=== PATIENT | female | born 1955 | race Caucasian/White ===

== ENCOUNTER 2020-08-29 16:57 | Inpatient (IN) | payer SELFPAY ==
[~2020-08-29 16:57] MED LIST: Heparin 1,000 UNITS/ML VIAL ONE
[2020-08-29] MEDS ORDERED: Albumin 25% 25 GM/100 ML BOT IVPB SCH (18:00)
[2020-08-29 18:01] LABS: #Basophils 0.1 thou/uL (0.0-0.2); #Eosinphils 0.3 thou/uL (0.0-0.7); #Lymphocytes 1.9 thou/uL (1.20-3.40); #Monocytes 1.7 thou/uL (0.11-0.59); #Neutrophils 7.8 thou/uL (1.40-6.50); %Basophils 0.7 % (0.0-1.0); %Eosinophils 2.3 % (0.0-10.0); %Lymphocytes 16.4 % (21.0-51.0); %Monocytes 14.7 % (0.0-10.0); %Neutrophils 65.8 % (42.0-75.0); Hemoglobin 15.5 g/dL (12.0-16.0); Mean Corpuscular HGB CONC 31.2 g/dL (32.0-36.0); Mean Corpuscular Hemoglobin 28.7 pg (27.0-31.0); Mean Corpuscular Volume 91.8 fL (78.0-98.0); Mean Platelet Volume 7.4 fL (7.4-10.4); Platelet Count 258 thou/uL (130-400); RBC Distribution Width 16.5 % (11.5-14.5); Red Blood Cell (RBC) Count 5.42 mill/uL (4.20-5.40); White Blood Cell (WBC) Count 11.8 thou/uL (4.8-10.8)
[2020-08-29] MEDS ORDERED: Furosemide 100 MG/10 ML VIAL ONE (18:21)
[2020-08-29 18:23] LABS: ALT (SGPT) 8 U/L (8-55); AST (SGOT) 18 U/L (5-34); Albumin 3.9 g/dL (3.4-4.8); Alkaline Phosphatase 102 U/L (40-110); Anion Gap 16 mmol/L (10-20); BUN (Urea Nitrogen) 13 mg/dL (9.8-20.1); Bilirubin, Total 1.9 mg/dL (0.2-1.2); Calc. Creatinine Clearance 0 mL/min (70-130); Calcium 9.3 mg/dL (7.8-10.44); Carbon Dioxide 32 mmol/L (23-31); Chloride 97 mmol/L (98-107); Globulin 3.6 g/dL (2.4-3.5); Glucose 108 mg/dL (80-115); Lipase 16 U/L (8-78); Magnesium 1.7 mg/dL (1.6-2.6); Potassium 3.2 mmol/L (3.5-5.1); Protein, Total 7.5 g/dL (5.8-8.1); Sodium 142 mmol/L (136-145)
[2020-08-29 20:38] LABS: Bilirubin Negative (Negative); Blood, Urine 2+ (Negative); Clarity Clear (Clear); Glucose, Urine (Dipstick) Normal (Negative); Ketone, Urine Negative (Negative); Leukocyte Negative Leu/uL (Negative); Mucous/LPF Rare LPF (<2+); Nitrite Negative (Negative); Protein, Urine (Dipstick) 50 mg/dL (Neg-Trace); RBC/HPF 0-3 HPF (0-3); Specific Gravity, Urine 1.012 (1.002-1.036); Urobilinogen Normal mg/dL (Less than 2); WBC/HPF 0-3 HPF (0-3)
[2020-08-29 20:45] LABS: Bacteria/HPF 1+ HPF (None Seen)
[2020-08-30] MEDS ORDERED: Potassium Chloride 20 MEQ TAB PO SCH (00:31)
[2020-08-30] MEDS ORDERED: Magnesium Oxide 400 MG TAB PO SCH (00:45)
[2020-08-30] MEDS ORDERED: Bumetanide 1 MG/4 ML VIAL IVP SCH ×3 (00:45→09:00)
[2020-08-30] MEDS ORDERED: Potassium Chloride 20 MEQ TAB ONE ×2 (01:24→09:39)
[2020-08-30] MEDS ORDERED: Potassium Chloride 20 MEQ/100 ML PREMIX BAG ONE ×2 (01:24→05:00)
[2020-08-30] MEDS: Potassium Chloride 20 MEQ in Premix Bag 1 BAG IVPB SCH ×2 (01:39→05:19)
[2020-08-30] MEDS ORDERED: Dextrose 50% Abboject 50 ML SYRINGE SLOW IVP PRN (02:17)
[2020-08-30] MEDS ORDERED: Dextrose 5% in Water 1,000 ML IV PRN (02:17)
[2020-08-30 02:40] LABS: SARS-CoV-2 NAA Rapid Test Not Detected (NotDetected)
[2020-08-30 06:49] LABS: Mean Corpuscular HGB CONC 30.9 g/dL (32.0-36.0); Mean Corpuscular Hemoglobin 28.9 pg (27.0-31.0); Mean Corpuscular Volume 93.3 fL (78.0-98.0); Mean Platelet Volume 7.8 fL (7.4-10.4); Platelet Count 225 thou/uL (130-400); RBC Distribution Width 16.4 % (11.5-14.5); Red Blood Cell (RBC) Count 4.84 mill/uL (4.20-5.40); White Blood Cell (WBC) Count 7.9 thou/uL (4.8-10.8)
[2020-08-30 06:55] LABS: Anion Gap 19 mmol/L (10-20); BUN (Urea Nitrogen) 13 mg/dL (9.8-20.1); Calc. Creatinine Clearance 94 mL/min (70-130); Calcium 8.8 mg/dL (7.8-10.44); Carbon Dioxide 25 mmol/L (23-31); Chloride 101 mmol/L (98-107); Glucose 128 mg/dL (80-115); Magnesium 1.7 mg/dL (1.6-2.6); Potassium 4.5 mmol/L (3.5-5.1); Sodium 140 mmol/L (136-145)
[2020-08-30 07:10] LABS: INR-International Normal Ratio 1.2
[2020-08-30 07:24] LABS: Band 5 % (5-11); Eosinophils 1 % (0-10); Lymphocytes 23 % (21-51); MDiff Complete? YES; Monocytes 15 % (0-10); Neutrophil 56 % (42-75); Platelet Morphology Comment Appears Adequate; RBC Morphology Normal
[2020-08-30] MEDS ORDERED: glipiZIDE 10 MG TAB PO SCH (08:00)
[2020-08-30] MEDS ORDERED: Carvedilol 25 MG TAB PO SCH (08:00)
[2020-08-30] MEDS ORDERED: predniSONE 5 MG TAB PO SCH (08:00)
[2020-08-30] MEDS ORDERED: Furosemide 100 MG/10 ML VIAL SLOW IVP SCH ×5 (08:30→11:00)
[2020-08-30] MEDS ORDERED: Atenolol 50 MG TAB PO SCH (09:00)
[2020-08-30] MEDS ORDERED: Losartan 25 MG TAB PO SCH (09:00)
[2020-08-30] MEDS ORDERED: Metolazone 2.5 MG TAB PO SCH (09:00)
[2020-08-30] MEDS ORDERED: Escitalopram Oxalate 10 mg Tablet PO SCH (09:00)
[2020-08-30] MEDS ORDERED: HumuLIN 70/30 (300 UNITS/3 ML VIAL) SC SCH (09:00)
[2020-08-30] MEDS ORDERED: Amlodipine 10 MG TAB PO SCH (09:00)
[2020-08-30] MEDS ORDERED: Nitroglycerin 2% Ointment 1 INCH/1 GM Packet TOP SCH (09:15)
[2020-08-30] MEDS ORDERED: Enoxaparin Sodium 40 MG/0.4 ML SYRINGE ONE (09:24)
[2020-08-30] MEDS: Atorvastatin Calcium 10 MG TAB PO SCH (09:30)
[2020-08-30] MEDS: Potassium Chloride 20 MEQ TAB PO SCH ×2 (09:30→21:42)
[2020-08-30] MEDS: Liothyronine Sodium 25 MCG TAB PO SCH ×2 (09:30→21:52)
[2020-08-30] MEDS: Magnesium Oxide 400 MG TAB PO SCH ×2 (09:30→21:42)
[2020-08-30] MEDS ORDERED: Iopamidol-370 76% 500 ML 1 ML ONE (09:30)
[2020-08-30] MEDS: Enoxaparin Sodium 40 MG/0.4 ML SYRINGE SC SCH (09:30)
[2020-08-30] MEDS: Escitalopram Oxalate 20 mg Tablet PO SCH (09:30)
[2020-08-30] MEDS ORDERED: predniSONE 1 MG/ML ML PO SCH (11:00)
[2020-08-30] MEDS ORDERED: Furosemide 100 MG/10 ML VIAL ONE (11:10)
[2020-08-30 12:26] LABS: Cardiac Risk 4.5 (Less than 4.5)
[2020-08-30] MEDS ORDERED: Milrinone Lactate/D5W 20 MG in Premix Bag 1 BAG IVPB SCH (14:15)
[2020-08-30] MEDS ORDERED: Milrinone 20 MG in Sodium Chloride 0.9% 100 ML IVPB SCH ×2 (14:15→17:00)
[2020-08-30] MEDS ORDERED: Milrinone Lactate/D5W 20 MG in Premix Bag 1 BAG IV SCH (17:00)
[2020-08-30] MEDS: Spironolactone 25 MG TAB PO SCH (21:47)
[2020-08-30] MEDS: Nystatin Cream 15 GM TUBE TOP SCH ×2 (21:54)
[2020-08-30] MEDS: NPH, Human Insulin Isophane 300 UNIT/3 ML VIAL SC SCH (22:02)
[2020-08-30] MEDS ORDERED: Furosemide 100 MG in Sodium Chloride 0.9% 90 ML IVPB SCH (23:15)
[2020-08-30] MEDS ORDERED: Furosemide 40 MG/4 ML VIAL SLOW IVP SCH (23:30)
[2020-08-30] MEDS ORDERED: Metolazone 5 MG TAB PO SCH (23:30)
[2020-08-31] MEDS: Carvedilol 6.25 MG TAB PO SCH ×2 (00:22→08:40)
[2020-08-31 04:16] LABS: Anion Gap 13 mmol/L (10-20); BUN (Urea Nitrogen) 14 mg/dL (9.8-20.1); Calc. Creatinine Clearance 78 mL/min (70-130); Calcium 8.9 mg/dL (7.8-10.44); Carbon Dioxide 33 mmol/L (23-31); Chloride 99 mmol/L (98-107); Glucose 139 mg/dL (80-115); Potassium 4.2 mmol/L (3.5-5.1); Sodium 141 mmol/L (136-145)
[2020-08-31 05:10] LABS: Band 7 % (5-11); Hemoglobin 12.6 g/dL (12.0-16.0); Lymphocytes 20 % (21-51); MDiff Complete? YES; Mean Corpuscular HGB CONC 32.1 g/dL (32.0-36.0); Mean Corpuscular Hemoglobin 29.5 pg (27.0-31.0); Mean Platelet Volume 7.8 fL (7.4-10.4); Monocytes 13 % (0-10); Neutrophil 58 % (42-75); Platelet Count 209 thou/uL (130-400); RBC Distribution Width 15.9 % (11.5-14.5); Red Blood Cell (RBC) Count 4.26 mill/uL (4.20-5.40); White Blood Cell (WBC) Count 8.9 thou/uL (4.8-10.8)
[2020-08-31] MEDS: Spironolactone 25 MG TAB PO SCH (08:39)
[2020-08-31] MEDS ORDERED: Losartan 25 MG TAB PO SCH (09:00)
[2020-08-31] MEDS: predniSONE 20 MG TAB PO SCH (09:52)
[2020-08-31] MEDS: Magnesium Oxide 400 MG TAB PO SCH ×2 (09:52→20:21)
[2020-08-31] MEDS: Enoxaparin Sodium 40 MG/0.4 ML SYRINGE SC SCH (09:52)
[2020-08-31] MEDS: Potassium Chloride 20 MEQ TAB PO SCH ×2 (09:53→16:27)
[2020-08-31] MEDS: Liothyronine Sodium 25 MCG TAB PO SCH ×2 (09:54→20:21)
[2020-08-31] MEDS: Escitalopram Oxalate 20 mg Tablet PO SCH (09:54)
[2020-08-31] MEDS: NPH, Human Insulin Isophane 300 UNIT/3 ML VIAL SC SCH ×2 (09:54→20:23)
[2020-08-31] MEDS: Nystatin Cream 15 GM TUBE TOP SCH ×2 (09:55→20:22)
[2020-08-31] MEDS ORDERED: Magnesium 2 GM/50 ML 2 GM in Premix Bag 1 BAG IVPB SCH (10:15)
[2020-08-31] MEDS ORDERED: Electrolyte Replacement Protocol FS PRN (10:15)
[2020-08-31] MEDS ORDERED: AcetaZOLAMIDE 250 MG TAB PO SCH (13:15)
[2020-08-31 13:57] LABS: Bacteria/HPF None Seen HPF (None Seen); Mucous/LPF Rare LPF (<2+); RBC/HPF 0-3 HPF (0-3); Squamous Epithelial 0-3 HPF (0-3); WBC/HPF 0-3 HPF (0-3)
[2020-08-31] MEDS ORDERED: Metolazone 5 MG TAB PO SCH (14:00)
[2020-08-31] MEDS ORDERED: Furosemide 40 MG/4 ML VIAL SLOW IVP SCH (14:30)
[2020-08-31] MEDS: Furosemide 100 MG in Sodium Chloride 0.9% 90 ML IVPB SCH (14:36)
[2020-08-31 14:44] LABS: Anion Gap 15 mmol/L (10-20); BUN (Urea Nitrogen) 15 mg/dL (9.8-20.1); Calc. Creatinine Clearance 101 mL/min (70-130); Carbon Dioxide 32 mmol/L (23-31); Chloride 97 mmol/L (98-107); Glucose 128 mg/dL (80-115); Magnesium 2.1 mg/dL (1.6-2.6); Potassium 4.1 mmol/L (3.5-5.1); Sodium 140 mmol/L (136-145)
[2020-08-31] MEDS: Milrinone Lactate/D5W 20 MG in Premix Bag 1 BAG IV SCH (15:45)
[2020-08-31] MEDS: Atorvastatin Calcium 10 MG TAB PO SCH (16:05)
[2020-08-31] MEDS: HumaLOG 300 UNITS/3 ML VIAL SC PRN (20:24)
[2020-08-31 22:32] LABS: Anion Gap 13 mmol/L (10-20); BUN (Urea Nitrogen) 17 mg/dL (9.8-20.1); Calc. Creatinine Clearance 95 mL/min (70-130); Calcium 8.8 mg/dL (7.8-10.44); Carbon Dioxide 34 mmol/L (23-31); Chloride 96 mmol/L (98-107); Glucose 188 mg/dL (80-115); Magnesium 2.1 mg/dL (1.6-2.6); Potassium 4.3 mmol/L (3.5-5.1); Sodium 139 mmol/L (136-145)
[2020-09-01] MEDS: Milrinone Lactate/D5W 20 MG in Premix Bag 1 BAG IV SCH ×3 (00:50→23:08)
[2020-09-01] MEDS: Furosemide 100 MG in Sodium Chloride 0.9% 90 ML IVPB SCH (00:50)
[2020-09-01 04:27] LABS: Hemoglobin 11.8 g/dL (12.0-16.0); Mean Corpuscular HGB CONC 30.9 g/dL (32.0-36.0); Mean Corpuscular Volume 93.8 fL (78.0-98.0); Mean Platelet Volume 7.9 fL (7.4-10.4); Platelet Count 213 thou/uL (130-400); RBC Distribution Width 15.6 % (11.5-14.5); Red Blood Cell (RBC) Count 4.06 mill/uL (4.20-5.40); White Blood Cell (WBC) Count 9.1 thou/uL (4.8-10.8)
[2020-09-01 04:38] LABS: Anion Gap 13 mmol/L (10-20); BUN (Urea Nitrogen) 17 mg/dL (9.8-20.1); Calc. Creatinine Clearance 95 mL/min (70-130); Carbon Dioxide 36 mmol/L (23-31); Chloride 94 mmol/L (98-107); Glucose 160 mg/dL (80-115); Magnesium 2.3 mg/dL (1.6-2.6); Sodium 139 mmol/L (136-145)
[2020-09-01 05:22] LABS: Band 3 % (5-11); Hypochromia SLIGHT = 6-15 cells (100X) (0-5/hpf); Lymphocytes 21 % (21-51); MDiff Complete? YES; Monocytes 12 % (0-10); Neutrophil 63 % (42-75)
[2020-09-01] MEDS ORDERED: Acetaminophen 500 MG TAB PO SCH (07:30)
[2020-09-01] MEDS ORDERED: VANCOMYCIN 1.75 GM/350 ML BAG 1.75 GM in Premix Bag 1 BAG IVPB SCH ×2 (08:00→11:00)
[2020-09-01] MEDS ORDERED: Furosemide 100 MG in Sodium Chloride 0.9% 90 ML IVPB SCH (08:00)
[2020-09-01] MEDS: Atorvastatin Calcium 10 MG TAB PO SCH (08:31)
[2020-09-01] MEDS: AcetaZOLAMIDE 250 MG TAB PO SCH ×2 (08:32→22:49)
[2020-09-01] MEDS: predniSONE 20 MG TAB PO SCH (08:32)
[2020-09-01] MEDS: Magnesium Oxide 400 MG TAB PO SCH ×2 (08:32→22:48)
[2020-09-01] MEDS: Escitalopram Oxalate 20 mg Tablet PO SCH (08:32)
[2020-09-01] MEDS: Enoxaparin Sodium 40 MG/0.4 ML SYRINGE SC SCH (08:33)
[2020-09-01] MEDS: Liothyronine Sodium 25 MCG TAB PO SCH ×2 (08:33→22:48)
[2020-09-01] MEDS: Potassium Chloride 20 MEQ TAB PO SCH ×2 (08:33→17:25)
[2020-09-01] MEDS: NPH, Human Insulin Isophane 300 UNIT/3 ML VIAL SC SCH ×2 (08:34→22:49)
[2020-09-01] MEDS: Nystatin Cream 15 GM TUBE TOP SCH ×2 (08:34→22:49)
[2020-09-01] MEDS: Cefepime 2 GM in Sodium Chloride 0.9% 100 ML IVPB SCH ×2 (08:36→22:35)
[2020-09-01] MEDS ORDERED: AcetaZOLAMIDE 250 MG TAB PO SCH (09:00)
[2020-09-01] MEDS: Ondansetron ODT 4 MG TAB PO PRN (10:16)
[2020-09-01 16:27] LABS: Anion Gap 14 mmol/L (10-20); BUN (Urea Nitrogen) 20 mg/dL (9.8-20.1); Calc. Creatinine Clearance 94 mL/min (70-130); Calcium 8.9 mg/dL (7.8-10.44); Carbon Dioxide 36 mmol/L (23-31); Chloride 92 mmol/L (98-107); Glucose 163 mg/dL (80-115); Magnesium 2.2 mg/dL (1.6-2.6); Potassium 4.3 mmol/L (3.5-5.1); Sodium 138 mmol/L (136-145)
[2020-09-02 00:22] LABS: Anion Gap 14 mmol/L (10-20); BUN (Urea Nitrogen) 22 mg/dL (9.8-20.1); Calc. Creatinine Clearance 89 mL/min (70-130); Calcium 8.8 mg/dL (7.8-10.44); Carbon Dioxide 35 mmol/L (23-31); Chloride 91 mmol/L (98-107); Glucose 193 mg/dL (80-115); Magnesium 2.2 mg/dL (1.6-2.6); Potassium 4.1 mmol/L (3.5-5.1); Sodium 136 mmol/L (136-145)
[2020-09-02 04:00] LABS: Band 3 % (5-11); Hemoglobin 11.8 g/dL (12.0-16.0); Lymphocytes 20 % (21-51); MDiff Complete? YES; Mean Corpuscular HGB CONC 31.5 g/dL (32.0-36.0); Mean Corpuscular Hemoglobin 29.2 pg (27.0-31.0); Mean Corpuscular Volume 92.7 fL (78.0-98.0); Monocytes 14 % (0-10); Neutrophil 63 % (42-75); Platelet Count 193 thou/uL (130-400); RBC Distribution Width 15.6 % (11.5-14.5); Red Blood Cell (RBC) Count 4.04 mill/uL (4.20-5.40)
[2020-09-02 06:28] LABS: Anion Gap 13 mmol/L (10-20); BUN (Urea Nitrogen) 22 mg/dL (9.8-20.1); Calc. Creatinine Clearance 94 mL/min (70-130); Calcium 8.8 mg/dL (7.8-10.44); Carbon Dioxide 37 mmol/L (23-31); Chloride 92 mmol/L (98-107); Glucose 136 mg/dL (80-115); Magnesium 2.2 mg/dL (1.6-2.6); Potassium 3.7 mmol/L (3.5-5.1); Sodium 138 mmol/L (136-145)
[2020-09-02] MEDS ORDERED: Potassium Chloride 20 MEQ TAB PO SCH (06:45)
[2020-09-02] MEDS ORDERED: Furosemide 100 MG/10 ML VIAL SLOW IVP SCH (07:30)
[2020-09-02] MEDS: Escitalopram Oxalate 20 mg Tablet PO SCH (09:14)
[2020-09-02] MEDS: Liothyronine Sodium 25 MCG TAB PO SCH ×2 (09:14→22:03)
[2020-09-02] MEDS: Atorvastatin Calcium 10 MG TAB PO SCH (09:15)
[2020-09-02] MEDS: Enoxaparin Sodium 40 MG/0.4 ML SYRINGE SC SCH (09:15)
[2020-09-02] MEDS: AcetaZOLAMIDE 250 MG TAB PO SCH ×2 (09:15→22:03)
[2020-09-02] MEDS: Magnesium Oxide 400 MG TAB PO SCH ×2 (09:15→22:03)
[2020-09-02] MEDS: predniSONE 20 MG TAB PO SCH (09:15)
[2020-09-02] MEDS: Potassium Chloride 20 MEQ TAB PO SCH ×2 (09:17→17:21)
[2020-09-02] MEDS: Milrinone Lactate/D5W 20 MG in Premix Bag 1 BAG IV SCH ×3 (09:18→22:09)
[2020-09-02] MEDS: Nystatin Cream 15 GM TUBE TOP SCH ×2 (09:19→22:03)
[2020-09-02] MEDS: NPH, Human Insulin Isophane 300 UNIT/3 ML VIAL SC SCH ×2 (09:19→22:04)
[2020-09-02] MEDS: Cefepime 2 GM in Sodium Chloride 0.9% 100 ML IVPB SCH ×2 (09:24→22:04)
[2020-09-02] MEDS ORDERED: VANCOMYCIN 1.25 GM/250 ML BAG 1.25 GM in Premix Bag 1 BAG IVPB SCH (12:00)
[2020-09-02] MEDS ORDERED: Vancomycin HCl 1.25 GM in Sodium Chloride 0.9% 250 ML 250 ML IVPB SCH (12:00)
[2020-09-02] MEDS: Furosemide 100 MG/10 ML VIAL SLOW IVP SCH (14:18)
[2020-09-02 15:53] LABS: Potassium 4.1 mmol/L (3.5-5.1)
[2020-09-02] MEDS: HumaLOG 300 UNITS/3 ML VIAL SC PRN (17:21)
[2020-09-02] MEDS ORDERED: diphenhydrAMINE 12.5 MG/5 ML UDCUP PO SCH (22:00)
[2020-09-02] MEDS ORDERED: diphenhydrAMINE 50 MG/ML VIAL IVP SCH (22:00)
[2020-09-02] MEDS ORDERED: hydrOXYzine 25 MG TAB PO SCH (22:00)
[2020-09-03 04:27] LABS: Band 1 % (5-11); Hemoglobin 11.8 g/dL (12.0-16.0); Lymphocytes 19 % (21-51); MDiff Complete? YES; Mean Corpuscular HGB CONC 31.5 g/dL (32.0-36.0); Mean Corpuscular Hemoglobin 28.9 pg (27.0-31.0); Mean Corpuscular Volume 91.8 fL (78.0-98.0); Mean Platelet Volume 7.8 fL (7.4-10.4); Monocytes 16 % (0-10); Neutrophil 64 % (42-75); Platelet Count 177 thou/uL (130-400); RBC Distribution Width 15.3 % (11.5-14.5); Red Blood Cell (RBC) Count 4.09 mill/uL (4.20-5.40); White Blood Cell (WBC) Count 8.2 thou/uL (4.8-10.8)
[2020-09-03] MEDS: Furosemide 100 MG/10 ML VIAL SLOW IVP SCH ×2 (06:27→13:22)
[2020-09-03] MEDS: Milrinone Lactate/D5W 20 MG in Premix Bag 1 BAG IV SCH ×3 (06:27→21:39)
[2020-09-03 08:09] LABS: BUN (Urea Nitrogen) 22 mg/dL (9.8-20.1); Calc. Creatinine Clearance 111 mL/min (70-130); Calcium 9.1 mg/dL (7.8-10.44); Glucose 89 mg/dL (80-115); Magnesium 1.9 mg/dL (1.6-2.6)
[2020-09-03 08:18] LABS: Anion Gap 21 mmol/L (10-20); Carbon Dioxide 28 mmol/L (23-31); Chloride 90 mmol/L (98-107); Potassium 3.5 mmol/L (3.5-5.1); Sodium 135 mmol/L (136-145)
[2020-09-03] MEDS ORDERED: Magnesium 2 GM/50 ML 2 GM in Premix Bag 1 BAG IVPB SCH (09:30)
[2020-09-03] MEDS ORDERED: Potassium Chloride 20 MEQ TAB PO SCH (09:30)
[2020-09-03] MEDS: Potassium Chloride 20 MEQ TAB PO SCH ×2 (09:38→16:56)
[2020-09-03] MEDS: predniSONE 20 MG TAB PO SCH (09:38)
[2020-09-03] MEDS: Escitalopram Oxalate 20 mg Tablet PO SCH (09:39)
[2020-09-03] MEDS: Enoxaparin Sodium 40 MG/0.4 ML SYRINGE SC SCH (09:39)
[2020-09-03] MEDS: Atorvastatin Calcium 10 MG TAB PO SCH (09:39)
[2020-09-03] MEDS: AcetaZOLAMIDE 250 MG TAB PO SCH ×2 (09:39→21:30)
[2020-09-03] MEDS: Magnesium Oxide 400 MG TAB PO SCH ×2 (09:39→21:32)
[2020-09-03] MEDS: Liothyronine Sodium 25 MCG TAB PO SCH ×2 (09:39→21:32)
[2020-09-03] MEDS: Nystatin Cream 15 GM TUBE TOP SCH ×2 (09:40→21:33)
[2020-09-03] MEDS: NPH, Human Insulin Isophane 300 UNIT/3 ML VIAL SC SCH ×2 (09:41→21:32)
[2020-09-03] MEDS: Cefepime 2 GM in Sodium Chloride 0.9% 100 ML IVPB SCH (09:41)
[2020-09-03 11:30] LABS: Vancomycin, Trough 13.3 ug/mL
[2020-09-03] MEDS ORDERED: Apixaban 5 MG TAB PO SCH ×2 (12:15→21:00)
[2020-09-03 14:43] LABS: Magnesium 2.1 mg/dL (1.6-2.6); Potassium 3.7 mmol/L (3.5-5.1)
[2020-09-03] MEDS: HumaLOG 300 UNITS/3 ML VIAL SC PRN (16:56)
[2020-09-03 21:33] LABS: Anion Gap 16 mmol/L (10-20); BUN (Urea Nitrogen) 21 mg/dL (9.8-20.1); Calc. Creatinine Clearance 89 mL/min (70-130); Calcium 9.2 mg/dL (7.8-10.44); Carbon Dioxide 36 mmol/L (23-31); Chloride 88 mmol/L (98-107); Glucose 249 mg/dL (80-115); Magnesium 2.2 mg/dL (1.6-2.6); Potassium 4.2 mmol/L (3.5-5.1); Sodium 136 mmol/L (136-145)
[2020-09-03] MEDS ORDERED: hydrOXYzine 25 MG TAB PO PRN (23:13)
[2020-09-03] MEDS: hydrOXYzine 25 MG TAB PO PRN (23:52)
[2020-09-04 04:27] LABS: Band 9 % (5-11); Eosinophils 2 % (0-10); Lymphocytes 20 % (21-51); MDiff Complete? YES; Mean Corpuscular HGB CONC 31.7 g/dL (32.0-36.0); Mean Corpuscular Hemoglobin 29.1 pg (27.0-31.0); Mean Corpuscular Volume 91.8 fL (78.0-98.0); Mean Platelet Volume 8.2 fL (7.4-10.4); Monocytes 12 % (0-10); Neutrophil 55 % (42-75); Platelet Count 190 thou/uL (130-400); RBC Distribution Width 15.1 % (11.5-14.5); Red Blood Cell (RBC) Count 4.12 mill/uL (4.20-5.40); White Blood Cell (WBC) Count 6.5 thou/uL (4.8-10.8)
[2020-09-04] MEDS: Furosemide 100 MG/10 ML VIAL SLOW IVP SCH (06:04)
[2020-09-04] MEDS: Potassium Chloride 20 MEQ TAB PO SCH ×2 (08:23→17:21)
[2020-09-04] MEDS: predniSONE 20 MG TAB PO SCH (08:23)
[2020-09-04] MEDS: Escitalopram Oxalate 20 mg Tablet PO SCH (08:24)
[2020-09-04] MEDS: Liothyronine Sodium 25 MCG TAB PO SCH ×2 (08:24→21:11)
[2020-09-04] MEDS: AcetaZOLAMIDE 250 MG TAB PO SCH ×2 (08:25→21:11)
[2020-09-04] MEDS: Magnesium Oxide 400 MG TAB PO SCH ×2 (08:25→21:11)
[2020-09-04] MEDS: Atorvastatin Calcium 10 MG TAB PO SCH (08:25)
[2020-09-04] MEDS: Nystatin Cream 15 GM TUBE TOP SCH ×2 (08:25→21:12)
[2020-09-04] MEDS: NPH, Human Insulin Isophane 300 UNIT/3 ML VIAL SC SCH ×2 (08:26→21:13)
[2020-09-04] MEDS ORDERED: NPH, Human Insulin Isophane 300 UNIT/3 ML VIAL SC SCH (10:00)
[2020-09-04 10:18] LABS: BUN (Urea Nitrogen) 21 mg/dL (9.8-20.1); Calc. Creatinine Clearance 96 mL/min (70-130); Calcium 9.4 mg/dL (7.8-10.44); Glucose 184 mg/dL (80-115); Magnesium 2.4 mg/dL (1.6-2.6)
[2020-09-04 10:27] LABS: Anion Gap 18 mmol/L (10-20); Carbon Dioxide 33 mmol/L (23-31); Chloride 89 mmol/L (98-107); Potassium 3.9 mmol/L (3.5-5.1); Sodium 136 mmol/L (136-145)
[2020-09-04] MEDS: HumaLOG 300 UNITS/3 ML VIAL SC PRN (17:21)
[2020-09-04] MEDS: hydrOXYzine 25 MG TAB PO PRN (21:11)
[2020-09-04] MEDS: Apixaban 5 MG TAB PO SCH (21:11)
[2020-09-04] MEDS: Milrinone Lactate/D5W 20 MG in Premix Bag 1 BAG IV SCH (21:13)
[2020-09-04 21:38] LABS: Anion Gap 16 mmol/L (10-20); BUN (Urea Nitrogen) 21 mg/dL (9.8-20.1); Calc. Creatinine Clearance 101 mL/min (70-130); Calcium 9.2 mg/dL (7.8-10.44); Carbon Dioxide 32 mmol/L (23-31); Chloride 91 mmol/L (98-107); Glucose 260 mg/dL (80-115); Magnesium 2.2 mg/dL (1.6-2.6); Potassium 3.9 mmol/L (3.5-5.1); Sodium 135 mmol/L (136-145)
[2020-09-05 01:57] LABS: Actual Bicarbonate (HCO3a) 42.6 mEq/L (22-28); Base Excess (BEa) 13.5 mEq/L (-2.0 to +3.0); Hemoglobin (Hb) 12.3 g/dL (12.0-16.0); Potassium - ABG Lab 3.64 mmol/L (3.70-5.30); pH, Arterial 7.34 (7.35-7.45)
[2020-09-05 02:02] LABS: Puncture Site RRA
[2020-09-05 04:17] LABS: Band 1 % (5-11); Eosinophils 4 % (0-10); Lymphocytes 20 % (21-51); MDiff Complete? YES; Mean Corpuscular HGB CONC 30.5 g/dL (32.0-36.0); Mean Corpuscular Hemoglobin 28.1 pg (27.0-31.0); Mean Corpuscular Volume 92.4 fL (78.0-98.0); Mean Platelet Volume 8.3 fL (7.4-10.4); Monocytes 16 % (0-10); Neutrophil 59 % (42-75); Platelet Count 188 thou/uL (130-400); RBC Distribution Width 15.2 % (11.5-14.5); Red Blood Cell (RBC) Count 4.25 mill/uL (4.20-5.40); White Blood Cell (WBC) Count 6.9 thou/uL (4.8-10.8)
[2020-09-05] MEDS: Furosemide 100 MG/10 ML VIAL SLOW IVP SCH (05:53)
[2020-09-05] MEDS: SODIUM CHLORIDE 0.9% IVPB SCH (05:53)
[2020-09-05] MEDS: MILRINONE LACTATE IVPB SCH (05:53)
[2020-09-05 09:25] LABS: Anion Gap 14 mmol/L (10-20); BUN (Urea Nitrogen) 19 mg/dL (9.8-20.1); Calc. Creatinine Clearance 118 mL/min (70-130); Carbon Dioxide 34 mmol/L (23-31); Chloride 95 mmol/L (98-107); Glucose 94 mg/dL (80-115); Magnesium 2.2 mg/dL (1.6-2.6); Potassium 3.2 mmol/L (3.5-5.1); Sodium 140 mmol/L (136-145)
[2020-09-05] MEDS: AcetaZOLAMIDE 250 MG TAB PO SCH (09:25)
[2020-09-05] MEDS: Apixaban 5 MG TAB PO SCH ×2 (09:25→21:13)
[2020-09-05] MEDS: Liothyronine Sodium 25 MCG TAB PO SCH ×2 (09:25→21:12)
[2020-09-05] MEDS: Atorvastatin Calcium 10 MG TAB PO SCH (09:25)
[2020-09-05] MEDS: Escitalopram Oxalate 20 mg Tablet PO SCH (09:26)
[2020-09-05] MEDS: Magnesium Oxide 400 MG TAB PO SCH ×2 (09:26→21:13)
[2020-09-05] MEDS: predniSONE 20 MG TAB PO SCH (09:26)
[2020-09-05] MEDS: Potassium Chloride 20 MEQ TAB PO SCH ×2 (09:26→17:37)
[2020-09-05] MEDS: NPH, Human Insulin Isophane 300 UNIT/3 ML VIAL SC SCH ×2 (09:27→21:18)
[2020-09-05] MEDS: Nystatin Cream 15 GM TUBE TOP SCH ×2 (09:27→22:02)
[2020-09-05] MEDS ORDERED: Potassium Chloride 20 MEQ/100 ML PREMIX BAG IVPB SCH (10:00)
[2020-09-05] MEDS ORDERED: Potassium Chloride 20 MEQ TAB PO SCH (10:00)
[2020-09-05 21:56] LABS: Anion Gap 13 mmol/L (10-20); BUN (Urea Nitrogen) 20 mg/dL (9.8-20.1); Calc. Creatinine Clearance 98 mL/min (70-130); Calcium 9.4 mg/dL (7.8-10.44); Carbon Dioxide 34 mmol/L (23-31); Chloride 93 mmol/L (98-107); Glucose 255 mg/dL (80-115); Magnesium 2.3 mg/dL (1.6-2.6); Potassium 4.2 mmol/L (3.5-5.1); Sodium 136 mmol/L (136-145)
[2020-09-06] MEDS: MILRINONE LACTATE IVPB SCH (00:20)
[2020-09-06] MEDS: SODIUM CHLORIDE 0.9% IVPB SCH (00:20)
[2020-09-06 04:44] LABS: Band 8 % (5-11); Eosinophils 3 % (0-10); Hemoglobin 11.6 g/dL (12.0-16.0); Lymphocytes 26 % (21-51); MDiff Complete? YES; Mean Corpuscular HGB CONC 30.8 g/dL (32.0-36.0); Mean Corpuscular Hemoglobin 28.7 pg (27.0-31.0); Mean Corpuscular Volume 93.3 fL (78.0-98.0); Mean Platelet Volume 8.6 fL (7.4-10.4); Monocytes 13 % (0-10); Neutrophil 50 % (42-75); Platelet Count 213 thou/uL (130-400); RBC Distribution Width 15.3 % (11.5-14.5); Red Blood Cell (RBC) Count 4.05 mill/uL (4.20-5.40); White Blood Cell (WBC) Count 7.4 thou/uL (4.8-10.8)
[2020-09-06] MEDS: Furosemide 100 MG/10 ML VIAL SLOW IVP SCH (05:43)
[2020-09-06] MEDS: Milrinone Lactate/D5W 20 MG in Premix Bag 1 BAG IV SCH ×2 (06:47→23:31)
[2020-09-06] MEDS: Apixaban 5 MG TAB PO SCH ×2 (08:44→21:10)
[2020-09-06] MEDS: Potassium Chloride 20 MEQ TAB PO SCH ×2 (08:44→18:40)
[2020-09-06] MEDS: NPH, Human Insulin Isophane 300 UNIT/3 ML VIAL SC SCH ×2 (08:45→21:11)
[2020-09-06] MEDS: Escitalopram Oxalate 20 mg Tablet PO SCH (08:45)
[2020-09-06] MEDS: Magnesium Oxide 400 MG TAB PO SCH ×2 (08:45→21:10)
[2020-09-06] MEDS: predniSONE 20 MG TAB PO SCH (08:45)
[2020-09-06] MEDS: AcetaZOLAMIDE 250 MG TAB PO SCH (08:45)
[2020-09-06] MEDS: Nystatin Cream 15 GM TUBE TOP SCH ×2 (08:46→21:10)
[2020-09-06 09:10] LABS: Anion Gap 16 mmol/L (10-20); BUN (Urea Nitrogen) 17 mg/dL (9.8-20.1); Calc. Creatinine Clearance 118 mL/min (70-130); Calcium 9.1 mg/dL (7.8-10.44); Carbon Dioxide 30 mmol/L (23-31); Chloride 99 mmol/L (98-107); Glucose 114 mg/dL (80-115); Magnesium 2.1 mg/dL (1.6-2.6); Potassium 3.5 mmol/L (3.5-5.1); Sodium 141 mmol/L (136-145)
[2020-09-06] MEDS ORDERED: Potassium Chloride 20 MEQ TAB PO SCH (09:30)
[2020-09-06] MEDS: Atorvastatin Calcium 10 MG TAB PO SCH ×2 (12:06→21:10)
[2020-09-06] MEDS: Liothyronine Sodium 25 MCG TAB PO SCH ×2 (13:17→21:10)
[2020-09-06] MEDS: Melatonin 3 MG TAB PO PRN (21:10)
[2020-09-07 04:46] LABS: Anion Gap 13 mmol/L (10-20); BUN (Urea Nitrogen) 19 mg/dL (9.8-20.1); Calc. Creatinine Clearance 123 mL/min (70-130); Calcium 8.9 mg/dL (7.8-10.44); Carbon Dioxide 32 mmol/L (23-31); Chloride 99 mmol/L (98-107); Glucose 139 mg/dL (80-115); Magnesium 2.3 mg/dL (1.6-2.6); Potassium 4.2 mmol/L (3.5-5.1); Sodium 140 mmol/L (136-145)
[2020-09-07] MEDS: Bumetanide 1 MG TAB PO SCH ×2 (05:21→12:08)
[2020-09-07] MEDS: Milrinone Lactate/D5W 20 MG in Premix Bag 1 BAG IV SCH ×2 (05:55→22:54)
[2020-09-07] MEDS: predniSONE 20 MG TAB PO SCH (08:49)
[2020-09-07] MEDS: Potassium Chloride 20 MEQ TAB PO SCH ×2 (08:49→16:58)
[2020-09-07] MEDS: Liothyronine Sodium 25 MCG TAB PO SCH ×2 (08:49→21:21)
[2020-09-07] MEDS: AcetaZOLAMIDE 250 MG TAB PO SCH (08:50)
[2020-09-07] MEDS: NPH, Human Insulin Isophane 300 UNIT/3 ML VIAL SC SCH ×2 (08:50→21:22)
[2020-09-07] MEDS: Escitalopram Oxalate 20 mg Tablet PO SCH (08:50)
[2020-09-07] MEDS: Apixaban 5 MG TAB PO SCH ×2 (08:50→21:21)
[2020-09-07] MEDS: Nystatin Cream 15 GM TUBE TOP SCH ×2 (08:50→21:22)
[2020-09-07] MEDS: Magnesium Oxide 400 MG TAB PO SCH ×2 (08:50→21:21)
[2020-09-07] MEDS: Fluticasone Propionate Nasal Spray 16 gm Bottle NASAL SCH (08:51)
[2020-09-07] MEDS: Atorvastatin Calcium 10 MG TAB PO SCH (21:21)
[2020-09-07] MEDS: Melatonin 3 MG TAB PO PRN (21:21)
[2020-09-07] MEDS: hydrOXYzine 25 MG TAB PO PRN (21:48)
[2020-09-07] MEDS ORDERED: Calcium Polycarbophil 625 MG TAB PO PRN (23:51)
[2020-09-08 04:07] LABS: Anion Gap 12 mmol/L (10-20); BUN (Urea Nitrogen) 19 mg/dL (9.8-20.1); Calc. Creatinine Clearance 110 mL/min (70-130); Calcium 8.9 mg/dL (7.8-10.44); Carbon Dioxide 32 mmol/L (23-31); Chloride 99 mmol/L (98-107); Glucose 140 mg/dL (80-115); Magnesium 2.2 mg/dL (1.6-2.6); Potassium 3.7 mmol/L (3.5-5.1); Sodium 139 mmol/L (136-145)
[2020-09-08] MEDS: Milrinone Lactate/D5W 20 MG in Premix Bag 1 BAG IV SCH ×2 (05:33→22:32)
[2020-09-08] MEDS: Bumetanide 1 MG TAB PO SCH ×2 (05:33→12:00)
[2020-09-08] MEDS ORDERED: Potassium Chloride 20 MEQ in Premix Bag 1 BAG IVPB SCH (06:45)
[2020-09-08] MEDS: Nystatin Cream 15 GM TUBE TOP SCH ×2 (08:17→20:35)
[2020-09-08] MEDS: Liothyronine Sodium 25 MCG TAB PO SCH ×2 (08:18→20:28)
[2020-09-08] MEDS: Escitalopram Oxalate 20 mg Tablet PO SCH (08:18)
[2020-09-08] MEDS: Magnesium Oxide 400 MG TAB PO SCH ×2 (08:18→20:28)
[2020-09-08] MEDS: Potassium Chloride 20 MEQ TAB PO SCH (08:18)
[2020-09-08] MEDS: AcetaZOLAMIDE 250 MG TAB PO SCH (08:19)
[2020-09-08] MEDS: Fluticasone Propionate Nasal Spray 16 gm Bottle NASAL SCH (08:19)
[2020-09-08] MEDS: predniSONE 20 MG TAB PO SCH (08:19)
[2020-09-08] MEDS: Apixaban 5 MG TAB PO SCH ×2 (08:19→20:28)
[2020-09-08] MEDS: NPH, Human Insulin Isophane 300 UNIT/3 ML VIAL SC SCH ×2 (08:20→20:31)
[2020-09-08] MEDS: Spironolactone 25 MG TAB PO SCH (10:06)
[2020-09-08] MEDS ORDERED: Potassium Chloride 20 MEQ TAB PO SCH (12:00)
[2020-09-08] MEDS: Melatonin 3 MG TAB PO PRN (20:28)
[2020-09-08] MEDS: Atorvastatin Calcium 10 MG TAB PO SCH (20:28)
[2020-09-08] MEDS: hydrOXYzine 25 MG TAB PO PRN (21:54)
[2020-09-09 03:59] LABS: Anion Gap 11 mmol/L (10-20); BUN (Urea Nitrogen) 20 mg/dL (9.8-20.1); Calc. Creatinine Clearance 108 mL/min (70-130); Calcium 8.7 mg/dL (7.8-10.44); Carbon Dioxide 32 mmol/L (23-31); Chloride 100 mmol/L (98-107); Glucose 112 mg/dL (80-115); Magnesium 2.2 mg/dL (1.6-2.6); Potassium 3.6 mmol/L (3.5-5.1); Sodium 139 mmol/L (136-145)
[2020-09-09] MEDS: Bumetanide 1 MG TAB PO SCH ×2 (05:14→12:17)
[2020-09-09] MEDS: Milrinone Lactate/D5W 20 MG in Premix Bag 1 BAG IV SCH ×2 (05:55→21:24)
[2020-09-09] MEDS: predniSONE 20 MG TAB PO SCH (07:57)
[2020-09-09] MEDS: Escitalopram Oxalate 20 mg Tablet PO SCH (07:57)
[2020-09-09] MEDS: AcetaZOLAMIDE 250 MG TAB PO SCH (07:58)
[2020-09-09] MEDS: Apixaban 5 MG TAB PO SCH ×2 (07:58→20:45)
[2020-09-09] MEDS: Magnesium Oxide 400 MG TAB PO SCH ×2 (07:58→20:46)
[2020-09-09] MEDS: Liothyronine Sodium 25 MCG TAB PO SCH ×2 (07:58→20:46)
[2020-09-09] MEDS: Nystatin Cream 15 GM TUBE TOP SCH ×2 (07:59→20:47)
[2020-09-09] MEDS: Fluticasone Propionate Nasal Spray 16 gm Bottle NASAL SCH (07:59)
[2020-09-09] MEDS ORDERED: Spironolactone 25 MG TAB PO SCH ×2 (08:00→09:15)
[2020-09-09] MEDS ORDERED: Potassium Chloride 20 MEQ TAB PO SCH ×3 (08:00→17:00)
[2020-09-09] MEDS: Spironolactone 25 MG TAB PO SCH (08:03)
[2020-09-09] MEDS: NPH, Human Insulin Isophane 300 UNIT/3 ML VIAL SC SCH ×2 (08:03→20:46)
[2020-09-09] MEDS: HumaLOG 300 UNITS/3 ML VIAL SC PRN (16:53)
[2020-09-09] MEDS: Atorvastatin Calcium 10 MG TAB PO SCH (20:45)
[2020-09-09] MEDS: Potassium Chloride 20 MEQ TAB PO SCH (20:46)
[2020-09-09] MEDS: Melatonin 3 MG TAB PO PRN (21:32)
[2020-09-10 04:39] LABS: Anion Gap 10 mmol/L (10-20); BUN (Urea Nitrogen) 22 mg/dL (9.8-20.1); Calc. Creatinine Clearance 106 mL/min (70-130); Carbon Dioxide 32 mmol/L (23-31); Chloride 101 mmol/L (98-107); Glucose 131 mg/dL (80-115); Magnesium 2.3 mg/dL (1.6-2.6); Sodium 139 mmol/L (136-145)
[2020-09-10] MEDS: Milrinone Lactate/D5W 20 MG in Premix Bag 1 BAG IV SCH ×2 (05:11→19:19)
[2020-09-10] MEDS: Bumetanide 1 MG TAB PO SCH ×2 (05:11→11:27)
[2020-09-10] MEDS: Liothyronine Sodium 25 MCG TAB PO SCH ×2 (08:41→20:58)
[2020-09-10] MEDS: Spironolactone 25 MG TAB PO SCH (08:42)
[2020-09-10] MEDS: predniSONE 20 MG TAB PO SCH (08:42)
[2020-09-10] MEDS: Magnesium Oxide 400 MG TAB PO SCH ×2 (08:42→20:57)
[2020-09-10] MEDS: Apixaban 5 MG TAB PO SCH ×2 (08:43→20:57)
[2020-09-10] MEDS: Potassium Chloride 20 MEQ TAB PO SCH ×2 (08:43→20:57)
[2020-09-10] MEDS: Escitalopram Oxalate 20 mg Tablet PO SCH (08:43)
[2020-09-10] MEDS: Fluticasone Propionate Nasal Spray 16 gm Bottle NASAL SCH (08:43)
[2020-09-10] MEDS: AcetaZOLAMIDE 250 MG TAB PO SCH (08:43)
[2020-09-10] MEDS: Nystatin Cream 15 GM TUBE TOP SCH ×2 (08:47→20:58)
[2020-09-10] MEDS ORDERED: Warfarin Sodium 5 MG TAB PO SCH (10:15)
[2020-09-10] MEDS: NPH, Human Insulin Isophane 300 UNIT/3 ML VIAL SC SCH ×2 (10:23→20:58)
[2020-09-10 12:05] LABS: INR-International Normal Ratio 1.2; PTT 36.3 sec (22.9-36.1); Prothrombin Time 15.2 sec (12.0-14.7)
[2020-09-10] MEDS: HumaLOG 300 UNITS/3 ML VIAL SC PRN (17:28)
[2020-09-10] MEDS: Atorvastatin Calcium 10 MG TAB PO SCH (20:57)
[2020-09-11] MEDS: Milrinone Lactate/D5W 20 MG in Premix Bag 1 BAG IV SCH ×3 (02:01→17:55)
[2020-09-11 04:55] LABS: INR-International Normal Ratio 1.2; Prothrombin Time 15.3 sec (12.0-14.7)
[2020-09-11 04:56] LABS: PTT 37.8 sec (22.9-36.1)
[2020-09-11 05:04] LABS: Anion Gap 9 mmol/L (10-20); BUN (Urea Nitrogen) 22 mg/dL (9.8-20.1); Calc. Creatinine Clearance 108 mL/min (70-130); Calcium 9.4 mg/dL (7.8-10.44); Carbon Dioxide 32 mmol/L (23-31); Chloride 101 mmol/L (98-107); Glucose 80 mg/dL (80-115); Magnesium 2.1 mg/dL (1.6-2.6); Sodium 138 mmol/L (136-145)
[2020-09-11] MEDS: Bumetanide 1 MG TAB PO SCH ×2 (05:08→20:30)
[2020-09-11 07:50] LABS: ALT (SGPT) 21 U/L (8-55); AST (SGOT) 23 U/L (5-34); Albumin 3.8 g/dL (3.4-4.8); Alkaline Phosphatase 120 U/L (40-110); Bilirubin, Direct 0.5 mg/dL (0.1-0.3); Protein, Total 6.8 g/dL (5.8-8.1)
[2020-09-11] MEDS: predniSONE 20 MG TAB PO SCH (08:19)
[2020-09-11] MEDS: Liothyronine Sodium 25 MCG TAB PO SCH ×2 (08:19→20:31)
[2020-09-11] MEDS: Potassium Chloride 20 MEQ TAB PO SCH ×2 (08:19→20:30)
[2020-09-11] MEDS: Escitalopram Oxalate 20 mg Tablet PO SCH (08:20)
[2020-09-11] MEDS: Apixaban 5 MG TAB PO SCH ×2 (08:20→20:29)
[2020-09-11] MEDS: Spironolactone 25 MG TAB PO SCH (08:20)
[2020-09-11] MEDS: AcetaZOLAMIDE 250 MG TAB PO SCH (08:20)
[2020-09-11] MEDS: NPH, Human Insulin Isophane 300 UNIT/3 ML VIAL SC SCH ×2 (08:20→20:36)
[2020-09-11] MEDS: Magnesium Oxide 400 MG TAB PO SCH ×2 (08:20→20:31)
[2020-09-11] MEDS: Fluticasone Propionate Nasal Spray 16 gm Bottle NASAL SCH (08:21)
[2020-09-11] MEDS: Nystatin Cream 15 GM TUBE TOP SCH ×2 (08:21→20:31)
[2020-09-11] MEDS: HumaLOG 300 UNITS/3 ML VIAL SC PRN (17:53)
[2020-09-11] MEDS: Warfarin Sodium 5 MG TAB PO SCH (17:53)
[2020-09-11] MEDS: Atorvastatin Calcium 10 MG TAB PO SCH (20:29)
[2020-09-11] MEDS: Famotidine 20 MG TAB PO SCH (20:31)
[2020-09-11] MEDS: Melatonin 3 MG TAB PO PRN (23:38)
[2020-09-11] MEDS: hydrOXYzine 25 MG TAB PO PRN (23:44)
[2020-09-12] MEDS: Milrinone Lactate/D5W 20 MG in Premix Bag 1 BAG IV SCH ×3 (00:48→18:13)
[2020-09-12] MEDS: Ondansetron ODT 4 MG TAB PO PRN (00:48)
[2020-09-12 04:54] LABS: INR-International Normal Ratio 1.4; Prothrombin Time 16.9 sec (12.0-14.7)
[2020-09-12 04:55] LABS: PTT 40.6 sec (22.9-36.1)
[2020-09-12 05:01] LABS: Anion Gap 8 mmol/L (10-20); BUN (Urea Nitrogen) 22 mg/dL (9.8-20.1); Calc. Creatinine Clearance 104 mL/min (70-130); Carbon Dioxide 33 mmol/L (23-31); Chloride 102 mmol/L (98-107); Glucose 70 mg/dL (80-115); Magnesium 1.8 mg/dL (1.6-2.6); Potassium 3.9 mmol/L (3.5-5.1); Sodium 139 mmol/L (136-145)
[2020-09-12] MEDS ORDERED: Magnesium 2 GM/50 ML 2 GM in Premix Bag 1 BAG IVPB SCH (06:15)
[2020-09-12] MEDS: Potassium Chloride 20 MEQ TAB PO SCH ×2 (09:54→20:55)
[2020-09-12] MEDS: Liothyronine Sodium 25 MCG TAB PO SCH ×2 (09:54→20:55)
[2020-09-12] MEDS: predniSONE 20 MG TAB PO SCH (09:54)
[2020-09-12] MEDS: Apixaban 5 MG TAB PO SCH ×2 (09:56→20:56)
[2020-09-12] MEDS: Spironolactone 25 MG TAB PO SCH (09:56)
[2020-09-12] MEDS: Famotidine 20 MG TAB PO SCH ×2 (09:56→20:56)
[2020-09-12] MEDS: Allopurinol 300 MG TAB PO SCH (09:56)
[2020-09-12] MEDS: Magnesium Oxide 400 MG TAB PO SCH ×2 (09:56→20:56)
[2020-09-12] MEDS: Escitalopram Oxalate 20 mg Tablet PO SCH (09:57)
[2020-09-12] MEDS: Nystatin Cream 15 GM TUBE TOP SCH ×2 (09:57→20:57)
[2020-09-12] MEDS: Bumetanide 1 MG TAB PO SCH ×2 (09:57→20:55)
[2020-09-12] MEDS: AcetaZOLAMIDE 250 MG TAB PO SCH ×2 (09:58→20:56)
[2020-09-12] MEDS: NPH, Human Insulin Isophane 300 UNIT/3 ML VIAL SC SCH (11:56)
[2020-09-12] MEDS: Warfarin Sodium 5 MG TAB PO SCH (18:13)
[2020-09-12] MEDS: HumaLOG 300 UNITS/3 ML VIAL SC PRN (19:27)
[2020-09-12] MEDS: Atorvastatin Calcium 10 MG TAB PO SCH (20:56)
[2020-09-12] MEDS ORDERED: NPH, Human Insulin Isophane 300 UNIT/3 ML VIAL SC SCH (21:00)
[2020-09-13] MEDS: Milrinone Lactate/D5W 20 MG in Premix Bag 1 BAG IV SCH ×4 (01:48→23:07)
[2020-09-13 05:20] LABS: INR-International Normal Ratio 1.4; Prothrombin Time 17.2 sec (12.0-14.7)
[2020-09-13 05:21] LABS: PTT 39.7 sec (22.9-36.1)
[2020-09-13 05:34] LABS: Anion Gap 10 mmol/L (10-20); BUN (Urea Nitrogen) 18 mg/dL (9.8-20.1); Calc. Creatinine Clearance 97 mL/min (70-130); Calcium 9.1 mg/dL (7.8-10.44); Carbon Dioxide 32 mmol/L (23-31); Chloride 99 mmol/L (98-107); Glucose 131 mg/dL (80-115); Potassium 3.8 mmol/L (3.5-5.1); Sodium 137 mmol/L (136-145)
[2020-09-13] MEDS ORDERED: Magnesium 2 GM/50 ML 2 GM in Premix Bag 1 BAG IVPB SCH (06:15)
[2020-09-13] MEDS: AcetaZOLAMIDE 250 MG TAB PO SCH ×2 (09:09→20:52)
[2020-09-13] MEDS: predniSONE 20 MG TAB PO SCH (09:10)
[2020-09-13] MEDS: Bumetanide 1 MG TAB PO SCH ×2 (09:10→20:52)
[2020-09-13] MEDS: Famotidine 20 MG TAB PO SCH ×2 (09:11→20:53)
[2020-09-13] MEDS: Potassium Chloride 20 MEQ TAB PO SCH ×2 (09:11→20:53)
[2020-09-13] MEDS: Magnesium Oxide 400 MG TAB PO SCH ×2 (09:11→20:53)
[2020-09-13] MEDS: Allopurinol 300 MG TAB PO SCH (09:11)
[2020-09-13] MEDS: Escitalopram Oxalate 20 mg Tablet PO SCH (09:12)
[2020-09-13] MEDS: Apixaban 5 MG TAB PO SCH ×2 (09:12→20:52)
[2020-09-13] MEDS: Liothyronine Sodium 25 MCG TAB PO SCH ×2 (09:12→20:53)
[2020-09-13] MEDS: Nystatin Cream 15 GM TUBE TOP SCH ×2 (09:13→20:56)
[2020-09-13] MEDS: Spironolactone 25 MG TAB PO SCH (09:13)
[2020-09-13] MEDS ORDERED: Potassium Chloride 20 MEQ TAB PO SCH (09:45)
[2020-09-13] MEDS: NPH, Human Insulin Isophane 300 UNIT/3 ML VIAL SC SCH (09:49)
[2020-09-13] MEDS ORDERED: NPH, Human Insulin Isophane 300 UNIT/3 ML VIAL SC SCH (17:00)
[2020-09-13] MEDS: Warfarin Sodium 7.5 MG TAB PO SCH (17:30)
[2020-09-13] MEDS: Atorvastatin Calcium 10 MG TAB PO SCH (20:52)
[2020-09-13] MEDS: Melatonin 3 MG TAB PO PRN (22:12)
[2020-09-14 05:07] LABS: INR-International Normal Ratio 1.5; PTT 42.7 sec (22.9-36.1); Prothrombin Time 18.1 sec (12.0-14.7)
[2020-09-14 05:11] LABS: Anion Gap 9 mmol/L (10-20); BUN (Urea Nitrogen) 18 mg/dL (9.8-20.1); Calc. Creatinine Clearance 94 mL/min (70-130); Calcium 9.4 mg/dL (7.8-10.44); Carbon Dioxide 34 mmol/L (23-31); Chloride 100 mmol/L (98-107); Glucose 130 mg/dL (80-115); Magnesium 2.1 mg/dL (1.6-2.6); Potassium 4.2 mmol/L (3.5-5.1); Sodium 139 mmol/L (136-145)
[2020-09-14] MEDS: Milrinone Lactate/D5W 20 MG in Premix Bag 1 BAG IV SCH ×3 (05:48→22:16)
[2020-09-14] MEDS: predniSONE 20 MG TAB PO SCH (09:18)
[2020-09-14] MEDS: AcetaZOLAMIDE 250 MG TAB PO SCH ×2 (09:19→22:18)
[2020-09-14] MEDS: Spironolactone 25 MG TAB PO SCH (09:19)
[2020-09-14] MEDS: Escitalopram Oxalate 20 mg Tablet PO SCH (09:20)
[2020-09-14] MEDS: Bumetanide 1 MG TAB PO SCH ×2 (09:20→22:19)
[2020-09-14] MEDS: Apixaban 5 MG TAB PO SCH ×2 (09:20→22:18)
[2020-09-14] MEDS: Magnesium Oxide 400 MG TAB PO SCH ×2 (09:20→22:19)
[2020-09-14] MEDS: Liothyronine Sodium 25 MCG TAB PO SCH ×2 (09:20→22:19)
[2020-09-14] MEDS: Allopurinol 300 MG TAB PO SCH (09:20)
[2020-09-14] MEDS: Potassium Chloride 20 MEQ TAB PO SCH ×2 (09:21→22:18)
[2020-09-14] MEDS: Famotidine 20 MG TAB PO SCH ×2 (09:21→22:19)
[2020-09-14] MEDS: Nystatin Cream 15 GM TUBE TOP SCH ×2 (09:22→22:17)
[2020-09-14] MEDS: NPH, Human Insulin Isophane 300 UNIT/3 ML VIAL SC SCH (09:22)
[2020-09-14] MEDS ORDERED: NPH, Human Insulin Isophane 300 UNIT/3 ML VIAL SC SCH (17:00)
[2020-09-14] MEDS: HumaLOG 300 UNITS/3 ML VIAL SC PRN (17:50)
[2020-09-14] MEDS: Warfarin Sodium 7.5 MG TAB PO SCH (17:50)
[2020-09-14] MEDS: Atorvastatin Calcium 10 MG TAB PO SCH (22:18)
[2020-09-14] MEDS ORDERED: Fluticasone Propionate Nasal Spray 16 gm Bottle NASAL SCH (23:30)
[2020-09-15 05:10] LABS: INR-International Normal Ratio 1.5; PTT 40.3 sec (22.9-36.1); Prothrombin Time 18.1 sec (12.0-14.7)
[2020-09-15 05:26] LABS: Anion Gap 10 mmol/L (10-20); BUN (Urea Nitrogen) 24 mg/dL (9.8-20.1); Calc. Creatinine Clearance 98 mL/min (70-130); Calcium 9.5 mg/dL (7.8-10.44); Carbon Dioxide 32 mmol/L (23-31); Chloride 101 mmol/L (98-107); Glucose 228 mg/dL (80-115); Potassium 3.8 mmol/L (3.5-5.1); Sodium 139 mmol/L (136-145)
[2020-09-15] MEDS: Milrinone Lactate/D5W 20 MG in Premix Bag 1 BAG IV SCH ×3 (05:48→18:09)
[2020-09-15] MEDS: HumaLOG 300 UNITS/3 ML VIAL SC PRN ×2 (06:34→17:13)
[2020-09-15] MEDS ORDERED: Magnesium 2 GM/50 ML 2 GM in Premix Bag 1 BAG IVPB SCH (06:45)
[2020-09-15] MEDS: Bumetanide 1 MG TAB PO SCH ×2 (08:14→20:21)
[2020-09-15] MEDS: Apixaban 5 MG TAB PO SCH ×2 (08:14→20:22)
[2020-09-15] MEDS: predniSONE 20 MG TAB PO SCH (08:14)
[2020-09-15] MEDS: Allopurinol 300 MG TAB PO SCH (08:14)
[2020-09-15] MEDS: Spironolactone 25 MG TAB PO SCH (08:14)
[2020-09-15] MEDS: Escitalopram Oxalate 20 mg Tablet PO SCH (08:14)
[2020-09-15] MEDS: AcetaZOLAMIDE 250 MG TAB PO SCH ×2 (08:14→20:21)
[2020-09-15] MEDS: Potassium Chloride 20 MEQ TAB PO SCH ×2 (08:15→20:21)
[2020-09-15] MEDS: Liothyronine Sodium 25 MCG TAB PO SCH ×2 (08:15→20:22)
[2020-09-15] MEDS: Famotidine 20 MG TAB PO SCH ×2 (08:15→20:21)
[2020-09-15] MEDS: Magnesium Oxide 400 MG TAB PO SCH ×2 (08:15→20:21)
[2020-09-15] MEDS: Loratadine 5 MG/5 ML UDCUP PO SCH (08:15)
[2020-09-15] MEDS: Fluticasone Propionate Nasal Spray 16 gm Bottle NASAL SCH ×2 (08:17→20:23)
[2020-09-15] MEDS: Nystatin Cream 15 GM TUBE TOP SCH ×2 (08:17→20:23)
[2020-09-15] MEDS: NPH, Human Insulin Isophane 300 UNIT/3 ML VIAL SC SCH ×2 (08:18→17:13)
[2020-09-15] MEDS ORDERED: Fluticasone Propionate Nasal Spray 16 gm Bottle NASAL SCH (09:00)
[2020-09-15] MEDS: Atorvastatin Calcium 10 MG TAB PO SCH (17:11)
[2020-09-15] MEDS: Warfarin Sodium 7.5 MG TAB PO SCH (17:12)
[2020-09-15] MEDS: hydrOXYzine 25 MG TAB PO PRN (23:07)
[2020-09-15] MEDS: Melatonin 3 MG TAB PO PRN (23:07)
[2020-09-16] MEDS: Acetaminophen 500 MG TAB PO PRN ×2 (00:37→10:02)
[2020-09-16] MEDS: Milrinone Lactate/D5W 20 MG in Premix Bag 1 BAG IV SCH ×3 (03:56→18:13)
[2020-09-16 04:58] LABS: Anion Gap 12 mmol/L (10-20); BUN (Urea Nitrogen) 26 mg/dL (9.8-20.1); Calc. Creatinine Clearance 97 mL/min (70-130); Calcium 9.2 mg/dL (7.8-10.44); Carbon Dioxide 27 mmol/L (23-31); Chloride 103 mmol/L (98-107); Glucose 176 mg/dL (80-115); Magnesium 2.1 mg/dL (1.6-2.6); Potassium 3.9 mmol/L (3.5-5.1); Sodium 138 mmol/L (136-145)
[2020-09-16] MEDS: Apixaban 5 MG TAB PO SCH ×2 (08:54→21:37)
[2020-09-16] MEDS: Allopurinol 300 MG TAB PO SCH (08:54)
[2020-09-16] MEDS: Bumetanide 1 MG TAB PO SCH ×2 (08:54→21:35)
[2020-09-16] MEDS: Potassium Chloride 20 MEQ TAB PO SCH ×2 (08:54→21:36)
[2020-09-16] MEDS: Famotidine 20 MG TAB PO SCH ×2 (08:55→21:37)
[2020-09-16] MEDS: Liothyronine Sodium 25 MCG TAB PO SCH ×2 (08:55→21:36)
[2020-09-16] MEDS: Spironolactone 25 MG TAB PO SCH (08:55)
[2020-09-16] MEDS: Magnesium Oxide 400 MG TAB PO SCH ×2 (08:55→21:36)
[2020-09-16] MEDS: predniSONE 20 MG TAB PO SCH (08:55)
[2020-09-16] MEDS: Escitalopram Oxalate 20 mg Tablet PO SCH (08:55)
[2020-09-16] MEDS: AcetaZOLAMIDE 250 MG TAB PO SCH (08:55)
[2020-09-16] MEDS: Nystatin Cream 15 GM TUBE TOP SCH ×2 (08:56→21:37)
[2020-09-16] MEDS: Fluticasone Propionate Nasal Spray 16 gm Bottle NASAL SCH ×2 (08:56→21:35)
[2020-09-16] MEDS: Loratadine 5 MG/5 ML UDCUP PO SCH (08:56)
[2020-09-16] MEDS: NPH, Human Insulin Isophane 300 UNIT/3 ML VIAL SC SCH ×2 (08:57→16:06)
[2020-09-16 10:00] LABS: #Basophils 0.1 thou/uL (0.0-0.2); #Eosinphils 0.2 thou/uL (0.0-0.7); #Lymphocytes 2.7 thou/uL (1.20-3.40); #Monocytes 1.4 thou/uL (0.11-0.59); #Neutrophils 5.4 thou/uL (1.40-6.50); %Basophils 1.2 % (0.0-1.0); %Eosinophils 2.4 % (0.0-10.0); %Lymphocytes 27.9 % (21.0-51.0); %Monocytes 13.8 % (0.0-10.0); %Neutrophils 54.8 % (42.0-75.0); Hemoglobin 11.9 g/dL (12.0-16.0); Mean Corpuscular Hemoglobin 28.5 pg (27.0-31.0); Mean Corpuscular Volume 89.2 fL (78.0-98.0); Mean Platelet Volume 7.9 fL (7.4-10.4); Platelet Count 238 thou/uL (130-400); RBC Distribution Width 14.9 % (11.5-14.5); Red Blood Cell (RBC) Count 4.18 mill/uL (4.20-5.40); White Blood Cell (WBC) Count 9.8 thou/uL (4.8-10.8)
[2020-09-16] MEDS: Atorvastatin Calcium 10 MG TAB PO SCH (16:07)
[2020-09-16] MEDS ORDERED: Warfarin Sodium 10 MG TAB PO SCH (17:00)
[2020-09-16] MEDS: HumaLOG 300 UNITS/3 ML VIAL SC PRN (17:54)
[2020-09-16] MEDS: hydrOXYzine 25 MG TAB PO PRN (21:36)
[2020-09-17] MEDS: Milrinone Lactate/D5W 20 MG in Premix Bag 1 BAG IV SCH ×3 (01:39→19:59)
[2020-09-17] MEDS: Acetaminophen 500 MG TAB PO PRN ×2 (01:41→20:05)
[2020-09-17 04:59] LABS: INR-International Normal Ratio 2.7; Prothrombin Time 28.9 sec (12.0-14.7)
[2020-09-17 05:02] LABS: Anion Gap 11 mmol/L (10-20); BUN (Urea Nitrogen) 28 mg/dL (9.8-20.1); Calc. Creatinine Clearance 90 mL/min (70-130); Calcium 9.3 mg/dL (7.8-10.44); Carbon Dioxide 27 mmol/L (23-31); Chloride 103 mmol/L (98-107); Glucose 174 mg/dL (80-115); Sodium 137 mmol/L (136-145)
[2020-09-17] MEDS ORDERED: Magnesium 2 GM/50 ML 2 GM in Premix Bag 1 BAG IVPB SCH (06:15)
[2020-09-17] MEDS: predniSONE 20 MG TAB PO SCH (08:31)
[2020-09-17] MEDS: Apixaban 5 MG TAB PO SCH (08:32)
[2020-09-17] MEDS: Allopurinol 300 MG TAB PO SCH (08:32)
[2020-09-17] MEDS: AcetaZOLAMIDE 250 MG TAB PO SCH (08:32)
[2020-09-17] MEDS: Bumetanide 1 MG TAB PO SCH ×2 (08:32→20:00)
[2020-09-17] MEDS: Spironolactone 25 MG TAB PO SCH (08:32)
[2020-09-17] MEDS: Escitalopram Oxalate 20 mg Tablet PO SCH (08:33)
[2020-09-17] MEDS: Famotidine 20 MG TAB PO SCH ×2 (08:33→20:00)
[2020-09-17] MEDS: Fluticasone Propionate Nasal Spray 16 gm Bottle NASAL SCH ×2 (08:34→20:00)
[2020-09-17] MEDS: Loratadine 5 MG/5 ML UDCUP PO SCH (08:34)
[2020-09-17] MEDS: Liothyronine Sodium 25 MCG TAB PO SCH ×2 (08:34→20:21)
[2020-09-17] MEDS: Magnesium Oxide 400 MG TAB PO SCH ×2 (08:35→20:00)
[2020-09-17] MEDS: Nystatin Cream 15 GM TUBE TOP SCH ×2 (08:36→20:00)
[2020-09-17] MEDS: Potassium Chloride 20 MEQ TAB PO SCH ×2 (08:36→20:00)
[2020-09-17] MEDS: NPH, Human Insulin Isophane 300 UNIT/3 ML VIAL SC SCH ×2 (08:39→17:38)
[2020-09-17 13:25] VITALS: BMI 31.8
[2020-09-17] MEDS: Atorvastatin Calcium 10 MG TAB PO SCH (15:59)
[2020-09-17] MEDS: Warfarin Sodium 5 MG TAB PO SCH (16:01)
[2020-09-17] MEDS: HumaLOG 300 UNITS/3 ML VIAL SC PRN (17:38)
[2020-09-17] MEDS: Melatonin 3 MG TAB PO PRN (20:00)
[2020-09-17] MEDS: hydrOXYzine 25 MG TAB PO PRN (20:05)
[2020-09-18] MEDS: Milrinone Lactate/D5W 20 MG in Premix Bag 1 BAG IV SCH ×2 (02:44→11:24)
[2020-09-18 04:39] LABS: INR-International Normal Ratio 2.8; Prothrombin Time 30.1 sec (12.0-14.7)
[2020-09-18 04:54] LABS: Anion Gap 13 mmol/L (10-20); BUN (Urea Nitrogen) 35 mg/dL (9.8-20.1); Calc. Creatinine Clearance 85 mL/min (70-130); Calcium 9.3 mg/dL (7.8-10.44); Carbon Dioxide 25 mmol/L (23-31); Chloride 103 mmol/L (98-107); Glucose 166 mg/dL (80-115); Potassium 3.8 mmol/L (3.5-5.1); Sodium 137 mmol/L (136-145)
[2020-09-18] MEDS: HumaLOG 300 UNITS/3 ML VIAL SC PRN ×3 (06:12→21:15)
[2020-09-18] MEDS ORDERED: Magnesium 2 GM/50 ML 2 GM in Premix Bag 1 BAG IVPB SCH (06:15)
[2020-09-18] MEDS: Allopurinol 300 MG TAB PO SCH (08:59)
[2020-09-18] MEDS: Spironolactone 25 MG TAB PO SCH (08:59)
[2020-09-18] MEDS: predniSONE 20 MG TAB PO SCH (08:59)
[2020-09-18] MEDS: AcetaZOLAMIDE 250 MG TAB PO SCH (08:59)
[2020-09-18] MEDS: Bumetanide 1 MG TAB PO SCH ×2 (09:00→21:14)
[2020-09-18] MEDS: Famotidine 20 MG TAB PO SCH ×2 (09:00→21:14)
[2020-09-18] MEDS: Fluticasone Propionate Nasal Spray 16 gm Bottle NASAL SCH ×2 (09:00→22:08)
[2020-09-18] MEDS: Escitalopram Oxalate 20 mg Tablet PO SCH (09:00)
[2020-09-18] MEDS: Magnesium Oxide 400 MG TAB PO SCH ×2 (09:01→21:14)
[2020-09-18] MEDS: Liothyronine Sodium 25 MCG TAB PO SCH ×2 (09:01→21:14)
[2020-09-18] MEDS: Loratadine 5 MG/5 ML UDCUP PO SCH (09:01)
[2020-09-18] MEDS: Potassium Chloride 20 MEQ TAB PO SCH ×2 (09:02→21:14)
[2020-09-18] MEDS: Nystatin Cream 15 GM TUBE TOP SCH ×2 (09:02→22:08)
[2020-09-18] MEDS: NPH, Human Insulin Isophane 300 UNIT/3 ML VIAL SC SCH ×2 (09:04→17:09)
[2020-09-18] MEDS ORDERED: Milrinone Lactate/D5W 20 MG in Premix Bag 1 BAG IV SCH (14:30)
[2020-09-18] MEDS: Atorvastatin Calcium 10 MG TAB PO SCH (16:00)
[2020-09-18] MEDS: Warfarin Sodium 5 MG TAB PO SCH (16:01)
[2020-09-18] MEDS: Melatonin 3 MG TAB PO PRN (21:14)
[2020-09-18] MEDS: hydrOXYzine 25 MG TAB PO PRN (21:14)
[2020-09-19 06:14] LABS: INR-International Normal Ratio 2.1; Prothrombin Time 23.7 sec (12.0-14.7)
[2020-09-19 06:20] LABS: Anion Gap 12 mmol/L (10-20); BUN (Urea Nitrogen) 34 mg/dL (9.8-20.1); Calc. Creatinine Clearance 89 mL/min (70-130); Calcium 9.6 mg/dL (7.8-10.44); Carbon Dioxide 28 mmol/L (23-31); Chloride 101 mmol/L (98-107); Glucose 96 mg/dL (80-115); Potassium 3.7 mmol/L (3.5-5.1); Sodium 137 mmol/L (136-145)
[2020-09-19] MEDS ORDERED: Magnesium 2 GM/50 ML 2 GM in Premix Bag 1 BAG IVPB SCH (06:45)
[2020-09-19] MEDS: predniSONE 20 MG TAB PO SCH (08:54)
[2020-09-19] MEDS: Spironolactone 25 MG TAB PO SCH (08:54)
[2020-09-19] MEDS: Bumetanide 1 MG TAB PO SCH (08:54)
[2020-09-19] MEDS: Potassium Chloride 20 MEQ TAB PO SCH ×2 (08:54→21:28)
[2020-09-19] MEDS: Famotidine 20 MG TAB PO SCH ×2 (08:54→21:28)
[2020-09-19] MEDS: Escitalopram Oxalate 20 mg Tablet PO SCH (08:55)
[2020-09-19] MEDS: Allopurinol 300 MG TAB PO SCH (08:55)
[2020-09-19] MEDS: Magnesium Oxide 400 MG TAB PO SCH ×2 (08:55→21:28)
[2020-09-19] MEDS: Liothyronine Sodium 25 MCG TAB PO SCH ×2 (08:55→21:28)
[2020-09-19] MEDS: Fluticasone Propionate Nasal Spray 16 gm Bottle NASAL SCH ×2 (08:56→21:27)
[2020-09-19] MEDS: Loratadine 5 MG/5 ML UDCUP PO SCH (08:56)
[2020-09-19] MEDS: NPH, Human Insulin Isophane 300 UNIT/3 ML VIAL SC SCH ×2 (08:57→17:59)
[2020-09-19] MEDS: Nystatin Cream 15 GM TUBE TOP SCH ×2 (08:57→21:28)
[2020-09-19] MEDS ORDERED: Potassium Chloride 20 MEQ TAB PO SCH (11:25)
[2020-09-19] MEDS: Acetaminophen 500 MG TAB PO PRN (12:15)
[2020-09-19] MEDS: HumaLOG 300 UNITS/3 ML VIAL SC PRN ×2 (12:15→21:32)
[2020-09-19] MEDS: Milrinone Lactate/D5W 20 MG in Premix Bag 1 BAG IV SCH (15:15)
[2020-09-19] MEDS: Warfarin Sodium 5 MG TAB PO SCH (17:59)
[2020-09-19] MEDS: Atorvastatin Calcium 10 MG TAB PO SCH (18:01)
[2020-09-20] MEDS: Milrinone Lactate/D5W 20 MG in Premix Bag 1 BAG IV SCH (00:34)
[2020-09-20] MEDS: hydrOXYzine 25 MG TAB PO PRN (02:19)
[2020-09-20 05:22] LABS: INR-International Normal Ratio 1.6; Prothrombin Time 19.5 sec (12.0-14.7)
[2020-09-20 05:31] LABS: Anion Gap 13 mmol/L (10-20); BUN (Urea Nitrogen) 30 mg/dL (9.8-20.1); Calc. Creatinine Clearance 87 mL/min (70-130); Calcium 9.5 mg/dL (7.8-10.44); Carbon Dioxide 25 mmol/L (23-31); Chloride 104 mmol/L (98-107); Glucose 130 mg/dL (80-115); Potassium 4.1 mmol/L (3.5-5.1); Sodium 138 mmol/L (136-145)
[2020-09-20] MEDS ORDERED: Magnesium 2 GM/50 ML 2 GM in Premix Bag 1 BAG IVPB SCH (08:00)
[2020-09-20] MEDS: predniSONE 20 MG TAB PO SCH (10:03)
[2020-09-20] MEDS: Allopurinol 300 MG TAB PO SCH (10:05)
[2020-09-20] MEDS: Potassium Chloride 20 MEQ TAB PO SCH ×2 (10:05→22:07)
[2020-09-20] MEDS: Famotidine 20 MG TAB PO SCH ×2 (10:05→22:07)
[2020-09-20] MEDS: Escitalopram Oxalate 20 mg Tablet PO SCH (10:06)
[2020-09-20] MEDS: Spironolactone 25 MG TAB PO SCH (10:06)
[2020-09-20] MEDS: Magnesium Oxide 400 MG TAB PO SCH ×2 (10:06→22:07)
[2020-09-20] MEDS: Bumetanide 1 MG TAB PO SCH (10:06)
[2020-09-20] MEDS: Liothyronine Sodium 25 MCG TAB PO SCH ×2 (10:07→22:06)
[2020-09-20] MEDS: Loratadine 5 MG/5 ML UDCUP PO SCH (10:07)
[2020-09-20] MEDS: Fluticasone Propionate Nasal Spray 16 gm Bottle NASAL SCH ×2 (10:09→22:07)
[2020-09-20] MEDS: Nystatin Cream 15 GM TUBE TOP SCH ×2 (10:10→22:08)
[2020-09-20] MEDS: NPH, Human Insulin Isophane 300 UNIT/3 ML VIAL SC SCH ×2 (10:12→16:51)
[2020-09-20] MEDS: Warfarin Sodium 7.5 MG TAB PO SCH (16:51)
[2020-09-20] MEDS: Atorvastatin Calcium 10 MG TAB PO SCH (16:55)
[2020-09-20] MEDS: Ondansetron ODT 4 MG TAB PO PRN ×2 (17:07→22:09)
[2020-09-20] MEDS: HumaLOG 300 UNITS/3 ML VIAL SC PRN (22:11)
[2020-09-21] MEDS: Acetaminophen 500 MG TAB PO PRN (00:32)
[2020-09-21] MEDS: hydrOXYzine 25 MG TAB PO PRN (02:56)
[2020-09-21 05:01] LABS: INR-International Normal Ratio 1.7; Prothrombin Time 19.6 sec (12.0-14.7)
[2020-09-21 05:12] LABS: Anion Gap 12 mmol/L (10-20); BUN (Urea Nitrogen) 29 mg/dL (9.8-20.1); Calc. Creatinine Clearance 83 mL/min (70-130); Calcium 9.8 mg/dL (7.8-10.44); Carbon Dioxide 28 mmol/L (23-31); Chloride 102 mmol/L (98-107); Glucose 95 mg/dL (80-115); Magnesium 2.1 mg/dL (1.6-2.6); Potassium 4.6 mmol/L (3.5-5.1); Sodium 137 mmol/L (136-145)
[2020-09-21] MEDS: Ondansetron ODT 4 MG TAB PO PRN ×2 (06:48→17:23)
[2020-09-21] MEDS ORDERED: predniSONE 20 MG TAB PO SCH (08:33)
[2020-09-21] MEDS: predniSONE 20 MG TAB PO SCH (08:57)
[2020-09-21] MEDS: Famotidine 20 MG TAB PO SCH ×2 (08:59→20:33)
[2020-09-21] MEDS: Magnesium Oxide 400 MG TAB PO SCH ×2 (08:59→20:33)
[2020-09-21] MEDS: Bumetanide 1 MG TAB PO SCH (08:59)
[2020-09-21] MEDS: Spironolactone 25 MG TAB PO SCH (08:59)
[2020-09-21] MEDS: Escitalopram Oxalate 20 mg Tablet PO SCH (09:00)
[2020-09-21] MEDS: Liothyronine Sodium 25 MCG TAB PO SCH ×2 (09:00→20:33)
[2020-09-21] MEDS: Allopurinol 300 MG TAB PO SCH (09:01)
[2020-09-21] MEDS: predniSONE 5 MG TAB PO SCH (09:01)
[2020-09-21] MEDS: Fluticasone Propionate Nasal Spray 16 gm Bottle NASAL SCH ×2 (09:01→20:33)
[2020-09-21] MEDS: Loratadine 5 MG/5 ML UDCUP PO SCH (09:02)
[2020-09-21] MEDS: Nystatin Cream 15 GM TUBE TOP SCH ×2 (09:02→20:34)
[2020-09-21] MEDS: NPH, Human Insulin Isophane 300 UNIT/3 ML VIAL SC SCH ×2 (09:02→17:24)
[2020-09-21] MEDS: HumaLOG 300 UNITS/3 ML VIAL SC PRN (11:32)
[2020-09-21] MEDS: Atorvastatin Calcium 10 MG TAB PO SCH (16:03)
[2020-09-21] MEDS: Warfarin Sodium 7.5 MG TAB PO SCH (16:04)
[2020-09-22] MEDS: Acetaminophen 500 MG TAB PO PRN (01:53)
[2020-09-22] MEDS: Ondansetron ODT 4 MG TAB PO PRN (03:42)
[2020-09-22 04:45] LABS: INR-International Normal Ratio 1.9; Prothrombin Time 22.1 sec (12.0-14.7)
[2020-09-22 04:58] LABS: Anion Gap 10 mmol/L (10-20); BUN (Urea Nitrogen) 32 mg/dL (9.8-20.1); Calc. Creatinine Clearance 84 mL/min (70-130); Calcium 9.6 mg/dL (7.8-10.44); Carbon Dioxide 30 mmol/L (23-31); Chloride 102 mmol/L (98-107); Glucose 76 mg/dL (80-115); Magnesium 1.9 mg/dL (1.6-2.6); Potassium 4.2 mmol/L (3.5-5.1); Sodium 138 mmol/L (136-145)
[2020-09-22] MEDS ORDERED: Magnesium 2 GM/50 ML 2 GM in Premix Bag 1 BAG IVPB SCH (06:15)
[2020-09-22] MEDS ORDERED: Potassium Chloride 20 MEQ TAB PO SCH (08:00)
[2020-09-22] MEDS: Escitalopram Oxalate 20 mg Tablet PO SCH (08:52)
[2020-09-22] MEDS: Loratadine 5 MG/5 ML UDCUP PO SCH (08:52)
[2020-09-22] MEDS: predniSONE 5 MG TAB PO SCH (08:52)
[2020-09-22] MEDS: Allopurinol 300 MG TAB PO SCH (08:52)
[2020-09-22] MEDS: Spironolactone 25 MG TAB PO SCH (08:53)
[2020-09-22] MEDS: Bumetanide 1 MG TAB PO SCH (08:53)
[2020-09-22] MEDS: Liothyronine Sodium 25 MCG TAB PO SCH (08:53)
[2020-09-22] MEDS: Magnesium Oxide 400 MG TAB PO SCH (08:53)
[2020-09-22] MEDS: Fluticasone Propionate Nasal Spray 16 gm Bottle NASAL SCH (08:53)
[2020-09-22] MEDS: Famotidine 20 MG TAB PO SCH (08:53)
[2020-09-22] MEDS: Nystatin Cream 15 GM TUBE TOP SCH (08:54)
[2020-09-22] MEDS: NPH, Human Insulin Isophane 300 UNIT/3 ML VIAL SC SCH (08:58)
[2020-09-22] MEDS ORDERED: Potassium Chloride 10 MEQ TAB PO SCH (09:00)
[2020-09-22 15:55] VITALS: BP 120/70; TEMP 98
== END 2020-09-22 16:25 | disposition home or self-care (01) | DRG 291 ==
LOC: ERS 16:57 → T4-A 20:53 → 2NO 20:53 → UNDOADMIN 20:53 → ERHOLD 20:53 → CCU 08-30 20:51 → IMCU/EMU 09-01 15:02 → 2NO 09-09 20:07
PROVIDERS: ADMIT Emergency Medicine; ATTEND Emergency Medicine
PROC: 5A0955A Assistance with Respiratory Ventilation, Greater than 96 Consecutive Hours, High Flow/Velocity Cannula (ICD-10-PCS; principal; 2020-08-30)
PROC: 02HV33Z Insertion of Infusion Device into Superior Vena Cava, Percutaneous Approach (ICD-10-PCS; 2020-09-04)
PROC: B548ZZA Ultrasonography of Superior Vena Cava, Guidance (ICD-10-PCS; 2020-09-04)
PROC: 5A09357 Assistance with Respiratory Ventilation, Less than 24 Consecutive Hours, Continuous Positive Airway Pressure (ICD-10-PCS; 2020-09-05)
DX: I11.0 Hypertensive heart disease with heart failure (principal); J96.21 Acute and chronic respiratory failure with hypoxia; J96.22 Acute and chronic respiratory failure with hypercapnia; J18.9 Pneumonia, unspecified organism; I48.21 Permanent atrial fibrillation; J94.8 Other specified pleural conditions; R18.8 Other ascites; F05 Delirium due to known physiological condition; E87.3 Alkalosis; J98.11 Atelectasis; Z20.822 Contact with and (suspected) exposure to COVID-19; Z66 Do not resuscitate; I50.43 Acute on chronic combined systolic (congestive) and diastolic (congestive) heart failure; I25.10 Atherosclerotic heart disease of native coronary artery without angina pectoris; K74.60 Unspecified cirrhosis of liver; E80.6 Other disorders of bilirubin metabolism; M35.9 Systemic involvement of connective tissue, unspecified; E04.9 Nontoxic goiter, unspecified; I87.8 Other specified disorders of veins; E78.5 Hyperlipidemia, unspecified; L30.4 Erythema intertrigo; F43.10 Post-traumatic stress disorder, unspecified; G43.909 Migraine, unspecified, not intractable, without status migrainosus; F41.9 Anxiety disorder, unspecified; E87.6 Hypokalemia; I00 Rheumatic fever without heart involvement; K21.9 Gastro-esophageal reflux disease without esophagitis; E78.00 Pure hypercholesterolemia, unspecified; M19.90 Unspecified osteoarthritis, unspecified site; F32.9 Major depressive disorder, single episode, unspecified; E66.01 Morbid (severe) obesity due to excess calories; I27.29 Other secondary pulmonary hypertension; I42.9 Cardiomyopathy, unspecified; I07.1 Rheumatic tricuspid insufficiency; F12.10 Cannabis abuse, uncomplicated; I50.813 Acute on chronic right heart failure; I44.0 Atrioventricular block, first degree; I49.1 Atrial premature depolarization; R07.89 Other chest pain; E11.65 Type 2 diabetes mellitus with hyperglycemia; F43.21 Adjustment disorder with depressed mood; Y95 Nosocomial condition; T50.1X5A Adverse effect of loop [high-ceiling] diuretics, initial encounter; Z80.7 Family history of other malignant neoplasms of lymphoid, hematopoietic and related tissues; Z88.1 Allergy status to other antibiotic agents; Z88.5 Allergy status to narcotic agent; Z88.0 Allergy status to penicillin; Z88.8 Allergy status to other drugs, medicaments and biological substances; Z79.899 Other long term (current) drug therapy; Z79.4 Long term (current) use of insulin; Z79.52 Long term (current) use of systemic steroids; Z79.890 Hormone replacement therapy; Z98.890 Other specified postprocedural states; Z82.49 Family history of ischemic heart disease and other diseases of the circulatory system; Z87.891 Personal history of nicotine dependence; Z91.018 Allergy to other foods; Z78.1 Physical restraint status; Z68.30 Body mass index [BMI] 30.0-30.9, adult; Z86.16 Personal history of COVID-19
CPT/HCPCS: 36415; 36416; 36569; 36600; 71045; 71250; 71275; 80048; 80053; 80061; 80076; 80202; 81003; 81015; 82140; 82805; 83690; 83735; 83880; 84145; 84443; 84484; 85025; 85379; 85610; 85730; 86850; 86900; 86901; 87040; 87086; 93005; 93010; 93306; 93970; 94660; 94760; 96365; 96366; 96375; C1751; J1644; J1650; J1815; J1940; J2260; J3370; J3475; J3480; J3490; J7512; P9047; Q0162; Q9967; U0002; U0005

== ENCOUNTER 2021-02-01 11:08 | Inpatient (IN) | payer MEDICARE ==
[2021-02-01 11:53] LABS: #Basophils 0.2 thou/uL (0.0-0.2); #Eosinphils 0.2 thou/uL (0.0-0.7); #Lymphocytes 2.5 thou/uL (1.20-3.40); #Monocytes 1.2 thou/uL (0.11-0.59); #Neutrophils 5.3 thou/uL (1.40-6.50); %Basophils 1.6 % (0.0-1.0); %Eosinophils 2.5 % (0.0-10.0); %Monocytes 12.5 % (0.0-10.0); %Neutrophils 56.4 % (42.0-75.0); Mean Corpuscular Hemoglobin 29.9 pg (27.0-31.0); Mean Corpuscular Volume 90.4 fL (78.0-98.0); Mean Platelet Volume 7.1 fL (7.4-10.4); Platelet Count 213 thou/uL (130-400); RBC Distribution Width 12.5 % (11.5-14.5); Red Blood Cell (RBC) Count 5.01 mill/uL (4.20-5.40); White Blood Cell (WBC) Count 9.4 thou/uL (4.8-10.8)
[2021-02-01 12:07] LABS: INR-International Normal Ratio 1.7; Prothrombin Time 20.5 sec (12.0-14.7)
[2021-02-01 12:26] LABS: ALT (SGPT) 30 U/L (8-55); AST (SGOT) 30 U/L (5-34); Albumin 3.7 g/dL (3.4-4.8); Alkaline Phosphatase 125 U/L (40-110); Anion Gap 13 mmol/L (10-20); BUN (Urea Nitrogen) 39 mg/dL (9.8-20.1); Bilirubin, Total 0.5 mg/dL (0.2-1.2); Calc. Creatinine Clearance 0 mL/min (70-130); Carbon Dioxide 31 mmol/L (23-31); Chloride 101 mmol/L (98-107); Globulin 3.4 g/dL (2.4-3.5); Glucose 235 mg/dL (80-115); Potassium 3.9 mmol/L (3.5-5.1); Protein, Total 7.1 g/dL (5.8-8.1); Sodium 141 mmol/L (136-145)
[2021-02-01] MEDS ORDERED: Milrinone 20 MG in Sodium Chloride 0.9% 100 ML IVPB SCH (12:30)
[2021-02-01 13:40] LABS: SARS-CoV-2 NAA Rapid Test Not Detected (NotDetected)
[2021-02-01] MEDS ORDERED: Acetaminophen 325 MG TAB PO SCH (13:45)
[2021-02-01] MEDS ORDERED: Dextrose 5% in Water 1,000 ML IV PRN (13:57)
[2021-02-01] MEDS ORDERED: Dextrose 50% Abboject 50 ML SYRINGE SLOW IVP PRN (13:57)
[2021-02-01] MEDS ORDERED: Insulin Regular 300 UNITS/3 ML VIAL SC PRN (13:57)
[2021-02-01 14:42] LABS: Magnesium 2.1 mg/dL (1.6-2.6); Phosphorus 3.8 mg/dL (2.3-4.7)
[2021-02-01 14:54] LABS: Troponin I Less than 0.010 ng/mL (< 0.028)
[2021-02-01] MEDS ORDERED: Warfarin Sodium 7.5 MG TAB PO SCH (17:00)
[2021-02-01] MEDS: NPH, Human Insulin Isophane 300 UNIT/3 ML VIAL SC SCH (18:04)
[2021-02-01 18:05] VITALS: BMI 41.1
[2021-02-01 19:06] LABS: Troponin I 0.013 ng/mL (< 0.028)
[2021-02-01] MEDS ORDERED: Torsemide 20 MG TAB PO SCH (21:00)
[2021-02-01] MEDS: Famotidine 20 MG TAB PO SCH (21:19)
[2021-02-01] MEDS: Simvastatin 10 MG TAB PO SCH (21:19)
[2021-02-01] MEDS: Magnesium Oxide 400 MG TAB PO SCH ×2 (21:19→21:21)
[2021-02-01] MEDS: Potassium Chloride 20 MEQ TAB PO SCH (21:19)
[2021-02-01] MEDS ORDERED: predniSONE 5 MG TAB PO SCH (22:15)
[2021-02-01] MEDS ORDERED: Escitalopram Oxalate 10 mg Tablet PO SCH (22:15)
[2021-02-01] MEDS ORDERED: Allopurinol 300 MG TAB PO SCH (22:15)
[2021-02-01] MEDS: Sacubitril 49 MG/Valsartan 51 MG TABLET PO SCH (22:56)
[2021-02-01] MEDS ORDERED: Warfarin Sodium 5 MG TAB PO SCH (23:00)
[2021-02-02] MEDS: Milrinone Lactate/D5W 20 MG in Premix Bag 1 BAG IV SCH ×2 (03:52→17:30)
[2021-02-02] MEDS: Acetaminophen 325 MG TAB PO PRN (04:29)
[2021-02-02 04:53] LABS: Prothrombin Time 22.9 sec (12.0-14.7)
[2021-02-02 05:01] LABS: ALT (SGPT) 30 U/L (8-55); AST (SGOT) 27 U/L (5-34); Albumin 3.3 g/dL (3.4-4.8); Alkaline Phosphatase 105 U/L (40-110); Anion Gap 11 mmol/L (10-20); BUN (Urea Nitrogen) 31 mg/dL (9.8-20.1); Bilirubin, Total 0.6 mg/dL (0.2-1.2); Calc. Creatinine Clearance 96 mL/min (70-130); Calcium 9.5 mg/dL (7.8-10.44); Carbon Dioxide 30 mmol/L (23-31); Chloride 101 mmol/L (98-107); Glucose 227 mg/dL (80-115); Magnesium 2.1 mg/dL (1.6-2.6); Potassium 3.7 mmol/L (3.5-5.1); Protein, Total 6.3 g/dL (5.8-8.1); Sodium 138 mmol/L (136-145)
[2021-02-02 05:21] LABS: Hemoglobin 14.3 g/dL (12.0-16.0); Mean Corpuscular HGB CONC 33.8 g/dL (32.0-36.0); Mean Corpuscular Hemoglobin 30.7 pg (27.0-31.0); Mean Corpuscular Volume 90.9 fL (78.0-98.0); Mean Platelet Volume 7.3 fL (7.4-10.4); Platelet Count 190 thou/uL (130-400); RBC Distribution Width 12.5 % (11.5-14.5); Red Blood Cell (RBC) Count 4.64 mill/uL (4.20-5.40); White Blood Cell (WBC) Count 8.7 thou/uL (4.8-10.8)
[2021-02-02] MEDS: Insulin Regular 300 UNITS/3 ML VIAL SC PRN ×3 (06:12→17:30)
[2021-02-02 06:47] LABS: Band 9 % (5-11); Lymphocytes 29 % (21-51); MDiff Complete? YES; Monocytes 1 % (0-10); Neutrophil 61 % (42-75)
[2021-02-02] MEDS ORDERED: Spironolactone 25 MG TAB PO SCH (08:00)
[2021-02-02] MEDS ORDERED: Furosemide 100 MG/10 ML VIAL SLOW IVP SCH (08:30)
[2021-02-02] MEDS: Escitalopram Oxalate 10 mg Tablet PO SCH (08:58)
[2021-02-02] MEDS: AcetaZOLAMIDE 250 MG TAB PO SCH (08:58)
[2021-02-02] MEDS: predniSONE 5 MG TAB PO SCH (08:58)
[2021-02-02] MEDS: Potassium Chloride 20 MEQ TAB PO SCH ×2 (08:58→20:49)
[2021-02-02] MEDS: Liothyronine Sodium 25 MCG TAB PO SCH (08:59)
[2021-02-02] MEDS ORDERED: Bumetanide 1 MG TAB PO SCH (09:00)
[2021-02-02] MEDS ORDERED: Potassium Chloride 20 MEQ TAB PO SCH (09:00)
[2021-02-02] MEDS ORDERED: Allopurinol 300 MG TAB PO SCH ×2 (09:00→21:00)
[2021-02-02] MEDS ORDERED: Enoxaparin Sodium 40 MG/0.4 ML SYRINGE SC SCH (09:00)
[2021-02-02] MEDS ORDERED: Escitalopram Oxalate 10 mg Tablet PO SCH ×2 (09:00→21:00)
[2021-02-02] MEDS ORDERED: FLU VACC QS2021-22(65YR UP)/PF 240 MCG/0.7 ML SYRINGE IM ONE (09:00)
[2021-02-02] MEDS: Magnesium Oxide 400 MG TAB PO SCH ×2 (09:33→20:49)
[2021-02-02] MEDS: Sacubitril 49 MG/Valsartan 51 MG TABLET PO SCH (09:45)
[2021-02-02] MEDS: NPH, Human Insulin Isophane 300 UNIT/3 ML VIAL SC SCH ×2 (09:46→16:39)
[2021-02-02] MEDS ORDERED: Warfarin Sodium 5 MG TAB PO SCH ×2 (17:00)
[2021-02-02] MEDS ORDERED: Furosemide 40 MG/4 ML VIAL SLOW IVP SCH ×2 (18:00)
[2021-02-02] MEDS: Famotidine 20 MG TAB PO SCH (20:48)
[2021-02-02] MEDS: Simvastatin 10 MG TAB PO SCH (20:49)
[2021-02-03] MEDS: Acetaminophen 325 MG TAB PO PRN (00:51)
[2021-02-03 04:49] LABS: INR-International Normal Ratio 2.5; Prothrombin Time 27.5 sec (12.0-14.7)
[2021-02-03 04:58] LABS: Hemoglobin 14.1 g/dL (12.0-16.0); Mean Corpuscular HGB CONC 33.9 g/dL (32.0-36.0); Mean Corpuscular Hemoglobin 30.9 pg (27.0-31.0); Mean Corpuscular Volume 91.3 fL (78.0-98.0); Platelet Count 204 thou/uL (130-400); RBC Distribution Width 12.5 % (11.5-14.5); Red Blood Cell (RBC) Count 4.57 mill/uL (4.20-5.40); White Blood Cell (WBC) Count 7.4 thou/uL (4.8-10.8)
[2021-02-03 05:04] LABS: Phosphorus 3.7 mg/dL (2.3-4.7)
[2021-02-03 05:08] LABS: ALT (SGPT) 23 U/L (8-55); AST (SGOT) 21 U/L (5-34); Albumin 3.4 g/dL (3.4-4.8); Alkaline Phosphatase 99 U/L (40-110); Anion Gap 12 mmol/L (10-20); BUN (Urea Nitrogen) 26 mg/dL (9.8-20.1); Bilirubin, Total 0.5 mg/dL (0.2-1.2); Calc. Creatinine Clearance 96 mL/min (70-130); Calcium 8.9 mg/dL (7.8-10.44); Carbon Dioxide 29 mmol/L (23-31); Chloride 104 mmol/L (98-107); Globulin 2.9 g/dL (2.4-3.5); Glucose 114 mg/dL (80-115); Potassium 3.5 mmol/L (3.5-5.1); Protein, Total 6.3 g/dL (5.8-8.1); Sodium 141 mmol/L (136-145)
[2021-02-03 05:25] LABS: Band 6 % (5-11); Eosinophils 3 % (0-10); Lymphocytes 33 % (21-51); MDiff Complete? YES; Monocytes 7 % (0-10); Neutrophil 50 % (42-75)
[2021-02-03] MEDS: Milrinone Lactate/D5W 20 MG in Premix Bag 1 BAG IV SCH (05:33)
[2021-02-03 07:55] LABS: Magnesium 1.9 mg/dL (1.6-2.6)
[2021-02-03] MEDS ORDERED: Furosemide 40 MG/4 ML VIAL SLOW IVP SCH (08:00)
[2021-02-03] MEDS ORDERED: Potassium Chloride 20 MEQ TAB PO SCH ×2 (08:30→09:00)
[2021-02-03] MEDS ORDERED: Magnesium 2 GM/50 ML 2 GM in Premix Bag 1 BAG IVPB SCH (08:30)
[2021-02-03] MEDS: NPH, Human Insulin Isophane 300 UNIT/3 ML VIAL SC SCH (09:27)
[2021-02-03] MEDS: AcetaZOLAMIDE 250 MG TAB PO SCH (09:28)
[2021-02-03] MEDS: Escitalopram Oxalate 10 mg Tablet PO SCH (09:28)
[2021-02-03] MEDS: predniSONE 5 MG TAB PO SCH (09:28)
[2021-02-03] MEDS: Magnesium Oxide 400 MG TAB PO SCH (09:29)
[2021-02-03] MEDS: Liothyronine Sodium 25 MCG TAB PO SCH (09:29)
[2021-02-03] MEDS ORDERED: Furosemide 100 MG/10 ML VIAL SLOW IVP SCH (09:30)
[2021-02-03 11:32] VITALS: BP 132/57; TEMP 97.7
[2021-02-03] MEDS ORDERED: Warfarin Sodium 5 MG TAB PO SCH (17:00)
[2021-02-04] MEDS ORDERED: Warfarin Sodium 7.5 MG TAB PO SCH (17:00)
== END 2021-02-03 14:16 | disposition short-term general hospital (02) | DRG 291 ==
LOC: ERS 11:08 → 2NO 14:49
PROVIDERS: ADMIT Family Medicine; ATTEND Family Medicine
DX: I11.0 Hypertensive heart disease with heart failure (principal); J96.01 Acute respiratory failure with hypoxia; I50.43 Acute on chronic combined systolic (congestive) and diastolic (congestive) heart failure; N17.9 Acute kidney failure, unspecified; Z68.41 Body mass index [BMI] 40.0-44.9, adult; I27.20 Pulmonary hypertension, unspecified; K74.60 Unspecified cirrhosis of liver; E11.9 Type 2 diabetes mellitus without complications; F41.9 Anxiety disorder, unspecified; M10.9 Gout, unspecified; G43.909 Migraine, unspecified, not intractable, without status migrainosus; K21.9 Gastro-esophageal reflux disease without esophagitis; E78.5 Hyperlipidemia, unspecified; E78.00 Pure hypercholesterolemia, unspecified; M19.90 Unspecified osteoarthritis, unspecified site; F32.A Depression, unspecified; E03.9 Hypothyroidism, unspecified; F43.10 Post-traumatic stress disorder, unspecified; I48.0 Paroxysmal atrial fibrillation; E66.9 Obesity, unspecified; Z79.4 Long term (current) use of insulin; Z88.0 Allergy status to penicillin; Z88.5 Allergy status to narcotic agent; Z88.1 Allergy status to other antibiotic agents; Z88.8 Allergy status to other drugs, medicaments and biological substances; Z79.01 Long term (current) use of anticoagulants; Z79.899 Other long term (current) drug therapy; Z79.84 Long term (current) use of oral hypoglycemic drugs; Z87.891 Personal history of nicotine dependence; Z79.890 Hormone replacement therapy
CPT/HCPCS: 36415; 36416; 51702; 71045; 80053; 83735; 83880; 84100; 84443; 84484; 85007; 85025; 85027; 85610; 90471; 90662; 93005; 93306; 94760; 96365; 96366; G0008; J1815; J1940; J2260; J3475; J3490; J7512; U0002

== ENCOUNTER 2021-08-08 11:32 | Inpatient (IN) | payer MEDICARE, OTHER ==
[2021-08-08 13:04] LABS: #Basophils 0.1 thou/uL (0.0-0.2); #Eosinphils 0.3 thou/uL (0.0-0.7); #Lymphocytes 2.4 thou/uL (1.20-3.40); #Monocytes 1.4 thou/uL (0.11-0.59); #Neutrophils 11.7 thou/uL (1.40-6.50); %Basophils 0.6 % (0.0-1.0); %Lymphocytes 14.9 % (21.0-51.0); %Neutrophils 73.5 % (42.0-75.0); Hemoglobin 13.7 g/dL (12.0-16.0); Mean Corpuscular HGB CONC 32.8 g/dL (32.0-36.0); Mean Corpuscular Volume 91.2 fL (78.0-98.0); Platelet Count 315 thou/uL (130-400); RBC Distribution Width 14.4 % (11.5-14.5); Red Blood Cell (RBC) Count 4.57 mill/uL (4.20-5.40); White Blood Cell (WBC) Count 15.9 thou/uL (4.8-10.8)
[2021-08-08 14:03] LABS: ALT (SGPT) 17 U/L (8-55); AST (SGOT) 22 U/L (5-34); Alkaline Phosphatase 95 U/L (40-110); Anion Gap 21 mmol/L (10-20); BUN (Urea Nitrogen) 50 mg/dL (9.8-20.1); Bilirubin, Total 0.7 mg/dL (0.2-1.2); Calc. Creatinine Clearance 0 mL/min (70-130); Calcium 9.4 mg/dL (7.8-10.44); Carbon Dioxide 26 mmol/L (23-31); Chloride 95 mmol/L (98-107); Globulin 3.4 g/dL (2.4-3.5); Glucose 175 mg/dL (80-115); Lipase 45 U/L (8-78); Potassium 3.9 mmol/L (3.5-5.1); Protein, Total 7.4 g/dL (5.8-8.1); Sodium 138 mmol/L (136-145)
[2021-08-08] MEDS ORDERED: Insulin Regular 300 UNITS/3 ML VIAL ONE (14:54)
[2021-08-08] MEDS ORDERED: Potassium Chloride 20 MEQ TAB PO SCH ×4 (16:30→21:30)
[2021-08-08] MEDS ORDERED: Lactated Ringer's 1,000 ML IV SCH (16:30)
[2021-08-08 16:37] LABS: Lactic Acid 3.3 mmol/L (0.5-2.2)
[2021-08-08 16:41] VITALS: BMI 43.5
[2021-08-08 17:09] LABS: SARS-CoV-2 NAA Rapid Test Not Detected (NotDetected)
[2021-08-08] MEDS ORDERED: Dextrose 50% Abboject 50 ML SYRINGE SLOW IVP PRN (17:11)
[2021-08-08] MEDS ORDERED: Dextrose 5% in Water 1,000 ML IV PRN (17:11)
[2021-08-08] MEDS ORDERED: Calcium Carbonate 500 MG ChewTAB PO PRN (17:12)
[2021-08-08 17:13] LABS: Troponin I 0.014 ng/mL (< 0.028)
[2021-08-08] MEDS ORDERED: Hydrocortisone Sod Succ/PF 100 mg/2 ml Vial IVP SCH (18:15)
[2021-08-08] MEDS: Acetaminophen 325 MG TAB PO PRN (18:52)
[2021-08-08] MEDS: Amiodarone In Dextrose 360 MG in Premix Bag 1 BAG IVPB SCH (19:15)
[2021-08-08 19:47] LABS: Lactic Acid 2.1 mmol/L (0.5-2.2)
[2021-08-08 19:50] LABS: Hemoglobin A1c 8.5 % (4.0-6.0)
[2021-08-08 19:52] LABS: Cardiac Risk 3.5 (Less than 4.5); INR-International Normal Ratio 2.8; Magnesium 1.9 mg/dL (1.6-2.6); PTT 48.8 sec (22.9-36.1); Prothrombin Time 29.9 sec (12.0-14.7)
[2021-08-08] MEDS: Milrinone Lactate/D5W 20 MG in Premix Bag 1 BAG IVPB SCH (20:36)
[2021-08-08 21:11] LABS: Bacteria/HPF None Seen HPF (None Seen); Bilirubin Negative (Negative); Blood, Urine Negative (Negative); Calcium Oxalate Crystals Rare HPF (None Seen); Clarity Clear (Clear); Glucose, Urine (Dipstick) Greater than 1000 mg/dL (Negative); Ketone, Urine Negative (Negative); Leukocyte Negative Leu/uL (Negative); Nitrite Negative (Negative); Protein, Urine (Dipstick) 20 mg/dL (Neg-Trace); RBC/HPF 0-3 HPF (0-3); Renal Epithelial 0-3 HPF (None Seen); Specific Gravity, Urine 1.019 (1.002-1.036); Squamous Epithelial 0-3 HPF (0-3); Urobilinogen Normal mg/dL (Less than 2); WBC/HPF 0-3 HPF (0-3)
[2021-08-08] MEDS ORDERED: Warfarin Sodium 7.5 MG TAB PO SCH (21:15)
[2021-08-08] MEDS: Rosuvastatin 10 MG TAB PO SCH (21:19)
[2021-08-08] MEDS: NPH, Human Insulin Isophane 300 UNIT/3 ML VIAL SC SCH (21:22)
[2021-08-08] MEDS: HumaLOG 300 UNITS/3 ML VIAL SC PRN (21:23)
[2021-08-09] MEDS: Milrinone Lactate/D5W 20 MG in Premix Bag 1 BAG IVPB SCH ×3 (04:20→21:55)
[2021-08-09 05:54] LABS: #Basophils 0.1 thou/uL (0.0-0.2); #Eosinphils 0.1 thou/uL (0.0-0.7); #Lymphocytes 2.3 thou/uL (1.20-3.40); #Neutrophils 5.4 thou/uL (1.40-6.50); %Basophils 0.6 % (0.0-1.0); %Eosinophils 1.7 % (0.0-10.0); %Lymphocytes 25.5 % (21.0-51.0); %Monocytes 11.5 % (0.0-10.0); %Neutrophils 60.7 % (42.0-75.0); Hemoglobin 12.4 g/dL (12.0-16.0); Mean Corpuscular HGB CONC 32.4 g/dL (32.0-36.0); Mean Corpuscular Hemoglobin 29.8 pg (27.0-31.0); Mean Corpuscular Volume 91.8 fL (78.0-98.0); Mean Platelet Volume 7.3 fL (7.4-10.4); Platelet Count 231 thou/uL (130-400); RBC Distribution Width 14.3 % (11.5-14.5); Red Blood Cell (RBC) Count 4.15 mill/uL (4.20-5.40); White Blood Cell (WBC) Count 8.8 thou/uL (4.8-10.8)
[2021-08-09 06:02] LABS: INR-International Normal Ratio 2.6
[2021-08-09] MEDS: Amiodarone In Dextrose 360 MG in Premix Bag 1 BAG IVPB SCH (06:24)
[2021-08-09] MEDS: HumaLOG 300 UNITS/3 ML VIAL SC PRN ×2 (06:35→11:50)
[2021-08-09 06:47] LABS: ALT (SGPT) 16 U/L (8-55); AST (SGOT) 16 U/L (5-34); Albumin 3.7 g/dL (3.4-4.8); Alkaline Phosphatase 86 U/L (40-110); Anion Gap 14 mmol/L (10-20); BUN (Urea Nitrogen) 53 mg/dL (9.8-20.1); Bilirubin, Total 0.4 mg/dL (0.2-1.2); Calc. Creatinine Clearance 61 mL/min (70-130); Calcium 9.4 mg/dL (7.8-10.44); Carbon Dioxide 29 mmol/L (23-31); Chloride 97 mmol/L (98-107); Glucose 251 mg/dL (80-115); Potassium 4.6 mmol/L (3.5-5.1); Protein, Total 6.7 g/dL (5.8-8.1); Sodium 135 mmol/L (136-145)
[2021-08-09 07:44] LABS: Magnesium 2.2 mg/dL (1.6-2.6)
[2021-08-09] MEDS ORDERED: NPH, Human Insulin Isophane 300 UNIT/3 ML VIAL SC SCH ×2 (08:00)
[2021-08-09] MEDS ORDERED: Bumetanide 1 MG TAB PO SCH (09:00)
[2021-08-09] MEDS ORDERED: sitaGLIPtin Phosphate 25 MG TAB PO SCH (09:00)
[2021-08-09] MEDS: Famotidine 20 MG TAB PO SCH (09:24)
[2021-08-09] MEDS: Potassium Chloride 20 MEQ TAB PO SCH ×2 (09:24→17:48)
[2021-08-09] MEDS: Escitalopram Oxalate 10 mg Tablet PO SCH (09:24)
[2021-08-09] MEDS: Bumetanide 1 MG TAB PO SCH ×2 (09:25→09:29)
[2021-08-09] MEDS: Fluticasone Propionate Nasal Spray 16 gm Bottle NASAL SCH (09:25)
[2021-08-09] MEDS: Liothyronine Sodium 25 MCG TAB PO SCH (09:25)
[2021-08-09] MEDS: Insulin Regular 300 UNITS/3 ML VIAL SC SCH ×3 (09:27→17:49)
[2021-08-09] MEDS: NPH, Human Insulin Isophane 300 UNIT/3 ML VIAL SC SCH ×2 (09:28→21:54)
[2021-08-09] MEDS ORDERED: Amiodarone In Dextrose 360 MG in Premix Bag 1 BAG IVPB SCH (10:00)
[2021-08-09] MEDS: Triamterene/Hydrochlorothiazide 37.5 mg/25 mg Tablet PO SCH (11:46)
[2021-08-09] MEDS ORDERED: predniSONE 5 MG TAB PO SCH (12:15)
[2021-08-09] MEDS ORDERED: Warfarin Sodium 7.5 MG TAB PO SCH (17:00)
[2021-08-09] MEDS: Warfarin Sodium 5 MG TAB PO SCH (17:48)
[2021-08-09] MEDS ORDERED: Amiodarone 200 MG TAB PO SCH (20:00)
[2021-08-09] MEDS: Acetaminophen 325 MG TAB PO PRN (20:15)
[2021-08-09] MEDS: Rosuvastatin 10 MG TAB PO SCH (21:58)
[2021-08-09] MEDS: traMADol HCl 50 MG TAB PO PRN (21:58)
[2021-08-10 04:53] LABS: #Basophils 0.1 thou/uL (0.0-0.2); #Eosinphils 0.4 thou/uL (0.0-0.7); #Lymphocytes 3.1 thou/uL (1.20-3.40); #Monocytes 1.1 thou/uL (0.11-0.59); #Neutrophils 5.2 thou/uL (1.40-6.50); %Basophils 0.8 % (0.0-1.0); %Eosinophils 3.7 % (0.0-10.0); %Lymphocytes 31.2 % (21.0-51.0); %Monocytes 11.6 % (0.0-10.0); %Neutrophils 52.8 % (42.0-75.0); Hemoglobin 13.3 g/dL (12.0-16.0); Mean Corpuscular HGB CONC 31.9 g/dL (32.0-36.0); Mean Corpuscular Hemoglobin 29.5 pg (27.0-31.0); Mean Corpuscular Volume 92.7 fL (78.0-98.0); Platelet Count 239 thou/uL (130-400); RBC Distribution Width 14.5 % (11.5-14.5); Red Blood Cell (RBC) Count 4.51 mill/uL (4.20-5.40); White Blood Cell (WBC) Count 9.9 thou/uL (4.8-10.8)
[2021-08-10 04:59] LABS: INR-International Normal Ratio 2.7
[2021-08-10 05:17] LABS: ALT (SGPT) 20 U/L (8-55); AST (SGOT) 20 U/L (5-34); Albumin 3.8 g/dL (3.4-4.8); Alkaline Phosphatase 79 U/L (40-110); Anion Gap 13 mmol/L (10-20); BUN (Urea Nitrogen) 40 mg/dL (9.8-20.1); Bilirubin, Total 0.7 mg/dL (0.2-1.2); Calc. Creatinine Clearance 87 mL/min (70-130); Calcium 9.2 mg/dL (7.8-10.44); Carbon Dioxide 31 mmol/L (23-31); Chloride 97 mmol/L (98-107); Globulin 3.1 g/dL (2.4-3.5); Glucose 131 mg/dL (80-115); Magnesium 2.1 mg/dL (1.6-2.6); Potassium 4.4 mmol/L (3.5-5.1); Protein, Total 6.9 g/dL (5.8-8.1); Sodium 137 mmol/L (136-145)
[2021-08-10] MEDS: Acetaminophen 325 MG TAB PO PRN ×2 (05:28→16:36)
[2021-08-10] MEDS: traMADol HCl 50 MG TAB PO PRN (05:28)
[2021-08-10] MEDS: Triamterene/Hydrochlorothiazide 37.5 mg/25 mg Tablet PO SCH (05:32)
[2021-08-10] MEDS: Milrinone Lactate/D5W 20 MG in Premix Bag 1 BAG IVPB SCH ×3 (08:31→23:08)
[2021-08-10] MEDS: Insulin Regular 300 UNITS/3 ML VIAL SC SCH ×3 (08:42→18:45)
[2021-08-10] MEDS: Potassium Chloride 20 MEQ TAB PO SCH ×2 (08:43→16:35)
[2021-08-10] MEDS: Empagliflozin 10 MG TAB PO SCH (08:44)
[2021-08-10] MEDS: Escitalopram Oxalate 10 mg Tablet PO SCH (08:44)
[2021-08-10] MEDS: predniSONE 5 MG TAB PO SCH (08:44)
[2021-08-10] MEDS: Amiodarone 200 MG TAB PO SCH ×2 (08:44→20:40)
[2021-08-10] MEDS: Bumetanide 1 MG TAB PO SCH (08:44)
[2021-08-10] MEDS: Famotidine 20 MG TAB PO SCH (08:45)
[2021-08-10] MEDS: Fluticasone Propionate Nasal Spray 16 gm Bottle NASAL SCH (08:45)
[2021-08-10] MEDS: Liothyronine Sodium 25 MCG TAB PO SCH (08:46)
[2021-08-10] MEDS: NPH, Human Insulin Isophane 300 UNIT/3 ML VIAL SC SCH ×2 (08:47→20:41)
[2021-08-10] MEDS: Warfarin Sodium 5 MG TAB PO SCH (16:35)
[2021-08-10] MEDS: HumaLOG 300 UNITS/3 ML VIAL SC PRN (20:40)
[2021-08-10] MEDS: Rosuvastatin 10 MG TAB PO SCH (20:40)
[2021-08-11 04:53] LABS: INR-International Normal Ratio 2.8; Prothrombin Time 30.1 sec (12.0-14.7)
[2021-08-11] MEDS: Triamterene/Hydrochlorothiazide 37.5 mg/25 mg Tablet PO SCH (04:58)
[2021-08-11 05:05] LABS: ALT (SGPT) 21 U/L (8-55); AST (SGOT) 19 U/L (5-34); Albumin 3.9 g/dL (3.4-4.8); Alkaline Phosphatase 78 U/L (40-110); Anion Gap 13 mmol/L (10-20); BUN (Urea Nitrogen) 41 mg/dL (9.8-20.1); Bilirubin, Total 0.7 mg/dL (0.2-1.2); Calc. Creatinine Clearance 74 mL/min (70-130); Carbon Dioxide 34 mmol/L (23-31); Chloride 95 mmol/L (98-107); Globulin 3.1 g/dL (2.4-3.5); Glucose 109 mg/dL (80-115); Magnesium 2.3 mg/dL (1.6-2.6); Sodium 138 mmol/L (136-145)
[2021-08-11 05:07] LABS: Band 2 % (5-11); Eosinophils 1 % (0-10); Hemoglobin 13.3 g/dL (12.0-16.0); Lymphocytes 33 % (21-51); MDiff Complete? YES; Mean Corpuscular HGB CONC 32.2 g/dL (32.0-36.0); Mean Corpuscular Hemoglobin 29.8 pg (27.0-31.0); Mean Corpuscular Volume 92.7 fL (78.0-98.0); Mean Platelet Volume 6.9 fL (7.4-10.4); Monocytes 5 % (0-10); Neutrophil 52 % (42-75); Platelet Count 236 thou/uL (130-400); Platelet Morphology Comment Appears Adequate; RBC Distribution Width 14.3 % (11.5-14.5); RBC Morphology Normal; Reactive Lymphocytes 7 % (0-10); Red Blood Cell (RBC) Count 4.45 mill/uL (4.20-5.40); White Blood Cell (WBC) Count 8.4 thou/uL (4.8-10.8)
[2021-08-11] MEDS: Bumetanide 1 MG TAB PO SCH (09:18)
[2021-08-11] MEDS: predniSONE 5 MG TAB PO SCH (09:18)
[2021-08-11] MEDS: Potassium Chloride 20 MEQ TAB PO SCH ×2 (09:18→16:57)
[2021-08-11] MEDS: Famotidine 20 MG TAB PO SCH (09:19)
[2021-08-11] MEDS: Amiodarone 200 MG TAB PO SCH ×2 (09:19→21:30)
[2021-08-11] MEDS: Empagliflozin 10 MG TAB PO SCH (09:19)
[2021-08-11] MEDS: Liothyronine Sodium 25 MCG TAB PO SCH (09:19)
[2021-08-11] MEDS: Escitalopram Oxalate 10 mg Tablet PO SCH (09:19)
[2021-08-11] MEDS: Acetaminophen 325 MG TAB PO PRN (09:20)
[2021-08-11] MEDS: Fluticasone Propionate Nasal Spray 16 gm Bottle NASAL SCH (09:20)
[2021-08-11] MEDS: NPH, Human Insulin Isophane 300 UNIT/3 ML VIAL SC SCH ×2 (09:21→21:31)
[2021-08-11] MEDS: Insulin Regular 300 UNITS/3 ML VIAL SC SCH ×3 (09:21→16:58)
[2021-08-11] MEDS: AcetaZOLAMIDE 250 MG TAB PO SCH (10:08)
[2021-08-11] MEDS: traMADol HCl 50 MG TAB PO PRN (12:38)
[2021-08-11] MEDS: Warfarin Sodium 3 MG TAB PO SCH (16:57)
[2021-08-11] MEDS: HumaLOG 300 UNITS/3 ML VIAL SC PRN ×2 (17:00→21:32)
[2021-08-11] MEDS: Milrinone Lactate/D5W 20 MG in Premix Bag 1 BAG IVPB SCH (17:01)
[2021-08-11] MEDS: Carvedilol 6.25 MG TAB PO SCH (21:31)
[2021-08-11] MEDS: Rosuvastatin 10 MG TAB PO SCH (21:31)
[2021-08-12] MEDS: Milrinone Lactate/D5W 20 MG in Premix Bag 1 BAG IVPB SCH ×3 (01:03→17:00)
[2021-08-12] MEDS: Acetaminophen 325 MG TAB PO PRN ×2 (04:30→15:36)
[2021-08-12 05:42] LABS: #Eosinphils 0.2 thou/uL (0.0-0.7); #Lymphocytes 2.3 thou/uL (1.20-3.40); #Monocytes 1.1 thou/uL (0.11-0.59); #Neutrophils 3.6 thou/uL (1.40-6.50); %Basophils 0.6 % (0.0-1.0); %Eosinophils 2.5 % (0.0-10.0); %Lymphocytes 31.4 % (21.0-51.0); %Monocytes 14.8 % (0.0-10.0); %Neutrophils 50.8 % (42.0-75.0); Hemoglobin 12.6 g/dL (12.0-16.0); Mean Corpuscular HGB CONC 31.6 g/dL (32.0-36.0); Mean Corpuscular Hemoglobin 29.6 pg (27.0-31.0); Mean Corpuscular Volume 93.6 fL (78.0-98.0); Mean Platelet Volume 7.5 fL (7.4-10.4); Platelet Count 225 thou/uL (130-400); RBC Distribution Width 14.3 % (11.5-14.5); Red Blood Cell (RBC) Count 4.24 mill/uL (4.20-5.40); White Blood Cell (WBC) Count 7.2 thou/uL (4.8-10.8)
[2021-08-12] MEDS: Triamterene/Hydrochlorothiazide 37.5 mg/25 mg Tablet PO SCH (05:44)
[2021-08-12 06:05] LABS: ALT (SGPT) 20 U/L (8-55); AST (SGOT) 17 U/L (5-34); Albumin 3.6 g/dL (3.4-4.8); Alkaline Phosphatase 87 U/L (40-110); Anion Gap 14 mmol/L (10-20); BUN (Urea Nitrogen) 41 mg/dL (9.8-20.1); Bilirubin, Total 0.6 mg/dL (0.2-1.2); Calc. Creatinine Clearance 74 mL/min (70-130); Calcium 9.6 mg/dL (7.8-10.44); Carbon Dioxide 28 mmol/L (23-31); Chloride 100 mmol/L (98-107); Globulin 2.9 g/dL (2.4-3.5); Glucose 202 mg/dL (80-115); Magnesium 2.4 mg/dL (1.6-2.6); Potassium 3.8 mmol/L (3.5-5.1); Protein, Total 6.5 g/dL (5.8-8.1); Sodium 138 mmol/L (136-145)
[2021-08-12] MEDS: Escitalopram Oxalate 10 mg Tablet PO SCH (09:01)
[2021-08-12] MEDS: Potassium Chloride 20 MEQ TAB PO SCH ×2 (09:01→16:59)
[2021-08-12] MEDS: Bumetanide 1 MG TAB PO SCH (09:01)
[2021-08-12] MEDS: Famotidine 20 MG TAB PO SCH (09:01)
[2021-08-12] MEDS: predniSONE 5 MG TAB PO SCH (09:01)
[2021-08-12] MEDS: Liothyronine Sodium 25 MCG TAB PO SCH (09:01)
[2021-08-12] MEDS: Empagliflozin 10 MG TAB PO SCH (09:01)
[2021-08-12] MEDS: Carvedilol 6.25 MG TAB PO SCH ×2 (09:01→20:51)
[2021-08-12] MEDS: Fluticasone Propionate Nasal Spray 16 gm Bottle NASAL SCH (09:02)
[2021-08-12] MEDS: AcetaZOLAMIDE 250 MG TAB PO SCH ×2 (09:02→09:06)
[2021-08-12] MEDS: Amiodarone 200 MG TAB PO SCH (09:02)
[2021-08-12] MEDS: NPH, Human Insulin Isophane 300 UNIT/3 ML VIAL SC SCH ×2 (09:03→20:52)
[2021-08-12] MEDS ORDERED: Insulin Regular 300 UNITS/3 ML VIAL SC SCH (09:15)
[2021-08-12] MEDS ORDERED: Nystatin Powder 15 GM BOT TOP PRN (09:24)
[2021-08-12 09:33] LABS: INR-International Normal Ratio 2.4; Prothrombin Time 26.6 sec (12.0-14.7)
[2021-08-12] MEDS ORDERED: Potassium Chloride 20 MEQ TAB PO SCH (09:45)
[2021-08-12] MEDS: Insulin Regular 300 UNITS/3 ML VIAL SC SCH ×3 (09:52→17:00)
[2021-08-12] MEDS: Sotalol HCl 80 MG TAB PO SCH ×2 (10:16→20:51)
[2021-08-12] MEDS: HumaLOG 300 UNITS/3 ML VIAL SC PRN ×3 (11:51→20:52)
[2021-08-12] MEDS: Warfarin Sodium 3 MG TAB PO SCH (16:59)
[2021-08-12] MEDS: Rosuvastatin 10 MG TAB PO SCH (20:51)
[2021-08-13] MEDS: Acetaminophen 325 MG TAB PO PRN ×2 (00:28→18:12)
[2021-08-13] MEDS: Milrinone Lactate/D5W 20 MG in Premix Bag 1 BAG IVPB SCH ×3 (01:04→17:12)
[2021-08-13] MEDS: Triamterene/Hydrochlorothiazide 37.5 mg/25 mg Tablet PO SCH (05:17)
[2021-08-13 05:32] LABS: ALT (SGPT) 19 U/L (8-55); AST (SGOT) 15 U/L (5-34); Albumin 3.7 g/dL (3.4-4.8); Alkaline Phosphatase 89 U/L (40-110); Anion Gap 13 mmol/L (10-20); BUN (Urea Nitrogen) 42 mg/dL (9.8-20.1); Bilirubin, Total 0.5 mg/dL (0.2-1.2); Calc. Creatinine Clearance 71 mL/min (70-130); Calcium 9.8 mg/dL (7.8-10.44); Carbon Dioxide 28 mmol/L (23-31); Chloride 100 mmol/L (98-107); Globulin 2.9 g/dL (2.4-3.5); Glucose 203 mg/dL (80-115); Magnesium 2.4 mg/dL (1.6-2.6); Potassium 3.8 mmol/L (3.5-5.1); Protein, Total 6.6 g/dL (5.8-8.1); Sodium 137 mmol/L (136-145)
[2021-08-13 05:46] LABS: Lymphocytes 28 % (21-51); MDiff Complete? YES; Mean Corpuscular Hemoglobin 29.7 pg (27.0-31.0); Mean Corpuscular Volume 92.7 fL (78.0-98.0); Mean Platelet Volume 7.1 fL (7.4-10.4); Monocytes 7 % (0-10); Neutrophil 65 % (42-75); Platelet Count 245 thou/uL (130-400); Platelet Morphology Comment Appears Adequate; RBC Distribution Width 14.3 % (11.5-14.5); RBC Morphology Normal; Red Blood Cell (RBC) Count 4.03 mill/uL (4.20-5.40); White Blood Cell (WBC) Count 7.6 thou/uL (4.8-10.8)
[2021-08-13] MEDS: HumaLOG 300 UNITS/3 ML VIAL SC PRN ×2 (06:01→20:52)
[2021-08-13] MEDS: Liothyronine Sodium 25 MCG TAB PO SCH (08:44)
[2021-08-13] MEDS: Fluticasone Propionate Nasal Spray 16 gm Bottle NASAL SCH (08:44)
[2021-08-13] MEDS: Empagliflozin 10 MG TAB PO SCH (08:44)
[2021-08-13] MEDS: Escitalopram Oxalate 10 mg Tablet PO SCH (08:45)
[2021-08-13] MEDS: Carvedilol 6.25 MG TAB PO SCH ×2 (08:45→20:49)
[2021-08-13] MEDS: Famotidine 20 MG TAB PO SCH (08:45)
[2021-08-13] MEDS: predniSONE 5 MG TAB PO SCH (08:45)
[2021-08-13] MEDS: Sotalol HCl 80 MG TAB PO SCH ×2 (08:45→20:51)
[2021-08-13] MEDS: Potassium Chloride 20 MEQ TAB PO SCH ×2 (08:45→17:11)
[2021-08-13] MEDS: Insulin Regular 300 UNITS/3 ML VIAL SC SCH ×3 (08:47→17:11)
[2021-08-13] MEDS: NPH, Human Insulin Isophane 300 UNIT/3 ML VIAL SC SCH ×2 (08:47→20:50)
[2021-08-13] MEDS: Warfarin Sodium 3 MG TAB PO SCH (17:11)
[2021-08-13] MEDS: Sacubitril 49 MG/Valsartan 51 MG TABLET PO SCH (20:51)
[2021-08-13] MEDS: traMADol HCl 50 MG TAB PO PRN (20:51)
[2021-08-13] MEDS: Rosuvastatin 10 MG TAB PO SCH (20:51)
[2021-08-14] MEDS: Acetaminophen 325 MG TAB PO PRN ×2 (04:28→20:48)
[2021-08-14 05:26] LABS: INR-International Normal Ratio 1.7; Prothrombin Time 20.7 sec (12.0-14.7)
[2021-08-14 05:37] LABS: ALT (SGPT) 18 U/L (8-55); AST (SGOT) 16 U/L (5-34); Albumin 3.6 g/dL (3.4-4.8); Alkaline Phosphatase 87 U/L (40-110); Anion Gap 12 mmol/L (10-20); BUN (Urea Nitrogen) 35 mg/dL (9.8-20.1); Bilirubin, Total 0.7 mg/dL (0.2-1.2); Calc. Creatinine Clearance 81 mL/min (70-130); Calcium 9.3 mg/dL (7.8-10.44); Carbon Dioxide 30 mmol/L (23-31); Chloride 101 mmol/L (98-107); Globulin 2.9 g/dL (2.4-3.5); Glucose 197 mg/dL (80-115); Protein, Total 6.5 g/dL (5.8-8.1); Sodium 139 mmol/L (136-145)
[2021-08-14 05:49] LABS: Eosinophils 2 % (0-10); Hemoglobin 12.1 g/dL (12.0-16.0); Lymphocytes 43 % (21-51); MDiff Complete? YES; Mean Corpuscular HGB CONC 32.2 g/dL (32.0-36.0); Mean Corpuscular Hemoglobin 30.1 pg (27.0-31.0); Mean Corpuscular Volume 93.4 fL (78.0-98.0); Mean Platelet Volume 7.3 fL (7.4-10.4); Monocytes 12 % (0-10); Neutrophil 42 % (42-75); Platelet Count 253 thou/uL (130-400); Platelet Morphology Comment Appears Adequate; RBC Distribution Width 14.4 % (11.5-14.5); RBC Morphology Normal; Red Blood Cell (RBC) Count 4.04 mill/uL (4.20-5.40); White Blood Cell (WBC) Count 7.6 thou/uL (4.8-10.8)
[2021-08-14] MEDS: Triamterene/Hydrochlorothiazide 37.5 mg/25 mg Tablet PO SCH (06:03)
[2021-08-14] MEDS: traMADol HCl 50 MG TAB PO PRN ×2 (06:03→12:15)
[2021-08-14] MEDS: HumaLOG 300 UNITS/3 ML VIAL SC PRN ×2 (06:04→17:25)
[2021-08-14] MEDS: Milrinone Lactate/D5W 20 MG in Premix Bag 1 BAG IVPB SCH ×2 (09:35→17:21)
[2021-08-14] MEDS: Sacubitril 49 MG/Valsartan 51 MG TABLET PO SCH ×2 (09:36→20:47)
[2021-08-14] MEDS: Carvedilol 6.25 MG TAB PO SCH ×2 (09:37→20:46)
[2021-08-14] MEDS: Escitalopram Oxalate 10 mg Tablet PO SCH (09:38)
[2021-08-14] MEDS: Potassium Chloride 20 MEQ TAB PO SCH ×2 (09:38→17:19)
[2021-08-14] MEDS: predniSONE 5 MG TAB PO SCH (09:39)
[2021-08-14] MEDS: Sotalol HCl 80 MG TAB PO SCH ×2 (09:39→20:47)
[2021-08-14] MEDS: Bumetanide 1 MG TAB PO SCH (09:39)
[2021-08-14] MEDS: Famotidine 20 MG TAB PO SCH (09:39)
[2021-08-14] MEDS: Empagliflozin 10 MG TAB PO SCH (09:39)
[2021-08-14] MEDS: Fluticasone Propionate Nasal Spray 16 gm Bottle NASAL SCH (09:39)
[2021-08-14] MEDS: Insulin Regular 300 UNITS/3 ML VIAL SC SCH ×3 (09:40→17:25)
[2021-08-14] MEDS: NPH, Human Insulin Isophane 300 UNIT/3 ML VIAL SC SCH ×2 (09:42→20:47)
[2021-08-14] MEDS: Liothyronine Sodium 25 MCG TAB PO SCH (09:44)
[2021-08-14] MEDS ORDERED: Warfarin Sodium 2 MG TAB PO SCH (17:00)
[2021-08-14] MEDS: Rosuvastatin 10 MG TAB PO SCH (20:47)
[2021-08-15 04:36] LABS: ALT (SGPT) 20 U/L (8-55); AST (SGOT) 18 U/L (5-34); Albumin 3.6 g/dL (3.4-4.8); Alkaline Phosphatase 80 U/L (40-110); Anion Gap 10 mmol/L (10-20); BUN (Urea Nitrogen) 36 mg/dL (9.8-20.1); Bilirubin, Total 0.6 mg/dL (0.2-1.2); Calc. Creatinine Clearance 84 mL/min (70-130); Calcium 9.4 mg/dL (7.8-10.44); Carbon Dioxide 31 mmol/L (23-31); Chloride 100 mmol/L (98-107); Globulin 2.8 g/dL (2.4-3.5); Glucose 150 mg/dL (80-115); Potassium 4.3 mmol/L (3.5-5.1); Protein, Total 6.4 g/dL (5.8-8.1); Sodium 137 mmol/L (136-145)
[2021-08-15 04:54] LABS: INR-International Normal Ratio 1.5; Prothrombin Time 18.6 sec (12.0-14.7)
[2021-08-15 05:14] LABS: Hemoglobin 12.1 g/dL (12.0-16.0); Lymphocytes 24 % (21-51); MDiff Complete? YES; Mean Corpuscular HGB CONC 32.6 g/dL (32.0-36.0); Mean Corpuscular Hemoglobin 30.3 pg (27.0-31.0); Mean Platelet Volume 6.8 fL (7.4-10.4); Monocytes 11 % (0-10); Neutrophil 59 % (42-75); Platelet Count 236 thou/uL (130-400); Platelet Morphology Comment Appears Adequate; RBC Distribution Width 14.3 % (11.5-14.5); RBC Morphology Normal; Reactive Lymphocytes 6 % (0-10); Red Blood Cell (RBC) Count 3.99 mill/uL (4.20-5.40); White Blood Cell (WBC) Count 7.9 thou/uL (4.8-10.8)
[2021-08-15] MEDS: Triamterene/Hydrochlorothiazide 37.5 mg/25 mg Tablet PO SCH (06:16)
[2021-08-15] MEDS: Escitalopram Oxalate 10 mg Tablet PO SCH (08:52)
[2021-08-15] MEDS: Potassium Chloride 20 MEQ TAB PO SCH (08:52)
[2021-08-15] MEDS: Sotalol HCl 80 MG TAB PO SCH (08:53)
[2021-08-15] MEDS: Famotidine 20 MG TAB PO SCH (08:54)
[2021-08-15] MEDS: Empagliflozin 10 MG TAB PO SCH (08:54)
[2021-08-15] MEDS: Sacubitril 49 MG/Valsartan 51 MG TABLET PO SCH ×2 (08:54→20:02)
[2021-08-15] MEDS: Carvedilol 6.25 MG TAB PO SCH ×2 (08:54→20:01)
[2021-08-15] MEDS: predniSONE 5 MG TAB PO SCH (08:54)
[2021-08-15] MEDS: Fluticasone Propionate Nasal Spray 16 gm Bottle NASAL SCH (08:55)
[2021-08-15] MEDS: Liothyronine Sodium 25 MCG TAB PO SCH (08:55)
[2021-08-15] MEDS: Insulin Regular 300 UNITS/3 ML VIAL SC SCH ×3 (08:55→16:41)
[2021-08-15] MEDS ORDERED: Loratadine 10 MG TAB PO SCH (09:15)
[2021-08-15] MEDS: NPH, Human Insulin Isophane 300 UNIT/3 ML VIAL SC SCH ×2 (09:33→20:03)
[2021-08-15] MEDS: Acetaminophen 325 MG TAB PO PRN ×2 (09:37→20:02)
[2021-08-15] MEDS ORDERED: Cetirizine HCl 10 MG TAB PO SCH (10:00)
[2021-08-15] MEDS: Milrinone Lactate/D5W 20 MG in Premix Bag 1 BAG IVPB SCH (11:32)
[2021-08-15] MEDS: HumaLOG 300 UNITS/3 ML VIAL SC PRN (11:35)
[2021-08-15 16:32] VITALS: TEMP 98.6
[2021-08-15] MEDS ORDERED: Potassium Chloride 20 MEQ TAB PO SCH (17:00)
[2021-08-15] MEDS ORDERED: Warfarin Sodium 7.5 MG TAB PO SCH (17:00)
[2021-08-15] MEDS: Rosuvastatin 10 MG TAB PO SCH (20:02)
[2021-08-15 20:03] VITALS: BP 164/72
[2021-08-15] MEDS ORDERED: Sotalol HCl 80 MG TAB PO SCH (21:00)
[2021-08-16] MEDS ORDERED: Loratadine 10 MG TAB PO SCH (09:00)
== END 2021-08-15 20:34 | disposition home or self-care (01) | DRG 314 ==
LOC: ERS 11:32 → CCU 14:33 → 2NO 08-09 15:30
PROVIDERS: ADMIT Student in an Organized Health Care Education/Training Program; ATTEND Student in an Organized Health Care Education/Training Program
PROC: 02HV33Z Insertion of Infusion Device into Superior Vena Cava, Percutaneous Approach (ICD-10-PCS; principal; 2021-08-12)
PROC: B518ZZA Fluoroscopy of Superior Vena Cava, Guidance (ICD-10-PCS; 2021-08-12)
DX: T80.211A Bloodstream infection due to central venous catheter, initial encounter (principal); R57.0 Cardiogenic shock; N17.9 Acute kidney failure, unspecified; I50.32 Chronic diastolic (congestive) heart failure; Z68.42 Body mass index [BMI] 45.0-49.9, adult; I48.91 Unspecified atrial fibrillation; Z20.822 Contact with and (suspected) exposure to COVID-19; I11.0 Hypertensive heart disease with heart failure; G43.909 Migraine, unspecified, not intractable, without status migrainosus; E11.9 Type 2 diabetes mellitus without complications; K21.9 Gastro-esophageal reflux disease without esophagitis; K74.60 Unspecified cirrhosis of liver; E78.00 Pure hypercholesterolemia, unspecified; M19.90 Unspecified osteoarthritis, unspecified site; E03.9 Hypothyroidism, unspecified; M10.9 Gout, unspecified; J30.2 Other seasonal allergic rhinitis; F41.9 Anxiety disorder, unspecified; F32.A Depression, unspecified; I27.20 Pulmonary hypertension, unspecified; E66.9 Obesity, unspecified; F41.1 Generalized anxiety disorder; E78.5 Hyperlipidemia, unspecified; I27.24 Chronic thromboembolic pulmonary hypertension; I48.0 Paroxysmal atrial fibrillation; Y83.8 Other surgical procedures as the cause of abnormal reaction of the patient, or of later complication, without mention of misadventure at the time of the procedure; Z88.1 Allergy status to other antibiotic agents; Z79.4 Long term (current) use of insulin; Z87.891 Personal history of nicotine dependence; Z88.5 Allergy status to narcotic agent; Z88.8 Allergy status to other drugs, medicaments and biological substances; Z91.018 Allergy to other foods; Z79.84 Long term (current) use of oral hypoglycemic drugs; Z79.01 Long term (current) use of anticoagulants; Z79.899 Other long term (current) drug therapy; Z79.52 Long term (current) use of systemic steroids; Z98.890 Other specified postprocedural states
CPT/HCPCS: 36415; 36416; 36569; 71045; 80053; 80061; 81001; 82533; 83036; 83605; 83690; 83735; 83880; 84145; 84443; 84484; 85025; 85610; 85730; 87040; 87071; 93005; 93010; 93306; 96374; 97139; C1751; J0282; J1644; J1720; J1815; J2260; J7120; J7512; U0002; U0003; U0005

== ENCOUNTER 2021-08-22 08:29 | Emergency (ER) | payer MEDICARE, OTHER ==
[2021-08-22 09:34] LABS: #Basophils 0.1 thou/uL (0.0-0.2); #Eosinphils 0.2 thou/uL (0.0-0.7); #Lymphocytes 1.9 thou/uL (1.20-3.40); #Monocytes 1.2 thou/uL (0.11-0.59); %Basophils 0.6 % (0.0-1.0); %Eosinophils 1.9 % (0.0-10.0); %Monocytes 10.6 % (0.0-10.0); %Neutrophils 69.8 % (42.0-75.0); Hemoglobin 12.9 g/dL (12.0-16.0); Mean Corpuscular HGB CONC 31.4 g/dL (32.0-36.0); Mean Corpuscular Hemoglobin 29.4 pg (27.0-31.0); Mean Corpuscular Volume 93.5 fL (78.0-98.0); Mean Platelet Volume 7.2 fL (7.4-10.4); Platelet Count 212 thou/uL (130-400); RBC Distribution Width 14.2 % (11.5-14.5); Red Blood Cell (RBC) Count 4.39 mill/uL (4.20-5.40); White Blood Cell (WBC) Count 11.4 thou/uL (4.8-10.8)
[2021-08-22 09:57] LABS: ALT (SGPT) 21 U/L (8-55); AST (SGOT) 20 U/L (5-34); Albumin 3.9 g/dL (3.4-4.8); Alkaline Phosphatase 89 U/L (40-110); Anion Gap 14 mmol/L (10-20); BUN (Urea Nitrogen) 20 mg/dL (9.8-20.1); Bilirubin, Total 0.6 mg/dL (0.2-1.2); Calc. Creatinine Clearance 0 mL/min (70-130); Calcium 10.1 mg/dL (7.8-10.44); Carbon Dioxide 29 mmol/L (23-31); Chloride 104 mmol/L (98-107); Globulin 3.2 g/dL (2.4-3.5); Glucose 81 mg/dL (80-115); Potassium 4.8 mmol/L (3.5-5.1); Protein, Total 7.1 g/dL (5.8-8.1); Sodium 142 mmol/L (136-145)
[2021-08-22] MEDS ORDERED: Furosemide 20 MG/2 ML VIAL ONE (12:20)
[2021-08-22] MEDS ORDERED: Furosemide 40 MG/4 ML VIAL ONE (12:20)
[2021-08-22 13:26] LABS: Troponin I 0.013 ng/mL (< 0.028)
[2021-08-22 16:10] LABS: SARS-CoV-2 NAA Rapid Test Not Detected (NotDetected)
== END 2021-08-22 17:01 | disposition home or self-care (01) ==
LOC: ERS 08:29
DX: I11.0 Hypertensive heart disease with heart failure (principal); I50.9 Heart failure, unspecified; E11.9 Type 2 diabetes mellitus without complications; Z87.891 Personal history of nicotine dependence
CPT/HCPCS: 0240U; 71045; 80053; 83880; 84484 ×2; 85025; 93005; 96374; 99285; 36415; J1940

== ENCOUNTER 2021-08-30 15:17 | Emergency (ER) | payer MEDICARE, OTHER | END 2021-08-30 16:54 | disposition home or self-care (01) | LOC: ERS 15:17 | DX: Z45.2 Encounter for adjustment and management of vascular access device (principal); I13.0 Hypertensive heart and chronic kidney disease with heart failure and stage 1 through stage 4 chronic kidney disease, or unspecified chronic kidney disease; E11.22 Type 2 diabetes mellitus with diabetic chronic kidney disease; N18.9 Chronic kidney disease, unspecified; I50.9 Heart failure, unspecified; I48.91 Unspecified atrial fibrillation; K21.9 Gastro-esophageal reflux disease without esophagitis; E78.5 Hyperlipidemia, unspecified; E78.00 Pure hypercholesterolemia, unspecified; M10.9 Gout, unspecified; E03.9 Hypothyroidism, unspecified; M19.90 Unspecified osteoarthritis, unspecified site; D89.89 Other specified disorders involving the immune mechanism, not elsewhere classified; J30.2 Other seasonal allergic rhinitis; Z87.891 Personal history of nicotine dependence; Z87.19 Personal history of other diseases of the digestive system; Z79.4 Long term (current) use of insulin; Z79.899 Other long term (current) drug therapy | CPT/HCPCS: 71045 ==

== ENCOUNTER 2021-09-25 13:49 | Emergency (ER) | payer MEDICARE, OTHER ==
[2021-09-25 17:00] LABS: #Basophils 0.1 thou/uL (0.0-0.2); #Eosinphils 0.1 thou/uL (0.0-0.7); #Lymphocytes 1.6 thou/uL (1.20-3.40); #Monocytes 0.8 thou/uL (0.11-0.59); #Neutrophils 9.6 thou/uL (1.40-6.50); %Basophils 0.8 % (0.0-1.0); %Eosinophils 0.9 % (0.0-10.0); %Lymphocytes 12.9 % (21.0-51.0); %Monocytes 6.5 % (0.0-10.0); %Neutrophils 78.9 % (42.0-75.0); Hemoglobin 13.1 g/dL (12.0-16.0); Mean Corpuscular HGB CONC 32.2 g/dL (32.0-36.0); Mean Corpuscular Hemoglobin 29.2 pg (27.0-31.0); Mean Corpuscular Volume 90.7 fL (78.0-98.0); Mean Platelet Volume 7.3 fL (7.4-10.4); Platelet Count 233 thou/uL (130-400); Red Blood Cell (RBC) Count 4.47 mill/uL (4.20-5.40); White Blood Cell (WBC) Count 12.2 thou/uL (4.8-10.8)
[2021-09-25 17:19] LABS: ALT (SGPT) 19 U/L (8-55); AST (SGOT) 18 U/L (5-34); Albumin 3.8 g/dL (3.4-4.8); Alkaline Phosphatase 86 U/L (40-110); Anion Gap 16 mmol/L (10-20); BUN (Urea Nitrogen) 19 mg/dL (9.8-20.1); Bilirubin, Total 1.1 mg/dL (0.2-1.2); Calc. Creatinine Clearance 0 mL/min (70-130); Calcium 9.9 mg/dL (7.8-10.44); Carbon Dioxide 28 mmol/L (23-31); Chloride 100 mmol/L (98-107); Estimated GFR 56; Globulin 3.3 g/dL (2.4-3.5); Glucose 251 mg/dL (80-115); Magnesium 1.8 mg/dL (1.6-2.6); Potassium 4.8 mmol/L (3.5-5.1); Protein, Total 7.1 g/dL (5.8-8.1); Sodium 139 mmol/L (136-145)
[2021-09-25 17:25] LABS: INR-International Normal Ratio 1.9; PTT 45.9 sec (22.9-36.1); Prothrombin Time 22.4 sec (12.0-14.7)
== END 2021-09-25 17:05 | disposition home or self-care (01) ==
LOC: ERS 13:49
DX: T82.898A Other specified complication of vascular prosthetic devices, implants and grafts, initial encounter (principal); E11.9 Type 2 diabetes mellitus without complications; I11.0 Hypertensive heart disease with heart failure; I50.9 Heart failure, unspecified; I48.91 Unspecified atrial fibrillation; K21.9 Gastro-esophageal reflux disease without esophagitis; Z87.891 Personal history of nicotine dependence; Z79.899 Other long term (current) drug therapy; Z79.4 Long term (current) use of insulin
CPT/HCPCS: 36569 ×2; 80053; 83735; 85025; 85610; 85730; 99283; C1751; 36415; J1644

== ENCOUNTER 2021-10-17 15:20 | Inpatient (IN) | payer MEDICARE, OTHER ==
[2021-10-17 16:09] LABS: #Eosinphils 0.1 thou/uL (0.0-0.7); #Lymphocytes 1.1 thou/uL (1.20-3.40); #Monocytes 0.8 thou/uL (0.11-0.59); #Neutrophils 6.6 thou/uL (1.40-6.50); %Basophils 0.4 % (0.0-1.0); %Eosinophils 1.2 % (0.0-10.0); %Lymphocytes 12.3 % (21.0-51.0); %Monocytes 9.2 % (0.0-10.0); %Neutrophils 76.9 % (42.0-75.0); Mean Corpuscular HGB CONC 32.2 g/dL (32.0-36.0); Mean Corpuscular Hemoglobin 28.4 pg (27.0-31.0); Mean Corpuscular Volume 88.2 fL (78.0-98.0); Mean Platelet Volume 7.6 fL (7.4-10.4); Platelet Count 214 thou/uL (130-400); RBC Distribution Width 12.5 % (11.5-14.5); Red Blood Cell (RBC) Count 4.92 mill/uL (4.20-5.40); White Blood Cell (WBC) Count 8.6 thou/uL (4.8-10.8)
[2021-10-17 16:22] LABS: INR-International Normal Ratio 4.3
[2021-10-17] MEDS ORDERED: Furosemide 40 MG/4 ML VIAL ONE (16:25)
[2021-10-17] MEDS ORDERED: Nitroglycerin 2% Ointment 1 INCH/1 GM Packet ONE (16:25)
[2021-10-17 16:33] LABS: ALT (SGPT) 13 U/L (8-55); AST (SGOT) 16 U/L (5-34); Albumin 3.8 g/dL (3.4-4.8); Alkaline Phosphatase 84 U/L (40-110); Anion Gap 17 mmol/L (10-20); BUN (Urea Nitrogen) 10 mg/dL (9.8-20.1); Bilirubin, Total 0.9 mg/dL (0.2-1.2); Calc. Creatinine Clearance 0 mL/min (70-130); Calcium 9.2 mg/dL (7.8-10.44); Carbon Dioxide 24 mmol/L (23-31); Chloride 101 mmol/L (98-107); Estimated GFR 50; Globulin 3.2 g/dL (2.4-3.5); Glucose 399 mg/dL (80-115); Potassium 4.1 mmol/L (3.5-5.1); Sodium 138 mmol/L (136-145)
[2021-10-17] MEDS ORDERED: Acetaminophen 325 MG TAB PO PRN (19:00)
[2021-10-17] MEDS ORDERED: Ondansetron ODT 4 MG TAB SL PRN (19:00)
[2021-10-17] MEDS ORDERED: Ondansetron PF 4 MG/2 ML Vial IVP PRN (19:00)
[2021-10-17 19:47] LABS: Troponin I 0.014 ng/mL (< 0.028)
[2021-10-17] MEDS ORDERED: Non-Formulary Item 1 EACH (Milrinone Lactate/D5w [Milrinone Lactate/D5w] 20 MG/100 ML Bag IV SCH (20:00)
[2021-10-17] MEDS ORDERED: Insulin Regular 300 UNITS/3 ML VIAL SC PRN ×2 (20:00)
[2021-10-17] MEDS ORDERED: Dextrose 50% Abboject 50 ML SYRINGE SLOW IVP PRN (20:00)
[2021-10-17] MEDS ORDERED: Dextrose 5% in Water 1,000 ML IV PRN (20:00)
[2021-10-17 20:32] LABS: Magnesium 1.5 mg/dL (1.6-2.6)
[2021-10-17] MEDS: Acetaminophen 325 MG TAB PO PRN (21:01)
[2021-10-17] MEDS: Rosuvastatin 10 MG TAB PO SCH (21:02)
[2021-10-17] MEDS: Bumetanide 1 MG TAB PO SCH (21:03)
[2021-10-17] MEDS: Sacubitril 49 MG/Valsartan 51 MG TABLET PO SCH (21:03)
[2021-10-17] MEDS: Carvedilol 6.25 MG TAB PO SCH (21:03)
[2021-10-17] MEDS: Famotidine 20 MG TAB PO SCH (21:03)
[2021-10-17] MEDS: NPH, Human Insulin Isophane 300 UNIT/3 ML VIAL SC SCH ×2 (21:04→22:51)
[2021-10-17] MEDS: Sotalol HCl 80 MG TAB PO SCH (21:05)
[2021-10-17] MEDS ORDERED: Magnesium 2 GM/50 ML(in water) 2 GM in Premix Bag 1 BAG IVPB SCH (21:15)
[2021-10-17 22:23] LABS: Phosphorus 3.1 mg/dL (2.3-4.7)
[2021-10-17 22:30] LABS: Troponin I 0.014 ng/mL (< 0.028)
[2021-10-17] MEDS ORDERED: NPH, Human Insulin Isophane 300 UNIT/3 ML VIAL SC SCH (23:01)
[2021-10-17] MEDS ORDERED: hydrALAZINE 20 MG/ML VIAL SLOW IVP PRN ×2 (23:11→23:14)
[2021-10-17] MEDS ORDERED: Labetalol HCl 100 MG/20 ML VIAL SLOW IVP PRN (23:13)
[2021-10-17] MEDS ORDERED: Methocarbamol 500 MG TAB PO SCH (23:30)
[2021-10-18] MEDS: Lidocaine 5% Patch TD SCH ×2 (00:13→23:07)
[2021-10-18] MEDS: hydrALAZINE 20 MG/ML VIAL SLOW IVP PRN (00:13)
[2021-10-18] MEDS: Acetaminophen 325 MG TAB PO PRN ×2 (02:11→22:59)
[2021-10-18] MEDS ORDERED: Diclofenac 1% 100 GM GEL TP SCH (03:30)
[2021-10-18 04:27] LABS: #Basophils 0.1 thou/uL (0.0-0.2); #Eosinphils 0.1 thou/uL (0.0-0.7); #Lymphocytes 1.2 thou/uL (1.20-3.40); #Neutrophils 5.1 thou/uL (1.40-6.50); %Basophils 0.8 % (0.0-1.0); %Eosinophils 1.9 % (0.0-10.0); %Lymphocytes 15.7 % (21.0-51.0); %Monocytes 12.8 % (0.0-10.0); %Neutrophils 68.9 % (42.0-75.0); Hemoglobin 13.7 g/dL (12.0-16.0); Mean Corpuscular HGB CONC 32.2 g/dL (32.0-36.0); Mean Corpuscular Hemoglobin 28.2 pg (27.0-31.0); Mean Corpuscular Volume 87.4 fL (78.0-98.0); Mean Platelet Volume 7.6 fL (7.4-10.4); Platelet Count 195 thou/uL (130-400); RBC Distribution Width 12.5 % (11.5-14.5); Red Blood Cell (RBC) Count 4.86 mill/uL (4.20-5.40); White Blood Cell (WBC) Count 7.4 thou/uL (4.8-10.8)
[2021-10-18 04:49] LABS: Anion Gap 15 mmol/L (10-20); BUN (Urea Nitrogen) 12 mg/dL (9.8-20.1); Calc. Creatinine Clearance 0 mL/min (70-130); Calcium 9.1 mg/dL (7.8-10.44); Carbon Dioxide 29 mmol/L (23-31); Chloride 99 mmol/L (98-107); Estimated GFR 48; Glucose 269 mg/dL (80-115); Magnesium 1.9 mg/dL (1.6-2.6); Potassium 3.9 mmol/L (3.5-5.1); Sodium 139 mmol/L (136-145)
[2021-10-18 04:56] LABS: INR-International Normal Ratio 3.8; Prothrombin Time 38.2 sec (12.0-14.7)
[2021-10-18 04:57] LABS: PTT 65.5 sec (22.9-36.1)
[2021-10-18] MEDS: Triamterene/Hydrochlorothiazide 37.5 mg/25 mg Tablet PO SCH (05:21)
[2021-10-18] MEDS ORDERED: Acetaminophen 500 MG TAB PO SCH (08:00)
[2021-10-18] MEDS ORDERED: Potassium Chloride 20 MEQ TAB PO SCH ×2 (08:00→11:30)
[2021-10-18] MEDS ORDERED: Enoxaparin Sodium 40 MG/0.4 ML SYRINGE SC SCH ×2 (09:00)
[2021-10-18] MEDS: NPH, Human Insulin Isophane 300 UNIT/3 ML VIAL SC SCH (09:14)
[2021-10-18] MEDS: Famotidine 20 MG TAB PO SCH ×2 (09:15→20:37)
[2021-10-18] MEDS: Escitalopram Oxalate 10 mg Tablet PO SCH (09:15)
[2021-10-18] MEDS: predniSONE 5 MG TAB PO SCH (09:15)
[2021-10-18] MEDS: Empagliflozin 25 MG TAB PO SCH (09:15)
[2021-10-18] MEDS: Bumetanide 1 MG TAB PO SCH (09:15)
[2021-10-18] MEDS: Cholecalciferol 1,000 UNITS (25 MCG) TAB PO SCH (09:15)
[2021-10-18] MEDS: AcetaZOLAMIDE 250 MG TAB PO SCH (09:15)
[2021-10-18] MEDS: Carvedilol 6.25 MG TAB PO SCH ×2 (09:15→20:37)
[2021-10-18] MEDS: Fluticasone Propionate Nasal Spray 16 gm Bottle NASAL SCH (09:16)
[2021-10-18] MEDS: Sacubitril 49 MG/Valsartan 51 MG TABLET PO SCH ×2 (09:16→20:38)
[2021-10-18] MEDS: Liothyronine Sodium 25 MCG TAB PO SCH (09:16)
[2021-10-18] MEDS: Sotalol HCl 80 MG TAB PO SCH ×2 (09:23→20:39)
[2021-10-18] MEDS: Insulin Regular 300 UNITS/3 ML VIAL SC SCH ×3 (09:24→18:32)
[2021-10-18] MEDS ORDERED: Furosemide 40 MG/4 ML VIAL SLOW IVP SCH ×2 (11:15→21:00)
[2021-10-18] MEDS ORDERED: Aspirin 325 mg Enteric Coated Tablet PO SCH (11:15)
[2021-10-18] MEDS ORDERED: Magnesium 2 GM/50 ML(in water) 2 GM in Premix Bag 1 BAG IVPB SCH (11:30)
[2021-10-18] MEDS: Ondansetron PF 4 MG/2 ML Vial IVP PRN ×2 (11:44→20:39)
[2021-10-18] MEDS: Transdermal Patch Removal TOP SCH (12:04)
[2021-10-18] MEDS ORDERED: Warfarin Sodium 2.5 MG TAB PO SCH (17:00)
[2021-10-18 19:12] LABS: Anion Gap 17 mmol/L (10-20); BUN (Urea Nitrogen) 18 mg/dL (9.8-20.1); Calc. Creatinine Clearance 56 mL/min (70-130); Calcium 8.8 mg/dL (7.8-10.44); Carbon Dioxide 28 mmol/L (23-31); Chloride 98 mmol/L (98-107); Estimated GFR 32; Glucose 299 mg/dL (80-115); Magnesium 2.5 mg/dL (1.6-2.6); Potassium 4.5 mmol/L (3.5-5.1); Sodium 138 mmol/L (136-145)
[2021-10-18] MEDS: Rosuvastatin 10 MG TAB PO SCH (20:38)
[2021-10-18] MEDS: HumaLOG 300 UNITS/3 ML VIAL SC PRN (20:39)
[2021-10-19 05:03] LABS: Hemoglobin 12.2 g/dL (12.0-16.0); Mean Corpuscular HGB CONC 32.7 g/dL (32.0-36.0); Mean Corpuscular Hemoglobin 29.2 pg (27.0-31.0); Mean Corpuscular Volume 89.2 fL (78.0-98.0); Mean Platelet Volume 7.7 fL (7.4-10.4); Platelet Count 182 thou/uL (130-400); RBC Distribution Width 12.6 % (11.5-14.5); Red Blood Cell (RBC) Count 4.19 mill/uL (4.20-5.40); White Blood Cell (WBC) Count 6.1 thou/uL (4.8-10.8)
[2021-10-19] MEDS: Triamterene/Hydrochlorothiazide 37.5 mg/25 mg Tablet PO SCH (05:07)
[2021-10-19 05:11] LABS: INR-International Normal Ratio 3.2; Prothrombin Time 33.4 sec (12.0-14.7)
[2021-10-19 05:22] LABS: Anion Gap 13 mmol/L (10-20); BUN (Urea Nitrogen) 25 mg/dL (9.8-20.1); Calc. Creatinine Clearance 53 mL/min (70-130); Carbon Dioxide 31 mmol/L (23-31); Chloride 96 mmol/L (98-107); Estimated GFR 30; Glucose 379 mg/dL (80-115); Potassium 4.4 mmol/L (3.5-5.1); Sodium 136 mmol/L (136-145)
[2021-10-19] MEDS: HumaLOG 300 UNITS/3 ML VIAL SC PRN ×3 (05:55→20:23)
[2021-10-19] MEDS ORDERED: Furosemide 40 MG/4 ML VIAL SLOW IVP SCH (06:00)
[2021-10-19] MEDS: Insulin Regular 300 UNITS/3 ML VIAL SC SCH ×3 (08:53→20:23)
[2021-10-19] MEDS: predniSONE 5 MG TAB PO SCH (08:54)
[2021-10-19] MEDS: AcetaZOLAMIDE 250 MG TAB PO SCH (08:54)
[2021-10-19] MEDS: Carvedilol 6.25 MG TAB PO SCH ×2 (08:54→20:17)
[2021-10-19] MEDS: Potassium Chloride 20 MEQ TAB PO SCH (08:54)
[2021-10-19] MEDS: Empagliflozin 25 MG TAB PO SCH (08:55)
[2021-10-19] MEDS: Fluticasone Propionate Nasal Spray 16 gm Bottle NASAL SCH (08:55)
[2021-10-19] MEDS: Sacubitril 49 MG/Valsartan 51 MG TABLET PO SCH ×2 (08:55→20:18)
[2021-10-19] MEDS: Cholecalciferol 1,000 UNITS (25 MCG) TAB PO SCH (08:55)
[2021-10-19] MEDS: Escitalopram Oxalate 10 mg Tablet PO SCH (08:55)
[2021-10-19] MEDS: Liothyronine Sodium 25 MCG TAB PO SCH (08:56)
[2021-10-19] MEDS: NPH, Human Insulin Isophane 300 UNIT/3 ML VIAL SC SCH (08:56)
[2021-10-19] MEDS: Sotalol HCl 80 MG TAB PO SCH ×2 (08:56→20:18)
[2021-10-19] MEDS: Acetaminophen 325 MG TAB PO PRN ×2 (10:29→20:18)
[2021-10-19] MEDS: Ondansetron ODT 4 MG TAB SL PRN ×2 (10:29→16:40)
[2021-10-19] MEDS: Transdermal Patch Removal TOP SCH (15:09)
[2021-10-19] MEDS ORDERED: Warfarin Sodium 3 MG TAB PO SCH (17:00)
[2021-10-19] MEDS: Famotidine 20 MG TAB PO SCH (20:17)
[2021-10-19] MEDS: Rosuvastatin 10 MG TAB PO SCH (20:17)
[2021-10-19] MEDS ORDERED: NPH, Human Insulin Isophane 300 UNIT/3 ML VIAL SC SCH (21:00)
[2021-10-20] MEDS: Lidocaine 5% Patch TD SCH ×2 (00:49→23:40)
[2021-10-20] MEDS: Triamterene/Hydrochlorothiazide 37.5 mg/25 mg Tablet PO SCH (05:21)
[2021-10-20] MEDS: HumaLOG 300 UNITS/3 ML VIAL SC PRN ×2 (06:18→17:04)
[2021-10-20 06:47] LABS: Hemoglobin 11.5 g/dL (12.0-16.0); Mean Corpuscular HGB CONC 31.4 g/dL (32.0-36.0); Mean Corpuscular Hemoglobin 27.7 pg (27.0-31.0); Mean Corpuscular Volume 88.2 fL (78.0-98.0); Mean Platelet Volume 7.7 fL (7.4-10.4); Platelet Count 198 thou/uL (130-400); RBC Distribution Width 12.7 % (11.5-14.5); Red Blood Cell (RBC) Count 4.16 mill/uL (4.20-5.40); White Blood Cell (WBC) Count 8.9 thou/uL (4.8-10.8)
[2021-10-20 06:56] LABS: INR-International Normal Ratio 1.9; Prothrombin Time 22.2 sec (12.0-14.7)
[2021-10-20 06:57] LABS: PTT 44.4 sec (22.9-36.1)
[2021-10-20 07:08] LABS: Anion Gap 13 mmol/L (10-20); BUN (Urea Nitrogen) 33 mg/dL (9.8-20.1); Calc. Creatinine Clearance 56 mL/min (70-130); Calcium 8.8 mg/dL (7.8-10.44); Carbon Dioxide 31 mmol/L (23-31); Chloride 95 mmol/L (98-107); Estimated GFR 32; Glucose 172 mg/dL (80-115); Potassium 3.9 mmol/L (3.5-5.1); Sodium 135 mmol/L (136-145)
[2021-10-20] MEDS: Acetaminophen 325 MG TAB PO PRN ×2 (08:23→21:47)
[2021-10-20] MEDS: Carvedilol 6.25 MG TAB PO SCH ×2 (08:25→21:29)
[2021-10-20] MEDS: predniSONE 5 MG TAB PO SCH (08:26)
[2021-10-20] MEDS: Liothyronine Sodium 25 MCG TAB PO SCH (08:26)
[2021-10-20] MEDS: Sotalol HCl 80 MG TAB PO SCH ×2 (08:27→21:28)
[2021-10-20] MEDS: AcetaZOLAMIDE 250 MG TAB PO SCH (08:28)
[2021-10-20] MEDS: Cholecalciferol 1,000 UNITS (25 MCG) TAB PO SCH (08:28)
[2021-10-20] MEDS: Sacubitril 49 MG/Valsartan 51 MG TABLET PO SCH (08:28)
[2021-10-20] MEDS: Escitalopram Oxalate 10 mg Tablet PO SCH (08:28)
[2021-10-20] MEDS: Empagliflozin 25 MG TAB PO SCH (08:28)
[2021-10-20] MEDS: Potassium Chloride 20 MEQ TAB PO SCH (08:29)
[2021-10-20] MEDS: Insulin Regular 300 UNITS/3 ML VIAL SC SCH ×3 (08:30→17:04)
[2021-10-20] MEDS: Fluticasone Propionate Nasal Spray 16 gm Bottle NASAL SCH (08:38)
[2021-10-20] MEDS ORDERED: NPH, Human Insulin Isophane 300 UNIT/3 ML VIAL SC SCH (09:00)
[2021-10-20] MEDS: Azithromycin 250 MG TAB PO SCH (11:13)
[2021-10-20 11:18] LABS: Hemoglobin 11.4 g/dL (12.0-16.0); Mean Corpuscular HGB CONC 32.5 g/dL (32.0-36.0); Mean Corpuscular Hemoglobin 28.9 pg (27.0-31.0); Mean Corpuscular Volume 89.1 fL (78.0-98.0); Mean Platelet Volume 7.6 fL (7.4-10.4); Platelet Count 193 thou/uL (130-400); RBC Distribution Width 12.5 % (11.5-14.5); Red Blood Cell (RBC) Count 3.95 mill/uL (4.20-5.40); White Blood Cell (WBC) Count 9.5 thou/uL (4.8-10.8)
[2021-10-20] MEDS ORDERED: Lactated Ringer's 250 ML IV SCH ×2 (11:30→11:45)
[2021-10-20] MEDS: DOBUTamine 500 mg/250 ml 250 ML IVPB SCH (11:36)
[2021-10-20 11:41] LABS: ALT (SGPT) 19 U/L (8-55); AST (SGOT) 50 U/L (5-34); Albumin 3.4 g/dL (3.4-4.8); Alkaline Phosphatase 83 U/L (40-110); Anion Gap 17 mmol/L (10-20); BUN (Urea Nitrogen) 35 mg/dL (9.8-20.1); Bilirubin, Total 0.5 mg/dL (0.2-1.2); Calc. Creatinine Clearance 49 mL/min (70-130); Calcium 8.5 mg/dL (7.8-10.44); Carbon Dioxide 27 mmol/L (23-31); Chloride 95 mmol/L (98-107); Estimated GFR 28; Globulin 3.2 g/dL (2.4-3.5); Glucose 208 mg/dL (80-115); Potassium 5.3 mmol/L (3.5-5.1); Protein, Total 6.6 g/dL (5.8-8.1); Sodium 134 mmol/L (136-145)
[2021-10-20] MEDS ORDERED: Cefepime 2 GM in Sodium Chloride 0.9% 100 ML IVPB SCH (12:45)
[2021-10-20] MEDS ORDERED: Vancomycin 1.5 GRAM/300 ML BAG 1.5 GM in Premix Bag 1 BAG IVPB SCH (13:00)
[2021-10-20] MEDS: Transdermal Patch Removal TOP SCH (13:27)
[2021-10-20] MEDS ORDERED: Warfarin Sodium 3.75 MG HALF.TAB PO SCH (17:00)
[2021-10-20] MEDS: Rosuvastatin 10 MG TAB PO SCH (21:29)
[2021-10-20] MEDS: Famotidine 20 MG TAB PO SCH (21:29)
[2021-10-20] MEDS: NPH, Human Insulin Isophane 300 UNIT/3 ML VIAL SC SCH (21:30)
[2021-10-20] MEDS: Cefepime 2 GM in Sodium Chloride 0.9% 100 ML IVPB SCH (23:40)
[2021-10-21] MEDS: Acetaminophen 325 MG TAB PO PRN ×2 (01:13→20:16)
[2021-10-21] MEDS ORDERED: diphenhydrAMINE 50 MG/ML VIAL IVP SCH (02:00)
[2021-10-21] MEDS ORDERED: Metoclopramide HCl 10 MG/2 ML VIAL IVP SCH (02:15)
[2021-10-21 04:08] LABS: Bacteria/HPF None Seen HPF (None Seen); Bilirubin Negative (Negative); Blood, Urine Negative (Negative); Clarity Clear (Clear); Glucose, Urine (Dipstick) Greater than 1000 mg/dL (Negative); Ketone, Urine Negative (Negative); Leukocyte Negative Leu/uL (Negative); Nitrite Negative (Negative); Protein, Urine (Dipstick) Negative (Neg-Trace); RBC/HPF 0-3 HPF (0-3); Specific Gravity, Urine 1.009 (1.002-1.036); Squamous Epithelial 0-3 HPF (0-3); Urine Culture Reflex No No; Urobilinogen Normal mg/dL (Less than 2); WBC/HPF 0-3 HPF (0-3); pH, Urine 5.5 (5.0-9.0)
[2021-10-21 04:09] LABS: Hemoglobin 11.6 g/dL (12.0-16.0); Mean Corpuscular HGB CONC 32.9 g/dL (32.0-36.0); Mean Corpuscular Hemoglobin 29.5 pg (27.0-31.0); Mean Corpuscular Volume 89.7 fL (78.0-98.0); Mean Platelet Volume 7.6 fL (7.4-10.4); Platelet Count 203 thou/uL (130-400); RBC Distribution Width 12.8 % (11.5-14.5); Red Blood Cell (RBC) Count 3.93 mill/uL (4.20-5.40); White Blood Cell (WBC) Count 8.9 thou/uL (4.8-10.8)
[2021-10-21 04:14] LABS: INR-International Normal Ratio 1.5; Prothrombin Time 18.5 sec (12.0-14.7)
[2021-10-21 04:33] LABS: Anion Gap 14 mmol/L (10-20); BUN (Urea Nitrogen) 32 mg/dL (9.8-20.1); Calc. Creatinine Clearance 69 mL/min (70-130); Calcium 8.7 mg/dL (7.8-10.44); Carbon Dioxide 26 mmol/L (23-31); Chloride 100 mmol/L (98-107); Estimated GFR 41; Glucose 162 mg/dL (80-115); Potassium 3.6 mmol/L (3.5-5.1); Sodium 136 mmol/L (136-145)
[2021-10-21 06:16] LABS: Strep pneumo Urine Ag NEGATIVE (NEGATIVE)
[2021-10-21] MEDS: Triamterene/Hydrochlorothiazide 37.5 mg/25 mg Tablet PO SCH (07:37)
[2021-10-21] MEDS ORDERED: Potassium Chloride 20 MEQ TAB PO SCH ×2 (08:00→09:00)
[2021-10-21 08:07] LABS: Magnesium 2.3 mg/dL (1.6-2.6)
[2021-10-21] MEDS: predniSONE 5 MG TAB PO SCH (10:17)
[2021-10-21] MEDS: Insulin Regular 300 UNITS/3 ML VIAL SC SCH ×3 (10:17→18:01)
[2021-10-21] MEDS: Escitalopram Oxalate 10 mg Tablet PO SCH (10:18)
[2021-10-21] MEDS: Cholecalciferol 1,000 UNITS (25 MCG) TAB PO SCH (10:18)
[2021-10-21] MEDS: Empagliflozin 25 MG TAB PO SCH (10:18)
[2021-10-21] MEDS: Liothyronine Sodium 25 MCG TAB PO SCH (10:19)
[2021-10-21] MEDS: NPH, Human Insulin Isophane 300 UNIT/3 ML VIAL SC SCH ×2 (10:20→20:16)
[2021-10-21] MEDS: Sotalol HCl 80 MG TAB PO SCH ×2 (10:21→20:17)
[2021-10-21] MEDS: Azithromycin 250 MG TAB PO SCH (10:24)
[2021-10-21] MEDS: Fluticasone Propionate Nasal Spray 16 gm Bottle NASAL SCH (10:28)
[2021-10-21] MEDS: Cefepime 2 GM in Sodium Chloride 0.9% 100 ML IVPB SCH ×2 (12:35→23:41)
[2021-10-21] MEDS: Transdermal Patch Removal TOP SCH (12:40)
[2021-10-21] MEDS: hydrALAZINE 25 MG TAB PO SCH ×2 (14:39→20:23)
[2021-10-21] MEDS: Warfarin Sodium 7.5 MG TAB PO SCH (18:00)
[2021-10-21] MEDS: DOBUTamine 500 mg/250 ml 250 ML IVPB SCH (18:14)
[2021-10-21] MEDS: Famotidine 20 MG TAB PO SCH (20:17)
[2021-10-21] MEDS: Rosuvastatin 10 MG TAB PO SCH (20:17)
[2021-10-21] MEDS: Lidocaine 5% Patch TD SCH (23:40)
[2021-10-22 03:36] LABS: Hemoglobin 11.7 g/dL (12.0-16.0); Mean Corpuscular HGB CONC 32.4 g/dL (32.0-36.0); Mean Corpuscular Hemoglobin 28.8 pg (27.0-31.0); Mean Platelet Volume 7.4 fL (7.4-10.4); Platelet Count 212 thou/uL (130-400); RBC Distribution Width 12.6 % (11.5-14.5); Red Blood Cell (RBC) Count 4.04 mill/uL (4.20-5.40); White Blood Cell (WBC) Count 8.9 thou/uL (4.8-10.8)
[2021-10-22 03:46] LABS: INR-International Normal Ratio 1.3; Prothrombin Time 16.2 sec (12.0-14.7)
[2021-10-22 03:47] LABS: PTT 38.4 sec (22.9-36.1)
[2021-10-22 04:03] LABS: Anion Gap 12 mmol/L (10-20); BUN (Urea Nitrogen) 30 mg/dL (9.8-20.1); Calc. Creatinine Clearance 74 mL/min (70-130); Carbon Dioxide 29 mmol/L (23-31); Chloride 104 mmol/L (98-107); Estimated GFR 46; Glucose 217 mg/dL (80-115); Potassium 4.5 mmol/L (3.5-5.1); Sodium 140 mmol/L (136-145)
[2021-10-22] MEDS: Acetaminophen 325 MG TAB PO PRN ×3 (04:35→21:14)
[2021-10-22] MEDS: Ondansetron PF 4 MG/2 ML Vial IVP PRN ×2 (04:45→22:25)
[2021-10-22] MEDS: Triamterene/Hydrochlorothiazide 37.5 mg/25 mg Tablet PO SCH (06:11)
[2021-10-22] MEDS: hydrALAZINE 25 MG TAB PO SCH ×3 (06:12→21:07)
[2021-10-22] MEDS: predniSONE 5 MG TAB PO SCH (09:35)
[2021-10-22] MEDS: Sotalol HCl 80 MG TAB PO SCH ×2 (09:35→21:07)
[2021-10-22] MEDS: Escitalopram Oxalate 10 mg Tablet PO SCH (09:35)
[2021-10-22] MEDS: Cholecalciferol 1,000 UNITS (25 MCG) TAB PO SCH (09:35)
[2021-10-22] MEDS: Liothyronine Sodium 25 MCG TAB PO SCH (09:36)
[2021-10-22] MEDS: NPH, Human Insulin Isophane 300 UNIT/3 ML VIAL SC SCH ×2 (09:37→21:10)
[2021-10-22] MEDS: Empagliflozin 25 MG TAB PO SCH (09:37)
[2021-10-22] MEDS: Insulin Regular 300 UNITS/3 ML VIAL SC SCH ×3 (09:37→17:55)
[2021-10-22] MEDS: Fluticasone Propionate Nasal Spray 16 gm Bottle NASAL SCH (09:48)
[2021-10-22] MEDS: Micafungin 100 MG in Sodium Chloride 0.9% 100 ML IVPB SCH (12:53)
[2021-10-22] MEDS: Cefepime 2 GM in Sodium Chloride 0.9% 100 ML IVPB SCH (12:53)
[2021-10-22] MEDS: Transdermal Patch Removal TOP SCH (12:55)
[2021-10-22] MEDS: Warfarin Sodium 7.5 MG TAB PO SCH (17:54)
[2021-10-22] MEDS: Azithromycin 250 MG TAB PO SCH (21:06)
[2021-10-22] MEDS: Baclofen 10 MG TAB PO SCH (21:06)
[2021-10-22] MEDS: Rosuvastatin 10 MG TAB PO SCH (21:07)
[2021-10-23] MEDS: DOBUTamine 500 mg/250 ml 250 ML IVPB SCH (00:01)
[2021-10-23] MEDS: Lidocaine 5% Patch TD SCH ×2 (00:01→23:20)
[2021-10-23 03:50] LABS: Hemoglobin 11.4 g/dL (12.0-16.0); Mean Corpuscular HGB CONC 33.4 g/dL (32.0-36.0); Mean Corpuscular Hemoglobin 29.3 pg (27.0-31.0); Mean Corpuscular Volume 87.7 fL (78.0-98.0); Mean Platelet Volume 7.3 fL (7.4-10.4); Platelet Count 225 thou/uL (130-400); White Blood Cell (WBC) Count 9.2 thou/uL (4.8-10.8)
[2021-10-23 04:18] LABS: Anion Gap 14 mmol/L (10-20); BUN (Urea Nitrogen) 26 mg/dL (9.8-20.1); Calc. Creatinine Clearance 98 mL/min (70-130); Carbon Dioxide 27 mmol/L (23-31); Chloride 102 mmol/L (98-107); Estimated GFR 63; Glucose 80 mg/dL (80-115); Potassium 3.6 mmol/L (3.5-5.1); Sodium 139 mmol/L (136-145)
[2021-10-23 04:21] LABS: INR-International Normal Ratio 1.5; Prothrombin Time 18.3 sec (12.0-14.7)
[2021-10-23] MEDS: hydrALAZINE 25 MG TAB PO SCH ×2 (06:25→12:32)
[2021-10-23] MEDS: Triamterene/Hydrochlorothiazide 37.5 mg/25 mg Tablet PO SCH (06:25)
[2021-10-23] MEDS ORDERED: Potassium Chloride 20 MEQ TAB PO SCH (09:00)
[2021-10-23] MEDS: Cholecalciferol 1,000 UNITS (25 MCG) TAB PO SCH (09:50)
[2021-10-23] MEDS: Sotalol HCl 80 MG TAB PO SCH ×2 (09:50→20:25)
[2021-10-23] MEDS: Azithromycin 250 MG TAB PO SCH (09:50)
[2021-10-23] MEDS: predniSONE 5 MG TAB PO SCH (09:50)
[2021-10-23] MEDS: Empagliflozin 25 MG TAB PO SCH (09:51)
[2021-10-23] MEDS: Fluticasone Propionate Nasal Spray 16 gm Bottle NASAL SCH (09:51)
[2021-10-23] MEDS: Insulin Regular 300 UNITS/3 ML VIAL SC SCH ×3 (09:51→18:02)
[2021-10-23] MEDS: Escitalopram Oxalate 10 mg Tablet PO SCH (09:51)
[2021-10-23] MEDS: Liothyronine Sodium 25 MCG TAB PO SCH (09:51)
[2021-10-23] MEDS: NPH, Human Insulin Isophane 300 UNIT/3 ML VIAL SC SCH ×2 (09:52→20:32)
[2021-10-23] MEDS: Micafungin 100 MG in Sodium Chloride 0.9% 100 ML IVPB SCH (12:32)
[2021-10-23] MEDS: Transdermal Patch Removal TOP SCH (12:34)
[2021-10-23] MEDS: Ondansetron PF 4 MG/2 ML Vial IVP PRN (12:34)
[2021-10-23] MEDS: Warfarin Sodium 7.5 MG TAB PO SCH (18:02)
[2021-10-23] MEDS: Rosuvastatin 10 MG TAB PO SCH (20:25)
[2021-10-23] MEDS: Baclofen 10 MG TAB PO SCH (20:26)
[2021-10-23] MEDS: Acetaminophen 325 MG TAB PO PRN (21:32)
[2021-10-23] MEDS: Diclofenac 1% 100 GM GEL TP SCH (23:16)
[2021-10-24 04:24] LABS: Hemoglobin 11.6 g/dL (12.0-16.0); Mean Corpuscular HGB CONC 32.7 g/dL (32.0-36.0); Mean Corpuscular Volume 88.8 fL (78.0-98.0); Mean Platelet Volume 7.5 fL (7.4-10.4); Platelet Count 314 thou/uL (130-400); RBC Distribution Width 12.9 % (11.5-14.5); Red Blood Cell (RBC) Count 4.01 mill/uL (4.20-5.40); White Blood Cell (WBC) Count 10.8 thou/uL (4.8-10.8)
[2021-10-24 04:26] LABS: Glucose 66 mg/dL (80-115)
[2021-10-24 04:27] LABS: Anion Gap 12 mmol/L (10-20); BUN (Urea Nitrogen) 24 mg/dL (9.8-20.1); Calc. Creatinine Clearance 92 mL/min (70-130); Calcium 9.6 mg/dL (7.8-10.44); Carbon Dioxide 32 mmol/L (23-31); Chloride 100 mmol/L (98-107); Estimated GFR 61; Potassium 3.8 mmol/L (3.5-5.1); Sodium 140 mmol/L (136-145)
[2021-10-24 04:38] LABS: INR-International Normal Ratio 1.6; Prothrombin Time 19.7 sec (12.0-14.7)
[2021-10-24 04:39] LABS: PTT 47.5 sec (22.9-36.1)
[2021-10-24] MEDS: DOBUTamine 500 mg/250 ml 250 ML IVPB SCH (05:55)
[2021-10-24] MEDS: Triamterene/Hydrochlorothiazide 37.5 mg/25 mg Tablet PO SCH (05:56)
[2021-10-24] MEDS: hydrOXYzine 10 MG TAB PO PRN (06:39)
[2021-10-24] MEDS ORDERED: Furosemide 40 MG/4 ML VIAL SLOW IVP SCH (08:15)
[2021-10-24] MEDS: AcetaZOLAMIDE 250 MG TAB PO SCH (09:33)
[2021-10-24] MEDS: predniSONE 5 MG TAB PO SCH (09:33)
[2021-10-24] MEDS: Azithromycin 250 MG TAB PO SCH (09:34)
[2021-10-24] MEDS: Cholecalciferol 1,000 UNITS (25 MCG) TAB PO SCH (09:34)
[2021-10-24] MEDS: Escitalopram Oxalate 10 mg Tablet PO SCH (09:36)
[2021-10-24] MEDS: Empagliflozin 25 MG TAB PO SCH (09:36)
[2021-10-24] MEDS: Fluticasone Propionate Nasal Spray 16 gm Bottle NASAL SCH (09:38)
[2021-10-24] MEDS: Sacubitril 49 MG/Valsartan 51 MG TABLET PO SCH ×2 (09:40→22:16)
[2021-10-24] MEDS: Potassium Chloride 20 MEQ TAB PO SCH ×2 (09:40→22:17)
[2021-10-24] MEDS: Insulin Regular 300 UNITS/3 ML VIAL SC SCH ×3 (11:33→17:32)
[2021-10-24] MEDS: Diclofenac 1% 100 GM GEL TP SCH ×4 (11:37→23:56)
[2021-10-24] MEDS: Liothyronine Sodium 25 MCG TAB PO SCH (11:39)
[2021-10-24] MEDS: Sotalol HCl 80 MG TAB PO SCH ×2 (11:40→22:16)
[2021-10-24] MEDS: Fluconazole 100 MG TAB PO SCH (11:45)
[2021-10-24] MEDS: NPH, Human Insulin Isophane 300 UNIT/3 ML VIAL SC SCH ×2 (11:49→22:17)
[2021-10-24] MEDS: Transdermal Patch Removal TOP SCH (11:51)
[2021-10-24] MEDS: Ondansetron PF 4 MG/2 ML Vial IVP PRN (13:33)
[2021-10-24] MEDS: Warfarin Sodium 7.5 MG TAB PO SCH (17:30)
[2021-10-24] MEDS: Baclofen 10 MG TAB PO SCH (22:16)
[2021-10-24] MEDS: Rosuvastatin 10 MG TAB PO SCH (22:17)
[2021-10-24] MEDS: Lidocaine 5% Patch TD SCH (23:20)
[2021-10-25 04:37] LABS: Hemoglobin 11.9 g/dL (12.0-16.0); Mean Corpuscular HGB CONC 31.7 g/dL (32.0-36.0); Mean Corpuscular Hemoglobin 28.6 pg (27.0-31.0); Mean Corpuscular Volume 90.5 fL (78.0-98.0); Mean Platelet Volume 7.8 fL (7.4-10.4); Platelet Count 313 thou/uL (130-400); RBC Distribution Width 12.7 % (11.5-14.5); Red Blood Cell (RBC) Count 4.16 mill/uL (4.20-5.40); White Blood Cell (WBC) Count 9.9 thou/uL (4.8-10.8)
[2021-10-25 04:44] LABS: INR-International Normal Ratio 1.8; PTT 44.1 sec (22.9-36.1); Prothrombin Time 21.4 sec (12.0-14.7)
[2021-10-25 04:55] LABS: Anion Gap 14 mmol/L (10-20); BUN (Urea Nitrogen) 27 mg/dL (9.8-20.1); Calc. Creatinine Clearance 81 mL/min (70-130); Calcium 9.8 mg/dL (7.8-10.44); Carbon Dioxide 30 mmol/L (23-31); Chloride 98 mmol/L (98-107); Estimated GFR 51; Glucose 180 mg/dL (80-115); Potassium 4.3 mmol/L (3.5-5.1); Sodium 138 mmol/L (136-145)
[2021-10-25] MEDS: Triamterene/Hydrochlorothiazide 37.5 mg/25 mg Tablet PO SCH (06:27)
[2021-10-25] MEDS ORDERED: Furosemide 40 MG/4 ML VIAL SLOW IVP SCH (08:45)
[2021-10-25] MEDS: Acetaminophen 325 MG TAB PO PRN (10:50)
[2021-10-25] MEDS: Insulin Regular 300 UNITS/3 ML VIAL SC SCH ×3 (10:50→18:13)
[2021-10-25] MEDS: Sotalol HCl 80 MG TAB PO SCH ×3 (10:52→21:13)
[2021-10-25] MEDS: Sacubitril 49 MG/Valsartan 51 MG TABLET PO SCH ×2 (10:53→21:07)
[2021-10-25] MEDS: AcetaZOLAMIDE 250 MG TAB PO SCH (10:54)
[2021-10-25] MEDS: Azithromycin 250 MG TAB PO SCH (10:55)
[2021-10-25] MEDS: Escitalopram Oxalate 10 mg Tablet PO SCH (10:56)
[2021-10-25] MEDS: Empagliflozin 25 MG TAB PO SCH (10:57)
[2021-10-25] MEDS: predniSONE 5 MG TAB PO SCH (10:58)
[2021-10-25] MEDS: Cholecalciferol 1,000 UNITS (25 MCG) TAB PO SCH (10:58)
[2021-10-25] MEDS: Potassium Chloride 20 MEQ TAB PO SCH ×2 (10:59→21:07)
[2021-10-25] MEDS: Fluticasone Propionate Nasal Spray 16 gm Bottle NASAL SCH (11:00)
[2021-10-25] MEDS: NPH, Human Insulin Isophane 300 UNIT/3 ML VIAL SC SCH ×2 (11:10→21:11)
[2021-10-25] MEDS: Diclofenac 1% 100 GM GEL TP SCH ×4 (12:26→21:08)
[2021-10-25] MEDS: Liothyronine Sodium 25 MCG TAB PO SCH (12:27)
[2021-10-25] MEDS: Fluconazole 100 MG TAB PO SCH (12:28)
[2021-10-25] MEDS: Transdermal Patch Removal TOP SCH (12:29)
[2021-10-25] MEDS: DOBUTamine 500 mg/250 ml 250 ML IVPB SCH (13:03)
[2021-10-25] MEDS: Ondansetron ODT 4 MG TAB SL PRN (16:09)
[2021-10-25] MEDS: Warfarin Sodium 7.5 MG TAB PO SCH (18:12)
[2021-10-25] MEDS: Baclofen 10 MG TAB PO SCH (21:08)
[2021-10-25] MEDS: Rosuvastatin 10 MG TAB PO SCH (21:08)
[2021-10-26] MEDS: Lidocaine 5% Patch TD SCH ×2 (03:02→23:31)
[2021-10-26 04:32] LABS: Hemoglobin 11.6 g/dL (12.0-16.0); Mean Corpuscular HGB CONC 32.4 g/dL (32.0-36.0); Mean Corpuscular Volume 89.5 fL (78.0-98.0); Mean Platelet Volume 7.3 fL (7.4-10.4); Platelet Count 329 thou/uL (130-400); RBC Distribution Width 12.9 % (11.5-14.5); White Blood Cell (WBC) Count 8.8 thou/uL (4.8-10.8)
[2021-10-26 04:42] LABS: INR-International Normal Ratio 2.1; PTT 48.6 sec (22.9-36.1); Prothrombin Time 24.3 sec (12.0-14.7)
[2021-10-26 04:51] LABS: Anion Gap 15 mmol/L (10-20); BUN (Urea Nitrogen) 33 mg/dL (9.8-20.1); Calc. Creatinine Clearance 81 mL/min (70-130); Calcium 9.8 mg/dL (7.8-10.44); Carbon Dioxide 28 mmol/L (23-31); Chloride 100 mmol/L (98-107); Estimated GFR 51; Glucose 111 mg/dL (80-115); Potassium 4.3 mmol/L (3.5-5.1); Sodium 139 mmol/L (136-145)
[2021-10-26] MEDS: Ondansetron ODT 4 MG TAB SL PRN (05:31)
[2021-10-26] MEDS: Triamterene/Hydrochlorothiazide 37.5 mg/25 mg Tablet PO SCH (05:31)
[2021-10-26 08:03] LABS: Magnesium 2.3 mg/dL (1.6-2.6)
[2021-10-26] MEDS: Fluticasone Propionate Nasal Spray 16 gm Bottle NASAL SCH (08:59)
[2021-10-26] MEDS: Fluconazole 100 MG TAB PO SCH (09:00)
[2021-10-26] MEDS: Potassium Chloride 20 MEQ TAB PO SCH ×2 (09:01→21:11)
[2021-10-26] MEDS: Azithromycin 250 MG TAB PO SCH (09:01)
[2021-10-26] MEDS: Escitalopram Oxalate 10 mg Tablet PO SCH (09:01)
[2021-10-26] MEDS: predniSONE 5 MG TAB PO SCH (09:01)
[2021-10-26] MEDS: AcetaZOLAMIDE 250 MG TAB PO SCH (09:01)
[2021-10-26] MEDS: Cholecalciferol 1,000 UNITS (25 MCG) TAB PO SCH (09:01)
[2021-10-26] MEDS: Sacubitril 49 MG/Valsartan 51 MG TABLET PO SCH ×2 (09:02→21:10)
[2021-10-26] MEDS: Empagliflozin 25 MG TAB PO SCH (09:03)
[2021-10-26] MEDS: Diclofenac 1% 100 GM GEL TP SCH ×4 (09:04→21:12)
[2021-10-26] MEDS: Bisacodyl 5 MG TAB PO PRN (09:05)
[2021-10-26] MEDS: Insulin Regular 300 UNITS/3 ML VIAL SC SCH ×3 (09:05→17:26)
[2021-10-26] MEDS: NPH, Human Insulin Isophane 300 UNIT/3 ML VIAL SC SCH ×2 (09:05→21:13)
[2021-10-26] MEDS: Liothyronine Sodium 25 MCG TAB PO SCH (11:13)
[2021-10-26] MEDS: HumaLOG 300 UNITS/3 ML VIAL SC PRN ×2 (11:14→17:26)
[2021-10-26] MEDS: Transdermal Patch Removal TOP SCH (11:17)
[2021-10-26] MEDS: Ondansetron PF 4 MG/2 ML Vial IVP PRN (11:59)
[2021-10-26] MEDS ORDERED: Bumetanide 1 MG TAB PO SCH ×2 (14:00→16:30)
[2021-10-26] MEDS: hydrALAZINE 10 MG TAB PO SCH ×2 (15:24→21:12)
[2021-10-26] MEDS: Isosorbide Dinitrate 5 MG TAB PO SCH ×2 (15:25→21:12)
[2021-10-26] MEDS: Warfarin Sodium 7.5 MG TAB PO SCH (17:26)
[2021-10-26] MEDS: Baclofen 10 MG TAB PO SCH (21:11)
[2021-10-26] MEDS: Rosuvastatin 10 MG TAB PO SCH (21:11)
[2021-10-26] MEDS: Sotalol HCl 80 MG TAB PO SCH (21:13)
[2021-10-26] MEDS: DOBUTamine 500 mg/250 ml 250 ML IVPB SCH (21:21)
[2021-10-27 04:35] LABS: Hemoglobin 12.4 g/dL (12.0-16.0); Mean Corpuscular HGB CONC 33.4 g/dL (32.0-36.0); Mean Corpuscular Hemoglobin 29.6 pg (27.0-31.0); Mean Corpuscular Volume 88.5 fL (78.0-98.0); Mean Platelet Volume 7.5 fL (7.4-10.4); Platelet Count 341 thou/uL (130-400); RBC Distribution Width 12.9 % (11.5-14.5); Red Blood Cell (RBC) Count 4.19 mill/uL (4.20-5.40); White Blood Cell (WBC) Count 8.1 thou/uL (4.8-10.8)
[2021-10-27 04:49] LABS: INR-International Normal Ratio 2.6; PTT 46.2 sec (22.9-36.1); Prothrombin Time 28.2 sec (12.0-14.7)
[2021-10-27 04:58] LABS: Anion Gap 16 mmol/L (10-20); BUN (Urea Nitrogen) 37 mg/dL (9.8-20.1); Calc. Creatinine Clearance 67 mL/min (70-130); Calcium 9.8 mg/dL (7.8-10.44); Carbon Dioxide 27 mmol/L (23-31); Chloride 100 mmol/L (98-107); Estimated GFR 41; Glucose 197 mg/dL (80-115); Potassium 4.4 mmol/L (3.5-5.1); Sodium 139 mmol/L (136-145)
[2021-10-27] MEDS: hydrALAZINE 10 MG TAB PO SCH (06:16)
[2021-10-27] MEDS: Isosorbide Dinitrate 5 MG TAB PO SCH ×3 (06:16→21:17)
[2021-10-27] MEDS: Triamterene/Hydrochlorothiazide 37.5 mg/25 mg Tablet PO SCH (06:17)
[2021-10-27] MEDS: HumaLOG 300 UNITS/3 ML VIAL SC PRN ×2 (06:21→17:01)
[2021-10-27] MEDS: Sotalol HCl 80 MG TAB PO SCH ×2 (08:37→21:15)
[2021-10-27] MEDS: predniSONE 5 MG TAB PO SCH (08:37)
[2021-10-27] MEDS: Azithromycin 250 MG TAB PO SCH (08:37)
[2021-10-27] MEDS: Cholecalciferol 1,000 UNITS (25 MCG) TAB PO SCH (08:37)
[2021-10-27] MEDS: Fluconazole 100 MG TAB PO SCH (08:37)
[2021-10-27] MEDS: Escitalopram Oxalate 10 mg Tablet PO SCH (08:37)
[2021-10-27] MEDS: Sacubitril 49 MG/Valsartan 51 MG TABLET PO SCH ×2 (08:37→21:16)
[2021-10-27] MEDS: Diclofenac 1% 100 GM GEL TP SCH ×4 (08:38→23:48)
[2021-10-27] MEDS: Empagliflozin 25 MG TAB PO SCH (08:38)
[2021-10-27] MEDS: Potassium Chloride 20 MEQ TAB PO SCH ×2 (08:38→21:16)
[2021-10-27] MEDS: Fluticasone Propionate Nasal Spray 16 gm Bottle NASAL SCH (08:38)
[2021-10-27] MEDS: Insulin Regular 300 UNITS/3 ML VIAL SC SCH ×3 (08:39→17:01)
[2021-10-27] MEDS: NPH, Human Insulin Isophane 300 UNIT/3 ML VIAL SC SCH ×2 (08:39→21:17)
[2021-10-27] MEDS: Liothyronine Sodium 25 MCG TAB PO SCH (11:10)
[2021-10-27] MEDS: Transdermal Patch Removal TOP SCH (11:13)
[2021-10-27] MEDS: Acetaminophen 325 MG TAB PO PRN ×2 (12:45→18:27)
[2021-10-27] MEDS ORDERED: hydrALAZINE 25 MG TAB PO SCH (14:00)
[2021-10-27] MEDS ORDERED: Warfarin Sodium 2 MG TAB PO SCH (17:00)
[2021-10-27] MEDS: Baclofen 10 MG TAB PO SCH (21:15)
[2021-10-27] MEDS: Rosuvastatin 10 MG TAB PO SCH (21:16)
[2021-10-27] MEDS: Lidocaine 5% Patch TD SCH (23:48)
[2021-10-28] MEDS: hydrALAZINE 20 MG/ML VIAL SLOW IVP PRN (02:45)
[2021-10-28 04:16] LABS: Hemoglobin 12.9 g/dL (12.0-16.0); Mean Corpuscular HGB CONC 31.9 g/dL (32.0-36.0); Mean Corpuscular Hemoglobin 28.1 pg (27.0-31.0); Mean Platelet Volume 7.3 fL (7.4-10.4); Platelet Count 335 thou/uL (130-400); RBC Distribution Width 12.7 % (11.5-14.5); Red Blood Cell (RBC) Count 4.58 mill/uL (4.20-5.40); White Blood Cell (WBC) Count 8.8 thou/uL (4.8-10.8)
[2021-10-28] MEDS: DOBUTamine 500 mg/250 ml 250 ML IVPB SCH (04:19)
[2021-10-28 04:25] LABS: INR-International Normal Ratio 3.2; PTT 51.7 sec (22.9-36.1); Prothrombin Time 33.8 sec (12.0-14.7)
[2021-10-28 04:42] LABS: Anion Gap 21 mmol/L (10-20); BUN (Urea Nitrogen) 34 mg/dL (9.8-20.1); Calc. Creatinine Clearance 90 mL/min (70-130); Calcium 9.6 mg/dL (7.8-10.44); Carbon Dioxide 18 mmol/L (23-31); Chloride 103 mmol/L (98-107); Estimated GFR 59; Glucose 107 mg/dL (80-115); Potassium 4.6 mmol/L (3.5-5.1); Sodium 137 mmol/L (136-145)
[2021-10-28] MEDS: Isosorbide Dinitrate 5 MG TAB PO SCH (06:00)
[2021-10-28] MEDS: Triamterene/Hydrochlorothiazide 37.5 mg/25 mg Tablet PO SCH (06:00)
[2021-10-28] MEDS ORDERED: Triamterene/Hydrochlorothiazide 37.5 mg/25 mg Tablet PO SCH (08:00)
[2021-10-28] MEDS: Sacubitril 49 MG/Valsartan 51 MG TABLET PO SCH ×2 (08:37→21:04)
[2021-10-28] MEDS: Empagliflozin 25 MG TAB PO SCH (08:37)
[2021-10-28] MEDS: Sotalol HCl 80 MG TAB PO SCH ×2 (08:38→21:04)
[2021-10-28] MEDS: Escitalopram Oxalate 10 mg Tablet PO SCH (08:38)
[2021-10-28] MEDS: Fluconazole 100 MG TAB PO SCH (08:38)
[2021-10-28] MEDS: Valsartan 80 MG TAB PO SCH ×2 (08:38→21:03)
[2021-10-28] MEDS: predniSONE 5 MG TAB PO SCH (08:38)
[2021-10-28] MEDS: Cholecalciferol 1,000 UNITS (25 MCG) TAB PO SCH (08:38)
[2021-10-28] MEDS: Fluticasone Propionate Nasal Spray 16 gm Bottle NASAL SCH (08:39)
[2021-10-28] MEDS: Diclofenac 1% 100 GM GEL TP SCH ×4 (08:41→21:05)
[2021-10-28] MEDS: Insulin Regular 300 UNITS/3 ML VIAL SC SCH ×3 (08:46→17:10)
[2021-10-28] MEDS: NPH, Human Insulin Isophane 300 UNIT/3 ML VIAL SC SCH ×2 (08:47→21:04)
[2021-10-28] MEDS: Liothyronine Sodium 25 MCG TAB PO SCH (10:34)
[2021-10-28] MEDS: Acetaminophen 325 MG TAB PO PRN ×2 (10:45→17:10)
[2021-10-28] MEDS: HumaLOG 300 UNITS/3 ML VIAL SC PRN ×2 (11:12→17:10)
[2021-10-28] MEDS: Transdermal Patch Removal TOP SCH (13:21)
[2021-10-28] MEDS: Bisacodyl 5 MG TAB PO PRN (17:10)
[2021-10-28] MEDS: Labetalol HCl 100 MG/20 ML VIAL SLOW IVP PRN ×2 (18:03→22:20)
[2021-10-28] MEDS: Baclofen 10 MG TAB PO SCH (21:04)
[2021-10-28] MEDS: Rosuvastatin 10 MG TAB PO SCH (21:04)
[2021-10-29] MEDS: Lidocaine 5% Patch TD SCH (00:01)
[2021-10-29] MEDS: Acetaminophen 325 MG TAB PO PRN ×4 (03:47→20:46)
[2021-10-29 04:31] LABS: Hemoglobin 12.6 g/dL (12.0-16.0); Mean Corpuscular HGB CONC 32.2 g/dL (32.0-36.0); Mean Corpuscular Hemoglobin 28.4 pg (27.0-31.0); Mean Corpuscular Volume 88.3 fL (78.0-98.0); Mean Platelet Volume 7.5 fL (7.4-10.4); Platelet Count 341 thou/uL (130-400); RBC Distribution Width 12.8 % (11.5-14.5); Red Blood Cell (RBC) Count 4.44 mill/uL (4.20-5.40); White Blood Cell (WBC) Count 8.8 thou/uL (4.8-10.8)
[2021-10-29 04:42] LABS: INR-International Normal Ratio 3.2; Prothrombin Time 33.7 sec (12.0-14.7)
[2021-10-29 04:51] LABS: Anion Gap 15 mmol/L (10-20); BUN (Urea Nitrogen) 33 mg/dL (9.8-20.1); Calc. Creatinine Clearance 89 mL/min (70-130); Calcium 10.1 mg/dL (7.8-10.44); Carbon Dioxide 30 mmol/L (23-31); Chloride 99 mmol/L (98-107); Estimated GFR 58; Glucose 123 mg/dL (80-115); Potassium 4.6 mmol/L (3.5-5.1); Sodium 139 mmol/L (136-145)
[2021-10-29] MEDS: Triamterene/Hydrochlorothiazide 37.5 mg/25 mg Tablet PO SCH (05:11)
[2021-10-29] MEDS: HumaLOG 300 UNITS/3 ML VIAL SC PRN (06:09)
[2021-10-29 06:29] LABS: PTT 55.2 sec (22.9-36.1)
[2021-10-29 07:43] LABS: Magnesium 2.1 mg/dL (1.6-2.6)
[2021-10-29] MEDS ORDERED: Milrinone Lactate/D5W 20 MG in Premix Bag 1 BAG IV SCH (08:00)
[2021-10-29] MEDS: Sacubitril 49 MG/Valsartan 51 MG TABLET PO SCH ×2 (09:10→20:53)
[2021-10-29] MEDS: Escitalopram Oxalate 10 mg Tablet PO SCH (09:10)
[2021-10-29] MEDS: Sotalol HCl 80 MG TAB PO SCH ×2 (09:10→20:47)
[2021-10-29] MEDS: Cholecalciferol 1,000 UNITS (25 MCG) TAB PO SCH (09:10)
[2021-10-29] MEDS: predniSONE 5 MG TAB PO SCH (09:11)
[2021-10-29] MEDS: Insulin Regular 300 UNITS/3 ML VIAL SC SCH ×3 (09:12→17:41)
[2021-10-29] MEDS: Empagliflozin 25 MG TAB PO SCH (13:28)
[2021-10-29] MEDS: Fluticasone Propionate Nasal Spray 16 gm Bottle NASAL SCH (13:29)
[2021-10-29] MEDS: Liothyronine Sodium 25 MCG TAB PO SCH (13:29)
[2021-10-29] MEDS: Diclofenac 1% 100 GM GEL TP SCH ×4 (13:31→21:30)
[2021-10-29] MEDS: Transdermal Patch Removal TOP SCH (13:39)
[2021-10-29] MEDS: NPH, Human Insulin Isophane 300 UNIT/3 ML VIAL SC SCH ×3 (14:34→20:47)
[2021-10-29] MEDS: Fluconazole 100 MG TAB PO SCH (14:55)
[2021-10-29] MEDS: Baclofen 10 MG TAB PO SCH (20:46)
[2021-10-29] MEDS: Rosuvastatin 10 MG TAB PO SCH (20:46)
[2021-10-29] MEDS: Bisacodyl 5 MG TAB PO PRN (21:02)
[2021-10-30] MEDS: Lidocaine 5% Patch TD SCH ×2 (01:02→23:03)
[2021-10-30 04:58] LABS: Hemoglobin 12.4 g/dL (12.0-16.0); Mean Corpuscular HGB CONC 32.8 g/dL (32.0-36.0); Mean Corpuscular Hemoglobin 28.8 pg (27.0-31.0); Mean Corpuscular Volume 87.8 fL (78.0-98.0); Mean Platelet Volume 7.8 fL (7.4-10.4); Platelet Count 325 thou/uL (130-400); RBC Distribution Width 12.7 % (11.5-14.5); Red Blood Cell (RBC) Count 4.32 mill/uL (4.20-5.40); White Blood Cell (WBC) Count 8.3 thou/uL (4.8-10.8)
[2021-10-30 05:08] LABS: INR-International Normal Ratio 3.3; PTT 58.2 sec (22.9-36.1); Prothrombin Time 34.1 sec (12.0-14.7)
[2021-10-30 05:19] LABS: Anion Gap 16 mmol/L (10-20); BUN (Urea Nitrogen) 32 mg/dL (9.8-20.1); Calc. Creatinine Clearance 87 mL/min (70-130); Calcium 9.6 mg/dL (7.8-10.44); Carbon Dioxide 26 mmol/L (23-31); Chloride 99 mmol/L (98-107); Estimated GFR 57; Glucose 110 mg/dL (80-115); Potassium 4.5 mmol/L (3.5-5.1); Sodium 136 mmol/L (136-145)
[2021-10-30] MEDS: Triamterene/Hydrochlorothiazide 37.5 mg/25 mg Tablet PO SCH (05:45)
[2021-10-30] MEDS ORDERED: Bumetanide 1 MG TAB PO SCH (07:30)
[2021-10-30] MEDS ORDERED: Liothyronine Sodium 5 MCG TAB PO SCH (09:00)
[2021-10-30] MEDS: Insulin Regular 300 UNITS/3 ML VIAL SC SCH ×3 (09:41→17:14)
[2021-10-30] MEDS: Cholecalciferol 1,000 UNITS (25 MCG) TAB PO SCH (09:41)
[2021-10-30] MEDS: predniSONE 5 MG TAB PO SCH (09:41)
[2021-10-30] MEDS: Diclofenac 1% 100 GM GEL TP SCH ×4 (09:41→21:00)
[2021-10-30] MEDS: Empagliflozin 25 MG TAB PO SCH (09:42)
[2021-10-30] MEDS: Fluticasone Propionate Nasal Spray 16 gm Bottle NASAL SCH (09:42)
[2021-10-30] MEDS: Fluconazole 100 MG TAB PO SCH (09:42)
[2021-10-30] MEDS: Liothyronine Sodium 25 MCG TAB PO SCH (09:43)
[2021-10-30] MEDS: NPH, Human Insulin Isophane 300 UNIT/3 ML VIAL SC SCH ×2 (09:43→20:53)
[2021-10-30] MEDS: Escitalopram Oxalate 10 mg Tablet PO SCH (09:44)
[2021-10-30] MEDS: Sacubitril 49 MG/Valsartan 51 MG TABLET PO SCH ×2 (09:44→20:52)
[2021-10-30] MEDS: Sotalol HCl 80 MG TAB PO SCH ×2 (09:44→20:52)
[2021-10-30] MEDS: Acetaminophen 325 MG TAB PO PRN ×2 (09:45→20:52)
[2021-10-30] MEDS: Milrinone Lactate/D5W 20 MG in Premix Bag 1 BAG IV SCH (10:16)
[2021-10-30] MEDS: Transdermal Patch Removal TOP SCH (11:55)
[2021-10-30] MEDS ORDERED: Milk Of Magnesia 30 ML UDCUP PO PRN (14:59)
[2021-10-30] MEDS: Rosuvastatin 10 MG TAB PO SCH (20:52)
[2021-10-30] MEDS: Baclofen 10 MG TAB PO SCH (20:52)
[2021-10-31] MEDS: Ondansetron PF 4 MG/2 ML Vial IVP PRN (03:09)
[2021-10-31 04:50] LABS: Hemoglobin 12.9 g/dL (12.0-16.0); Mean Corpuscular Hemoglobin 27.2 pg (27.0-31.0); Mean Corpuscular Volume 87.7 fL (78.0-98.0); Mean Platelet Volume 7.8 fL (7.4-10.4); Platelet Count 338 thou/uL (130-400); RBC Distribution Width 12.9 % (11.5-14.5); Red Blood Cell (RBC) Count 4.73 mill/uL (4.20-5.40); White Blood Cell (WBC) Count 9.3 thou/uL (4.8-10.8)
[2021-10-31 04:53] LABS: INR-International Normal Ratio 2.8; Prothrombin Time 30.5 sec (12.0-14.7)
[2021-10-31 04:54] LABS: PTT 60.6 sec (22.9-36.1)
[2021-10-31 04:58] LABS: Anion Gap 18 mmol/L (10-20); BUN (Urea Nitrogen) 40 mg/dL (9.8-20.1); Calc. Creatinine Clearance 75 mL/min (70-130); Carbon Dioxide 27 mmol/L (23-31); Chloride 96 mmol/L (98-107); Estimated GFR 47; Glucose 170 mg/dL (80-115); Potassium 4.6 mmol/L (3.5-5.1); Sodium 136 mmol/L (136-145)
[2021-10-31] MEDS: Triamterene/Hydrochlorothiazide 37.5 mg/25 mg Tablet PO SCH (06:13)
[2021-10-31 07:24] LABS: Magnesium 2.1 mg/dL (1.6-2.6)
[2021-10-31] MEDS: predniSONE 5 MG TAB PO SCH (08:59)
[2021-10-31] MEDS: Fluconazole 100 MG TAB PO SCH (08:59)
[2021-10-31] MEDS: Cholecalciferol 1,000 UNITS (25 MCG) TAB PO SCH (08:59)
[2021-10-31] MEDS: NPH, Human Insulin Isophane 300 UNIT/3 ML VIAL SC SCH ×2 (09:00→21:21)
[2021-10-31] MEDS: Insulin Regular 300 UNITS/3 ML VIAL SC SCH ×3 (09:00→17:37)
[2021-10-31] MEDS: Sacubitril 49 MG/Valsartan 51 MG TABLET PO SCH ×2 (09:03→21:17)
[2021-10-31] MEDS: Empagliflozin 25 MG TAB PO SCH (09:03)
[2021-10-31] MEDS: Diclofenac 1% 100 GM GEL TP SCH ×4 (09:04→21:22)
[2021-10-31] MEDS: Fluticasone Propionate Nasal Spray 16 gm Bottle NASAL SCH (09:10)
[2021-10-31] MEDS: Liothyronine Sodium 25 MCG TAB PO SCH (09:10)
[2021-10-31] MEDS: Sotalol HCl 80 MG TAB PO SCH ×2 (09:11→21:19)
[2021-10-31] MEDS: Milrinone Lactate/D5W 20 MG in Premix Bag 1 BAG IV SCH ×2 (09:13→17:39)
[2021-10-31] MEDS: Transdermal Patch Removal TOP SCH (11:56)
[2021-10-31] MEDS: Acetaminophen 325 MG TAB PO PRN ×2 (14:19→21:16)
[2021-10-31] MEDS: Warfarin Sodium 3 MG TAB PO SCH (17:37)
[2021-10-31] MEDS: Baclofen 10 MG TAB PO SCH (21:17)
[2021-10-31] MEDS: Rosuvastatin 10 MG TAB PO SCH (21:18)
[2021-11-01] MEDS: Lidocaine 5% Patch TD SCH ×2 (00:37→23:49)
[2021-11-01] MEDS: Milrinone Lactate/D5W 20 MG in Premix Bag 1 BAG IV SCH ×3 (02:26→17:07)
[2021-11-01 04:19] LABS: Hemoglobin 12.1 g/dL (12.0-16.0); Mean Corpuscular HGB CONC 32.6 g/dL (32.0-36.0); Mean Corpuscular Hemoglobin 28.5 pg (27.0-31.0); Mean Corpuscular Volume 87.6 fL (78.0-98.0); Mean Platelet Volume 7.4 fL (7.4-10.4); Platelet Count 276 thou/uL (130-400); RBC Distribution Width 12.8 % (11.5-14.5); Red Blood Cell (RBC) Count 4.25 mill/uL (4.20-5.40); White Blood Cell (WBC) Count 8.5 thou/uL (4.8-10.8)
[2021-11-01 04:27] LABS: INR-International Normal Ratio 2.9; PTT 54.9 sec (22.9-36.1)
[2021-11-01 04:37] LABS: Anion Gap 16 mmol/L (10-20); BUN (Urea Nitrogen) 49 mg/dL (9.8-20.1); Calc. Creatinine Clearance 50 mL/min (70-130); Calcium 9.4 mg/dL (7.8-10.44); Carbon Dioxide 28 mmol/L (23-31); Chloride 97 mmol/L (98-107); Estimated GFR 29; Glucose 206 mg/dL (80-115); Magnesium 2.2 mg/dL (1.6-2.6); Potassium 4.9 mmol/L (3.5-5.1); Sodium 136 mmol/L (136-145)
[2021-11-01] MEDS ORDERED: Triamterene/Hydrochlorothiazide 37.5 mg/25 mg Tablet PO SCH (06:00)
[2021-11-01] MEDS: HumaLOG 300 UNITS/3 ML VIAL SC PRN (07:03)
[2021-11-01] MEDS ORDERED: Sodium Chloride 0.9% 500 ML IV SCH (08:30)
[2021-11-01] MEDS: Fluconazole 100 MG TAB PO SCH (09:05)
[2021-11-01] MEDS: Sacubitril 49 MG/Valsartan 51 MG TABLET PO SCH ×2 (09:05→20:45)
[2021-11-01] MEDS: Cholecalciferol 1,000 UNITS (25 MCG) TAB PO SCH (09:06)
[2021-11-01] MEDS: Empagliflozin 25 MG TAB PO SCH (09:06)
[2021-11-01] MEDS: Sotalol HCl 80 MG TAB PO SCH ×2 (09:07→20:45)
[2021-11-01] MEDS: predniSONE 5 MG TAB PO SCH (09:07)
[2021-11-01] MEDS: Escitalopram Oxalate 10 mg Tablet PO SCH (09:07)
[2021-11-01] MEDS: Liothyronine Sodium 25 MCG TAB PO SCH (09:07)
[2021-11-01] MEDS: Diclofenac 1% 100 GM GEL TP SCH ×3 (09:08→17:06)
[2021-11-01] MEDS: Fluticasone Propionate Nasal Spray 16 gm Bottle NASAL SCH (09:09)
[2021-11-01] MEDS: Insulin Regular 300 UNITS/3 ML VIAL SC SCH ×3 (09:10→17:04)
[2021-11-01] MEDS: NPH, Human Insulin Isophane 300 UNIT/3 ML VIAL SC SCH ×2 (09:11→20:46)
[2021-11-01] MEDS: Bisacodyl 5 MG TAB PO PRN (11:42)
[2021-11-01] MEDS: Acetaminophen 325 MG TAB PO PRN (11:42)
[2021-11-01] MEDS: Transdermal Patch Removal TOP SCH (11:45)
[2021-11-01] MEDS: Warfarin Sodium 3 MG TAB PO SCH (17:03)
[2021-11-01] MEDS: Baclofen 10 MG TAB PO SCH (20:45)
[2021-11-01] MEDS: Rosuvastatin 10 MG TAB PO SCH (20:45)
[2021-11-02] MEDS: Diclofenac 1% 100 GM GEL TP SCH ×5 (00:31→20:30)
[2021-11-02] MEDS: Acetaminophen 325 MG TAB PO PRN ×3 (02:00→23:59)
[2021-11-02] MEDS: Milrinone Lactate/D5W 20 MG in Premix Bag 1 BAG IV SCH ×3 (03:32→20:22)
[2021-11-02 04:48] LABS: Mean Corpuscular HGB CONC 32.3 g/dL (32.0-36.0); Mean Corpuscular Hemoglobin 28.2 pg (27.0-31.0); Mean Corpuscular Volume 87.3 fL (78.0-98.0); Mean Platelet Volume 7.8 fL (7.4-10.4); Platelet Count 277 thou/uL (130-400); RBC Distribution Width 12.8 % (11.5-14.5); Red Blood Cell (RBC) Count 4.26 mill/uL (4.20-5.40); White Blood Cell (WBC) Count 8.8 thou/uL (4.8-10.8)
[2021-11-02 04:57] LABS: INR-International Normal Ratio 3.1; PTT 52.8 sec (22.9-36.1); Prothrombin Time 32.3 sec (12.0-14.7)
[2021-11-02 05:09] LABS: Anion Gap 17 mmol/L (10-20); BUN (Urea Nitrogen) 47 mg/dL (9.8-20.1); Calc. Creatinine Clearance 86 mL/min (70-130); Calcium 9.8 mg/dL (7.8-10.44); Carbon Dioxide 26 mmol/L (23-31); Chloride 99 mmol/L (98-107); Estimated GFR 57; Glucose 142 mg/dL (80-115); Magnesium 2.2 mg/dL (1.6-2.6); Potassium 4.6 mmol/L (3.5-5.1); Sodium 137 mmol/L (136-145)
[2021-11-02] MEDS: Sacubitril 49 MG/Valsartan 51 MG TABLET PO SCH ×2 (08:09→20:22)
[2021-11-02] MEDS: Fluconazole 100 MG TAB PO SCH (08:09)
[2021-11-02] MEDS: Liothyronine Sodium 25 MCG TAB PO SCH (08:10)
[2021-11-02] MEDS: Cholecalciferol 1,000 UNITS (25 MCG) TAB PO SCH (08:10)
[2021-11-02] MEDS: Sotalol HCl 80 MG TAB PO SCH ×2 (08:10→20:22)
[2021-11-02] MEDS: Escitalopram Oxalate 10 mg Tablet PO SCH (08:10)
[2021-11-02] MEDS: predniSONE 5 MG TAB PO SCH (08:11)
[2021-11-02] MEDS: Empagliflozin 25 MG TAB PO SCH (08:11)
[2021-11-02] MEDS: Fluticasone Propionate Nasal Spray 16 gm Bottle NASAL SCH (08:13)
[2021-11-02] MEDS: Insulin Regular 300 UNITS/3 ML VIAL SC SCH ×3 (08:17→17:18)
[2021-11-02] MEDS: NPH, Human Insulin Isophane 300 UNIT/3 ML VIAL SC SCH ×2 (08:17→21:22)
[2021-11-02] MEDS: Transdermal Patch Removal TOP SCH (12:00)
[2021-11-02] MEDS: Rosuvastatin 10 MG TAB PO SCH (20:22)
[2021-11-02] MEDS: Baclofen 10 MG TAB PO SCH (20:22)
[2021-11-02] MEDS: Lidocaine 5% Patch TD SCH (23:55)
[2021-11-03 04:46] LABS: Hemoglobin 13.3 g/dL (12.0-16.0); Mean Corpuscular Hemoglobin 29.5 pg (27.0-31.0); Mean Corpuscular Volume 89.3 fL (78.0-98.0); Mean Platelet Volume 7.6 fL (7.4-10.4); Platelet Count 274 thou/uL (130-400); Red Blood Cell (RBC) Count 4.52 mill/uL (4.20-5.40)
[2021-11-03 04:58] LABS: PTT 52.9 sec (22.9-36.1); Prothrombin Time 32.1 sec (12.0-14.7)
[2021-11-03 05:13] LABS: Chloride 102 mmol/L (98-107); Potassium 4.8 mmol/L (3.5-5.1); Sodium 136 mmol/L (136-145)
[2021-11-03] MEDS: Milrinone Lactate/D5W 20 MG in Premix Bag 1 BAG IV SCH ×3 (05:15→21:36)
[2021-11-03] MEDS: HumaLOG 300 UNITS/3 ML VIAL SC PRN (05:19)
[2021-11-03 05:24] LABS: Calcium 9.3 mg/dL (7.8-10.44); Glucose 220 mg/dL (80-115)
[2021-11-03 05:26] LABS: Anion Gap 21 mmol/L (10-20); Carbon Dioxide 18 mmol/L (23-31)
[2021-11-03 05:27] LABS: Calc. Creatinine Clearance 88 mL/min (70-130); Estimated GFR 58
[2021-11-03 05:28] LABS: BUN (Urea Nitrogen) 41 mg/dL (9.8-20.1)
[2021-11-03 05:29] LABS: Magnesium 2.1 mg/dL (1.6-2.6)
[2021-11-03] MEDS: Fluconazole 100 MG TAB PO SCH (09:42)
[2021-11-03] MEDS: predniSONE 5 MG TAB PO SCH (09:43)
[2021-11-03] MEDS: Escitalopram Oxalate 10 mg Tablet PO SCH (09:43)
[2021-11-03] MEDS: Sacubitril 49 MG/Valsartan 51 MG TABLET PO SCH ×2 (09:43→21:35)
[2021-11-03] MEDS: Liothyronine Sodium 25 MCG TAB PO SCH (09:43)
[2021-11-03] MEDS: Sotalol HCl 80 MG TAB PO SCH ×2 (09:43→21:35)
[2021-11-03] MEDS: Cholecalciferol 1,000 UNITS (25 MCG) TAB PO SCH (09:44)
[2021-11-03] MEDS: Empagliflozin 25 MG TAB PO SCH (09:44)
[2021-11-03] MEDS: Insulin Regular 300 UNITS/3 ML VIAL SC SCH ×3 (09:44→17:17)
[2021-11-03] MEDS: Diclofenac 1% 100 GM GEL TP SCH ×4 (09:45→21:42)
[2021-11-03] MEDS: Fluticasone Propionate Nasal Spray 16 gm Bottle NASAL SCH (09:49)
[2021-11-03] MEDS: NPH, Human Insulin Isophane 300 UNIT/3 ML VIAL SC SCH ×2 (09:56→21:36)
[2021-11-03] MEDS: Transdermal Patch Removal TOP SCH (13:23)
[2021-11-03] MEDS: Warfarin Sodium 3 MG TAB PO SCH (17:13)
[2021-11-03] MEDS: Acetaminophen 325 MG TAB PO PRN (17:20)
[2021-11-03] MEDS: Baclofen 10 MG TAB PO SCH (21:35)
[2021-11-03] MEDS: Rosuvastatin 10 MG TAB PO SCH (21:35)
[2021-11-04] MEDS: Lidocaine 5% Patch TD SCH ×2 (00:08→23:44)
[2021-11-04] MEDS: Acetaminophen 325 MG TAB PO PRN (02:51)
[2021-11-04 05:18] LABS: Hemoglobin 12.6 g/dL (12.0-16.0); Mean Corpuscular HGB CONC 32.5 g/dL (32.0-36.0); Mean Corpuscular Hemoglobin 28.6 pg (27.0-31.0); Mean Corpuscular Volume 87.8 fL (78.0-98.0); Mean Platelet Volume 7.9 fL (7.4-10.4); Platelet Count 286 thou/uL (130-400); RBC Distribution Width 12.9 % (11.5-14.5); Red Blood Cell (RBC) Count 4.41 mill/uL (4.20-5.40)
[2021-11-04] MEDS: HumaLOG 300 UNITS/3 ML VIAL SC PRN (05:23)
[2021-11-04 05:31] LABS: Anion Gap 16 mmol/L (10-20); BUN (Urea Nitrogen) 34 mg/dL (9.8-20.1); Calc. Creatinine Clearance 94 mL/min (70-130); Calcium 9.5 mg/dL (7.8-10.44); Carbon Dioxide 28 mmol/L (23-31); Chloride 99 mmol/L (98-107); Estimated GFR 63; Glucose 239 mg/dL (80-115); Magnesium 2.2 mg/dL (1.6-2.6); Potassium 4.6 mmol/L (3.5-5.1); Sodium 138 mmol/L (136-145)
[2021-11-04 05:39] LABS: INR-International Normal Ratio 2.7; PTT 48.9 sec (22.9-36.1); Prothrombin Time 29.1 sec (12.0-14.7)
[2021-11-04] MEDS: Insulin Regular 300 UNITS/3 ML VIAL SC SCH ×3 (09:33→18:03)
[2021-11-04] MEDS: Cholecalciferol 1,000 UNITS (25 MCG) TAB PO SCH (09:34)
[2021-11-04] MEDS: Empagliflozin 25 MG TAB PO SCH (09:34)
[2021-11-04] MEDS: Diclofenac 1% 100 GM GEL TP SCH ×4 (09:34→21:18)
[2021-11-04] MEDS: predniSONE 5 MG TAB PO SCH (09:34)
[2021-11-04] MEDS: NPH, Human Insulin Isophane 300 UNIT/3 ML VIAL SC SCH ×2 (09:35→21:17)
[2021-11-04] MEDS: Liothyronine Sodium 25 MCG TAB PO SCH (09:35)
[2021-11-04] MEDS: Fluconazole 100 MG TAB PO SCH (09:35)
[2021-11-04] MEDS: Escitalopram Oxalate 10 mg Tablet PO SCH (09:35)
[2021-11-04] MEDS: Fluticasone Propionate Nasal Spray 16 gm Bottle NASAL SCH (09:35)
[2021-11-04] MEDS: Sotalol HCl 80 MG TAB PO SCH ×2 (09:36→21:16)
[2021-11-04] MEDS: Sacubitril 49 MG/Valsartan 51 MG TABLET PO SCH ×2 (09:36→21:15)
[2021-11-04] MEDS ORDERED: Bumetanide 1 MG TAB PO SCH (10:45)
[2021-11-04] MEDS ORDERED: Carvedilol 6.25 MG TAB PO SCH (10:45)
[2021-11-04] MEDS: Transdermal Patch Removal TOP SCH (13:00)
[2021-11-04] MEDS: Warfarin Sodium 3 MG TAB PO SCH (18:03)
[2021-11-04] MEDS: Carvedilol 6.25 MG TAB PO SCH (21:16)
[2021-11-04] MEDS: Baclofen 10 MG TAB PO SCH (21:16)
[2021-11-04] MEDS: Rosuvastatin 10 MG TAB PO SCH (21:16)
[2021-11-04] MEDS: Milrinone Lactate/D5W 20 MG in Premix Bag 1 BAG IV SCH (23:44)
[2021-11-05] MEDS: Acetaminophen 325 MG TAB PO PRN ×2 (02:13→17:47)
[2021-11-05] MEDS: hydrOXYzine 10 MG TAB PO PRN (03:30)
[2021-11-05 04:15] LABS: Hemoglobin 12.5 g/dL (12.0-16.0); Mean Corpuscular HGB CONC 32.1 g/dL (32.0-36.0); Mean Corpuscular Volume 87.5 fL (78.0-98.0); Mean Platelet Volume 7.7 fL (7.4-10.4); Platelet Count 273 thou/uL (130-400); RBC Distribution Width 12.9 % (11.5-14.5); Red Blood Cell (RBC) Count 4.47 mill/uL (4.20-5.40); White Blood Cell (WBC) Count 7.5 thou/uL (4.8-10.8)
[2021-11-05 04:25] LABS: INR-International Normal Ratio 2.5; PTT 50.8 sec (22.9-36.1); Prothrombin Time 27.5 sec (12.0-14.7)
[2021-11-05 04:35] LABS: Anion Gap 14 mmol/L (10-20); BUN (Urea Nitrogen) 31 mg/dL (9.8-20.1); Calc. Creatinine Clearance 93 mL/min (70-130); Calcium 9.2 mg/dL (7.8-10.44); Carbon Dioxide 29 mmol/L (23-31); Chloride 97 mmol/L (98-107); Estimated GFR 63; Glucose 108 mg/dL (80-115); Magnesium 2.1 mg/dL (1.6-2.6); Potassium 4.4 mmol/L (3.5-5.1); Sodium 136 mmol/L (136-145)
[2021-11-05] MEDS: Bumetanide 1 MG TAB PO SCH (08:51)
[2021-11-05] MEDS: Sotalol HCl 80 MG TAB PO SCH ×2 (08:52→20:34)
[2021-11-05] MEDS: Sacubitril 49 MG/Valsartan 51 MG TABLET PO SCH ×2 (08:53→20:34)
[2021-11-05] MEDS: Fluconazole 100 MG TAB PO SCH (08:53)
[2021-11-05] MEDS: Liothyronine Sodium 25 MCG TAB PO SCH (08:53)
[2021-11-05] MEDS: Carvedilol 6.25 MG TAB PO SCH ×2 (08:54→20:35)
[2021-11-05] MEDS: predniSONE 5 MG TAB PO SCH (08:54)
[2021-11-05] MEDS: Cholecalciferol 1,000 UNITS (25 MCG) TAB PO SCH (08:54)
[2021-11-05] MEDS: Empagliflozin 25 MG TAB PO SCH (08:54)
[2021-11-05] MEDS: Escitalopram Oxalate 10 mg Tablet PO SCH (08:54)
[2021-11-05] MEDS: Diclofenac 1% 100 GM GEL TP SCH ×5 (08:57→20:35)
[2021-11-05] MEDS: NPH, Human Insulin Isophane 300 UNIT/3 ML VIAL SC SCH ×2 (09:00→21:33)
[2021-11-05] MEDS: Fluticasone Propionate Nasal Spray 16 gm Bottle NASAL SCH (09:58)
[2021-11-05] MEDS: Insulin Regular 300 UNITS/3 ML VIAL SC SCH ×3 (09:58→16:53)
[2021-11-05] MEDS: Potassium Chloride 10 MEQ TAB PO SCH ×2 (09:59→20:34)
[2021-11-05] MEDS: Transdermal Patch Removal TOP SCH (11:31)
[2021-11-05] MEDS: Warfarin Sodium 2 MG TAB PO SCH (16:17)
[2021-11-05] MEDS: HumaLOG 300 UNITS/3 ML VIAL SC PRN (16:18)
[2021-11-05] MEDS: Baclofen 10 MG TAB PO SCH (20:34)
[2021-11-05] MEDS: Rosuvastatin 10 MG TAB PO SCH (20:35)
[2021-11-05] MEDS ORDERED: Potassium Chloride 20 MEQ TAB PO SCH (21:00)
[2021-11-05] MEDS: Lidocaine 5% Patch TD SCH (23:30)
[2021-11-06] MEDS: Milrinone Lactate/D5W 20 MG in Premix Bag 1 BAG IV SCH (01:05)
[2021-11-06 04:50] LABS: Hemoglobin 12.2 g/dL (12.0-16.0); Mean Corpuscular Hemoglobin 28.5 pg (27.0-31.0); Mean Corpuscular Volume 86.5 fL (78.0-98.0); Mean Platelet Volume 7.9 fL (7.4-10.4); Platelet Count 252 thou/uL (130-400); Red Blood Cell (RBC) Count 4.28 mill/uL (4.20-5.40); White Blood Cell (WBC) Count 6.9 thou/uL (4.8-10.8)
[2021-11-06 04:54] LABS: INR-International Normal Ratio 2.7; Prothrombin Time 29.2 sec (12.0-14.7)
[2021-11-06 04:55] LABS: PTT 49.7 sec (22.9-36.1)
[2021-11-06] MEDS: Acetaminophen 325 MG TAB PO PRN (05:09)
[2021-11-06 05:19] LABS: Anion Gap 14 mmol/L (10-20); BUN (Urea Nitrogen) 39 mg/dL (9.8-20.1); Calc. Creatinine Clearance 92 mL/min (70-130); Calcium 9.6 mg/dL (7.8-10.44); Carbon Dioxide 29 mmol/L (23-31); Chloride 98 mmol/L (98-107); Estimated GFR 62; Glucose 141 mg/dL (80-115); Magnesium 2.2 mg/dL (1.6-2.6); Potassium 4.3 mmol/L (3.5-5.1); Sodium 137 mmol/L (136-145)
[2021-11-06] MEDS: Carvedilol 6.25 MG TAB PO SCH ×2 (08:42→20:21)
[2021-11-06] MEDS: Sotalol HCl 80 MG TAB PO SCH ×2 (08:43→20:25)
[2021-11-06] MEDS: Liothyronine Sodium 25 MCG TAB PO SCH (08:43)
[2021-11-06] MEDS: predniSONE 5 MG TAB PO SCH (08:43)
[2021-11-06] MEDS: Fluconazole 100 MG TAB PO SCH ×3 (08:43→14:14)
[2021-11-06] MEDS: Escitalopram Oxalate 10 mg Tablet PO SCH (08:43)
[2021-11-06] MEDS: Potassium Chloride 10 MEQ TAB PO SCH ×2 (08:44→20:22)
[2021-11-06] MEDS: Empagliflozin 25 MG TAB PO SCH (08:44)
[2021-11-06] MEDS: Bumetanide 1 MG TAB PO SCH (08:44)
[2021-11-06] MEDS: Cholecalciferol 1,000 UNITS (25 MCG) TAB PO SCH (08:46)
[2021-11-06] MEDS: Fluticasone Propionate Nasal Spray 16 gm Bottle NASAL SCH (08:46)
[2021-11-06] MEDS: Diclofenac 1% 100 GM GEL TP SCH ×4 (08:46→21:00)
[2021-11-06] MEDS: Sacubitril 49 MG/Valsartan 51 MG TABLET PO SCH ×2 (09:03→20:21)
[2021-11-06] MEDS: NPH, Human Insulin Isophane 300 UNIT/3 ML VIAL SC SCH ×2 (09:03→21:36)
[2021-11-06] MEDS: Insulin Regular 300 UNITS/3 ML VIAL SC SCH ×3 (09:03→16:43)
[2021-11-06] MEDS: Transdermal Patch Removal TOP SCH (11:43)
[2021-11-06] MEDS ORDERED: Fluconazole 100 MG TAB PO SCH (12:00)
[2021-11-06 15:54] VITALS: BMI 42.0
[2021-11-06] MEDS: Warfarin Sodium 2 MG TAB PO SCH (16:44)
[2021-11-06] MEDS: Baclofen 10 MG TAB PO SCH (20:21)
[2021-11-06] MEDS: Rosuvastatin 10 MG TAB PO SCH (20:21)
[2021-11-06 22:24] VITALS: BP 150/84; TEMP 98
[2021-11-07] MEDS ORDERED: Fluconazole 100 MG TAB PO SCH (09:00)
== END 2021-11-06 22:00 | disposition home health service (06) | DRG 291 ==
LOC: ERS 15:20 → 2NO 18:25 → IMCU/EMU 10-20 12:57 → 2NO 10-24 20:29
PROVIDERS: ADMIT Student in an Organized Health Care Education/Training Program; ATTEND Student in an Organized Health Care Education/Training Program
PROC: 3E033XZ Introduction of Vasopressor into Peripheral Vein, Percutaneous Approach (ICD-10-PCS; principal; 2021-10-20)
PROC: 02HV33Z Insertion of Infusion Device into Superior Vena Cava, Percutaneous Approach (ICD-10-PCS; 2021-10-29)
PROC: B548ZZA Ultrasonography of Superior Vena Cava, Guidance (ICD-10-PCS; 2021-10-29)
PROC: B5181ZA Fluoroscopy of Superior Vena Cava using Low Osmolar Contrast, Guidance (ICD-10-PCS; 2021-10-29)
PROC: 02PYX3Z Removal of Infusion Device from Great Vessel, External Approach (ICD-10-PCS; 2021-10-29)
DX: I13.0 Hypertensive heart and chronic kidney disease with heart failure and stage 1 through stage 4 chronic kidney disease, or unspecified chronic kidney disease (principal); Z20.822 Contact with and (suspected) exposure to COVID-19; I50.33 Acute on chronic diastolic (congestive) heart failure; T80.218A Other infection due to central venous catheter, initial encounter; J16.8 Pneumonia due to other specified infectious organisms; R57.0 Cardiogenic shock; E27.40 Unspecified adrenocortical insufficiency; I16.9 Hypertensive crisis, unspecified; N17.9 Acute kidney failure, unspecified; I48.19 Other persistent atrial fibrillation; B48.8 Other specified mycoses; D84.9 Immunodeficiency, unspecified; Z68.41 Body mass index [BMI] 40.0-44.9, adult; J45.909 Unspecified asthma, uncomplicated; F43.10 Post-traumatic stress disorder, unspecified; F41.1 Generalized anxiety disorder; F32.A Depression, unspecified; K74.60 Unspecified cirrhosis of liver; E11.65 Type 2 diabetes mellitus with hyperglycemia; R79.1 Abnormal coagulation profile; E03.9 Hypothyroidism, unspecified; E66.9 Obesity, unspecified; B34.9 Viral infection, unspecified; I08.1 Rheumatic disorders of both mitral and tricuspid valves; J32.9 Chronic sinusitis, unspecified; J38.5 Laryngeal spasm; R00.1 Bradycardia, unspecified; I49.3 Ventricular premature depolarization; I95.89 Other hypotension; Y84.8 Other medical procedures as the cause of abnormal reaction of the patient, or of later complication, without mention of misadventure at the time of the procedure; E11.649 Type 2 diabetes mellitus with hypoglycemia without coma; Z82.49 Family history of ischemic heart disease and other diseases of the circulatory system; Z79.890 Hormone replacement therapy; Z28.21 Immunization not carried out because of patient refusal; Z79.01 Long term (current) use of anticoagulants; Z88.1 Allergy status to other antibiotic agents; Z88.0 Allergy status to penicillin; Z88.8 Allergy status to other drugs, medicaments and biological substances; Z91.018 Allergy to other foods; Z79.899 Other long term (current) drug therapy; Z79.51 Long term (current) use of inhaled steroids; Z79.4 Long term (current) use of insulin; Z79.52 Long term (current) use of systemic steroids; Z98.890 Other specified postprocedural states; Z86.16 Personal history of COVID-19; Z90.89 Acquired absence of other organs; Z87.891 Personal history of nicotine dependence; G43.909 Migraine, unspecified, not intractable, without status migrainosus; M10.9 Gout, unspecified; K76.0 Fatty (change of) liver, not elsewhere classified; E78.00 Pure hypercholesterolemia, unspecified; K21.9 Gastro-esophageal reflux disease without esophagitis; Z88.5 Allergy status to narcotic agent; F51.01 Primary insomnia; E87.6 Hypokalemia; E05.00 Thyrotoxicosis with diffuse goiter without thyrotoxic crisis or storm; I27.29 Other secondary pulmonary hypertension; M17.0 Bilateral primary osteoarthritis of knee; M19.071 Primary osteoarthritis, right ankle and foot; M19.072 Primary osteoarthritis, left ankle and foot; M16.0 Bilateral primary osteoarthritis of hip; T37.8X5A Adverse effect of other specified systemic anti-infectives and antiparasitics, initial encounter; R94.31 Abnormal electrocardiogram [ECG] [EKG]; I27.21 Secondary pulmonary arterial hypertension; I27.22 Pulmonary hypertension due to left heart disease
CPT/HCPCS: 36415; 36416; 36569; 71045; 71250; 80048; 80053; 81001; 83735; 83880; 84100; 84145; 84484; 85025; 85027; 85379; 85610; 85730; 86140; 87040; 87449; 87804; 87899; 93005; 93010; 93798; 94760; 96374; 97139; C1751; J0360; J0692; J1250; J1644; J1815; J1940; J2248; J2260; J2405; J2765; J3370; J3475; J3490; J7030; J7120; J7512; Q0162; U0003; U0005

== ENCOUNTER 2021-12-26 17:14 | Observation (INO) | payer MEDICARE, OTHER ==
[2021-12-26 18:17] LABS: #Lymphocytes 1.5 thou/uL (1.20-3.40); #Monocytes 0.8 thou/uL (0.11-0.59); #Neutrophils 7.2 thou/uL (1.40-6.50); %Basophils 0.3 % (0.0-1.0); %Eosinophils 0.4 % (0.0-10.0); %Lymphocytes 15.2 % (21.0-51.0); %Monocytes 8.5 % (0.0-10.0); %Neutrophils 75.6 % (42.0-75.0); Hemoglobin 11.5 g/dL (12.0-16.0); Mean Corpuscular Hemoglobin 26.4 pg (27.0-31.0); Platelet Count 252 thou/uL (130-400); RBC Distribution Width 14.4 % (11.5-14.5); Red Blood Cell (RBC) Count 4.36 mill/uL (4.20-5.40); White Blood Cell (WBC) Count 9.6 thou/uL (4.8-10.8)
[2021-12-26 18:34] LABS: ALT (SGPT) 18 U/L (8-55); AST (SGOT) 20 U/L (5-34); Albumin 3.7 g/dL (3.4-4.8); Alkaline Phosphatase 99 U/L (40-110); Anion Gap 11 mmol/L (10-20); BUN (Urea Nitrogen) 11 mg/dL (9.8-20.1); Bilirubin, Total 1.2 mg/dL (0.2-1.2); Calc. Creatinine Clearance 0 mL/min (70-130); Calcium 9.2 mg/dL (7.8-10.44); Carbon Dioxide 30 mmol/L (23-31); Chloride 103 mmol/L (98-107); Estimated GFR 77; Globulin 3.1 g/dL (2.4-3.5); Glucose 224 mg/dL (80-115); Lipase 13 U/L (8-78); Potassium 3.8 mmol/L (3.5-5.1); Protein, Total 6.8 g/dL (5.8-8.1); Sodium 140 mmol/L (136-145)
[2021-12-26 18:37] LABS: INR-International Normal Ratio 2.3; Prothrombin Time 25.3 sec (12.0-14.7)
[2021-12-26 18:57] LABS: Bacteria/HPF 3+ HPF (None Seen); Bilirubin Negative (Negative); Blood, Urine 2+ (Negative); Clarity Turbid (Clear); Glucose, Urine (Dipstick) 200 mg/dL (Negative); Ketone, Urine Negative (Negative); Leukocyte 500 Leu/uL (Negative); Mucous/LPF Rare LPF (<2+); Nitrite Negative (Negative); Protein, Urine (Dipstick) 300 mg/dL (Neg-Trace); RBC/HPF Greater than 50 HPF (0-3); Specific Gravity, Urine 1.019 (1.002-1.036); Squamous Epithelial 0-3 HPF (0-3); WBC/HPF Greater than 50 HPF (0-3)
[2021-12-26] MEDS ORDERED: cefTRIAXone\\ROCEPHIN 2 GM VIAL ONE (19:34)
[2021-12-26] MEDS ORDERED: Ondansetron PF 4 MG/2 ML Vial IVP PRN (21:22)
[2021-12-26] MEDS ORDERED: Ondansetron ODT 4 MG TAB PO PRN (21:22)
[2021-12-26] MEDS ORDERED: Acetaminophen 325 MG TAB PO PRN (21:22)
[2021-12-26] MEDS ORDERED: Acetaminophen 650 MG Suppository PR PRN (21:22)
[2021-12-26] MEDS ORDERED: Dextrose 5% in Water 1,000 ML IV PRN (21:26)
[2021-12-26] MEDS ORDERED: Dextrose 50% Abboject 50 ML SYRINGE SLOW IVP PRN (21:26)
[2021-12-26] MEDS ORDERED: HumaLOG 300 UNITS/3 ML VIAL SC PRN ×2 (21:26)
[2021-12-26] MEDS ORDERED: Potassium Chloride 20 MEQ TAB PO SCH (21:30)
[2021-12-26] MEDS ORDERED: Furosemide 40 MG/4 ML VIAL SLOW IVP SCH (21:30)
[2021-12-26] MEDS ORDERED: Sterile Water 10 ML VIAL IVP SCH (23:45)
[2021-12-26] MEDS ORDERED: Activase 2 MG VIAL CATH SCH (23:59)
[2021-12-27] MEDS ORDERED: Bisacodyl 5 MG TAB PO PRN (00:48)
[2021-12-27] MEDS ORDERED: hydrOXYzine 10 MG TAB PO PRN (00:48)
[2021-12-27] MEDS ORDERED: Milrinone 10 MG/10 ML VIAL IVPB SCH ×3 (01:00→01:57)
[2021-12-27] MEDS ORDERED: Warfarin Sodium 5 MG TAB PO SCH (01:00)
[2021-12-27 01:04] VITALS: BMI 44.8
[2021-12-27 01:24] LABS: SARS-CoV-2 NAA Rapid Test Not Detected (NotDetected)
[2021-12-27] MEDS ORDERED: Dulaglutide [Trulicity] 0.75 MG/0.5 ML Pen.Injctr SC SCH (01:45)
[2021-12-27] MEDS: Milrinone Lactate/D5W 20 MG in Premix Bag 1 BAG IV SCH ×2 (02:31→12:15)
[2021-12-27 05:07] LABS: #Eosinphils 0.1 thou/uL (0.0-0.7); #Monocytes 1.2 thou/uL (0.11-0.59); #Neutrophils 5.6 thou/uL (1.40-6.50); %Basophils 0.3 % (0.0-1.0); %Eosinophils 1.6 % (0.0-10.0); %Lymphocytes 21.9 % (21.0-51.0); %Monocytes 13.3 % (0.0-10.0); Hemoglobin 11.7 g/dL (12.0-16.0); Mean Corpuscular HGB CONC 30.2 g/dL (32.0-36.0); Mean Corpuscular Hemoglobin 26.6 pg (27.0-31.0); Mean Corpuscular Volume 88.1 fl (78.0-98.0); Mean Platelet Volume 7.8 fL (7.4-10.4); Platelet Count 235 thou/uL (130-400); RBC Distribution Width 14.5 % (11.5-14.5); Red Blood Cell (RBC) Count 4.39 mill/uL (4.20-5.40)
[2021-12-27 05:29] LABS: ALT (SGPT) 18 U/L (8-55); AST (SGOT) 18 U/L (5-34); Albumin 3.6 g/dL (3.4-4.8); Alkaline Phosphatase 92 U/L (40-110); Anion Gap 14 mmol/L (10-20); BUN (Urea Nitrogen) 12 mg/dL (9.8-20.1); Bilirubin, Total 0.8 mg/dL (0.2-1.2); Calc. Creatinine Clearance 120 mL/min (70-130); Calcium 9.2 mg/dL (7.8-10.44); Carbon Dioxide 30 mmol/L (23-31); Chloride 101 mmol/L (98-107); Estimated GFR 80; Globulin 3.2 g/dL (2.4-3.5); Glucose 175 mg/dL (80-115); Potassium 3.5 mmol/L (3.5-5.1); Protein, Total 6.8 g/dL (5.8-8.1); Sodium 141 mmol/L (136-145)
[2021-12-27] MEDS ORDERED: Potassium Chloride 20 MEQ TAB PO SCH (08:00)
[2021-12-27] MEDS ORDERED: Sacubitril 49 MG/Valsartan 51 MG TABLET PO SCH (09:00)
[2021-12-27] MEDS ORDERED: Loratadine 10 MG TAB PO SCH (09:00)
[2021-12-27] MEDS ORDERED: Rosuvastatin 10 MG TAB PO SCH (09:00)
[2021-12-27] MEDS ORDERED: predniSONE 5 MG TAB PO SCH (09:00)
[2021-12-27] MEDS ORDERED: Hydrochlorothiazide 25 MG TAB PO SCH (09:00)
[2021-12-27] MEDS ORDERED: Empagliflozin 25 MG TAB PO SCH (09:00)
[2021-12-27] MEDS ORDERED: Famotidine 20 MG TAB PO SCH (09:00)
[2021-12-27] MEDS ORDERED: Fluconazole 100 MG TAB PO SCH (09:00)
[2021-12-27] MEDS ORDERED: Sotalol HCl 80 MG TAB PO SCH (09:00)
[2021-12-27] MEDS ORDERED: Liothyronine Sodium 25 MCG TAB PO SCH (09:00)
[2021-12-27] MEDS ORDERED: Cholecalciferol 1,000 UNITS (25 MCG) TAB PO SCH (09:00)
[2021-12-27] MEDS ORDERED: Bumetanide 1 MG TAB PO SCH (09:00)
[2021-12-27] MEDS ORDERED: Cyanocobalamin (Vitamin B-12) 1,000 MCG TAB PO SCH (09:00)
[2021-12-27] MEDS ORDERED: Carvedilol 6.25 MG TAB PO SCH (09:00)
[2021-12-27] MEDS ORDERED: Insulin NPH Human Isophane 100 UNIT/ML (10 ML VIAL) SQ SCH (09:00)
[2021-12-27] MEDS ORDERED: Fluticasone Propionate Nasal Spray 16 gm Bottle NASAL SCH (09:00)
[2021-12-27] MEDS ORDERED: Escitalopram Oxalate 10 mg Tablet PO SCH (09:00)
[2021-12-27] MEDS ORDERED: AcetaZOLAMIDE 250 MG TAB PO SCH (09:00)
[2021-12-27] MEDS: Insulin Regular 300 UNITS/3 ML VIAL SC SCH ×3 (09:09→18:07)
[2021-12-27 15:31] VITALS: TEMP 97.9
[2021-12-27 15:54] VITALS: BP 126/58
[2021-12-27] MEDS ORDERED: Warfarin Sodium 2 MG TAB PO SCH (17:00)
[2021-12-27] MEDS ORDERED: cefTRIAXone\\ROCEPHIN 1 GM in Sodium Chloride 0.9% 100 ML IVPB SCH (20:00)
[2021-12-30] MEDS ORDERED: FLU VACC QS2022-23(65YR UP)/PF 240 MCG/0.7 ML SYRINGE IM ONE (09:00)
[2021-12-30] MEDS ORDERED: Warfarin Sodium 5 MG TAB PO SCH (17:00)
== END 2021-12-27 19:13 | disposition home or self-care (01) ==
LOC: ERS 17:14 → 2SW 21:33
PROVIDERS: ADMIT Student in an Organized Health Care Education/Training Program; ATTEND Student in an Organized Health Care Education/Training Program
DX: I11.0 Hypertensive heart disease with heart failure (principal); I50.33 Acute on chronic diastolic (congestive) heart failure; A41.9 Sepsis, unspecified organism; N39.0 Urinary tract infection, site not specified; E87.70 Fluid overload, unspecified; J96.20 Acute and chronic respiratory failure, unspecified whether with hypoxia or hypercapnia; J06.9 Acute upper respiratory infection, unspecified; I48.91 Unspecified atrial fibrillation; I49.1 Atrial premature depolarization; I27.20 Pulmonary hypertension, unspecified; K76.0 Fatty (change of) liver, not elsewhere classified; K74.60 Unspecified cirrhosis of liver; E11.9 Type 2 diabetes mellitus without complications; E78.5 Hyperlipidemia, unspecified; E03.9 Hypothyroidism, unspecified; E27.40 Unspecified adrenocortical insufficiency; K21.9 Gastro-esophageal reflux disease without esophagitis; M47.814 Spondylosis without myelopathy or radiculopathy, thoracic region; M47.816 Spondylosis without myelopathy or radiculopathy, lumbar region; M10.9 Gout, unspecified; G47.00 Insomnia, unspecified; R19.7 Diarrhea, unspecified; E66.9 Obesity, unspecified; Z68.41 Body mass index [BMI] 40.0-44.9, adult; Z87.891 Personal history of nicotine dependence; Z79.01 Long term (current) use of anticoagulants; Z79.4 Long term (current) use of insulin; Z79.52 Long term (current) use of systemic steroids; Z79.84 Long term (current) use of oral hypoglycemic drugs; Z79.85 Long-term (current) use of injectable non-insulin antidiabetic drugs; Z79.899 Other long term (current) drug therapy; Z88.0 Allergy status to penicillin; Z88.1 Allergy status to other antibiotic agents; Z88.5 Allergy status to narcotic agent; Z88.8 Allergy status to other drugs, medicaments and biological substances; Z91.018 Allergy to other foods; Z20.822 Contact with and (suspected) exposure to COVID-19
CPT/HCPCS: 0241U; 71045; 71046; 74176; 80053 ×2; 82962; 83605; 83690; 83880; 84145; 84484; 85025 ×2; 85610; 85730; 87040; 87077; 87086; 87186; 93005; 94760; 96375; 96376; 97530; G0378 ×3; J1815; J2997; 36415; 36416; 81003; 81015; J0696; J1940; J2260; J2405; J7512

== ENCOUNTER 2022-01-30 18:52 | Emergency (ER) | payer MEDICARE, OTHER ==
[2022-01-30] MEDS ORDERED: diphenhydrAMINE 50 MG/ML VIAL ONE (19:24)
[2022-01-30 19:49] LABS: #Basophils 0.1 thou/uL (0.0-0.2); #Eosinphils 0.1 thou/uL (0.0-0.7); #Lymphocytes 1.7 thou/uL (1.20-3.40); #Monocytes 0.8 thou/uL (0.11-0.59); #Neutrophils 8.5 thou/uL (1.40-6.50); %Basophils 0.6 % (0.0-1.0); %Eosinophils 1.3 % (0.0-10.0); %Lymphocytes 15.1 % (21.0-51.0); %Monocytes 6.8 % (0.0-10.0); %Neutrophils 76.3 % (42.0-75.0); Hemoglobin 11.9 g/dL (12.0-16.0); Mean Corpuscular HGB CONC 31.6 g/dL (32.0-36.0); Mean Corpuscular Hemoglobin 26.9 pg (27.0-31.0); Mean Platelet Volume 7.8 fL (7.4-10.4); Platelet Count 246 10x3/uL (130-400); RBC Distribution Width 14.2 % (11.5-14.5); Red Blood Cell (RBC) Count 4.41 mill/uL (4.20-5.40); White Blood Cell (WBC) Count 11.1 10x3/uL (4.8-10.8)
[2022-01-30 20:09] LABS: ALT (SGPT) 10 U/L (8-55); AST (SGOT) 13 U/L (5-34); Albumin 3.7 g/dL (3.4-4.8); Alkaline Phosphatase 68 U/L (40-110); Anion Gap 10 mmol/L (10-20); BUN (Urea Nitrogen) 11 mg/dL (9.8-20.1); Bilirubin, Total 0.6 mg/dL (0.2-1.2); Calc. Creatinine Clearance 0 mL/min (70-130); Calcium 9.2 mg/dL (7.8-10.44); Carbon Dioxide 29 mmol/L (23-31); Chloride 102 mmol/L (98-107); Estimated GFR 57; Globulin 2.8 g/dL (2.4-3.5); Glucose 303 mg/dL (80-115); Potassium 4.4 mmol/L (3.5-5.1); Protein, Total 6.5 g/dL (5.8-8.1); Sodium 137 mmol/L (136-145)
== END 2022-01-30 21:33 | disposition home or self-care (01) ==
LOC: ERS 18:52
DX: H05.222 Edema of left orbit (principal); I13.0 Hypertensive heart and chronic kidney disease with heart failure and stage 1 through stage 4 chronic kidney disease, or unspecified chronic kidney disease; N18.6 End stage renal disease; I50.9 Heart failure, unspecified; E11.9 Type 2 diabetes mellitus without complications; K21.9 Gastro-esophageal reflux disease without esophagitis; E78.00 Pure hypercholesterolemia, unspecified; Z79.4 Long term (current) use of insulin; Z79.899 Other long term (current) drug therapy
CPT/HCPCS: 36415; 71045; 80053; 83605; 83880; 84484; 85025; 85610; 93005; 96374; J1200

== ENCOUNTER 2022-03-13 23:36 | Inpatient (IN) | payer MEDICARE, OTHER ==
[2022-03-14] MEDS ORDERED: Amiodarone 150 MG/3 ML VIAL ONE ×2 (00:03→00:04)
[2022-03-14 00:21] LABS: INR-International Normal Ratio 4.4; Prothrombin Time 43.8 sec (12.0-14.7)
[2022-03-14 00:22] LABS: PTT 88.6 sec (22.9-36.1)
[2022-03-14 00:27] LABS: ALT (SGPT) 18 U/L (8-55); AST (SGOT) 33 U/L (5-34); Alkaline Phosphatase 89 U/L (40-110); Anion Gap 20 mmol/L (10-20); BUN (Urea Nitrogen) 19 mg/dL (9.8-20.1); Bilirubin, Total 1.4 mg/dL (0.2-1.2); Calc. Creatinine Clearance 0 mL/min (70-130); Calcium 9.3 mg/dL (7.8-10.44); Carbon Dioxide 26 mmol/L (23-31); Chloride 92 mmol/L (98-107); Estimated GFR 43; Globulin 4.1 g/dL (2.4-3.5); Glucose 225 mg/dL (80-115); Magnesium 1.6 mg/dL (1.6-2.6); Potassium 3.8 mmol/L (3.5-5.1); Protein, Total 7.1 g/dL (5.8-8.1); Sodium 134 mmol/L (136-145)
[2022-03-14 00:36] LABS: SARS-CoV-2 NAA Rapid Test Not Detected (NotDetected)
[2022-03-14 00:49] LABS: CKMB 9.2 ng/mL (0-6.6)
[2022-03-14 00:50] LABS: Hemoglobin 10.2 g/dL (12.0-16.0); Mean Corpuscular HGB CONC 31.2 g/dL (32.0-36.0); Mean Corpuscular Hemoglobin 25.3 pg (27.0-31.0); Mean Corpuscular Volume 81.1 fl (78.0-98.0); Platelet Count 523 10x3/uL (130-400); RBC Distribution Width 16.1 % (11.5-14.5); Red Blood Cell (RBC) Count 4.01 mill/uL (4.20-5.40); White Blood Cell (WBC) Count 32.5 10x3/uL (4.8-10.8)
[2022-03-14 01:04] LABS: Band 10 % (5-11); Lymphocytes 4 % (21-51); MDiff Complete? YES; Monocytes 3 % (0-10); Neutrophil 82 % (42-75)
[2022-03-14] MEDS ORDERED: Aspirin Chewable 81 MG TAB ONE (01:07)
[2022-03-14] MEDS ORDERED: Furosemide 40 MG/4 ML VIAL ONE (01:07)
[2022-03-14] MEDS ORDERED: Cefepime 2 GM VIAL ONE (01:52)
[2022-03-14] MEDS ORDERED: VANCOMYCIN 2 GRAM/500 ML BAG 2 GM in Premix Bag 1 BAG IVPB SCH (02:00)
[2022-03-14] MEDS ORDERED: Dextrose 5% in Water 1,000 ML IV PRN (02:37)
[2022-03-14] MEDS ORDERED: HumaLOG 300 UNITS/3 ML VIAL SC PRN (02:37)
[2022-03-14 02:49] LABS: Bilirubin Moderate (Negative); Blood, Urine Moderate (Negative); Glucose, Urine (Dipstick) Negative (Negative); Ketone, Urine 15 mg/dL (Negative); Leukocyte Trace (Negative); Nitrite Negative (Negative); Protein, Urine (Dipstick) 30 mg/dL (Neg-Trace); Urobilinogen 0.2 mg/dL (Less than 2); pH, Urine 5.5 (5.0-9.0)
[2022-03-14 02:51] LABS: Clarity Hazy (Clear)
[2022-03-14 02:55] LABS: Bacteria/HPF None Seen HPF (None Seen); Squamous Epithelial 21-50 HPF (0-3)
[2022-03-14] MEDS ORDERED: Electrolyte Replacement Protocol 1 EACH IVPB PRN (03:03)
[2022-03-14] MEDS ORDERED: Acetaminophen 325 MG/10.15 ML UDCUP PO PRN ×3 (03:03→14:57)
[2022-03-14] MEDS ORDERED: SUMAtriptan Succinate 50 MG TAB PO PRN (03:26)
[2022-03-14 03:58] VITALS: BMI 38.5
[2022-03-14] MEDS ORDERED: Magnesium 2 GM/50 ML(in water) 2 GM in Premix Bag 1 BAG IVPB SCH ×2 (04:00→08:00)
[2022-03-14] MEDS ORDERED: Milrinone 10 MG/10 ML VIAL IVPB SCH (04:00)
[2022-03-14] MEDS ORDERED: Milrinone Lactate/D5W 20 MG in Premix Bag 1 BAG IV SCH (04:00)
[2022-03-14] MEDS ORDERED: DOBUTamine 500 mg/250 ml 250 ML IVPB SCH (04:15)
[2022-03-14] MEDS ORDERED: Albumin 25% 100 ML ONE (04:19)
[2022-03-14] MEDS ORDERED: NOREPINEPHRINE 8 MG/250 ML-D5W 250 ML ONE (04:22)
[2022-03-14 04:45] LABS: Lactic Acid 1.8 mmol/L (0.5-2.2)
[2022-03-14 04:49] LABS: Magnesium 1.7 mg/dL (1.6-2.6); Phosphorus 2.9 mg/dL (2.3-4.7)
[2022-03-14] MEDS ORDERED: NOREPINEPHRINE 8 MG/250 ML-D5W 250 ML IVPB SCH (05:30)
[2022-03-14] MEDS ORDERED: Albumin 25% 25 GM/100 ML BOT IVPB SCH (05:30)
[2022-03-14 07:14] LABS: INR-International Normal Ratio 4.6
[2022-03-14 07:15] LABS: PTT 82.4 sec (22.9-36.1)
[2022-03-14 07:16] LABS: Troponin I 0.093 ng/mL (< 0.028)
[2022-03-14] MEDS ORDERED: predniSONE 5 MG TAB PO SCH (08:00)
[2022-03-14] MEDS ORDERED: Insulin Regular 300 UNITS/3 ML VIAL SC SCH (08:00)
[2022-03-14] MEDS ORDERED: Carvedilol 6.25 MG TAB PO SCH ×2 (08:00→17:00)
[2022-03-14] MEDS ORDERED: AcetaZOLAMIDE 250 MG TAB PO SCH (09:00)
[2022-03-14] MEDS ORDERED: Bumetanide 1 MG TAB PO SCH (09:00)
[2022-03-14] MEDS ORDERED: Sacubitril 49 MG/Valsartan 51 MG TABLET PO SCH (09:00)
[2022-03-14] MEDS ORDERED: Insulin NPH Human Isophane 100 UNIT/ML (10 ML VIAL) SC SCH ×2 (09:00→21:00)
[2022-03-14] MEDS ORDERED: Sotalol HCl 80 MG TAB PO SCH ×2 (09:00→21:00)
[2022-03-14] MEDS ORDERED: Empagliflozin 25 MG TAB PO SCH (09:00)
[2022-03-14] MEDS: Ondansetron PF 4 MG/2 ML Vial IVP PRN (09:09)
[2022-03-14] MEDS: Amiodarone 450 MG, Admixture Fee 1 EACH in Dextrose 5% in Water 250 ML IVPB SCH ×2 (09:20→20:23)
[2022-03-14] MEDS ORDERED: Magnesium 2 GM/50 ML(in water) 2 GM in Premix Bag 1 BAG IVPB PRN (09:30)
[2022-03-14] MEDS ORDERED: Promethazine HCl 6.25 MG in Sodium Chloride 0.9% 50 ML IVPB SCH (10:15)
[2022-03-14] MEDS: Famotidine 20 MG TAB PO SCH (10:34)
[2022-03-14] MEDS: Liothyronine Sodium 25 MCG TAB PO SCH (10:34)
[2022-03-14] MEDS: Potassium Chloride 10 MEQ TAB PO SCH (10:34)
[2022-03-14] MEDS: Escitalopram Oxalate 10 mg Tablet PO SCH (10:34)
[2022-03-14] MEDS: Rosuvastatin 10 MG TAB PO SCH (10:34)
[2022-03-14] MEDS: Hydrocortisone Sod Succ/PF 100 mg/2 ml Vial IVP SCH ×3 (10:46→20:27)
[2022-03-14 12:17] LABS: Anion Gap 15 mmol/L (10-20); BUN (Urea Nitrogen) 21 mg/dL (9.8-20.1); Calc. Creatinine Clearance 56 mL/min (70-130); Calcium 8.7 mg/dL (7.8-10.44); Carbon Dioxide 28 mmol/L (23-31); Chloride 93 mmol/L (98-107); Estimated GFR 37; Glucose 299 mg/dL (80-115); Potassium 4.2 mmol/L (3.5-5.1); Sodium 132 mmol/L (136-145)
[2022-03-14] MEDS: HumaLOG 300 UNITS/3 ML VIAL SC PRN ×3 (12:35→20:46)
[2022-03-14] MEDS: Lactated Ringer's 1,000 ML IV SCH ×2 (14:30→20:25)
[2022-03-14] MEDS ORDERED: Cefepime 2 GM in Sodium Chloride 0.9% 100 ML IVPB SCH (15:00)
[2022-03-14] MEDS: Cefepime 1 GM in Sodium Chloride 0.9% 100 ML IVPB SCH (15:13)
[2022-03-14] MEDS ORDERED: Zolpidem Tartrate 5 MG TAB PO SCH (21:00)
[2022-03-15] MEDS ORDERED: VANCOMYCIN 1.25 GM/250 ML BAG 1.25 GM in Premix Bag 1 BAG IVPB SCH (02:00)
[2022-03-15] MEDS: Cefepime 1 GM in Sodium Chloride 0.9% 100 ML IVPB SCH ×2 (03:28→15:38)
[2022-03-15] MEDS: Hydrocortisone Sod Succ/PF 100 mg/2 ml Vial IVP SCH ×4 (03:29→21:14)
[2022-03-15] MEDS: Lactated Ringer's 1,000 ML IV SCH (03:30)
[2022-03-15 05:05] LABS: Prothrombin Time 67.6 sec (12.0-14.7)
[2022-03-15 05:08] LABS: INR-International Normal Ratio 7.5
[2022-03-15 05:14] LABS: ALT (SGPT) 1242 U/L (8-55); AST (SGOT) 3172 U/L (5-34); Albumin 3.2 g/dL (3.4-4.8); Alkaline Phosphatase 252 U/L (40-110); Anion Gap 15 mmol/L (10-20); BUN (Urea Nitrogen) 29 mg/dL (9.8-20.1); Bilirubin, Total 2.5 mg/dL (0.2-1.2); Calc. Creatinine Clearance 42 mL/min (70-130); Calcium 8.5 mg/dL (7.8-10.44); Carbon Dioxide 27 mmol/L (23-31); Chloride 93 mmol/L (98-107); Estimated GFR 25; Magnesium 2.1 mg/dL (1.6-2.6); Potassium 4.9 mmol/L (3.5-5.1); Protein, Total 6.2 g/dL (5.8-8.1); Sodium 130 mmol/L (136-145)
[2022-03-15] MEDS: HumaLOG 300 UNITS/3 ML VIAL SC PRN ×4 (05:46→21:15)
[2022-03-15 06:21] LABS: Glucose 434 mg/dL (80-115)
[2022-03-15] MEDS ORDERED: Phytonadione 5 MG TAB PO SCH (07:00)
[2022-03-15] MEDS ORDERED: Bumetanide 1 MG/4 ML VIAL IVP SCH (07:00)
[2022-03-15] MEDS ORDERED: DOBUTamine 500 mg/250 ml 250 ML IVPB SCH (07:15)
[2022-03-15 07:46] LABS: Phosphorus 4.4 mg/dL (2.3-4.7)
[2022-03-15] MEDS ORDERED: NPH, Human Insulin Isophane 300 UNIT/3 ML VIAL SC SCH (07:46)
[2022-03-15 07:48] LABS: #Lymphocytes 1.3 thou/uL (1.20-3.40); #Monocytes 0.9 thou/uL (0.11-0.59); #Neutrophils 18.5 thou/uL (1.40-6.50); %Eosinophils 0.2 % (0.0-10.0); %Lymphocytes 6.2 % (21.0-51.0); %Monocytes 4.3 % (0.0-10.0); %Neutrophils 89.4 % (42.0-75.0); Hemoglobin 8.5 g/dL (12.0-16.0); Mean Corpuscular HGB CONC 30.9 g/dL (32.0-36.0); Mean Corpuscular Hemoglobin 25.3 pg (27.0-31.0); Mean Corpuscular Volume 81.8 fl (78.0-98.0); Mean Platelet Volume 7.7 fL (7.4-10.4); Platelet Count 392 10x3/uL (130-400); RBC Distribution Width 16.1 % (11.5-14.5); Red Blood Cell (RBC) Count 3.35 mill/uL (4.20-5.40); White Blood Cell (WBC) Count 20.7 10x3/uL (4.8-10.8)
[2022-03-15] MEDS: Famotidine 20 MG TAB PO SCH (08:14)
[2022-03-15] MEDS: Rosuvastatin 10 MG TAB PO SCH (08:15)
[2022-03-15] MEDS: Escitalopram Oxalate 10 mg Tablet PO SCH (08:15)
[2022-03-15] MEDS: Potassium Chloride 10 MEQ TAB PO SCH (08:15)
[2022-03-15] MEDS ORDERED: NOREPINEPHRINE 8 MG/250 ML-D5W 250 ML IVPB SCH (08:30)
[2022-03-15 08:32] LABS: #Eosinphils 0.1 thou/uL (0.0-0.7); #Lymphocytes 1.3 thou/uL (1.20-3.40); #Neutrophils 18.8 thou/uL (1.40-6.50); %Basophils 0.1 % (0.0-1.0); %Eosinophils 0.2 % (0.0-10.0); %Lymphocytes 6.3 % (21.0-51.0); %Monocytes 4.7 % (0.0-10.0); %Neutrophils 88.7 % (42.0-75.0); Hemoglobin 8.4 g/dL (12.0-16.0); Mean Corpuscular HGB CONC 30.3 g/dL (32.0-36.0); Mean Corpuscular Volume 82.4 fl (78.0-98.0); Mean Platelet Volume 7.2 fL (7.4-10.4); Platelet Count 420 10x3/uL (130-400); RBC Distribution Width 15.9 % (11.5-14.5); Red Blood Cell (RBC) Count 3.38 mill/uL (4.20-5.40); White Blood Cell (WBC) Count 21.1 10x3/uL (4.8-10.8)
[2022-03-15] MEDS ORDERED: FLU VACC QS2022-23(65YR UP)/PF 240 MCG/0.7 ML SYRINGE IM ONE (09:00)
[2022-03-15] MEDS ORDERED: Insulin NPH Human Isophane 100 UNIT/ML (10 ML VIAL) SC SCH ×4 (09:00→21:00)
[2022-03-15] MEDS: Amiodarone 450 MG, Admixture Fee 1 EACH in Dextrose 5% in Water 250 ML IVPB SCH (12:13)
[2022-03-15] MEDS: Micafungin 100 MG in Sodium Chloride 0.9% 100 ML IVPB SCH (14:23)
[2022-03-15] MEDS: Ondansetron PF 4 MG/2 ML Vial IVP PRN (15:36)
[2022-03-15 15:49] LABS: INR-International Normal Ratio 3.2; Prothrombin Time 33.9 sec (12.0-14.7)
[2022-03-15 16:10] LABS: Actual Bicarbonate (HCO3a) 26.6 mEq/L (22-28); Base Excess (BEa) 0.9 mEq/L (-2.0 to +3.0); CO2 Tension 47.6 mmHg (35.0-45.0); Calcium, Ionized (arterial) 1.11 mmol/L (1.12-1.30); Carboxyhemoglobin (COHb) 0.4 gm% (0.0-3.0); Hemoglobin (Hb) 8.9 g/dL (12.0-16.0); O2 Tension (PaO2), arterial 61.8 mmHg (> 80.0); Potassium - ABG Lab 4.57 mmol/L (3.70-5.30); pH, Arterial 7.37 (7.35-7.45)
[2022-03-15 16:11] LABS: Puncture Site RRA
[2022-03-15] MEDS: Liothyronine Sodium 25 MCG TAB PO SCH (17:10)
[2022-03-15] MEDS ORDERED: Lactated Ringer's 1,000 ML IV SCH (22:45)
[2022-03-16] MEDS: Ondansetron PF 4 MG/2 ML Vial IVP PRN ×2 (00:44→22:51)
[2022-03-16] MEDS: Amiodarone 450 MG, Admixture Fee 1 EACH in Dextrose 5% in Water 250 ML IVPB SCH (01:10)
[2022-03-16] MEDS ORDERED: Senokot 8.6 MG TAB PO SCH (01:30)
[2022-03-16] MEDS: Hydrocortisone Sod Succ/PF 100 mg/2 ml Vial IVP SCH ×4 (02:31→21:05)
[2022-03-16] MEDS: Cefepime 1 GM in Sodium Chloride 0.9% 100 ML IVPB SCH ×2 (02:32→14:29)
[2022-03-16] MEDS ORDERED: Promethazine HCl 12.5 MG in Sodium Chloride 0.9% 50 ML IVPB PRN (03:04)
[2022-03-16 04:47] LABS: #Eosinphils 0.2 thou/uL (0.0-0.7); #Lymphocytes 1.4 thou/uL (1.20-3.40); #Monocytes 1.4 thou/uL (0.11-0.59); #Neutrophils 20.2 thou/uL (1.40-6.50); %Basophils 0.1 % (0.0-1.0); %Eosinophils 0.9 % (0.0-10.0); %Lymphocytes 6.1 % (21.0-51.0); %Monocytes 5.9 % (0.0-10.0); %Neutrophils 86.9 % (42.0-75.0); Mean Corpuscular HGB CONC 30.1 g/dL (32.0-36.0); Mean Corpuscular Hemoglobin 24.6 pg (27.0-31.0); Mean Corpuscular Volume 81.9 fl (78.0-98.0); Mean Platelet Volume 7.6 fL (7.4-10.4); Platelet Count 388 10x3/uL (130-400); RBC Distribution Width 16.1 % (11.5-14.5); Red Blood Cell (RBC) Count 3.26 mill/uL (4.20-5.40); White Blood Cell (WBC) Count 23.2 10x3/uL (4.8-10.8)
[2022-03-16 05:02] LABS: INR-International Normal Ratio 2.2; PTT 44.6 sec (22.9-36.1); Prothrombin Time 25.7 sec (12.0-14.7)
[2022-03-16 05:11] LABS: ALT (SGPT) 975 U/L (8-55); AST (SGOT) 931 U/L (5-34); Albumin 3.2 g/dL (3.4-4.8); Alkaline Phosphatase 220 U/L (40-110); Anion Gap 14 mmol/L (10-20); BUN (Urea Nitrogen) 39 mg/dL (9.8-20.1); Bilirubin, Total 1.3 mg/dL (0.2-1.2); Calc. Creatinine Clearance 37 mL/min (70-130); Calcium 8.2 mg/dL (7.8-10.44); Carbon Dioxide 25 mmol/L (23-31); Chloride 94 mmol/L (98-107); Estimated GFR 21; Glucose 371 mg/dL (80-115); Potassium 4.6 mmol/L (3.5-5.1); Protein, Total 6.2 g/dL (5.8-8.1); Sodium 128 mmol/L (136-145)
[2022-03-16] MEDS: HumaLOG 300 UNITS/3 ML VIAL SC PRN ×4 (05:31→20:56)
[2022-03-16] MEDS ORDERED: Magnesium 2 GM/50 ML(in water) 2 GM in Premix Bag 1 BAG IVPB SCH ×2 (08:00→09:15)
[2022-03-16] MEDS: Potassium Chloride 10 MEQ TAB PO SCH (08:02)
[2022-03-16] MEDS: Amiodarone 200 MG TAB PO SCH ×2 (09:44→20:57)
[2022-03-16] MEDS: Escitalopram Oxalate 10 mg Tablet PO SCH (09:44)
[2022-03-16] MEDS: Famotidine 20 MG TAB PO SCH (09:44)
[2022-03-16] MEDS: Liothyronine Sodium 25 MCG TAB PO SCH (09:49)
[2022-03-16] MEDS: Insulin NPH Human Isophane 100 UNIT/ML (10 ML VIAL) SC SCH ×2 (09:51→20:57)
[2022-03-16] MEDS: Polyethylene Glycol 3350 17 GM Packet PO SCH (11:21)
[2022-03-16] MEDS ORDERED: Polyethylene Glycol 3350 17 GM Packet PO SCH (12:00)
[2022-03-16] MEDS: Micafungin 100 MG in Sodium Chloride 0.9% 100 ML IVPB SCH (13:23)
[2022-03-16 13:56] LABS: Creatinine, Urine 58.51 mg/dL (47-110); Protein, Urine Random Quant 45 mg/dL (1-14); Sodium, Urine Less than 20 mmol/L (Not Available); Urea Nitrogen, Random Urine 305 mg/dl
[2022-03-16 14:08] LABS: Vancomycin, Random 21.1 ug/mL (See Comment)
[2022-03-16] MEDS: hydrOXYzine 10 MG TAB PO PRN ×2 (14:42→22:51)
[2022-03-16 19:59] LABS: Anion Gap 12 mmol/L (10-20); BUN (Urea Nitrogen) 42 mg/dL (9.8-20.1); CK (CPK) 22 U/L (29-168); Calc. Creatinine Clearance 41 mL/min (70-130); Calcium 8.4 mg/dL (7.8-10.44); Carbon Dioxide 26 mmol/L (23-31); Chloride 95 mmol/L (98-107); Estimated GFR 24; Glucose 238 mg/dL (80-115); Potassium 4.3 mmol/L (3.5-5.1); Sodium 129 mmol/L (136-145)
[2022-03-17] MEDS ORDERED: hydrOXYzine 25 MG TAB PO SCH (01:45)
[2022-03-17] MEDS: hydrOXYzine 10 MG TAB PO PRN ×3 (01:51→23:41)
[2022-03-17] MEDS: Cefepime 1 GM in Sodium Chloride 0.9% 100 ML IVPB SCH ×2 (02:08→14:58)
[2022-03-17] MEDS: Hydrocortisone Sod Succ/PF 100 mg/2 ml Vial IVP SCH (02:27)
[2022-03-17 05:05] LABS: INR-International Normal Ratio 1.6; PTT 38.7 sec (22.9-36.1); Prothrombin Time 20.1 sec (12.0-14.7)
[2022-03-17 05:13] LABS: Mean Corpuscular Hemoglobin 24.5 pg (27.0-31.0); Mean Corpuscular Volume 81.6 fl (78.0-98.0); Mean Platelet Volume 7.3 fL (7.4-10.4); Platelet Count 378 10x3/uL (130-400); RBC Distribution Width 16.4 % (11.5-14.5); Red Blood Cell (RBC) Count 3.27 mill/uL (4.20-5.40); White Blood Cell (WBC) Count 21.5 10x3/uL (4.8-10.8)
[2022-03-17 05:18] LABS: ALT (SGPT) 697 U/L (8-55); AST (SGOT) 303 U/L (5-34); Albumin 3.3 g/dL (3.4-4.8); Alkaline Phosphatase 204 U/L (40-110); Anion Gap 13 mmol/L (10-20); BUN (Urea Nitrogen) 44 mg/dL (9.8-20.1); Bilirubin, Total 1.2 mg/dL (0.2-1.2); Calc. Creatinine Clearance 45 mL/min (70-130); Calcium 8.6 mg/dL (7.8-10.44); Carbon Dioxide 26 mmol/L (23-31); Chloride 95 mmol/L (98-107); Estimated GFR 27; Globulin 3.3 g/dL (2.4-3.5); Glucose 132 mg/dL (80-115); Magnesium 2.4 mg/dL (1.6-2.6); Potassium 4.5 mmol/L (3.5-5.1); Protein, Total 6.6 g/dL (5.8-8.1); Sodium 129 mmol/L (136-145)
[2022-03-17 05:19] LABS: Phosphorus 3.4 mg/dL (2.3-4.7)
[2022-03-17 05:23] LABS: Iron 31 ug/dL (50-170); Iron Binding Capacity, Total 200 mcg/dL (265-497)
[2022-03-17 05:52] LABS: Band 5 % (5-11); Hypochromia SLIGHT = 6-15 cells (100X) (0-5/hpf); Lymphocytes 3 % (21-51); MDiff Complete? YES; Monocytes 7 % (0-10); Myelocyte 1 % (0-0); Neutrophil 84 % (42-75); Polychromasia SLIGHT = 2-3 cells (100X) (0-2/hpf)
[2022-03-17] MEDS: Ondansetron PF 4 MG/2 ML Vial IVP PRN (07:59)
[2022-03-17] MEDS ORDERED: predniSONE 5 MG TAB PO SCH (09:30)
[2022-03-17] MEDS: Liothyronine Sodium 25 MCG TAB PO SCH (10:31)
[2022-03-17] MEDS: Insulin NPH Human Isophane 100 UNIT/ML (10 ML VIAL) SC SCH ×2 (10:31→21:44)
[2022-03-17] MEDS: Famotidine 20 MG TAB PO SCH ×2 (10:32→21:39)
[2022-03-17] MEDS: Amiodarone 200 MG TAB PO SCH ×2 (10:32→21:40)
[2022-03-17] MEDS: Escitalopram Oxalate 10 mg Tablet PO SCH (10:32)
[2022-03-17] MEDS: Polyethylene Glycol 3350 17 GM Packet PO SCH (10:33)
[2022-03-17] MEDS: Milrinone Lactate/D5W 20 MG in Premix Bag 1 BAG IV SCH (10:40)
[2022-03-17] MEDS: Micafungin 100 MG in Sodium Chloride 0.9% 100 ML IVPB SCH (11:25)
[2022-03-17] MEDS ORDERED: Iron, Sodium Ferric Gluconate 250 MG in Sodium Chloride 0.9% 250 ML 250 ML IVPB SCH (12:00)
[2022-03-17] MEDS: diphenhydrAMINE 50 MG CAP PO PRN ×2 (12:24→23:41)
[2022-03-17] MEDS: EPOETIN ALFA-EPBX (ESRD) 10,000 UNIT/ML VIAL SC SCH (12:25)
[2022-03-17 13:57] LABS: Troponin I 0.024 ng/mL (< 0.028)
[2022-03-17] MEDS ORDERED: Calcium Carbonate 500 MG ChewTAB PO PRN (14:05)
[2022-03-17] MEDS ORDERED: Furosemide 40 MG/4 ML VIAL SLOW IVP SCH (14:30)
[2022-03-17] MEDS: Acetaminophen 650 MG/20.3 ML UDCUP PO PRN (14:35)
[2022-03-17] MEDS ORDERED: Diclofenac 1% 100 GM GEL TP PRN (15:54)
[2022-03-17] MEDS: Furosemide 40 MG/4 ML VIAL SLOW IVP SCH (21:46)
[2022-03-18] MEDS: Cefepime 1 GM in Sodium Chloride 0.9% 100 ML IVPB SCH (03:37)
[2022-03-18 04:30] LABS: Mean Corpuscular HGB CONC 29.9 g/dL (32.0-36.0); Mean Corpuscular Hemoglobin 24.5 pg (27.0-31.0); Mean Corpuscular Volume 82.2 fl (78.0-98.0); Mean Platelet Volume 6.9 fL (7.4-10.4); Platelet Count 363 10x3/uL (130-400); Red Blood Cell (RBC) Count 3.25 mill/uL (4.20-5.40)
[2022-03-18 04:39] LABS: INR-International Normal Ratio 1.5; Prothrombin Time 18.6 sec (12.0-14.7)
[2022-03-18 04:40] LABS: PTT 41.7 sec (22.9-36.1)
[2022-03-18 04:41] LABS: ALT (SGPT) 508 U/L (8-55); AST (SGOT) 157 U/L (5-34); Albumin 3.4 g/dL (3.4-4.8); Alkaline Phosphatase 176 U/L (40-110); Anion Gap 12 mmol/L (10-20); BUN (Urea Nitrogen) 46 mg/dL (9.8-20.1); Calc. Creatinine Clearance 49 mL/min (70-130); Calcium 8.7 mg/dL (7.8-10.44); Carbon Dioxide 28 mmol/L (23-31); Chloride 97 mmol/L (98-107); Estimated GFR 28; Globulin 3.2 g/dL (2.4-3.5); Magnesium 2.2 mg/dL (1.6-2.6); Phosphorus 3.3 mg/dL (2.3-4.7); Potassium 4.2 mmol/L (3.5-5.1); Protein, Total 6.6 g/dL (5.8-8.1); Sodium 133 mmol/L (136-145)
[2022-03-18 04:47] LABS: Glucose 48 mg/dL (80-115)
[2022-03-18] MEDS: Dextrose 50% Abboject 50 ML SYRINGE SLOW IVP PRN ×5 (04:49→23:59)
[2022-03-18 05:28] LABS: Anisocytosis SLIGHT = 6-15 cells (100X) (0-5/hpf); Hypochromia SLIGHT = 6-15 cells (100X) (0-5/hpf); Lymphocytes 9 % (21-51); MDiff Complete? YES; Monocytes 7 % (0-10); Neutrophil 84 % (42-75); Platelet Morphology Comment Appears Adequate; Polychromasia SLIGHT = 2-3 cells (100X) (0-2/hpf); Toxic Granulation SLIGHT; White Blood Cell (WBC) Count 21.4 10x3/uL (4.8-10.8)
[2022-03-18] MEDS: Furosemide 40 MG/4 ML VIAL SLOW IVP SCH ×3 (05:50→21:18)
[2022-03-18] MEDS: Escitalopram Oxalate 10 mg Tablet PO SCH (08:45)
[2022-03-18] MEDS: Amiodarone 200 MG TAB PO SCH ×2 (08:46→20:36)
[2022-03-18] MEDS: Apixaban 5 MG TAB PO SCH ×2 (08:46→20:36)
[2022-03-18] MEDS: predniSONE 5 MG TAB PO SCH (08:46)
[2022-03-18] MEDS: Liothyronine Sodium 25 MCG TAB PO SCH (08:49)
[2022-03-18] MEDS: Polyethylene Glycol 3350 17 GM Packet PO SCH (08:59)
[2022-03-18] MEDS ORDERED: Insulin NPH Human Isophane 100 UNIT/ML (10 ML VIAL) SC SCH ×2 (09:00→13:40)
[2022-03-18 12:32] LABS: Anion Gap 15 mmol/L (10-20); BUN (Urea Nitrogen) 44 mg/dL (9.8-20.1); Calc. Creatinine Clearance 54 mL/min (70-130); Calcium 8.7 mg/dL (7.8-10.44); Carbon Dioxide 26 mmol/L (23-31); Chloride 97 mmol/L (98-107); Estimated GFR 32; Glucose 161 mg/dL (80-115); Potassium 3.7 mmol/L (3.5-5.1); Sodium 134 mmol/L (136-145)
[2022-03-18] MEDS: Micafungin 100 MG in Sodium Chloride 0.9% 100 ML IVPB SCH (12:39)
[2022-03-18] MEDS: DOPamine 400 MG/D5W 250 ML 250 ML IVPB SCH (20:20)
[2022-03-18] MEDS: Famotidine 20 MG TAB PO SCH (20:37)
[2022-03-18] MEDS: Ondansetron PF 4 MG/2 ML Vial IVP PRN (21:18)
[2022-03-19] MEDS ORDERED: Sterile Water 10 ML ONE (04:01)
[2022-03-19] MEDS: Dextrose 50% Abboject 50 ML SYRINGE SLOW IVP PRN (04:41)
[2022-03-19] MEDS: Dextrose 10% in Water 1,000 ML IV SCH (04:59)
[2022-03-19 05:08] LABS: INR-International Normal Ratio 1.9; Prothrombin Time 22.5 sec (12.0-14.7)
[2022-03-19 05:11] LABS: Phosphorus 3.5 mg/dL (2.3-4.7)
[2022-03-19 05:12] LABS: Hemoglobin 8.6 g/dL (12.0-16.0); Mean Corpuscular Hemoglobin 24.9 pg (27.0-31.0); Mean Corpuscular Volume 82.9 fl (78.0-98.0); Mean Platelet Volume 7.2 fL (7.4-10.4); Platelet Count 401 10x3/uL (130-400); RBC Distribution Width 17.2 % (11.5-14.5); Red Blood Cell (RBC) Count 3.44 mill/uL (4.20-5.40); White Blood Cell (WBC) Count 18.9 10x3/uL (4.8-10.8)
[2022-03-19 05:14] LABS: ALT (SGPT) 373 U/L (8-55); AST (SGOT) 91 U/L (5-34); Albumin 3.3 g/dL (3.4-4.8); Alkaline Phosphatase 165 U/L (40-110); Anion Gap 14 mmol/L (10-20); BUN (Urea Nitrogen) 40 mg/dL (9.8-20.1); Bilirubin, Total 0.9 mg/dL (0.2-1.2); Calc. Creatinine Clearance 58 mL/min (70-130); Calcium 8.7 mg/dL (7.8-10.44); Carbon Dioxide 28 mmol/L (23-31); Chloride 97 mmol/L (98-107); Estimated GFR 34; Globulin 3.2 g/dL (2.4-3.5); Magnesium 2.1 mg/dL (1.6-2.6); Potassium 4.4 mmol/L (3.5-5.1); Protein, Total 6.5 g/dL (5.8-8.1); Sodium 135 mmol/L (136-145)
[2022-03-19 05:19] LABS: Glucose 52 mg/dL (80-115)
[2022-03-19] MEDS: Furosemide 40 MG/4 ML VIAL SLOW IVP SCH ×3 (05:19→21:52)
[2022-03-19 05:47] LABS: Band 2 % (5-11); Eosinophils 3 % (0-10); Hypochromia SLIGHT = 6-15 cells (100X) (0-5/hpf); Lymphocytes 5 % (21-51); MDiff Complete? YES; Metamyelocyte 1 % (0-0); Monocytes 15 % (0-10); Myelocyte 1 % (0-0); Neutrophil 73 % (42-75)
[2022-03-19] MEDS: Polyethylene Glycol 3350 17 GM Packet PO SCH (09:59)
[2022-03-19] MEDS: predniSONE 5 MG TAB PO SCH (09:59)
[2022-03-19] MEDS: Escitalopram Oxalate 10 mg Tablet PO SCH (09:59)
[2022-03-19] MEDS: Amiodarone 200 MG TAB PO SCH ×2 (09:59→20:16)
[2022-03-19] MEDS: Oxybutynin 5 MG TAB PO SCH (09:59)
[2022-03-19] MEDS: Apixaban 5 MG TAB PO SCH ×2 (09:59→20:16)
[2022-03-19] MEDS: Liothyronine Sodium 25 MCG TAB PO SCH (11:34)
[2022-03-19] MEDS: Empagliflozin 25 MG TAB PO SCH (11:34)
[2022-03-19] MEDS: Micafungin 100 MG in Sodium Chloride 0.9% 100 ML IVPB SCH (11:59)
[2022-03-19] MEDS: valACYclovir 500 MG TAB PO SCH ×2 (14:47→20:18)
[2022-03-19] MEDS: hydrOXYzine 10 MG TAB PO PRN (16:18)
[2022-03-19] MEDS: DOPamine 400 MG/D5W 250 ML 250 ML IVPB SCH (19:18)
[2022-03-19] MEDS: Famotidine 20 MG TAB PO SCH (20:16)
[2022-03-20 04:11] LABS: #Eosinphils 0.5 thou/uL (0.0-0.7); #Lymphocytes 2.4 thou/uL (1.20-3.40); #Monocytes 2.2 thou/uL (0.11-0.59); #Neutrophils 10.8 thou/uL (1.40-6.50); %Basophils 0.1 % (0.0-1.0); %Lymphocytes 14.9 % (21.0-51.0); %Monocytes 13.6 % (0.0-10.0); %Neutrophils 68.4 % (42.0-75.0); Hemoglobin 8.5 g/dL (12.0-16.0); Mean Corpuscular HGB CONC 30.4 g/dL (32.0-36.0); Mean Corpuscular Hemoglobin 25.1 pg (27.0-31.0); Mean Corpuscular Volume 82.7 fl (78.0-98.0); Mean Platelet Volume 7.1 fL (7.4-10.4); Platelet Count 352 10x3/uL (130-400); RBC Distribution Width 17.7 % (11.5-14.5); Red Blood Cell (RBC) Count 3.39 mill/uL (4.20-5.40); White Blood Cell (WBC) Count 15.8 10x3/uL (4.8-10.8)
[2022-03-20 04:30] LABS: ALT (SGPT) 269 U/L (8-55); AST (SGOT) 44 U/L (5-34); Albumin 3.4 g/dL (3.4-4.8); Alkaline Phosphatase 167 U/L (40-110); Anion Gap 12 mmol/L (10-20); BUN (Urea Nitrogen) 42 mg/dL (9.8-20.1); Bilirubin, Total 0.9 mg/dL (0.2-1.2); Calc. Creatinine Clearance 54 mL/min (70-130); Calcium 8.9 mg/dL (7.8-10.44); Carbon Dioxide 33 mmol/L (23-31); Chloride 97 mmol/L (98-107); Estimated GFR 32; Globulin 3.2 g/dL (2.4-3.5); Glucose 192 mg/dL (80-115); INR-International Normal Ratio 1.7; Magnesium 1.8 mg/dL (1.6-2.6); PTT 36.7 sec (22.9-36.1); Phosphorus 3.4 mg/dL (2.3-4.7); Potassium 4.2 mmol/L (3.5-5.1); Protein, Total 6.6 g/dL (5.8-8.1); Sodium 138 mmol/L (136-145)
[2022-03-20] MEDS: Dextrose 10% in Water 1,000 ML IV SCH (04:56)
[2022-03-20] MEDS: Furosemide 40 MG/4 ML VIAL SLOW IVP SCH (05:17)
[2022-03-20] MEDS ORDERED: Magnesium 2 GM/50 ML(in water) 2 GM in Premix Bag 1 BAG IVPB SCH (08:00)
[2022-03-20] MEDS ORDERED: AcetaZOLAMIDE 250 MG TAB PO SCH (08:15)
[2022-03-20] MEDS: predniSONE 5 MG TAB PO SCH (08:27)
[2022-03-20] MEDS: Escitalopram Oxalate 10 mg Tablet PO SCH (08:27)
[2022-03-20] MEDS: Amiodarone 200 MG TAB PO SCH ×2 (08:27→21:15)
[2022-03-20] MEDS: Apixaban 5 MG TAB PO SCH ×2 (08:28→21:15)
[2022-03-20] MEDS: Liothyronine Sodium 25 MCG TAB PO SCH (08:29)
[2022-03-20] MEDS: Empagliflozin 25 MG TAB PO SCH (08:29)
[2022-03-20] MEDS: Polyethylene Glycol 3350 17 GM Packet PO SCH (08:30)
[2022-03-20] MEDS: DOBUTamine 500 mg/250 ml 500 MG in Premix Bag 1 BAG IVPB SCH (08:52)
[2022-03-20] MEDS: Oxybutynin 5 MG TAB PO SCH (08:52)
[2022-03-20] MEDS: hydrOXYzine 10 MG TAB PO PRN ×2 (10:40→21:43)
[2022-03-20] MEDS: Micafungin 100 MG in Sodium Chloride 0.9% 100 ML IVPB SCH (11:18)
[2022-03-20 14:00] LABS: Anion Gap 13 mmol/L (10-20); BUN (Urea Nitrogen) 41 mg/dL (9.8-20.1); Calc. Creatinine Clearance 55 mL/min (70-130); Calcium 9.2 mg/dL (7.8-10.44); Carbon Dioxide 36 mmol/L (23-31); Chloride 95 mmol/L (98-107); Estimated GFR 35; Glucose 223 mg/dL (80-115); Potassium 4.3 mmol/L (3.5-5.1); Sodium 140 mmol/L (136-145)
[2022-03-20] MEDS: Ondansetron PF 4 MG/2 ML Vial IVP PRN (16:18)
[2022-03-20] MEDS: HumaLOG 300 UNITS/3 ML VIAL SC PRN ×2 (16:27→21:24)
[2022-03-20] MEDS: Famotidine 20 MG TAB PO SCH (21:14)
[2022-03-21 04:13] LABS: #Eosinphils 0.4 thou/uL (0.0-0.7); #Lymphocytes 2.1 thou/uL (1.20-3.40); #Monocytes 1.3 thou/uL (0.11-0.59); #Neutrophils 7.5 thou/uL (1.40-6.50); %Basophils 0.1 % (0.0-1.0); %Eosinophils 3.4 % (0.0-10.0); %Lymphocytes 18.6 % (21.0-51.0); %Monocytes 11.7 % (0.0-10.0); %Neutrophils 66.3 % (42.0-75.0); Hemoglobin 7.5 g/dL (12.0-16.0); Mean Corpuscular HGB CONC 30.4 g/dL (32.0-36.0); Mean Corpuscular Hemoglobin 25.6 pg (27.0-31.0); Mean Corpuscular Volume 84.3 fl (78.0-98.0); Mean Platelet Volume 6.6 fL (7.4-10.4); Platelet Count 210 10x3/uL (130-400); RBC Distribution Width 18.5 % (11.5-14.5); Red Blood Cell (RBC) Count 2.94 mill/uL (4.20-5.40); White Blood Cell (WBC) Count 11.3 10x3/uL (4.8-10.8)
[2022-03-21 04:26] LABS: ALT (SGPT) 191 U/L (8-55); AST (SGOT) 24 U/L (5-34); Albumin 3.1 g/dL (3.4-4.8); Alkaline Phosphatase 120 U/L (40-110); Anion Gap 11 mmol/L (10-20); BUN (Urea Nitrogen) 42 mg/dL (9.8-20.1); Bilirubin, Total 1.1 mg/dL (0.2-1.2); Calc. Creatinine Clearance 63 mL/min (70-130); Calcium 9.4 mg/dL (7.8-10.44); Carbon Dioxide 36 mmol/L (23-31); Chloride 94 mmol/L (98-107); Estimated GFR 41; Globulin 3.1 g/dL (2.4-3.5); Glucose 149 mg/dL (80-115); Magnesium 2.2 mg/dL (1.6-2.6); Phosphorus 3.9 mg/dL (2.3-4.7); Potassium 4.3 mmol/L (3.5-5.1); Protein, Total 6.2 g/dL (5.8-8.1); Sodium 137 mmol/L (136-145)
[2022-03-21] MEDS: hydrOXYzine 10 MG TAB PO PRN (06:40)
[2022-03-21 07:56] LABS: Hemoglobin 7.9 g/dL (12.0-16.0); Mean Corpuscular HGB CONC 30.6 g/dL (32.0-36.0); Mean Corpuscular Hemoglobin 25.6 pg (27.0-31.0); Mean Corpuscular Volume 83.7 fl (78.0-98.0); Mean Platelet Volume 7.1 fL (7.4-10.4); Platelet Count 234 10x3/uL (130-400); RBC Distribution Width 18.5 % (11.5-14.5); Red Blood Cell (RBC) Count 3.07 mill/uL (4.20-5.40); White Blood Cell (WBC) Count 11.5 10x3/uL (4.8-10.8)
[2022-03-21 07:57] LABS: #Basophils 0.1 thou/uL (0.0-0.2); #Eosinphils 0.4 thou/uL (0.0-0.7); #Lymphocytes 2.1 thou/uL (1.20-3.40); #Monocytes 1.2 thou/uL (0.11-0.59); #Neutrophils 7.7 thou/uL (1.40-6.50); %Basophils 0.7 % (0.0-1.0); %Eosinophils 3.5 % (0.0-10.0); %Lymphocytes 18.6 % (21.0-51.0); %Monocytes 10.4 % (0.0-10.0); %Neutrophils 66.9 % (42.0-75.0)
[2022-03-21] MEDS ORDERED: Furosemide 40 MG/4 ML VIAL SLOW IVP SCH (09:00)
[2022-03-21] MEDS: Milrinone Lactate/D5W 20 MG in Premix Bag 1 BAG IV SCH (09:23)
[2022-03-21] MEDS: Oxybutynin 5 MG TAB PO SCH (09:24)
[2022-03-21] MEDS: Liothyronine Sodium 25 MCG TAB PO SCH (09:24)
[2022-03-21] MEDS: Apixaban 5 MG TAB PO SCH ×2 (09:24→21:01)
[2022-03-21] MEDS: Amiodarone 200 MG TAB PO SCH ×2 (09:24→21:00)
[2022-03-21] MEDS: AcetaZOLAMIDE 250 MG TAB PO SCH ×2 (09:24→21:00)
[2022-03-21] MEDS: Empagliflozin 25 MG TAB PO SCH (09:24)
[2022-03-21] MEDS: Escitalopram Oxalate 10 mg Tablet PO SCH (09:24)
[2022-03-21] MEDS: predniSONE 5 MG TAB PO SCH (09:24)
[2022-03-21] MEDS: Insulin Glargine 30 UNITS/0.3 ML VIAL SC SCH (09:25)
[2022-03-21] MEDS: Polyethylene Glycol 3350 17 GM Packet PO SCH (09:28)
[2022-03-21] MEDS ORDERED: Iron Sucrose Complex 200 MG in Sodium Chloride 0.9% 100 ML IVPB SCH (14:00)
[2022-03-21] MEDS ORDERED: Iron, Sodium Ferric Gluconate 250 MG in Sodium Chloride 0.9% 250 ML 250 ML IVPB SCH (14:00)
[2022-03-21] MEDS: Micafungin 100 MG in Sodium Chloride 0.9% 100 ML IVPB SCH (14:15)
[2022-03-21] MEDS: DOBUTamine 500 mg/250 ml 500 MG in Premix Bag 1 BAG IVPB SCH (16:56)
[2022-03-21] MEDS: HumaLOG 300 UNITS/3 ML VIAL SC PRN ×2 (17:22→21:01)
[2022-03-21] MEDS: Famotidine 20 MG TAB PO SCH (21:01)
[2022-03-22 04:36] LABS: #Eosinphils 0.4 thou/uL (0.0-0.7); #Lymphocytes 1.9 thou/uL (1.20-3.40); #Monocytes 1.2 thou/uL (0.11-0.59); #Neutrophils 5.6 thou/uL (1.40-6.50); %Basophils 0.2 % (0.0-1.0); %Eosinophils 4.6 % (0.0-10.0); %Lymphocytes 20.4 % (21.0-51.0); %Monocytes 12.8 % (0.0-10.0); %Neutrophils 62.1 % (42.0-75.0); Hemoglobin 7.3 g/dL (12.0-16.0); Mean Corpuscular HGB CONC 31.3 g/dL (32.0-36.0); Mean Corpuscular Hemoglobin 26.8 pg (27.0-31.0); Mean Corpuscular Volume 85.4 fl (78.0-98.0); Mean Platelet Volume 7.7 fL (7.4-10.4); Platelet Count 242 10x3/uL (130-400); Red Blood Cell (RBC) Count 2.73 mill/uL (4.20-5.40); White Blood Cell (WBC) Count 9.1 10x3/uL (4.8-10.8)
[2022-03-22 06:44] LABS: Albumin 3.2 g/dL (3.4-4.8)
[2022-03-22 06:45] LABS: Chloride 95 mmol/L (98-107); Potassium 4.3 mmol/L (3.5-5.1); Sodium 138 mmol/L (136-145)
[2022-03-22 06:46] LABS: Calcium 9.5 mg/dL (7.8-10.44)
[2022-03-22 06:47] LABS: Globulin 3.2 g/dL (2.4-3.5); Glucose 150 mg/dL (80-115); Protein, Total 6.4 g/dL (5.8-8.1)
[2022-03-22 06:48] LABS: Anion Gap 12 mmol/L (10-20); Carbon Dioxide 35 mmol/L (23-31)
[2022-03-22 06:49] LABS: Bilirubin, Total 0.8 mg/dL (0.2-1.2)
[2022-03-22 06:50] LABS: Alkaline Phosphatase 108 U/L (40-110); Calc. Creatinine Clearance 70 mL/min (70-130); Estimated GFR 47
[2022-03-22 06:51] LABS: BUN (Urea Nitrogen) 34 mg/dL (9.8-20.1)
[2022-03-22 06:52] LABS: AST (SGOT) 27 U/L (5-34)
[2022-03-22 06:53] LABS: ALT (SGPT) 130 U/L (8-55)
[2022-03-22 07:07] LABS: Phosphorus 5.1 mg/dL (2.3-4.7)
[2022-03-22] MEDS ORDERED: DOBUTamine 500 mg/250 ml 500 MG in Premix Bag 1 BAG IVPB SCH (07:15)
[2022-03-22] MEDS ORDERED: Furosemide 100 MG/10 ML VIAL SLOW IVP SCH (07:30)
[2022-03-22] MEDS ORDERED: Magnesium 2 GM/50 ML(in water) 2 GM in Premix Bag 1 BAG IVPB SCH (08:00)
[2022-03-22] MEDS: Milrinone Lactate/D5W 20 MG in Premix Bag 1 BAG IV SCH ×2 (08:24→21:07)
[2022-03-22] MEDS: Fluconazole In NaCl,Iso-Osm 400 MG in Premix Bag 1 BAG IVPB SCH (08:30)
[2022-03-22] MEDS: AcetaZOLAMIDE 250 MG TAB PO SCH ×2 (08:32→20:47)
[2022-03-22] MEDS: Empagliflozin 25 MG TAB PO SCH (08:33)
[2022-03-22] MEDS: Amiodarone 200 MG TAB PO SCH (08:33)
[2022-03-22] MEDS: Oxybutynin 5 MG TAB PO SCH (08:33)
[2022-03-22] MEDS: Escitalopram Oxalate 10 mg Tablet PO SCH (08:33)
[2022-03-22] MEDS: Apixaban 5 MG TAB PO SCH ×2 (08:33→20:47)
[2022-03-22] MEDS: Insulin Glargine 30 UNITS/0.3 ML VIAL SC SCH (08:33)
[2022-03-22] MEDS: Liothyronine Sodium 25 MCG TAB PO SCH (08:43)
[2022-03-22] MEDS: Polyethylene Glycol 3350 17 GM Packet PO SCH (08:43)
[2022-03-22] MEDS: predniSONE 5 MG TAB PO SCH (08:43)
[2022-03-22] MEDS: HumaLOG 300 UNITS/3 ML VIAL SC PRN (16:38)
[2022-03-22] MEDS: Famotidine 20 MG TAB PO SCH (20:47)
[2022-03-23 04:01] LABS: #Eosinphils 0.4 thou/uL (0.0-0.7); #Lymphocytes 1.8 thou/uL (1.20-3.40); #Monocytes 1.1 thou/uL (0.11-0.59); #Neutrophils 5.3 thou/uL (1.40-6.50); %Basophils 0.2 % (0.0-1.0); %Eosinophils 4.2 % (0.0-10.0); %Lymphocytes 20.8 % (21.0-51.0); %Monocytes 12.3 % (0.0-10.0); %Neutrophils 62.6 % (42.0-75.0); Hemoglobin 8.2 g/dL (12.0-16.0); Mean Corpuscular HGB CONC 30.7 g/dL (32.0-36.0); Mean Corpuscular Hemoglobin 26.1 pg (27.0-31.0); Mean Corpuscular Volume 85.1 fl (78.0-98.0); Mean Platelet Volume 7.9 fL (7.4-10.4); Platelet Count 247 10x3/uL (130-400); Red Blood Cell (RBC) Count 3.14 mill/uL (4.20-5.40); White Blood Cell (WBC) Count 8.5 10x3/uL (4.8-10.8)
[2022-03-23 04:32] LABS: ALT (SGPT) 116 U/L (8-55); AST (SGOT) 29 U/L (5-34); Albumin 3.3 g/dL (3.4-4.8); Alkaline Phosphatase 133 U/L (40-110); Anion Gap 14 mmol/L (10-20); BUN (Urea Nitrogen) 36 mg/dL (9.8-20.1); Bilirubin, Total 1.2 mg/dL (0.2-1.2); Calc. Creatinine Clearance 65 mL/min (70-130); Calcium 9.8 mg/dL (7.8-10.44); Carbon Dioxide 34 mmol/L (23-31); Chloride 93 mmol/L (98-107); Estimated GFR 43; Globulin 3.6 g/dL (2.4-3.5); Glucose 280 mg/dL (80-115); Potassium 4.3 mmol/L (3.5-5.1); Protein, Total 6.9 g/dL (5.8-8.1); Sodium 137 mmol/L (136-145)
[2022-03-23] MEDS: HumaLOG 300 UNITS/3 ML VIAL SC PRN ×2 (05:56→16:54)
[2022-03-23 08:04] LABS: Magnesium 2.1 mg/dL (1.6-2.6)
[2022-03-23] MEDS: Amiodarone 200 MG TAB PO SCH (10:20)
[2022-03-23] MEDS: predniSONE 5 MG TAB PO SCH (10:21)
[2022-03-23] MEDS: Oxybutynin 5 MG TAB PO SCH (10:21)
[2022-03-23] MEDS: Empagliflozin 25 MG TAB PO SCH (10:21)
[2022-03-23] MEDS: AcetaZOLAMIDE 250 MG TAB PO SCH ×2 (10:21→20:14)
[2022-03-23] MEDS: Apixaban 5 MG TAB PO SCH ×2 (10:21→20:14)
[2022-03-23] MEDS: Liothyronine Sodium 25 MCG TAB PO SCH (10:21)
[2022-03-23] MEDS: Escitalopram Oxalate 10 mg Tablet PO SCH (10:21)
[2022-03-23] MEDS: Insulin Glargine 30 UNITS/0.3 ML VIAL SC SCH (10:21)
[2022-03-23] MEDS: Fluconazole In NaCl,Iso-Osm 400 MG in Premix Bag 1 BAG IVPB SCH (10:22)
[2022-03-23] MEDS: Milrinone Lactate/D5W 20 MG in Premix Bag 1 BAG IV SCH ×2 (10:22→20:16)
[2022-03-23] MEDS: Polyethylene Glycol 3350 17 GM Packet PO SCH (10:24)
[2022-03-23 13:39] LABS: Phosphorus 4.4 mg/dL (2.3-4.7)
[2022-03-23] MEDS: Famotidine 20 MG TAB PO SCH (20:14)
[2022-03-24 05:52] LABS: ALT (SGPT) 92 U/L (8-55); AST (SGOT) 18 U/L (5-34); Albumin 3.5 g/dL (3.4-4.8); Alkaline Phosphatase 109 U/L (40-110); Anion Gap 13 mmol/L (10-20); BUN (Urea Nitrogen) 30 mg/dL (9.8-20.1); Bilirubin, Total 1.1 mg/dL (0.2-1.2); Calc. Creatinine Clearance 87 mL/min (70-130); Calcium 9.8 mg/dL (7.8-10.44); Carbon Dioxide 32 mmol/L (23-31); Chloride 99 mmol/L (98-107); Estimated GFR 61; Globulin 3.4 g/dL (2.4-3.5); Glucose 141 mg/dL (80-115); Magnesium 1.9 mg/dL (1.6-2.6); Potassium 3.7 mmol/L (3.5-5.1); Protein, Total 6.9 g/dL (5.8-8.1); Sodium 140 mmol/L (136-145)
[2022-03-24] MEDS ORDERED: Magnesium 2 GM/50 ML(in water) 2 GM in Premix Bag 1 BAG IVPB SCH (08:00)
[2022-03-24] MEDS ORDERED: Potassium Chloride 20 MEQ TAB PO SCH (08:15)
[2022-03-24] MEDS ORDERED: Furosemide 20 MG/2 ML VIAL SLOW IVP SCH (08:15)
[2022-03-24] MEDS ORDERED: predniSONE 20 MG TAB PO SCH (08:30)
[2022-03-24] MEDS ORDERED: AcetaZOLAMIDE 250 MG TAB PO SCH (09:00)
[2022-03-24] MEDS: Apixaban 5 MG TAB PO SCH ×2 (09:09→20:09)
[2022-03-24] MEDS: Escitalopram Oxalate 10 mg Tablet PO SCH (09:09)
[2022-03-24] MEDS: Amiodarone 200 MG TAB PO SCH (09:09)
[2022-03-24] MEDS: Carvedilol 6.25 MG TAB PO SCH ×2 (09:09→20:10)
[2022-03-24] MEDS: Oxybutynin 5 MG TAB PO SCH (09:10)
[2022-03-24] MEDS: Liothyronine Sodium 25 MCG TAB PO SCH (09:10)
[2022-03-24] MEDS: Empagliflozin 25 MG TAB PO SCH (09:10)
[2022-03-24] MEDS: Fluconazole In NaCl,Iso-Osm 400 MG in Premix Bag 1 BAG IVPB SCH (09:10)
[2022-03-24] MEDS: Insulin Glargine 30 UNITS/0.3 ML VIAL SC SCH (09:11)
[2022-03-24] MEDS: Polyethylene Glycol 3350 17 GM Packet PO SCH (09:11)
[2022-03-24] MEDS: Furosemide 20 MG/2 ML VIAL SLOW IVP SCH (09:15)
[2022-03-24] MEDS: predniSONE 5 MG TAB PO SCH (09:46)
[2022-03-24 11:29] LABS: Uric Acid 6.8 mg/dL (2.6-6.0)
[2022-03-24] MEDS: EPOETIN ALFA-EPBX (ESRD) 10,000 UNIT/ML VIAL SC SCH (11:53)
[2022-03-24] MEDS: HumaLOG 300 UNITS/3 ML VIAL SC PRN ×2 (17:26→21:27)
[2022-03-24] MEDS: Famotidine 20 MG TAB PO SCH (20:09)
[2022-03-24] MEDS: Acetaminophen 650 MG/20.3 ML UDCUP PO PRN (21:27)
[2022-03-24] MEDS: Milrinone Lactate/D5W 20 MG in Premix Bag 1 BAG IV SCH (23:20)
[2022-03-25 05:01] LABS: ALT (SGPT) 74 U/L (8-55); AST (SGOT) 15 U/L (5-34); Albumin 3.6 g/dL (3.4-4.8); Alkaline Phosphatase 118 U/L (40-110); Anion Gap 14 mmol/L (10-20); BUN (Urea Nitrogen) 35 mg/dL (9.8-20.1); Bilirubin, Total 0.9 mg/dL (0.2-1.2); Calc. Creatinine Clearance 70 mL/min (70-130); Calcium 9.8 mg/dL (7.8-10.44); Carbon Dioxide 29 mmol/L (23-31); Chloride 98 mmol/L (98-107); Estimated GFR 47; Globulin 3.5 g/dL (2.4-3.5); Glucose 305 mg/dL (80-115); Magnesium 2.1 mg/dL (1.6-2.6); Potassium 4.3 mmol/L (3.5-5.1); Protein, Total 7.1 g/dL (5.8-8.1); Sodium 137 mmol/L (136-145)
[2022-03-25] MEDS: Furosemide 20 MG/2 ML VIAL SLOW IVP SCH (06:34)
[2022-03-25] MEDS: Escitalopram Oxalate 10 mg Tablet PO SCH (09:11)
[2022-03-25] MEDS: Amiodarone 200 MG TAB PO SCH (09:11)
[2022-03-25] MEDS: Empagliflozin 25 MG TAB PO SCH (09:11)
[2022-03-25] MEDS: Oxybutynin 5 MG TAB PO SCH (09:11)
[2022-03-25] MEDS: Carvedilol 6.25 MG TAB PO SCH ×2 (09:11→21:54)
[2022-03-25] MEDS: Apixaban 5 MG TAB PO SCH ×2 (09:12→21:54)
[2022-03-25] MEDS: predniSONE 20 MG TAB PO SCH (09:12)
[2022-03-25] MEDS: Fluconazole In NaCl,Iso-Osm 400 MG in Premix Bag 1 BAG IVPB SCH (09:12)
[2022-03-25] MEDS: Famotidine 20 MG TAB PO SCH ×2 (09:12→21:55)
[2022-03-25] MEDS: Insulin Glargine 30 UNITS/0.3 ML VIAL SC SCH (09:12)
[2022-03-25] MEDS: Polyethylene Glycol 3350 17 GM Packet PO SCH (09:12)
[2022-03-25] MEDS: Liothyronine Sodium 25 MCG TAB PO SCH (09:13)
[2022-03-25] MEDS ORDERED: Insulin Glargine 30 UNITS/0.3 ML VIAL SC SCH (09:15)
[2022-03-25] MEDS: HumaLOG 300 UNITS/3 ML VIAL SC PRN ×2 (17:11→22:25)
[2022-03-25] MEDS: Acetaminophen 650 MG/20.3 ML UDCUP PO PRN (23:30)
[2022-03-25] MEDS: hydrOXYzine 10 MG TAB PO PRN (23:30)
[2022-03-26] MEDS: Milrinone Lactate/D5W 20 MG in Premix Bag 1 BAG IV SCH ×3 (00:30→18:04)
[2022-03-26 05:51] LABS: ALT (SGPT) 58 U/L (8-55); AST (SGOT) 13 U/L (5-34); Albumin 3.4 g/dL (3.4-4.8); Alkaline Phosphatase 112 U/L (40-110); Anion Gap 11 mmol/L (10-20); BUN (Urea Nitrogen) 37 mg/dL (9.8-20.1); Bilirubin, Total 0.7 mg/dL (0.2-1.2); Calc. Creatinine Clearance 83 mL/min (70-130); Calcium 9.1 mg/dL (7.8-10.44); Carbon Dioxide 29 mmol/L (23-31); Chloride 99 mmol/L (98-107); Estimated GFR 57; Globulin 3.1 g/dL (2.4-3.5); Glucose 207 mg/dL (80-115); Magnesium 2.1 mg/dL (1.6-2.6); Potassium 3.7 mmol/L (3.5-5.1); Protein, Total 6.5 g/dL (5.8-8.1); Sodium 135 mmol/L (136-145)
[2022-03-26] MEDS ORDERED: Bumetanide 1 MG TAB PO SCH (09:00)
[2022-03-26] MEDS ORDERED: Insulin Glargine 30 UNITS/0.3 ML VIAL SC SCH ×2 (09:00)
[2022-03-26] MEDS ORDERED: Potassium Chloride 20 MEQ TAB PO SCH (09:00)
[2022-03-26 09:35] LABS: #Eosinphils 0.1 thou/uL (0.0-0.7); #Lymphocytes 1.5 thou/uL (1.20-3.40); #Monocytes 1.1 thou/uL (0.11-0.59); %Basophils 0.2 % (0.0-1.0); %Eosinophils 0.7 % (0.0-10.0); %Lymphocytes 17.1 % (21.0-51.0); %Monocytes 12.4 % (0.0-10.0); %Neutrophils 69.7 % (42.0-75.0); Mean Corpuscular Hemoglobin 26.5 pg (27.0-31.0); Mean Corpuscular Volume 88.1 fl (78.0-98.0); Mean Platelet Volume 8.3 fL (7.4-10.4); Platelet Count 207 10x3/uL (130-400); RBC Distribution Width 20.1 % (11.5-14.5); Red Blood Cell (RBC) Count 3.03 mill/uL (4.20-5.40); White Blood Cell (WBC) Count 8.5 10x3/uL (4.8-10.8)
[2022-03-26 09:36] LABS: Hypochromia SLIGHT = 6-15 cells (100X) (0-5/hpf); MDiff Complete? YES; Platelet Morphology Comment Appears Adequate; Polychromasia SLIGHT = 2-3 cells (100X) (0-2/hpf)
[2022-03-26] MEDS: Polyethylene Glycol 3350 17 GM Packet PO SCH (09:45)
[2022-03-26] MEDS: Carvedilol 6.25 MG TAB PO SCH (09:45)
[2022-03-26] MEDS: Amiodarone 200 MG TAB PO SCH (09:45)
[2022-03-26] MEDS: Oxybutynin 5 MG TAB PO SCH (09:45)
[2022-03-26] MEDS: Famotidine 20 MG TAB PO SCH (09:46)
[2022-03-26] MEDS: Apixaban 5 MG TAB PO SCH (09:47)
[2022-03-26] MEDS: predniSONE 20 MG TAB PO SCH (09:47)
[2022-03-26] MEDS: Escitalopram Oxalate 10 mg Tablet PO SCH (09:47)
[2022-03-26] MEDS: Liothyronine Sodium 25 MCG TAB PO SCH (09:51)
[2022-03-26] MEDS: Empagliflozin 25 MG TAB PO SCH (10:51)
[2022-03-26] MEDS: Fluconazole In NaCl,Iso-Osm 400 MG in Premix Bag 1 BAG IVPB SCH (10:52)
[2022-03-26] MEDS: diphenhydrAMINE 50 MG CAP PO PRN (15:01)
[2022-03-26] MEDS: HumaLOG 300 UNITS/3 ML VIAL SC PRN (16:54)
[2022-03-26] MEDS: hydrOXYzine 10 MG TAB PO PRN (17:00)
[2022-03-26 17:57] VITALS: BP 160/73; TEMP 97.5
== END 2022-03-26 18:20 | disposition short-term general hospital (02) | DRG 314 ==
LOC: ERS 23:36 → IMCU/EMU 03-14 01:41 → CCU 03-14 04:45 → IMCU/EMU 03-21 07:29 → 2NO 03-25 16:22
PROVIDERS: ADMIT Student in an Organized Health Care Education/Training Program; ATTEND Student in an Organized Health Care Education/Training Program
PROC: 06HY33Z Insertion of Infusion Device into Lower Vein, Percutaneous Approach (ICD-10-PCS; principal; 2022-03-14)
PROC: 3E043XZ Introduction of Vasopressor into Central Vein, Percutaneous Approach (ICD-10-PCS; 2022-03-14)
PROC: 3E03329 Introduction of Other Anti-infective into Peripheral Vein, Percutaneous Approach (ICD-10-PCS; 2022-03-14)
PROC: 02HV33Z Insertion of Infusion Device into Superior Vena Cava, Percutaneous Approach (ICD-10-PCS; 2022-03-25)
PROC: B548ZZA Ultrasonography of Superior Vena Cava, Guidance (ICD-10-PCS; 2022-03-25)
DX: T80.211A Bloodstream infection due to central venous catheter, initial encounter (principal); B37.7 Candidal sepsis; I50.33 Acute on chronic diastolic (congestive) heart failure; J96.01 Acute respiratory failure with hypoxia; R65.21 Severe sepsis with septic shock; K72.00 Acute and subacute hepatic failure without coma; R57.8 Other shock; N17.0 Acute kidney failure with tubular necrosis; I13.0 Hypertensive heart and chronic kidney disease with heart failure and stage 1 through stage 4 chronic kidney disease, or unspecified chronic kidney disease; Z68.41 Body mass index [BMI] 40.0-44.9, adult; E87.1 Hypo-osmolality and hyponatremia; I42.8 Other cardiomyopathies; Z20.822 Contact with and (suspected) exposure to COVID-19; E11.22 Type 2 diabetes mellitus with diabetic chronic kidney disease; I27.20 Pulmonary hypertension, unspecified; K74.69 Other cirrhosis of liver; E03.9 Hypothyroidism, unspecified; K21.9 Gastro-esophageal reflux disease without esophagitis; M10.9 Gout, unspecified; F43.10 Post-traumatic stress disorder, unspecified; G47.00 Insomnia, unspecified; F41.1 Generalized anxiety disorder; I48.0 Paroxysmal atrial fibrillation; Y83.8 Other surgical procedures as the cause of abnormal reaction of the patient, or of later complication, without mention of misadventure at the time of the procedure; D63.1 Anemia in chronic kidney disease; N18.30 Chronic kidney disease, stage 3 unspecified; D75.839 Thrombocytosis, unspecified; E66.01 Morbid (severe) obesity due to excess calories; Z88.1 Allergy status to other antibiotic agents; Z88.8 Allergy status to other drugs, medicaments and biological substances; Z79.52 Long term (current) use of systemic steroids; Z88.0 Allergy status to penicillin; Z79.899 Other long term (current) drug therapy; Z87.891 Personal history of nicotine dependence
CPT/HCPCS: 36415; 36416; 36430; 36569; 36600; 51702; 71045; 76705; 76770; 80048; 80053; 80202; 81003; 81015; 82533; 82550; 82553; 82570; 82728; 82805; 83540; 83550; 83605; 83735; 83880; 84100; 84145; 84156; 84300; 84443; 84484; 84540; 84550; 85025; 85610; 85730; 86850; 86900; 86901; 87040; 87071; 87081; 87086; 87631; 87811; 93005; 93010; 93306; 94660; 96365; 96375; 96376; C1751; J0282; J0692; J1250; J1265; J1450; J1611; J1650; J1720; J1815; J1940; J2248; J2260; J2405; J2550; J2916; J3370; J3475; J3490; J7050; J7070; J7120; J7512; J7999; P9016; P9045; P9047; P9059; Q5105; U0002

== ENCOUNTER 2022-04-25 15:29 | Emergency (ER) | payer MEDICARE, OTHER ==
[2022-04-25 16:34] LABS: #Basophils 0.1 thou/uL (0.0-0.2); #Eosinphils 0.2 thou/uL (0.0-0.7); #Lymphocytes 1.4 thou/uL (1.20-3.40); #Monocytes 0.9 thou/uL (0.11-0.59); #Neutrophils 6.2 thou/uL (1.40-6.50); %Basophils 0.7 % (0.0-1.0); %Eosinophils 2.2 % (0.0-10.0); %Lymphocytes 15.8 % (21.0-51.0); %Monocytes 10.5 % (0.0-10.0); %Neutrophils 70.8 % (42.0-75.0); Hemoglobin 12.4 g/dL (12.0-16.0); Mean Corpuscular HGB CONC 31.7 g/dL (32.0-36.0); Mean Corpuscular Hemoglobin 26.8 pg (27.0-31.0); Mean Corpuscular Volume 84.5 fl (78.0-98.0); Mean Platelet Volume 8.7 fL (7.4-10.4); Platelet Count 201 10x3/uL (130-400); Red Blood Cell (RBC) Count 4.61 mill/uL (4.20-5.40); White Blood Cell (WBC) Count 8.8 10x3/uL (4.8-10.8)
[2022-04-25 16:49] LABS: ALT (SGPT) 18 U/L (8-55); AST (SGOT) 21 U/L (5-34); Albumin 3.6 g/dL (3.4-4.8); Alkaline Phosphatase 73 U/L (40-110); Anion Gap 15 mmol/L (10-20); BUN (Urea Nitrogen) 26 mg/dL (9.8-20.1); Bilirubin, Total 0.6 mg/dL (0.2-1.2); Calc. Creatinine Clearance 0 mL/min (70-130); Calcium 9.5 mg/dL (7.8-10.44); Carbon Dioxide 31 mmol/L (23-31); Chloride 102 mmol/L (98-107); Estimated GFR 70; Globulin 2.8 g/dL (2.4-3.5); Glucose 165 mg/dL (80-115); Potassium 3.6 mmol/L (3.5-5.1); Protein, Total 6.4 g/dL (5.8-8.1); Sodium 144 mmol/L (136-145)
[2022-04-25] MEDS ORDERED: Bumetanide 1 MG/4 ML VIAL IVP SCH (19:45)
== END 2022-04-25 22:50 | disposition home or self-care (01) ==
LOC: ERS 15:29
DX: R60.0 Localized edema (principal); J18.9 Pneumonia, unspecified organism; I27.20 Pulmonary hypertension, unspecified; I13.0 Hypertensive heart and chronic kidney disease with heart failure and stage 1 through stage 4 chronic kidney disease, or unspecified chronic kidney disease; I50.9 Heart failure, unspecified; N18.9 Chronic kidney disease, unspecified; E11.22 Type 2 diabetes mellitus with diabetic chronic kidney disease; K21.9 Gastro-esophageal reflux disease without esophagitis; E03.9 Hypothyroidism, unspecified; I48.91 Unspecified atrial fibrillation; G43.909 Migraine, unspecified, not intractable, without status migrainosus; E78.00 Pure hypercholesterolemia, unspecified; Z79.4 Long term (current) use of insulin; Z79.01 Long term (current) use of anticoagulants; Z79.899 Other long term (current) drug therapy
CPT/HCPCS: 36415; 71045; 71275; 80053; 83880; 84484; 85025; 93005; 96374; J3490

== ENCOUNTER 2022-05-08 17:20 | Emergency (ER) | payer MEDICARE, OTHER ==
[2022-05-08 19:59] LABS: #Basophils 0.1 thou/uL (0.0-0.2); #Eosinphils 0.1 thou/uL (0.0-0.7); #Lymphocytes 1.2 thou/uL (1.20-3.40); #Monocytes 0.7 thou/uL (0.11-0.59); #Neutrophils 6.7 thou/uL (1.40-6.50); %Basophils 1.3 % (0.0-1.0); %Eosinophils 0.7 % (0.0-10.0); %Monocytes 8.3 % (0.0-10.0); %Neutrophils 75.7 % (42.0-75.0); Hemoglobin 12.5 g/dL (12.0-16.0); Mean Corpuscular HGB CONC 32.1 g/dL (32.0-36.0); Mean Corpuscular Hemoglobin 27.3 pg (27.0-31.0); Mean Corpuscular Volume 85.2 fl (78.0-98.0); Mean Platelet Volume 8.4 fL (7.4-10.4); Platelet Count 225 10x3/uL (130-400); RBC Distribution Width 16.7 % (11.5-14.5); Red Blood Cell (RBC) Count 4.57 mill/uL (4.20-5.40); White Blood Cell (WBC) Count 8.8 10x3/uL (4.8-10.8)
[2022-05-08 20:15] LABS: INR-International Normal Ratio 2.1; PTT 47.3 sec (22.9-36.1); Prothrombin Time 24.2 sec (12.0-14.7)
[2022-05-08 20:20] LABS: ALT (SGPT) 10 U/L (8-55); AST (SGOT) 15 U/L (5-34); Alkaline Phosphatase 82 U/L (40-110); Anion Gap 16 mmol/L (10-20); BUN (Urea Nitrogen) 10 mg/dL (9.8-20.1); Bilirubin, Total 1.1 mg/dL (0.2-1.2); Calc. Creatinine Clearance 0 mL/min (70-130); Calcium 9.9 mg/dL (7.8-10.44); Carbon Dioxide 30 mmol/L (23-31); Chloride 98 mmol/L (98-107); Estimated GFR 69; Globulin 3.4 g/dL (2.4-3.5); Glucose 157 mg/dL (80-115); Potassium 3.9 mmol/L (3.5-5.1); Protein, Total 7.4 g/dL (5.8-8.1); Sodium 140 mmol/L (136-145)
[2022-05-08 20:59] LABS: Bilirubin Negative (Negative); Blood, Urine Negative (Negative); Clarity Clear (Clear); Glucose, Urine (Dipstick) Normal (Negative); Ketone, Urine Trace mg/dL (Negative); Leukocyte Negative Leu/uL (Negative); Nitrite Negative (Negative); Protein, Urine (Dipstick) 10 mg/dL (Neg-Trace); Specific Gravity, Urine 1.006 (1.002-1.036); Urobilinogen Normal mg/dL (Less than 2); pH, Urine 7.5 (5.0-9.0)
[2022-05-08] MEDS ORDERED: traMADol HCl 50 MG TAB ONE (21:20)
== END 2022-05-08 21:49 | disposition home or self-care (01) ==
LOC: ERS 17:20
DX: M25.561 Pain in right knee (principal); E78.00 Pure hypercholesterolemia, unspecified; E03.9 Hypothyroidism, unspecified; K21.9 Gastro-esophageal reflux disease without esophagitis; E11.22 Type 2 diabetes mellitus with diabetic chronic kidney disease; I13.0 Hypertensive heart and chronic kidney disease with heart failure and stage 1 through stage 4 chronic kidney disease, or unspecified chronic kidney disease; N18.9 Chronic kidney disease, unspecified; Z79.4 Long term (current) use of insulin; Z79.01 Long term (current) use of anticoagulants; Z79.899 Other long term (current) drug therapy; Z79.84 Long term (current) use of oral hypoglycemic drugs
CPT/HCPCS: 80053; 81003; 85025; 85610; 85730

== ENCOUNTER 2022-08-08 13:59 | Inpatient (IN) | payer MEDICARE, OTHER ==
[2022-08-08 15:58] LABS: #Monocytes 0.8 thou/uL (0.11-0.59); #Neutrophils 6.1 thou/uL (1.40-6.50); %Basophils 0.5 % (0.0-1.0); %Eosinophils 0.5 % (0.0-10.0); %Monocytes 9.7 % (0.0-10.0); %Neutrophils 72.1 % (42.0-75.0); Hemoglobin 11.2 g/dL (12.0-16.0); Mean Corpuscular HGB CONC 30.1 g/dL (32.0-36.0); Mean Corpuscular Hemoglobin 25.7 pg (27.0-31.0); Mean Corpuscular Volume 85.3 fl (78.0-98.0); Mean Platelet Volume 9.8 fL (7.4-10.4); Platelet Count 198 10x3/uL (130-400); RBC Distribution Width 15.3 % (11.5-14.5); Red Blood Cell (RBC) Count 4.36 mill/uL (4.20-5.40); White Blood Cell (WBC) Count 8.5 10x3/uL (4.8-10.8)
[2022-08-08 16:21] LABS: ALT (SGPT) 13 U/L (8-55); AST (SGOT) 24 U/L (5-34); Albumin 3.8 g/dL (3.4-4.8); Alkaline Phosphatase 90 U/L (40-110); Anion Gap 13 mmol/L (10-20); BUN (Urea Nitrogen) 23 mg/dL (9.8-20.1); Bilirubin, Total 0.5 mg/dL (0.2-1.2); Calc. Creatinine Clearance 0 mL/min (70-130); Calcium 9.5 mg/dL (7.8-10.44); Carbon Dioxide 31 mmol/L (23-31); Chloride 101 mmol/L (98-107); Estimated GFR 47; Globulin 3.3 g/dL (2.4-3.5); Glucose 255 mg/dL (80-115); Potassium 4.2 mmol/L (3.5-5.1); Protein, Total 7.1 g/dL (5.8-8.1); Sodium 141 mmol/L (136-145)
[2022-08-08] MEDS ORDERED: Furosemide 40 MG/4 ML VIAL ONE (17:02)
[2022-08-08] MEDS ORDERED: Carvedilol 6.25 MG TAB PO SCH (18:30)
[2022-08-08] MEDS ORDERED: Milrinone 20 MG in Sodium Chloride 0.9% 100 ML IVPB SCH (18:30)
[2022-08-08] MEDS ORDERED: Sacubitril 49 MG/Valsartan 51 MG TABLET PO SCH (18:30)
[2022-08-08] MEDS ORDERED: Dextrose 5% in Water 1,000 ML IV PRN (18:31)
[2022-08-08] MEDS ORDERED: Dextrose 50% Abboject 50 ML SYRINGE SLOW IVP PRN (18:31)
[2022-08-08] MEDS ORDERED: Glucagon 1 MG/ML KIT IM PRN (18:31)
[2022-08-08] MEDS ORDERED: Acetaminophen 650 MG/20.3 ML UDCUP PO PRN (18:54)
[2022-08-08] MEDS ORDERED: Calcium Carbonate 500 MG ChewTAB PO PRN (18:54)
[2022-08-08] MEDS ORDERED: Diclofenac 1% 100 GM GEL TP PRN (18:56)
[2022-08-08] MEDS ORDERED: Fluticasone Propionate Nasal Spray 16 gm Bottle NASAL PRN (19:08)
[2022-08-08] MEDS ORDERED: traMADol HCl 50 MG TAB PO PRN (19:43)
[2022-08-08] MEDS: Milrinone Lactate/D5W 20 MG in Premix Bag 1 BAG IV SCH (20:42)
[2022-08-08 20:50] LABS: Magnesium 2.2 mg/dL (1.6-2.6); Phosphorus 3.4 mg/dL (2.3-4.7)
[2022-08-08] MEDS: Magnesium Oxide 400 MG TAB PO SCH (21:06)
[2022-08-08] MEDS: Gabapentin 100 MG CAP PO SCH (21:06)
[2022-08-08] MEDS: Escitalopram Oxalate 10 mg Tablet PO SCH (21:07)
[2022-08-08] MEDS: Clindamycin/D5W 900 MG in Premix Bag 1 BAG IVPB SCH (21:46)
[2022-08-08] MEDS ORDERED: Albuterol 200 PUFF (6.7GM INHALER) INH PRN (22:08)
[2022-08-09] MEDS: hydrOXYzine 10 MG TAB PO PRN ×2 (02:06→20:09)
[2022-08-09 04:19] LABS: #Eosinphils 0.2 thou/uL (0.0-0.7); #Neutrophils 3.9 thou/uL (1.40-6.50); %Basophils 0.4 % (0.0-1.0); %Eosinophils 2.1 % (0.0-10.0); %Lymphocytes 28.5 % (21.0-51.0); %Monocytes 14.4 % (0.0-10.0); %Neutrophils 54.3 % (42.0-75.0); Hemoglobin 10.4 g/dL (12.0-16.0); Mean Corpuscular HGB CONC 29.5 g/dL (32.0-36.0); Mean Corpuscular Hemoglobin 25.4 pg (27.0-31.0); Mean Corpuscular Volume 86.1 fl (78.0-98.0); Mean Platelet Volume 10.1 fL (7.4-10.4); Platelet Count 184 10x3/uL (130-400); RBC Distribution Width 15.3 % (11.5-14.5); White Blood Cell (WBC) Count 7.2 10x3/uL (4.8-10.8)
[2022-08-09 04:45] LABS: ALT (SGPT) 11 U/L (8-55); AST (SGOT) 12 U/L (5-34); Albumin 3.5 g/dL (3.4-4.8); Alkaline Phosphatase 73 U/L (40-110); Anion Gap 11 mmol/L (10-20); BUN (Urea Nitrogen) 24 mg/dL (9.8-20.1); Bilirubin, Total 0.6 mg/dL (0.2-1.2); Calc. Creatinine Clearance 80 mL/min (70-130); Calcium 9.3 mg/dL (7.8-10.44); Carbon Dioxide 36 mmol/L (23-31); Chloride 100 mmol/L (98-107); Estimated GFR 59; Globulin 2.6 g/dL (2.4-3.5); Glucose 198 mg/dL (80-115); Magnesium 2.2 mg/dL (1.6-2.6); Potassium 3.4 mmol/L (3.5-5.1); Protein, Total 6.1 g/dL (5.8-8.1); Sodium 144 mmol/L (136-145)
[2022-08-09 05:14] LABS: Cardiac Risk 2.4 (Less than 4.5); Cholesterol 113 mg/dl (< 200 Desired); HDL Cholesterol 48 mg/dL (>60 Neg Risk); LDL Cholesterol, Calculated 47 mg/dL; Phosphorus 4.2 mg/dL (2.3-4.7); Triglycerides 89 mg/dL (Less than 150)
[2022-08-09] MEDS: Clindamycin/D5W 900 MG in Premix Bag 1 BAG IVPB SCH ×3 (05:34→21:23)
[2022-08-09] MEDS ORDERED: Potassium Chloride 20 MEQ TAB PO SCH (08:00)
[2022-08-09] MEDS ORDERED: Potassium Chloride 10 MEQ TAB PO SCH (08:00)
[2022-08-09] MEDS ORDERED: Sacubitril 49 MG/Valsartan 51 MG TABLET PO SCH (09:00)
[2022-08-09] MEDS: AcetaZOLAMIDE 250 MG TAB PO SCH ×2 (09:21→20:05)
[2022-08-09] MEDS: predniSONE 5 MG TAB PO SCH (09:21)
[2022-08-09] MEDS: Allopurinol 100 MG TAB PO SCH (09:21)
[2022-08-09] MEDS: Liothyronine Sodium 25 MCG TAB PO SCH (09:21)
[2022-08-09] MEDS: Gabapentin 100 MG CAP PO SCH ×2 (09:22→20:05)
[2022-08-09] MEDS: Magnesium Oxide 400 MG TAB PO SCH ×2 (09:22→20:02)
[2022-08-09] MEDS: Rosuvastatin 10 MG TAB PO SCH (09:22)
[2022-08-09] MEDS: Rivaroxaban 10 MG TAB PO SCH (09:22)
[2022-08-09] MEDS: Carvedilol 6.25 MG TAB PO SCH ×2 (09:22→20:03)
[2022-08-09] MEDS: Empagliflozin 10 MG TAB PO SCH (09:22)
[2022-08-09] MEDS: Sacubitril 49 MG/Valsartan 51 MG TABLET PO SCH ×2 (09:22→20:04)
[2022-08-09] MEDS: Cyanocobalamin (Vitamin B-12) 1,000 MCG TAB PO SCH (09:23)
[2022-08-09] MEDS: Potassium Chloride 20 MEQ TAB PO SCH ×3 (09:23→20:03)
[2022-08-09] MEDS: Cholecalciferol 1,000 UNITS (25 MCG) TAB PO SCH (09:23)
[2022-08-09] MEDS: Insulin NPH Human Isophane 100 UNITS/ML (10 ML VIAL) SQ SCH (09:24)
[2022-08-09] MEDS: Insulin Regular 300 UNITS/3 ML VIAL SC SCH (09:24)
[2022-08-09] MEDS: traMADol HCl 50 MG TAB PO PRN ×2 (09:32→20:01)
[2022-08-09] MEDS: HumaLOG 300 UNITS/3 ML VIAL SC PRN ×2 (12:36→21:11)
[2022-08-09] MEDS: Escitalopram Oxalate 10 mg Tablet PO SCH (20:02)
[2022-08-09] MEDS ORDERED: Polyethylene Glycol 3350 17 GM Packet PO PRN (21:17)
[2022-08-09] MEDS: Milrinone Lactate/D5W 20 MG in Premix Bag 1 BAG IV SCH (21:28)
[2022-08-10 04:25] LABS: #Eosinphils 0.2 thou/uL (0.0-0.7); #Monocytes 1.2 thou/uL (0.11-0.59); #Neutrophils 3.6 thou/uL (1.40-6.50); %Basophils 0.6 % (0.0-1.0); %Eosinophils 2.6 % (0.0-10.0); %Lymphocytes 30.1 % (21.0-51.0); %Monocytes 16.4 % (0.0-10.0); Mean Corpuscular HGB CONC 29.4 g/dL (32.0-36.0); Mean Corpuscular Hemoglobin 25.1 pg (27.0-31.0); Mean Corpuscular Volume 85.2 fl (78.0-98.0); Mean Platelet Volume 9.9 fL (7.4-10.4); Platelet Count 193 10x3/uL (130-400); RBC Distribution Width 15.2 % (11.5-14.5); Red Blood Cell (RBC) Count 3.99 mill/uL (4.20-5.40); White Blood Cell (WBC) Count 7.2 10x3/uL (4.8-10.8)
[2022-08-10 05:03] LABS: ALT (SGPT) 8 U/L (8-55); AST (SGOT) 10 U/L (5-34); Albumin 3.4 g/dL (3.4-4.8); Alkaline Phosphatase 64 U/L (40-110); Anion Gap 11 mmol/L (10-20); BUN (Urea Nitrogen) 25 mg/dL (9.8-20.1); Bilirubin, Total 0.5 mg/dL (0.2-1.2); Calc. Creatinine Clearance 78 mL/min (70-130); Calcium 9.4 mg/dL (7.8-10.44); Carbon Dioxide 31 mmol/L (23-31); Chloride 101 mmol/L (98-107); Estimated GFR 57; Globulin 2.6 g/dL (2.4-3.5); Glucose 125 mg/dL (80-115); Magnesium 2.4 mg/dL (1.6-2.6); Phosphorus 5.5 mg/dL (2.3-4.7); Potassium 4.2 mmol/L (3.5-5.1); Sodium 139 mmol/L (136-145)
[2022-08-10] MEDS: traMADol HCl 50 MG TAB PO PRN ×2 (06:11→17:37)
[2022-08-10] MEDS: Clindamycin/D5W 900 MG in Premix Bag 1 BAG IVPB SCH ×3 (06:12→21:02)
[2022-08-10] MEDS: hydrOXYzine 10 MG TAB PO PRN ×2 (06:50→19:59)
[2022-08-10] MEDS: Potassium Chloride 20 MEQ TAB PO SCH ×2 (08:23→19:57)
[2022-08-10] MEDS: Rivaroxaban 10 MG TAB PO SCH (08:23)
[2022-08-10] MEDS: Carvedilol 6.25 MG TAB PO SCH ×2 (08:23→19:58)
[2022-08-10] MEDS: Polyethylene Glycol 3350 17 GM Packet PO SCH (08:23)
[2022-08-10] MEDS: Magnesium Oxide 400 MG TAB PO SCH ×2 (08:23→19:57)
[2022-08-10] MEDS: Gabapentin 100 MG CAP PO SCH ×2 (08:23→19:58)
[2022-08-10] MEDS: Rosuvastatin 10 MG TAB PO SCH (08:23)
[2022-08-10] MEDS: Empagliflozin 10 MG TAB PO SCH (08:24)
[2022-08-10] MEDS: Sacubitril 49 MG/Valsartan 51 MG TABLET PO SCH ×2 (08:24→19:57)
[2022-08-10] MEDS: Allopurinol 100 MG TAB PO SCH (08:24)
[2022-08-10] MEDS: predniSONE 5 MG TAB PO SCH (08:24)
[2022-08-10] MEDS: Insulin NPH Human Isophane 100 UNITS/ML (10 ML VIAL) SQ SCH (08:24)
[2022-08-10] MEDS: Cholecalciferol 1,000 UNITS (25 MCG) TAB PO SCH (08:24)
[2022-08-10] MEDS: Cyanocobalamin (Vitamin B-12) 1,000 MCG TAB PO SCH (08:24)
[2022-08-10] MEDS: Insulin Regular 300 UNITS/3 ML VIAL SC SCH (08:25)
[2022-08-10] MEDS: Liothyronine Sodium 25 MCG TAB PO SCH (08:25)
[2022-08-10] MEDS ORDERED: Torsemide 20 MG TAB PO SCH (09:00)
[2022-08-10] MEDS: Escitalopram Oxalate 10 mg Tablet PO SCH (19:58)
[2022-08-11] MEDS: Milrinone Lactate/D5W 20 MG in Premix Bag 1 BAG IV SCH ×3 (00:37→23:26)
[2022-08-11] MEDS: traMADol HCl 50 MG TAB PO PRN ×3 (02:40→23:26)
[2022-08-11 04:15] LABS: #Eosinphils 0.2 thou/uL (0.0-0.7); #Monocytes 1.2 thou/uL (0.11-0.59); #Neutrophils 3.3 thou/uL (1.40-6.50); %Basophils 0.6 % (0.0-1.0); %Eosinophils 2.3 % (0.0-10.0); %Lymphocytes 34.4 % (21.0-51.0); %Monocytes 16.8 % (0.0-10.0); %Neutrophils 45.6 % (42.0-75.0); Hemoglobin 10.2 g/dL (12.0-16.0); Mean Corpuscular HGB CONC 29.5 g/dL (32.0-36.0); Mean Corpuscular Hemoglobin 25.7 pg (27.0-31.0); Mean Corpuscular Volume 87.2 fl (78.0-98.0); Mean Platelet Volume 10.2 fL (7.4-10.4); Platelet Count 200 10x3/uL (130-400); Red Blood Cell (RBC) Count 3.97 mill/uL (4.20-5.40); White Blood Cell (WBC) Count 7.1 10x3/uL (4.8-10.8)
[2022-08-11 04:43] LABS: ALT (SGPT) 10 U/L (8-55); AST (SGOT) 13 U/L (5-34); Albumin 3.5 g/dL (3.4-4.8); Alkaline Phosphatase 74 U/L (40-110); Anion Gap 13 mmol/L (10-20); BUN (Urea Nitrogen) 26 mg/dL (9.8-20.1); Bilirubin, Total 0.4 mg/dL (0.2-1.2); Calc. Creatinine Clearance 74 mL/min (70-130); Carbon Dioxide 26 mmol/L (23-31); Chloride 103 mmol/L (98-107); Estimated GFR 54; Globulin 2.7 g/dL (2.4-3.5); Glucose 155 mg/dL (80-115); Magnesium 2.5 mg/dL (1.6-2.6); Phosphorus 5.4 mg/dL (2.3-4.7); Potassium 4.1 mmol/L (3.5-5.1); Protein, Total 6.2 g/dL (5.8-8.1); Sodium 138 mmol/L (136-145)
[2022-08-11] MEDS: Clindamycin/D5W 900 MG in Premix Bag 1 BAG IVPB SCH (05:36)
[2022-08-11] MEDS: Carvedilol 6.25 MG TAB PO SCH ×2 (08:48→21:09)
[2022-08-11] MEDS: predniSONE 5 MG TAB PO SCH (08:48)
[2022-08-11] MEDS: Bumetanide 1 MG TAB PO SCH (08:48)
[2022-08-11] MEDS: Allopurinol 100 MG TAB PO SCH (08:48)
[2022-08-11] MEDS: Cholecalciferol 1,000 UNITS (25 MCG) TAB PO SCH (08:49)
[2022-08-11] MEDS: Cyanocobalamin (Vitamin B-12) 1,000 MCG TAB PO SCH (08:49)
[2022-08-11] MEDS: Empagliflozin 10 MG TAB PO SCH (08:49)
[2022-08-11] MEDS: Gabapentin 100 MG CAP PO SCH ×2 (08:49→21:09)
[2022-08-11] MEDS: Magnesium Oxide 400 MG TAB PO SCH ×2 (08:51→21:09)
[2022-08-11] MEDS: Liothyronine Sodium 25 MCG TAB PO SCH (08:51)
[2022-08-11] MEDS: Insulin NPH Human Isophane 100 UNITS/ML (10 ML VIAL) SQ SCH (08:51)
[2022-08-11] MEDS: Rivaroxaban 10 MG TAB PO SCH (08:52)
[2022-08-11] MEDS: Potassium Chloride 20 MEQ TAB PO SCH ×2 (08:52→21:09)
[2022-08-11] MEDS: Sacubitril 49 MG/Valsartan 51 MG TABLET PO SCH ×2 (08:52→21:09)
[2022-08-11] MEDS: Rosuvastatin 10 MG TAB PO SCH (08:52)
[2022-08-11] MEDS: Polyethylene Glycol 3350 17 GM Packet PO SCH (08:52)
[2022-08-11] MEDS: Insulin Regular 300 UNITS/3 ML VIAL SC SCH ×3 (08:53→18:08)
[2022-08-11] MEDS: Clindamycin 150 MG CAP PO SCH ×3 (11:53→23:26)
[2022-08-11] MEDS: hydrOXYzine 10 MG TAB PO PRN (18:07)
[2022-08-11] MEDS: Escitalopram Oxalate 10 mg Tablet PO SCH (21:10)
[2022-08-12 03:57] LABS: #Eosinphils 0.2 thou/uL (0.0-0.7); #Monocytes 0.9 thou/uL (0.11-0.59); %Basophils 0.5 % (0.0-1.0); %Eosinophils 2.5 % (0.0-10.0); %Lymphocytes 30.4 % (21.0-51.0); %Monocytes 15.2 % (0.0-10.0); %Neutrophils 50.7 % (42.0-75.0); Hemoglobin 10.9 g/dL (12.0-16.0); Mean Corpuscular HGB CONC 30.8 g/dL (32.0-36.0); Mean Corpuscular Hemoglobin 25.6 pg (27.0-31.0); Mean Corpuscular Volume 83.1 fl (78.0-98.0); Mean Platelet Volume 9.4 fL (7.4-10.4); Platelet Count 208 10x3/uL (130-400); RBC Distribution Width 15.3 % (11.5-14.5); Red Blood Cell (RBC) Count 4.26 mill/uL (4.20-5.40); White Blood Cell (WBC) Count 5.9 10x3/uL (4.8-10.8)
[2022-08-12 04:33] LABS: Iron 25 ug/dL (50-170); Iron Binding Capacity, Total 303 mcg/dL (265-497)
[2022-08-12 04:35] LABS: ALT (SGPT) 11 U/L (8-55); AST (SGOT) 14 U/L (5-34); Albumin 3.5 g/dL (3.4-4.8); Alkaline Phosphatase 83 U/L (40-110); Anion Gap 8 mmol/L (10-20); BUN (Urea Nitrogen) 24 mg/dL (9.8-20.1); Bilirubin, Total 0.4 mg/dL (0.2-1.2); Calc. Creatinine Clearance 78 mL/min (70-130); Calcium 9.4 mg/dL (7.8-10.44); Carbon Dioxide 29 mmol/L (23-31); Chloride 107 mmol/L (98-107); Estimated GFR 57; Globulin 2.9 g/dL (2.4-3.5); Glucose 127 mg/dL (80-115); Iron 26 ug/dL (50-170); Iron Binding Capacity, Total 308 mcg/dL (265-497); Magnesium 2.5 mg/dL (1.6-2.6); Potassium 3.8 mmol/L (3.5-5.1); Protein, Total 6.4 g/dL (5.8-8.1); Sodium 140 mmol/L (136-145)
[2022-08-12] MEDS: Clindamycin 150 MG CAP PO SCH ×3 (05:27→18:37)
[2022-08-12] MEDS: Magnesium Oxide 400 MG TAB PO SCH ×2 (08:09→20:47)
[2022-08-12] MEDS: Polyethylene Glycol 3350 17 GM Packet PO SCH (08:09)
[2022-08-12] MEDS: Sacubitril 49 MG/Valsartan 51 MG TABLET PO SCH ×2 (08:09→20:48)
[2022-08-12] MEDS: Potassium Chloride 20 MEQ TAB PO SCH ×3 (08:09→18:36)
[2022-08-12] MEDS: Rivaroxaban 10 MG TAB PO SCH (08:09)
[2022-08-12] MEDS: Rosuvastatin 10 MG TAB PO SCH (08:09)
[2022-08-12] MEDS: Bumetanide 1 MG TAB PO SCH (08:09)
[2022-08-12] MEDS: Liothyronine Sodium 25 MCG TAB PO SCH (08:10)
[2022-08-12] MEDS: Empagliflozin 10 MG TAB PO SCH (08:10)
[2022-08-12] MEDS: Cholecalciferol 1,000 UNITS (25 MCG) TAB PO SCH (08:10)
[2022-08-12] MEDS: Carvedilol 6.25 MG TAB PO SCH ×2 (08:10→20:46)
[2022-08-12] MEDS: Gabapentin 100 MG CAP PO SCH ×2 (08:10→20:47)
[2022-08-12] MEDS: Cyanocobalamin (Vitamin B-12) 1,000 MCG TAB PO SCH (08:10)
[2022-08-12] MEDS: Allopurinol 100 MG TAB PO SCH (08:10)
[2022-08-12] MEDS: predniSONE 5 MG TAB PO SCH (08:10)
[2022-08-12] MEDS: Insulin NPH Human Isophane 100 UNITS/ML (10 ML VIAL) SQ SCH (08:11)
[2022-08-12] MEDS: Insulin Regular 300 UNITS/3 ML VIAL SC SCH ×3 (08:11→18:37)
[2022-08-12] MEDS: Milrinone Lactate/D5W 20 MG in Premix Bag 1 BAG IV SCH ×2 (08:12→19:20)
[2022-08-12] MEDS: Ferrous Sulfate 325 MG TAB PO SCH (09:55)
[2022-08-12] MEDS: Sildenafil Citrate 20 MG TAB PO SCH (18:36)
[2022-08-12] MEDS: traMADol HCl 50 MG TAB PO PRN (20:47)
[2022-08-12] MEDS: Escitalopram Oxalate 10 mg Tablet PO SCH (20:48)
[2022-08-12] MEDS: hydrOXYzine 10 MG TAB PO PRN (20:48)
[2022-08-13] MEDS: Clindamycin 150 MG CAP PO SCH ×4 (02:44→20:18)
[2022-08-13] MEDS: hydrOXYzine 10 MG TAB PO PRN ×2 (05:12→20:55)
[2022-08-13] MEDS: traMADol HCl 50 MG TAB PO PRN ×3 (05:12→18:00)
[2022-08-13] MEDS: Milrinone Lactate/D5W 20 MG in Premix Bag 1 BAG IV SCH ×3 (05:13→20:55)
[2022-08-13 05:14] LABS: Anion Gap 10 mmol/L (10-20); BUN (Urea Nitrogen) 25 mg/dL (9.8-20.1); Calc. Creatinine Clearance 76 mL/min (70-130); Calcium 9.3 mg/dL (7.8-10.44); Carbon Dioxide 29 mmol/L (23-31); Chloride 103 mmol/L (98-107); Estimated GFR 56; Glucose 155 mg/dL (80-115); Magnesium 2.4 mg/dL (1.6-2.6); Phosphorus 3.8 mg/dL (2.3-4.7); Sodium 138 mmol/L (136-145)
[2022-08-13] MEDS: Sildenafil Citrate 20 MG TAB PO SCH ×3 (06:18→20:55)
[2022-08-13] MEDS: Liothyronine Sodium 25 MCG TAB PO SCH (08:43)
[2022-08-13] MEDS: Cholecalciferol 1,000 UNITS (25 MCG) TAB PO SCH (08:43)
[2022-08-13] MEDS: Potassium Chloride 20 MEQ TAB PO SCH ×3 (08:43→18:00)
[2022-08-13] MEDS: Gabapentin 100 MG CAP PO SCH ×2 (08:43→20:19)
[2022-08-13] MEDS: Sacubitril 49 MG/Valsartan 51 MG TABLET PO SCH ×2 (08:44→20:19)
[2022-08-13] MEDS: Magnesium Oxide 400 MG TAB PO SCH ×2 (08:44→20:18)
[2022-08-13] MEDS: Rivaroxaban 10 MG TAB PO SCH (08:44)
[2022-08-13] MEDS: Cyanocobalamin (Vitamin B-12) 1,000 MCG TAB PO SCH (08:44)
[2022-08-13] MEDS: Carvedilol 6.25 MG TAB PO SCH ×2 (08:45→20:19)
[2022-08-13] MEDS: Allopurinol 100 MG TAB PO SCH (08:45)
[2022-08-13] MEDS: Rosuvastatin 10 MG TAB PO SCH (08:46)
[2022-08-13] MEDS: predniSONE 5 MG TAB PO SCH (08:46)
[2022-08-13] MEDS: Empagliflozin 10 MG TAB PO SCH (08:46)
[2022-08-13] MEDS: Polyethylene Glycol 3350 17 GM Packet PO SCH (08:47)
[2022-08-13] MEDS: Insulin NPH Human Isophane 100 UNITS/ML (10 ML VIAL) SQ SCH (08:47)
[2022-08-13] MEDS: Bumetanide 1 MG TAB PO SCH (08:48)
[2022-08-13] MEDS: Insulin Regular 300 UNITS/3 ML VIAL SC SCH ×3 (09:05→19:01)
[2022-08-13] MEDS ORDERED: Insulin Regular 300 UNITS/3 ML VIAL SC SCH (09:15)
[2022-08-13] MEDS: Escitalopram Oxalate 10 mg Tablet PO SCH (20:18)
[2022-08-13] MEDS ORDERED: diphenhydrAMINE 25 MG CAP PO SCH (23:15)
[2022-08-14] MEDS: traMADol HCl 50 MG TAB PO PRN ×3 (02:23→23:53)
[2022-08-14] MEDS: Clindamycin 150 MG CAP PO SCH ×4 (02:24→21:22)
[2022-08-14] MEDS: Morphine 2 MG/ML VIAL SLOW IVP PRN (03:21)
[2022-08-14 03:59] LABS: #Eosinphils 0.2 thou/uL (0.0-0.7); #Monocytes 1.1 thou/uL (0.11-0.59); #Neutrophils 3.7 thou/uL (1.40-6.50); %Basophils 0.5 % (0.0-1.0); %Eosinophils 2.5 % (0.0-10.0); %Lymphocytes 32.7 % (21.0-51.0); %Monocytes 14.9 % (0.0-10.0); %Neutrophils 49.3 % (42.0-75.0); Mean Corpuscular HGB CONC 30.8 g/dL (32.0-36.0); Mean Corpuscular Hemoglobin 25.7 pg (27.0-31.0); Mean Corpuscular Volume 83.4 fl (78.0-98.0); Mean Platelet Volume 9.2 fL (7.4-10.4); Platelet Count 210 10x3/uL (130-400); RBC Distribution Width 15.2 % (11.5-14.5); Red Blood Cell (RBC) Count 4.28 mill/uL (4.20-5.40); White Blood Cell (WBC) Count 7.5 10x3/uL (4.8-10.8)
[2022-08-14 04:23] LABS: Anion Gap 11 mmol/L (10-20); BUN (Urea Nitrogen) 24 mg/dL (9.8-20.1); Calc. Creatinine Clearance 79 mL/min (70-130); Calcium 9.6 mg/dL (7.8-10.44); Carbon Dioxide 28 mmol/L (23-31); Chloride 104 mmol/L (98-107); Estimated GFR 59; Glucose 136 mg/dL (80-115); Magnesium 2.2 mg/dL (1.6-2.6); Potassium 4.6 mmol/L (3.5-5.1); Sodium 138 mmol/L (136-145)
[2022-08-14] MEDS: Ondansetron PF 4 MG/2 ML Vial IVP PRN (04:45)
[2022-08-14] MEDS: Sildenafil Citrate 20 MG TAB PO SCH ×3 (05:48→21:25)
[2022-08-14] MEDS: Milrinone Lactate/D5W 20 MG in Premix Bag 1 BAG IV SCH ×2 (07:14→16:11)
[2022-08-14] MEDS ORDERED: Furosemide 100 MG/10 ML VIAL SLOW IVP SCH (09:00)
[2022-08-14] MEDS: Insulin Regular 300 UNITS/3 ML VIAL SC SCH ×3 (09:06→18:39)
[2022-08-14] MEDS: Insulin NPH Human Isophane 100 UNITS/ML (10 ML VIAL) SQ SCH (09:06)
[2022-08-14] MEDS: Rivaroxaban 10 MG TAB PO SCH (09:08)
[2022-08-14] MEDS: Potassium Chloride 20 MEQ TAB PO SCH ×3 (09:08→18:38)
[2022-08-14] MEDS: Sacubitril 49 MG/Valsartan 51 MG TABLET PO SCH ×2 (09:09→21:25)
[2022-08-14] MEDS: Cholecalciferol 1,000 UNITS (25 MCG) TAB PO SCH (09:09)
[2022-08-14] MEDS: Gabapentin 100 MG CAP PO SCH ×2 (09:09→21:23)
[2022-08-14] MEDS: Magnesium Oxide 400 MG TAB PO SCH ×2 (09:10→21:25)
[2022-08-14] MEDS: Empagliflozin 10 MG TAB PO SCH (09:10)
[2022-08-14] MEDS: Ferrous Sulfate 325 MG TAB PO SCH (09:10)
[2022-08-14] MEDS: predniSONE 5 MG TAB PO SCH (09:10)
[2022-08-14] MEDS: Allopurinol 100 MG TAB PO SCH (09:10)
[2022-08-14] MEDS: Rosuvastatin 10 MG TAB PO SCH (09:10)
[2022-08-14] MEDS: Carvedilol 6.25 MG TAB PO SCH ×2 (09:10→21:22)
[2022-08-14] MEDS: Cyanocobalamin (Vitamin B-12) 1,000 MCG TAB PO SCH (09:10)
[2022-08-14] MEDS: Liothyronine Sodium 25 MCG TAB PO SCH (09:11)
[2022-08-14] MEDS: Polyethylene Glycol 3350 17 GM Packet PO SCH (09:12)
[2022-08-14] MEDS: hydrOXYzine 10 MG TAB PO PRN ×2 (11:25→15:29)
[2022-08-14] MEDS: Escitalopram Oxalate 10 mg Tablet PO SCH (21:23)
[2022-08-14] MEDS ORDERED: Gabapentin 100 MG CAP PO SCH (21:45)
[2022-08-15] MEDS: Milrinone Lactate/D5W 20 MG in Premix Bag 1 BAG IV SCH ×3 (00:18→17:40)
[2022-08-15] MEDS: Clindamycin 150 MG CAP PO SCH ×4 (02:18→21:10)
[2022-08-15 04:17] LABS: Anion Gap 13 mmol/L (10-20); BUN (Urea Nitrogen) 32 mg/dL (9.8-20.1); Calc. Creatinine Clearance 70 mL/min (70-130); Carbon Dioxide 28 mmol/L (23-31); Chloride 102 mmol/L (98-107); Estimated GFR 50; Glucose 177 mg/dL (80-115); Magnesium 2.4 mg/dL (1.6-2.6); Phosphorus 4.2 mg/dL (2.3-4.7); Potassium 4.9 mmol/L (3.5-5.1); Sodium 138 mmol/L (136-145)
[2022-08-15 06:38] LABS: Troponin I Less than 0.010 ng/mL (< 0.028)
[2022-08-15] MEDS: Sacubitril 49 MG/Valsartan 51 MG TABLET PO SCH ×2 (08:18→21:10)
[2022-08-15] MEDS: Liothyronine Sodium 25 MCG TAB PO SCH (08:18)
[2022-08-15] MEDS: Rivaroxaban 10 MG TAB PO SCH (08:18)
[2022-08-15] MEDS: Gabapentin 100 MG CAP PO SCH ×2 (08:20→21:10)
[2022-08-15] MEDS: Allopurinol 100 MG TAB PO SCH (08:20)
[2022-08-15] MEDS: Potassium Chloride 20 MEQ TAB PO SCH ×3 (08:21→18:06)
[2022-08-15] MEDS: Magnesium Oxide 400 MG TAB PO SCH ×2 (08:21→21:10)
[2022-08-15] MEDS: Cyanocobalamin (Vitamin B-12) 1,000 MCG TAB PO SCH (08:21)
[2022-08-15] MEDS: Carvedilol 6.25 MG TAB PO SCH ×2 (08:21→21:09)
[2022-08-15] MEDS: Rosuvastatin 10 MG TAB PO SCH (08:21)
[2022-08-15] MEDS: predniSONE 5 MG TAB PO SCH (08:21)
[2022-08-15] MEDS: Cholecalciferol 1,000 UNITS (25 MCG) TAB PO SCH (08:22)
[2022-08-15] MEDS: Polyethylene Glycol 3350 17 GM Packet PO SCH (08:22)
[2022-08-15] MEDS: Empagliflozin 10 MG TAB PO SCH (08:22)
[2022-08-15] MEDS: Insulin Regular 300 UNITS/3 ML VIAL SC SCH ×3 (08:23→18:07)
[2022-08-15] MEDS: Insulin NPH Human Isophane 100 UNITS/ML (10 ML VIAL) SQ SCH (08:23)
[2022-08-15] MEDS ORDERED: Gabapentin 100 MG CAP PO SCH (09:00)
[2022-08-15] MEDS: traMADol HCl 50 MG TAB PO PRN (10:18)
[2022-08-15 12:52] LABS: Troponin I 0.015 ng/mL (< 0.028)
[2022-08-15] MEDS ORDERED: Bumetanide 1 MG/4 ML VIAL IVP SCH (15:00)
[2022-08-15] MEDS: Escitalopram Oxalate 10 mg Tablet PO SCH (21:11)
[2022-08-16] MEDS: traMADol HCl 50 MG TAB PO PRN ×2 (00:39→19:48)
[2022-08-16] MEDS: Morphine 2 MG/ML VIAL SLOW IVP PRN (01:28)
[2022-08-16] MEDS: Ondansetron PF 4 MG/2 ML Vial IVP PRN ×2 (03:50→10:16)
[2022-08-16] MEDS: Milrinone Lactate/D5W 20 MG in Premix Bag 1 BAG IV SCH ×2 (04:57→14:48)
[2022-08-16 06:27] LABS: #Basophils 0.1 thou/uL (0.0-0.2); #Eosinphils 0.2 thou/uL (0.0-0.7); #Monocytes 1.2 thou/uL (0.11-0.59); #Neutrophils 3.4 thou/uL (1.40-6.50); %Basophils 0.7 % (0.0-1.0); %Eosinophils 2.7 % (0.0-10.0); %Lymphocytes 32.8 % (21.0-51.0); %Monocytes 16.1 % (0.0-10.0); %Neutrophils 47.3 % (42.0-75.0); Hemoglobin 10.9 g/dL (12.0-16.0); Mean Corpuscular HGB CONC 29.8 g/dL (32.0-36.0); Mean Corpuscular Hemoglobin 25.7 pg (27.0-31.0); Mean Corpuscular Volume 86.3 fl (78.0-98.0); Mean Platelet Volume 9.3 fL (7.4-10.4); Platelet Count 226 10x3/uL (130-400); RBC Distribution Width 15.3 % (11.5-14.5); Red Blood Cell (RBC) Count 4.24 mill/uL (4.20-5.40); White Blood Cell (WBC) Count 7.1 10x3/uL (4.8-10.8)
[2022-08-16 06:51] LABS: Anion Gap 12 mmol/L (10-20); BUN (Urea Nitrogen) 25 mg/dL (9.8-20.1); Calc. Creatinine Clearance 87 mL/min (70-130); Calcium 9.5 mg/dL (7.8-10.44); Carbon Dioxide 31 mmol/L (23-31); Chloride 101 mmol/L (98-107); Estimated GFR 64; Glucose 165 mg/dL (80-115); Magnesium 2.3 mg/dL (1.6-2.6); Phosphorus 4.6 mg/dL (2.3-4.7); Potassium 4.5 mmol/L (3.5-5.1); Sodium 139 mmol/L (136-145)
[2022-08-16] MEDS: predniSONE 5 MG TAB PO SCH (09:15)
[2022-08-16] MEDS: Cholecalciferol 1,000 UNITS (25 MCG) TAB PO SCH (09:15)
[2022-08-16] MEDS: Sacubitril 49 MG/Valsartan 51 MG TABLET PO SCH ×2 (09:15→20:45)
[2022-08-16] MEDS: Potassium Chloride 20 MEQ TAB PO SCH ×3 (09:15→17:40)
[2022-08-16] MEDS: Cyanocobalamin (Vitamin B-12) 1,000 MCG TAB PO SCH (09:15)
[2022-08-16] MEDS: Rivaroxaban 10 MG TAB PO SCH (09:16)
[2022-08-16] MEDS: Carvedilol 6.25 MG TAB PO SCH ×2 (09:16→20:44)
[2022-08-16] MEDS: Rosuvastatin 10 MG TAB PO SCH (09:17)
[2022-08-16] MEDS: Ferrous Sulfate 325 MG TAB PO SCH (09:17)
[2022-08-16] MEDS: Empagliflozin 10 MG TAB PO SCH (09:17)
[2022-08-16] MEDS: Gabapentin 100 MG CAP PO SCH ×2 (09:17→20:45)
[2022-08-16] MEDS: Magnesium Oxide 400 MG TAB PO SCH ×2 (09:17→20:45)
[2022-08-16] MEDS: Polyethylene Glycol 3350 17 GM Packet PO SCH (09:18)
[2022-08-16] MEDS: Liothyronine Sodium 25 MCG TAB PO SCH (09:18)
[2022-08-16] MEDS: Allopurinol 100 MG TAB PO SCH (09:18)
[2022-08-16] MEDS: Insulin Regular 300 UNITS/3 ML VIAL SC SCH ×3 (09:25→17:40)
[2022-08-16] MEDS: Insulin NPH Human Isophane 100 UNITS/ML (10 ML VIAL) SQ SCH (09:25)
[2022-08-16] MEDS ORDERED: Bumetanide 1 MG TAB PO SCH ×3 (09:30→14:00)
[2022-08-16] MEDS ORDERED: Simethicone Chewable 80 MG TAB PO PRN (10:45)
[2022-08-16] MEDS: Escitalopram Oxalate 10 mg Tablet PO SCH (20:45)
[2022-08-17 08:15] LABS: Anion Gap 13 mmol/L (10-20); BUN (Urea Nitrogen) 29 mg/dL (9.8-20.1); Calc. Creatinine Clearance 72 mL/min (70-130); Calcium 9.8 mg/dL (7.8-10.44); Carbon Dioxide 32 mmol/L (23-31); Chloride 95 mmol/L (98-107); Estimated GFR 52; Glucose 138 mg/dL (80-115); Magnesium 2.2 mg/dL (1.6-2.6); Phosphorus 4.8 mg/dL (2.3-4.7); Potassium 4.1 mmol/L (3.5-5.1); Sodium 136 mmol/L (136-145)
[2022-08-17] MEDS: Gabapentin 100 MG CAP PO SCH ×2 (08:49→20:40)
[2022-08-17] MEDS: Carvedilol 6.25 MG TAB PO SCH ×2 (08:50→20:47)
[2022-08-17] MEDS: Cholecalciferol 1,000 UNITS (25 MCG) TAB PO SCH (08:50)
[2022-08-17] MEDS: Sacubitril 49 MG/Valsartan 51 MG TABLET PO SCH ×2 (08:51→20:39)
[2022-08-17] MEDS: predniSONE 5 MG TAB PO SCH (08:51)
[2022-08-17] MEDS: Rosuvastatin 10 MG TAB PO SCH (08:52)
[2022-08-17] MEDS: Cyanocobalamin (Vitamin B-12) 1,000 MCG TAB PO SCH (08:52)
[2022-08-17] MEDS: Allopurinol 100 MG TAB PO SCH (08:52)
[2022-08-17] MEDS: Magnesium Oxide 400 MG TAB PO SCH ×2 (08:52→20:41)
[2022-08-17] MEDS: Empagliflozin 10 MG TAB PO SCH (08:52)
[2022-08-17] MEDS: Potassium Chloride 20 MEQ TAB PO SCH ×3 (08:52→18:16)
[2022-08-17] MEDS: Rivaroxaban 10 MG TAB PO SCH (08:52)
[2022-08-17] MEDS: Liothyronine Sodium 25 MCG TAB PO SCH (08:52)
[2022-08-17] MEDS: Polyethylene Glycol 3350 17 GM Packet PO SCH (08:53)
[2022-08-17] MEDS: Insulin Regular 300 UNITS/3 ML VIAL SC SCH ×3 (08:53→18:16)
[2022-08-17] MEDS: Insulin NPH Human Isophane 100 UNITS/ML (10 ML VIAL) SQ SCH (08:53)
[2022-08-17] MEDS: Milrinone Lactate/D5W 20 MG in Premix Bag 1 BAG IV SCH ×3 (08:59→16:44)
[2022-08-17] MEDS ORDERED: Bumetanide 1 MG TAB PO SCH (10:45)
[2022-08-17] MEDS: traMADol HCl 50 MG TAB PO PRN ×2 (11:32→23:02)
[2022-08-17] MEDS: Morphine 2 MG/ML VIAL SLOW IVP PRN (16:45)
[2022-08-17] MEDS: Escitalopram Oxalate 10 mg Tablet PO SCH (20:41)
[2022-08-17] MEDS: hydrOXYzine 10 MG TAB PO PRN (23:07)
[2022-08-18] MEDS: Milrinone Lactate/D5W 20 MG in Premix Bag 1 BAG IV SCH ×3 (01:03→19:12)
[2022-08-18 06:11] LABS: #Eosinphils 0.2 thou/uL (0.0-0.7); #Monocytes 1.1 thou/uL (0.11-0.59); #Neutrophils 2.9 thou/uL (1.40-6.50); %Basophils 0.6 % (0.0-1.0); %Eosinophils 2.9 % (0.0-10.0); %Lymphocytes 34.8 % (21.0-51.0); %Monocytes 16.4 % (0.0-10.0); Hemoglobin 11.4 g/dL (12.0-16.0); Mean Corpuscular HGB CONC 29.8 g/dL (32.0-36.0); Mean Corpuscular Hemoglobin 25.6 pg (27.0-31.0); Mean Corpuscular Volume 86.1 fl (78.0-98.0); Mean Platelet Volume 9.1 fL (7.4-10.4); Platelet Count 220 10x3/uL (130-400); RBC Distribution Width 14.7 % (11.5-14.5); Red Blood Cell (RBC) Count 4.45 mill/uL (4.20-5.40); White Blood Cell (WBC) Count 6.5 10x3/uL (4.8-10.8)
[2022-08-18] MEDS: traMADol HCl 50 MG TAB PO PRN (06:18)
[2022-08-18 06:36] LABS: Anion Gap 10 mmol/L (10-20); BUN (Urea Nitrogen) 30 mg/dL (9.8-20.1); Calc. Creatinine Clearance 74 mL/min (70-130); Calcium 9.7 mg/dL (7.8-10.44); Carbon Dioxide 34 mmol/L (23-31); Chloride 98 mmol/L (98-107); Estimated GFR 54; Glucose 124 mg/dL (80-115); Magnesium 2.3 mg/dL (1.6-2.6); Phosphorus 4.7 mg/dL (2.3-4.7); Potassium 4.2 mmol/L (3.5-5.1); Sodium 138 mmol/L (136-145)
[2022-08-18] MEDS: Morphine 2 MG/ML VIAL SLOW IVP PRN (08:20)
[2022-08-18] MEDS: Liothyronine Sodium 25 MCG TAB PO SCH (08:21)
[2022-08-18] MEDS: VERICIGUAT 2.5 MG PO SCH (08:21)
[2022-08-18] MEDS: Allopurinol 100 MG TAB PO SCH (08:22)
[2022-08-18] MEDS: Rivaroxaban 10 MG TAB PO SCH (08:22)
[2022-08-18] MEDS: Potassium Chloride 20 MEQ TAB PO SCH ×3 (08:22→19:12)
[2022-08-18] MEDS: Carvedilol 6.25 MG TAB PO SCH ×2 (08:22→20:03)
[2022-08-18] MEDS: Cholecalciferol 1,000 UNITS (25 MCG) TAB PO SCH (08:23)
[2022-08-18] MEDS: Empagliflozin 10 MG TAB PO SCH (08:23)
[2022-08-18] MEDS: Sacubitril 49 MG/Valsartan 51 MG TABLET PO SCH (08:23)
[2022-08-18] MEDS: predniSONE 5 MG TAB PO SCH (08:23)
[2022-08-18] MEDS: Rosuvastatin 10 MG TAB PO SCH (08:23)
[2022-08-18] MEDS: Ferrous Sulfate 325 MG TAB PO SCH (08:23)
[2022-08-18] MEDS: Magnesium Oxide 400 MG TAB PO SCH ×2 (08:23→20:03)
[2022-08-18] MEDS: Gabapentin 100 MG CAP PO SCH ×2 (08:24→20:01)
[2022-08-18] MEDS: Cyanocobalamin (Vitamin B-12) 1,000 MCG TAB PO SCH (08:24)
[2022-08-18] MEDS: Polyethylene Glycol 3350 17 GM Packet PO SCH (08:24)
[2022-08-18] MEDS: Insulin Regular 300 UNITS/3 ML VIAL SC SCH ×3 (08:25→19:11)
[2022-08-18] MEDS: Insulin NPH Human Isophane 100 UNITS/ML (10 ML VIAL) SQ SCH (08:26)
[2022-08-18] MEDS: Acetaminophen 650 MG/20.3 ML UDCUP PO SCH ×3 (09:00→20:02)
[2022-08-18] MEDS ORDERED: Bumetanide 1 MG TAB PO SCH (09:00)
[2022-08-18] MEDS: AcetaZOLAMIDE 250 MG TAB PO SCH (11:17)
[2022-08-18] MEDS: Escitalopram Oxalate 10 mg Tablet PO SCH (20:03)
[2022-08-18] MEDS ORDERED: Sacubitril 49 MG/Valsartan 51 MG TABLET PO SCH (21:00)
[2022-08-19] MEDS: Morphine 2 MG/ML VIAL SLOW IVP PRN ×2 (00:41→05:39)
[2022-08-19] MEDS: traMADol HCl 50 MG TAB PO PRN ×2 (03:21→15:37)
[2022-08-19] MEDS: Acetaminophen 650 MG/20.3 ML UDCUP PO SCH ×4 (03:23→20:43)
[2022-08-19] MEDS: Milrinone Lactate/D5W 20 MG in Premix Bag 1 BAG IV SCH ×3 (04:16→23:25)
[2022-08-19 04:29] LABS: Anion Gap 13 mmol/L (10-20); BUN (Urea Nitrogen) 34 mg/dL (9.8-20.1); Calc. Creatinine Clearance 75 mL/min (70-130); Calcium 9.4 mg/dL (7.8-10.44); Carbon Dioxide 31 mmol/L (23-31); Chloride 100 mmol/L (98-107); Estimated GFR 54; Glucose 111 mg/dL (80-115); Potassium 4.5 mmol/L (3.5-5.1); Sodium 139 mmol/L (136-145)
[2022-08-19] MEDS ORDERED: Polyethylene Glycol 3350 17 GM Packet PO PRN (05:28)
[2022-08-19] MEDS ORDERED: Bumetanide 1 MG TAB PO SCH (09:00)
[2022-08-19] MEDS: Cholecalciferol 1,000 UNITS (25 MCG) TAB PO SCH (09:39)
[2022-08-19] MEDS: Potassium Chloride 20 MEQ TAB PO SCH ×2 (09:40→18:03)
[2022-08-19] MEDS: Carvedilol 6.25 MG TAB PO SCH ×2 (09:40→20:36)
[2022-08-19] MEDS: Allopurinol 100 MG TAB PO SCH (09:40)
[2022-08-19] MEDS: Sacubitril 24MG/Valsartan 26 MG TAB PO SCH ×2 (09:40→20:35)
[2022-08-19] MEDS: Magnesium Oxide 400 MG TAB PO SCH ×2 (09:41→20:35)
[2022-08-19] MEDS: Cyanocobalamin (Vitamin B-12) 1,000 MCG TAB PO SCH (09:41)
[2022-08-19] MEDS: Rosuvastatin 10 MG TAB PO SCH (09:41)
[2022-08-19] MEDS: predniSONE 5 MG TAB PO SCH (09:41)
[2022-08-19] MEDS: Rivaroxaban 10 MG TAB PO SCH (09:41)
[2022-08-19] MEDS: Empagliflozin 10 MG TAB PO SCH (09:41)
[2022-08-19] MEDS: VERICIGUAT 2.5 MG PO SCH (09:42)
[2022-08-19] MEDS: Liothyronine Sodium 25 MCG TAB PO SCH (09:42)
[2022-08-19] MEDS: AcetaZOLAMIDE 250 MG TAB PO SCH (09:42)
[2022-08-19] MEDS: Gabapentin 100 MG CAP PO SCH ×2 (09:43→20:35)
[2022-08-19] MEDS: Insulin Regular 300 UNITS/3 ML VIAL SC SCH ×3 (09:44→18:03)
[2022-08-19] MEDS: Insulin NPH Human Isophane 100 UNITS/ML (10 ML VIAL) SQ SCH (09:44)
[2022-08-19] MEDS: Escitalopram Oxalate 10 mg Tablet PO SCH (20:35)
[2022-08-20 03:18] LABS: #Eosinphils 0.2 thou/uL (0.0-0.7); #Monocytes 0.9 thou/uL (0.11-0.59); #Neutrophils 2.6 thou/uL (1.40-6.50); %Basophils 0.5 % (0.0-1.0); %Eosinophils 3.9 % (0.0-10.0); %Lymphocytes 32.9 % (21.0-51.0); %Monocytes 15.7 % (0.0-10.0); %Neutrophils 46.6 % (42.0-75.0); Hemoglobin 10.4 g/dL (12.0-16.0); Mean Corpuscular HGB CONC 29.8 g/dL (32.0-36.0); Mean Corpuscular Hemoglobin 25.3 pg (27.0-31.0); Mean Corpuscular Volume 84.9 fl (78.0-98.0); Mean Platelet Volume 9.1 fL (7.4-10.4); Platelet Count 204 10x3/uL (130-400); RBC Distribution Width 14.7 % (11.5-14.5); Red Blood Cell (RBC) Count 4.11 mill/uL (4.20-5.40); White Blood Cell (WBC) Count 5.6 10x3/uL (4.8-10.8)
[2022-08-20 04:09] LABS: Anion Gap 14 mmol/L (10-20); BUN (Urea Nitrogen) 37 mg/dL (9.8-20.1); Calc. Creatinine Clearance 76 mL/min (70-130); Calcium 9.3 mg/dL (7.8-10.44); Carbon Dioxide 27 mmol/L (23-31); Chloride 100 mmol/L (98-107); Estimated GFR 55; Glucose 132 mg/dL (80-115); Magnesium 2.5 mg/dL (1.6-2.6); Potassium 4.1 mmol/L (3.5-5.1); Sodium 137 mmol/L (136-145)
[2022-08-20] MEDS: Acetaminophen 650 MG/20.3 ML UDCUP PO SCH ×4 (04:14→21:18)
[2022-08-20] MEDS: Milrinone Lactate/D5W 20 MG in Premix Bag 1 BAG IV SCH ×2 (09:31→18:24)
[2022-08-20] MEDS: Cholecalciferol 1,000 UNITS (25 MCG) TAB PO SCH (09:32)
[2022-08-20] MEDS: Magnesium Oxide 400 MG TAB PO SCH ×2 (09:32→21:19)
[2022-08-20] MEDS: Carvedilol 6.25 MG TAB PO SCH ×2 (09:32→21:18)
[2022-08-20] MEDS: Sacubitril 24MG/Valsartan 26 MG TAB PO SCH ×2 (09:32→21:20)
[2022-08-20] MEDS: Rosuvastatin 10 MG TAB PO SCH (09:32)
[2022-08-20] MEDS: Ferrous Sulfate 325 MG TAB PO SCH (09:33)
[2022-08-20] MEDS: Allopurinol 100 MG TAB PO SCH (09:33)
[2022-08-20] MEDS: predniSONE 5 MG TAB PO SCH (09:33)
[2022-08-20] MEDS: Rivaroxaban 10 MG TAB PO SCH (09:33)
[2022-08-20] MEDS: Empagliflozin 10 MG TAB PO SCH (09:33)
[2022-08-20] MEDS: Cyanocobalamin (Vitamin B-12) 1,000 MCG TAB PO SCH (09:34)
[2022-08-20] MEDS: VERICIGUAT 2.5 MG PO SCH (09:34)
[2022-08-20] MEDS: Gabapentin 100 MG CAP PO SCH ×2 (09:34→21:19)
[2022-08-20] MEDS: Bumetanide 1 MG TAB PO SCH ×2 (09:34→16:32)
[2022-08-20] MEDS: Liothyronine Sodium 25 MCG TAB PO SCH (09:35)
[2022-08-20] MEDS: Insulin Regular 300 UNITS/3 ML VIAL SC SCH ×3 (09:35→18:28)
[2022-08-20] MEDS: Insulin NPH Human Isophane 100 UNITS/ML (10 ML VIAL) SQ SCH (09:35)
[2022-08-20] MEDS: Potassium Chloride 20 MEQ TAB PO SCH ×3 (11:07→16:32)
[2022-08-20] MEDS: traMADol HCl 50 MG TAB PO PRN ×2 (13:45→19:06)
[2022-08-20] MEDS: Escitalopram Oxalate 10 mg Tablet PO SCH (21:19)
[2022-08-21] MEDS: Milrinone Lactate/D5W 20 MG in Premix Bag 1 BAG IV SCH ×3 (01:00→18:18)
[2022-08-21] MEDS: Acetaminophen 650 MG/20.3 ML UDCUP PO SCH ×4 (03:11→20:14)
[2022-08-21 04:35] LABS: Anion Gap 13 mmol/L (10-20); BUN (Urea Nitrogen) 30 mg/dL (9.8-20.1); Calc. Creatinine Clearance 84 mL/min (70-130); Calcium 9.4 mg/dL (7.8-10.44); Carbon Dioxide 28 mmol/L (23-31); Chloride 103 mmol/L (98-107); Estimated GFR 62; Glucose 140 mg/dL (80-115); Magnesium 2.4 mg/dL (1.6-2.6); Potassium 3.8 mmol/L (3.5-5.1); Sodium 140 mmol/L (136-145)
[2022-08-21 05:00] VITALS: BMI 38.0
[2022-08-21] MEDS: Potassium Chloride 20 MEQ TAB PO SCH ×3 (09:01→17:34)
[2022-08-21] MEDS: Bumetanide 1 MG TAB PO SCH ×2 (09:01→13:00)
[2022-08-21] MEDS: VERICIGUAT 2.5 MG PO SCH (09:01)
[2022-08-21] MEDS: Rosuvastatin 10 MG TAB PO SCH (09:02)
[2022-08-21] MEDS: Magnesium Oxide 400 MG TAB PO SCH ×2 (09:02→20:16)
[2022-08-21] MEDS: Allopurinol 100 MG TAB PO SCH (09:02)
[2022-08-21] MEDS: Cyanocobalamin (Vitamin B-12) 1,000 MCG TAB PO SCH (09:02)
[2022-08-21] MEDS: Sacubitril 24MG/Valsartan 26 MG TAB PO SCH ×2 (09:02→20:15)
[2022-08-21] MEDS: Liothyronine Sodium 25 MCG TAB PO SCH (09:02)
[2022-08-21] MEDS: predniSONE 5 MG TAB PO SCH (09:02)
[2022-08-21] MEDS: Carvedilol 6.25 MG TAB PO SCH ×2 (09:03→20:16)
[2022-08-21] MEDS: Gabapentin 100 MG CAP PO SCH ×2 (09:03→20:16)
[2022-08-21] MEDS: Insulin NPH Human Isophane 100 UNITS/ML (10 ML VIAL) SQ SCH (09:04)
[2022-08-21] MEDS: Insulin Regular 300 UNITS/3 ML VIAL SC SCH ×3 (09:04→17:34)
[2022-08-21] MEDS: Empagliflozin 10 MG TAB PO SCH (09:04)
[2022-08-21] MEDS: Cholecalciferol 1,000 UNITS (25 MCG) TAB PO SCH (09:04)
[2022-08-21] MEDS: Rivaroxaban 10 MG TAB PO SCH (09:04)
[2022-08-21] MEDS: traMADol HCl 50 MG TAB PO PRN ×2 (12:48→20:15)
[2022-08-21] MEDS: Escitalopram Oxalate 10 mg Tablet PO SCH (20:16)
[2022-08-22] MEDS: Milrinone Lactate/D5W 20 MG in Premix Bag 1 BAG IV SCH ×3 (03:23→23:53)
[2022-08-22] MEDS: Acetaminophen 650 MG/20.3 ML UDCUP PO SCH ×4 (03:24→21:28)
[2022-08-22 04:11] LABS: #Eosinphils 0.2 thou/uL (0.0-0.7); #Monocytes 0.9 thou/uL (0.11-0.59); #Neutrophils 2.3 thou/uL (1.40-6.50); %Basophils 0.8 % (0.0-1.0); %Eosinophils 2.9 % (0.0-10.0); %Lymphocytes 34.9 % (21.0-51.0); %Monocytes 16.4 % (0.0-10.0); %Neutrophils 44.8 % (42.0-75.0); Hemoglobin 10.5 g/dL (12.0-16.0); Mean Corpuscular HGB CONC 30.3 g/dL (32.0-36.0); Mean Corpuscular Volume 82.6 fl (78.0-98.0); Mean Platelet Volume 9.2 fL (7.4-10.4); Platelet Count 210 10x3/uL (130-400); RBC Distribution Width 14.7 % (11.5-14.5); White Blood Cell (WBC) Count 5.2 10x3/uL (4.8-10.8)
[2022-08-22 04:34] LABS: Anion Gap 12 mmol/L (10-20); BUN (Urea Nitrogen) 30 mg/dL (9.8-20.1); Calc. Creatinine Clearance 76 mL/min (70-130); Calcium 9.7 mg/dL (7.8-10.44); Carbon Dioxide 31 mmol/L (23-31); Chloride 102 mmol/L (98-107); Estimated GFR 57; Glucose 164 mg/dL (80-115); Magnesium 2.3 mg/dL (1.6-2.6); Potassium 3.9 mmol/L (3.5-5.1); Sodium 141 mmol/L (136-145)
[2022-08-22] MEDS: Rosuvastatin 10 MG TAB PO SCH (09:26)
[2022-08-22] MEDS: Sacubitril 24MG/Valsartan 26 MG TAB PO SCH ×2 (09:26→21:30)
[2022-08-22] MEDS: Empagliflozin 10 MG TAB PO SCH (09:26)
[2022-08-22] MEDS: Magnesium Oxide 400 MG TAB PO SCH ×2 (09:26→21:30)
[2022-08-22] MEDS: Rivaroxaban 10 MG TAB PO SCH (09:26)
[2022-08-22] MEDS: predniSONE 5 MG TAB PO SCH (09:26)
[2022-08-22] MEDS: Ferrous Sulfate 325 MG TAB PO SCH (09:26)
[2022-08-22] MEDS: Carvedilol 6.25 MG TAB PO SCH ×2 (09:27→21:29)
[2022-08-22] MEDS: Cyanocobalamin (Vitamin B-12) 1,000 MCG TAB PO SCH (09:27)
[2022-08-22] MEDS: Potassium Chloride 20 MEQ TAB PO SCH ×3 (09:27→17:24)
[2022-08-22] MEDS: Allopurinol 100 MG TAB PO SCH (09:27)
[2022-08-22] MEDS: Cholecalciferol 1,000 UNITS (25 MCG) TAB PO SCH (09:27)
[2022-08-22] MEDS: Gabapentin 100 MG CAP PO SCH ×2 (09:28→21:30)
[2022-08-22] MEDS: Liothyronine Sodium 25 MCG TAB PO SCH (09:28)
[2022-08-22] MEDS: VERICIGUAT 2.5 MG PO SCH (09:28)
[2022-08-22] MEDS: Insulin Regular 300 UNITS/3 ML VIAL SC SCH ×3 (09:29→17:25)
[2022-08-22] MEDS: Insulin NPH Human Isophane 100 UNITS/ML (10 ML VIAL) SQ SCH (09:29)
[2022-08-22] MEDS: Bumetanide 1 MG TAB PO SCH ×2 (09:31→10:00)
[2022-08-22] MEDS ORDERED: Bumetanide 1 MG TAB PO SCH ×2 (16:00→21:00)
[2022-08-22] MEDS: traMADol HCl 50 MG TAB PO PRN (21:28)
[2022-08-22] MEDS: Escitalopram Oxalate 10 mg Tablet PO SCH (21:30)
[2022-08-23] MEDS: Acetaminophen 650 MG/20.3 ML UDCUP PO SCH ×5 (02:24→21:00)
[2022-08-23] MEDS: traMADol HCl 50 MG TAB PO PRN ×2 (03:34→23:12)
[2022-08-23 04:51] LABS: Anion Gap 14 mmol/L (10-20); BUN (Urea Nitrogen) 30 mg/dL (9.8-20.1); Calc. Creatinine Clearance 88 mL/min (70-130); Carbon Dioxide 30 mmol/L (23-31); Chloride 100 mmol/L (98-107); Estimated GFR 66; Glucose 109 mg/dL (80-115); Magnesium 2.1 mg/dL (1.6-2.6); Potassium 3.7 mmol/L (3.5-5.1); Sodium 140 mmol/L (136-145)
[2022-08-23] MEDS ORDERED: Bumetanide 1 MG TAB PO SCH ×3 (09:00→16:00)
[2022-08-23] MEDS ORDERED: Potassium Chloride 20 MEQ TAB PO SCH (09:15)
[2022-08-23] MEDS ORDERED: Sacubitril 49 MG/Valsartan 51 MG TABLET PO SCH (09:30)
[2022-08-23] MEDS: Insulin Regular 300 UNITS/3 ML VIAL SC SCH ×3 (10:01→17:55)
[2022-08-23] MEDS: VERICIGUAT 2.5 MG PO SCH (10:01)
[2022-08-23] MEDS: Cyanocobalamin (Vitamin B-12) 1,000 MCG TAB PO SCH (10:02)
[2022-08-23] MEDS: Carvedilol 6.25 MG TAB PO SCH ×2 (10:02→20:22)
[2022-08-23] MEDS: Potassium Chloride 20 MEQ TAB PO SCH ×3 (10:03→17:00)
[2022-08-23] MEDS: Cholecalciferol 1,000 UNITS (25 MCG) TAB PO SCH (10:04)
[2022-08-23] MEDS: Rosuvastatin 10 MG TAB PO SCH (10:04)
[2022-08-23] MEDS: Gabapentin 100 MG CAP PO SCH ×2 (10:05→20:23)
[2022-08-23] MEDS: Magnesium Oxide 400 MG TAB PO SCH ×2 (10:05→20:23)
[2022-08-23] MEDS: Rivaroxaban 10 MG TAB PO SCH (10:06)
[2022-08-23] MEDS: Empagliflozin 10 MG TAB PO SCH (10:06)
[2022-08-23] MEDS: Allopurinol 100 MG TAB PO SCH (10:06)
[2022-08-23] MEDS: predniSONE 5 MG TAB PO SCH (10:08)
[2022-08-23] MEDS: Insulin NPH Human Isophane 100 UNITS/ML (10 ML VIAL) SQ SCH (10:09)
[2022-08-23] MEDS: Liothyronine Sodium 25 MCG TAB PO SCH (10:15)
[2022-08-23] MEDS: Milrinone Lactate/D5W 20 MG in Premix Bag 1 BAG IV SCH ×2 (10:20→16:59)
[2022-08-23] MEDS: Bumetanide 1 MG TAB PO SCH (10:21)
[2022-08-23] MEDS: Sacubitril 24MG/Valsartan 26 MG TAB PO SCH (10:22)
[2022-08-23] MEDS: HumaLOG 300 UNITS/3 ML VIAL SC PRN (12:27)
[2022-08-23] MEDS: Escitalopram Oxalate 10 mg Tablet PO SCH (20:23)
[2022-08-23] MEDS: Sacubitril 49 MG/Valsartan 51 MG TABLET PO SCH (20:23)
[2022-08-24] MEDS: Milrinone Lactate/D5W 20 MG in Premix Bag 1 BAG IV SCH ×3 (01:20→21:30)
[2022-08-24] MEDS: Acetaminophen 650 MG/20.3 ML UDCUP PO SCH ×4 (03:58→21:31)
[2022-08-24 04:37] LABS: #Eosinphils 0.2 thou/uL (0.0-0.7); #Monocytes 0.9 thou/uL (0.11-0.59); #Neutrophils 2.8 thou/uL (1.40-6.50); %Basophils 0.5 % (0.0-1.0); %Eosinophils 2.8 % (0.0-10.0); %Lymphocytes 36.6 % (21.0-51.0); %Monocytes 15.1 % (0.0-10.0); %Neutrophils 44.7 % (42.0-75.0); Hemoglobin 11.1 g/dL (12.0-16.0); Mean Corpuscular HGB CONC 30.3 g/dL (32.0-36.0); Mean Corpuscular Hemoglobin 25.6 pg (27.0-31.0); Mean Corpuscular Volume 84.3 fl (78.0-98.0); Mean Platelet Volume 9.3 fL (7.4-10.4); Platelet Count 205 10x3/uL (130-400); RBC Distribution Width 14.9 % (11.5-14.5); Red Blood Cell (RBC) Count 4.34 mill/uL (4.20-5.40); White Blood Cell (WBC) Count 6.2 10x3/uL (4.8-10.8)
[2022-08-24 05:01] LABS: Anion Gap 12 mmol/L (10-20); BUN (Urea Nitrogen) 32 mg/dL (9.8-20.1); Calc. Creatinine Clearance 78 mL/min (70-130); Calcium 9.7 mg/dL (7.8-10.44); Carbon Dioxide 31 mmol/L (23-31); Chloride 102 mmol/L (98-107); Estimated GFR 58; Glucose 180 mg/dL (80-115); Magnesium 2.1 mg/dL (1.6-2.6); Potassium 4.1 mmol/L (3.5-5.1); Sodium 141 mmol/L (136-145)
[2022-08-24] MEDS: Liothyronine Sodium 25 MCG TAB PO SCH (06:09)
[2022-08-24] MEDS: Bumetanide 1 MG TAB PO SCH (06:09)
[2022-08-24] MEDS: traMADol HCl 50 MG TAB PO PRN ×3 (06:09→20:26)
[2022-08-24] MEDS: Ferrous Sulfate 325 MG TAB PO SCH (08:01)
[2022-08-24] MEDS: Potassium Chloride 20 MEQ TAB PO SCH ×3 (08:01→16:47)
[2022-08-24] MEDS: Cholecalciferol 1,000 UNITS (25 MCG) TAB PO SCH (08:02)
[2022-08-24] MEDS: Sacubitril 49 MG/Valsartan 51 MG TABLET PO SCH ×2 (08:03→20:17)
[2022-08-24] MEDS: Rosuvastatin 10 MG TAB PO SCH (08:03)
[2022-08-24] MEDS: Empagliflozin 10 MG TAB PO SCH (08:03)
[2022-08-24] MEDS: Carvedilol 6.25 MG TAB PO SCH ×2 (08:03→20:17)
[2022-08-24] MEDS: Gabapentin 100 MG CAP PO SCH ×2 (08:04→20:18)
[2022-08-24] MEDS: predniSONE 5 MG TAB PO SCH (08:04)
[2022-08-24] MEDS: Magnesium Oxide 400 MG TAB PO SCH ×2 (08:05→20:18)
[2022-08-24] MEDS: Allopurinol 100 MG TAB PO SCH (08:05)
[2022-08-24] MEDS: Rivaroxaban 10 MG TAB PO SCH (08:05)
[2022-08-24] MEDS: Cyanocobalamin (Vitamin B-12) 1,000 MCG TAB PO SCH (08:05)
[2022-08-24] MEDS: Insulin Regular 300 UNITS/3 ML VIAL SC SCH ×3 (08:06→16:48)
[2022-08-24] MEDS: Insulin NPH Human Isophane 100 UNITS/ML (10 ML VIAL) SQ SCH (08:09)
[2022-08-24] MEDS: VERICIGUAT 2.5 MG PO SCH (08:25)
[2022-08-24] MEDS ORDERED: Bumetanide 1 MG TAB PO SCH (14:00)
[2022-08-24] MEDS ORDERED: AcetaZOLAMIDE 250 MG TAB PO SCH (14:00)
[2022-08-24] MEDS: Escitalopram Oxalate 10 mg Tablet PO SCH (20:17)
[2022-08-24] MEDS: hydrOXYzine 10 MG TAB PO PRN (21:29)
[2022-08-25] MEDS: Acetaminophen 650 MG/20.3 ML UDCUP PO SCH ×4 (03:50→21:11)
[2022-08-25] MEDS: traMADol HCl 50 MG TAB PO PRN ×3 (03:52→23:41)
[2022-08-25 06:03] LABS: Anion Gap 15 mmol/L (10-20); BUN (Urea Nitrogen) 36 mg/dL (9.8-20.1); Calc. Creatinine Clearance 67 mL/min (70-130); Calcium 9.4 mg/dL (7.8-10.44); Carbon Dioxide 29 mmol/L (23-31); Chloride 100 mmol/L (98-107); Estimated GFR 48; Glucose 181 mg/dL (80-115); Magnesium 2.4 mg/dL (1.6-2.6); Potassium 4.1 mmol/L (3.5-5.1); Sodium 140 mmol/L (136-145)
[2022-08-25] MEDS: Bumetanide 1 MG TAB PO SCH (06:48)
[2022-08-25] MEDS: Liothyronine Sodium 25 MCG TAB PO SCH (06:48)
[2022-08-25] MEDS: Milrinone Lactate/D5W 20 MG in Premix Bag 1 BAG IV SCH ×3 (06:49→23:38)
[2022-08-25] MEDS: Insulin Regular 300 UNITS/3 ML VIAL SC SCH ×3 (09:17→17:30)
[2022-08-25] MEDS: Carvedilol 6.25 MG TAB PO SCH ×2 (09:19→21:08)
[2022-08-25] MEDS: Sacubitril 49 MG/Valsartan 51 MG TABLET PO SCH ×2 (09:19→21:08)
[2022-08-25] MEDS: Potassium Chloride 20 MEQ TAB PO SCH ×3 (09:20→16:41)
[2022-08-25] MEDS: predniSONE 5 MG TAB PO SCH (09:20)
[2022-08-25] MEDS: Gabapentin 100 MG CAP PO SCH ×2 (09:20→21:08)
[2022-08-25] MEDS: Allopurinol 100 MG TAB PO SCH (09:20)
[2022-08-25] MEDS: Magnesium Oxide 400 MG TAB PO SCH ×2 (09:21→21:08)
[2022-08-25] MEDS: VERICIGUAT 2.5 MG PO SCH (09:21)
[2022-08-25] MEDS: Cyanocobalamin (Vitamin B-12) 1,000 MCG TAB PO SCH (09:22)
[2022-08-25] MEDS: Cholecalciferol 1,000 UNITS (25 MCG) TAB PO SCH (09:22)
[2022-08-25] MEDS: Empagliflozin 10 MG TAB PO SCH (09:22)
[2022-08-25] MEDS: Rosuvastatin 10 MG TAB PO SCH (09:22)
[2022-08-25] MEDS: Insulin NPH Human Isophane 100 UNITS/ML (10 ML VIAL) SQ SCH (09:23)
[2022-08-25] MEDS ORDERED: Insulin NPH Human Isophane 100 UNITS/ML (10 ML VIAL) SC SCH (10:15)
[2022-08-25] MEDS: Rivaroxaban 15 MG TAB PO SCH (16:35)
[2022-08-25] MEDS: Escitalopram Oxalate 10 mg Tablet PO SCH (21:08)
[2022-08-26] MEDS: Acetaminophen 650 MG/20.3 ML UDCUP PO SCH ×4 (03:14→21:03)
[2022-08-26 05:00] LABS: #Basophils 0.1 thou/uL (0.0-0.2); #Eosinphils 0.3 thou/uL (0.0-0.7); #Monocytes 0.9 thou/uL (0.11-0.59); #Neutrophils 2.7 thou/uL (1.40-6.50); %Basophils 0.8 % (0.0-1.0); %Eosinophils 4.1 % (0.0-10.0); %Lymphocytes 38.2 % (21.0-51.0); %Monocytes 13.9 % (0.0-10.0); %Neutrophils 42.8 % (42.0-75.0); Hemoglobin 11.2 g/dL (12.0-16.0); Mean Corpuscular HGB CONC 29.9 g/dL (32.0-36.0); Mean Corpuscular Hemoglobin 25.6 pg (27.0-31.0); Mean Corpuscular Volume 85.8 fl (78.0-98.0); Mean Platelet Volume 9.5 fL (7.4-10.4); Platelet Count 222 10x3/uL (130-400); Red Blood Cell (RBC) Count 4.37 mill/uL (4.20-5.40); White Blood Cell (WBC) Count 6.4 10x3/uL (4.8-10.8)
[2022-08-26 05:23] LABS: Anion Gap 16 mmol/L (10-20); BUN (Urea Nitrogen) 40 mg/dL (9.8-20.1); Calc. Creatinine Clearance 68 mL/min (70-130); Calcium 9.3 mg/dL (7.8-10.44); Carbon Dioxide 25 mmol/L (23-31); Chloride 101 mmol/L (98-107); Estimated GFR 48; Glucose 164 mg/dL (80-115); Magnesium 2.6 mg/dL (1.6-2.6); Potassium 4.5 mmol/L (3.5-5.1); Sodium 137 mmol/L (136-145)
[2022-08-26] MEDS: traMADol HCl 50 MG TAB PO PRN ×2 (06:15→14:08)
[2022-08-26] MEDS: Bumetanide 1 MG TAB PO SCH ×2 (06:15→09:58)
[2022-08-26] MEDS: Liothyronine Sodium 25 MCG TAB PO SCH (06:15)
[2022-08-26] MEDS ORDERED: Insulin NPH Human Isophane 100 UNITS/ML (10 ML VIAL) SQ SCH (09:00)
[2022-08-26] MEDS: Milrinone Lactate/D5W 20 MG in Premix Bag 1 BAG IV SCH ×2 (09:52→20:10)
[2022-08-26] MEDS: Carvedilol 6.25 MG TAB PO SCH ×2 (09:54→21:02)
[2022-08-26] MEDS: Cholecalciferol 1,000 UNITS (25 MCG) TAB PO SCH (09:55)
[2022-08-26] MEDS: Allopurinol 100 MG TAB PO SCH (09:55)
[2022-08-26] MEDS: Magnesium Oxide 400 MG TAB PO SCH ×2 (09:56→21:03)
[2022-08-26] MEDS: Rosuvastatin 10 MG TAB PO SCH (09:56)
[2022-08-26] MEDS: Ferrous Sulfate 325 MG TAB PO SCH (09:56)
[2022-08-26] MEDS: predniSONE 5 MG TAB PO SCH (09:56)
[2022-08-26] MEDS: Potassium Chloride 20 MEQ TAB PO SCH ×3 (09:56→17:18)
[2022-08-26] MEDS: Cyanocobalamin (Vitamin B-12) 1,000 MCG TAB PO SCH (09:56)
[2022-08-26] MEDS: Empagliflozin 10 MG TAB PO SCH (09:56)
[2022-08-26] MEDS: Gabapentin 100 MG CAP PO SCH ×2 (09:56→21:02)
[2022-08-26] MEDS: VERICIGUAT 2.5 MG PO SCH (09:57)
[2022-08-26] MEDS: Insulin Regular 300 UNITS/3 ML VIAL SC SCH ×3 (10:07→17:18)
[2022-08-26] MEDS: Insulin NPH Human Isophane 100 UNITS/ML (10 ML VIAL) SQ SCH (10:08)
[2022-08-26] MEDS ORDERED: Bumetanide 1 MG TAB PO SCH (15:00)
[2022-08-26] MEDS: Rivaroxaban 15 MG TAB PO SCH (17:18)
[2022-08-26] MEDS: Sacubitril 24MG/Valsartan 26 MG TAB PO SCH (21:02)
[2022-08-26] MEDS: Escitalopram Oxalate 10 mg Tablet PO SCH (21:03)
[2022-08-27] MEDS: Milrinone Lactate/D5W 20 MG in Premix Bag 1 BAG IV SCH ×3 (02:14→20:38)
[2022-08-27] MEDS: Acetaminophen 650 MG/20.3 ML UDCUP PO SCH ×4 (03:48→21:27)
[2022-08-27] MEDS: traMADol HCl 50 MG TAB PO PRN ×2 (03:48→13:20)
[2022-08-27 05:39] LABS: Anion Gap 15 mmol/L (10-20); BUN (Urea Nitrogen) 42 mg/dL (9.8-20.1); Calc. Creatinine Clearance 63 mL/min (70-130); Calcium 9.2 mg/dL (7.8-10.44); Carbon Dioxide 26 mmol/L (23-31); Chloride 101 mmol/L (98-107); Estimated GFR 44; Glucose 190 mg/dL (80-115); Magnesium 2.7 mg/dL (1.6-2.6); Potassium 4.1 mmol/L (3.5-5.1); Sodium 138 mmol/L (136-145)
[2022-08-27] MEDS: Liothyronine Sodium 25 MCG TAB PO SCH (06:30)
[2022-08-27] MEDS: Cholecalciferol 1,000 UNITS (25 MCG) TAB PO SCH (07:43)
[2022-08-27] MEDS: Sacubitril 24MG/Valsartan 26 MG TAB PO SCH ×2 (07:44→21:29)
[2022-08-27] MEDS: Magnesium Oxide 400 MG TAB PO SCH ×2 (07:44→21:34)
[2022-08-27] MEDS: Potassium Chloride 20 MEQ TAB PO SCH ×3 (07:44→17:16)
[2022-08-27] MEDS: Cyanocobalamin (Vitamin B-12) 1,000 MCG TAB PO SCH (07:45)
[2022-08-27] MEDS: Gabapentin 100 MG CAP PO SCH ×2 (07:45→21:28)
[2022-08-27] MEDS: Rosuvastatin 10 MG TAB PO SCH (07:45)
[2022-08-27] MEDS: predniSONE 5 MG TAB PO SCH (07:45)
[2022-08-27] MEDS: Empagliflozin 10 MG TAB PO SCH (07:47)
[2022-08-27] MEDS: Carvedilol 6.25 MG TAB PO SCH ×2 (07:47→21:28)
[2022-08-27] MEDS: Allopurinol 100 MG TAB PO SCH (07:47)
[2022-08-27] MEDS: VERICIGUAT 2.5 MG PO SCH (07:48)
[2022-08-27] MEDS: Insulin Regular 300 UNITS/3 ML VIAL SC SCH ×3 (07:48→17:15)
[2022-08-27] MEDS: Insulin NPH Human Isophane 100 UNITS/ML (10 ML VIAL) SQ SCH (07:49)
[2022-08-27] MEDS: Rivaroxaban 15 MG TAB PO SCH (17:16)
[2022-08-27] MEDS: Escitalopram Oxalate 10 mg Tablet PO SCH (21:28)
[2022-08-28] MEDS ORDERED: hydrALAZINE 10 MG TAB PO SCH (00:45)
[2022-08-28] MEDS: hydrOXYzine 10 MG TAB PO PRN (00:54)
[2022-08-28] MEDS: Acetaminophen 650 MG/20.3 ML UDCUP PO SCH ×4 (03:55→21:53)
[2022-08-28] MEDS: traMADol HCl 50 MG TAB PO PRN ×3 (03:56→23:15)
[2022-08-28 04:41] LABS: #Basophils 0.1 thou/uL (0.0-0.2); #Eosinphils 0.2 thou/uL (0.0-0.7); #Monocytes 0.9 thou/uL (0.11-0.59); #Neutrophils 2.5 thou/uL (1.40-6.50); %Basophils 0.8 % (0.0-1.0); %Eosinophils 3.6 % (0.0-10.0); %Lymphocytes 39.5 % (21.0-51.0); %Monocytes 15.1 % (0.0-10.0); %Neutrophils 40.7 % (42.0-75.0); Hemoglobin 11.2 g/dL (12.0-16.0); Mean Corpuscular HGB CONC 30.9 g/dL (32.0-36.0); Mean Corpuscular Hemoglobin 26.3 pg (27.0-31.0); Platelet Count 216 10x3/uL (130-400); RBC Distribution Width 15.4 % (11.5-14.5); Red Blood Cell (RBC) Count 4.26 mill/uL (4.20-5.40); White Blood Cell (WBC) Count 6.2 10x3/uL (4.8-10.8)
[2022-08-28 05:10] LABS: Anion Gap 13 mmol/L (10-20); BUN (Urea Nitrogen) 32 mg/dL (9.8-20.1); Calc. Creatinine Clearance 83 mL/min (70-130); Calcium 9.7 mg/dL (7.8-10.44); Carbon Dioxide 27 mmol/L (23-31); Chloride 102 mmol/L (98-107); Estimated GFR 61; Glucose 117 mg/dL (80-115); Sodium 138 mmol/L (136-145)
[2022-08-28] MEDS: Milrinone Lactate/D5W 20 MG in Premix Bag 1 BAG IV SCH ×3 (05:36→16:46)
[2022-08-28] MEDS: Liothyronine Sodium 25 MCG TAB PO SCH (05:36)
[2022-08-28] MEDS: Cholecalciferol 1,000 UNITS (25 MCG) TAB PO SCH (08:16)
[2022-08-28] MEDS: Carvedilol 6.25 MG TAB PO SCH ×2 (08:16→21:54)
[2022-08-28] MEDS: Bumetanide 1 MG TAB PO SCH ×2 (08:16→16:48)
[2022-08-28] MEDS: VERICIGUAT 2.5 MG PO SCH (08:16)
[2022-08-28] MEDS: Sacubitril 24MG/Valsartan 26 MG TAB PO SCH ×2 (08:17→21:54)
[2022-08-28] MEDS: Cyanocobalamin (Vitamin B-12) 1,000 MCG TAB PO SCH (08:17)
[2022-08-28] MEDS: Allopurinol 100 MG TAB PO SCH (08:17)
[2022-08-28] MEDS: predniSONE 5 MG TAB PO SCH (08:17)
[2022-08-28] MEDS: Magnesium Oxide 400 MG TAB PO SCH ×2 (08:17→21:54)
[2022-08-28] MEDS: Gabapentin 100 MG CAP PO SCH ×2 (08:17→21:55)
[2022-08-28] MEDS: Rosuvastatin 10 MG TAB PO SCH (08:17)
[2022-08-28] MEDS: Empagliflozin 10 MG TAB PO SCH (08:18)
[2022-08-28] MEDS: Ferrous Sulfate 325 MG TAB PO SCH (08:18)
[2022-08-28] MEDS: Insulin Regular 300 UNITS/3 ML VIAL SC SCH ×3 (08:19→17:28)
[2022-08-28] MEDS: Insulin NPH Human Isophane 100 UNITS/ML (10 ML VIAL) SQ SCH (08:19)
[2022-08-28 08:50] LABS: Magnesium 2.4 mg/dL (1.6-2.6)
[2022-08-28] MEDS: Potassium Chloride 20 MEQ TAB PO SCH ×2 (10:19→12:40)
[2022-08-28] MEDS: Rivaroxaban 10 MG TAB PO SCH (16:45)
[2022-08-28] MEDS: Escitalopram Oxalate 10 mg Tablet PO SCH (21:54)
[2022-08-29] MEDS: Milrinone Lactate/D5W 20 MG in Premix Bag 1 BAG IV SCH ×3 (01:47→19:03)
[2022-08-29] MEDS: Acetaminophen 650 MG/20.3 ML UDCUP PO SCH ×4 (02:30→20:29)
[2022-08-29] MEDS: Ondansetron PF 4 MG/2 ML Vial IVP PRN (03:27)
[2022-08-29] MEDS ORDERED: Lidocaine 4% Patch TD SCH (04:00)
[2022-08-29 04:30] LABS: Anion Gap 15 mmol/L (10-20); BUN (Urea Nitrogen) 35 mg/dL (9.8-20.1); Calc. Creatinine Clearance 75 mL/min (70-130); Calcium 9.8 mg/dL (7.8-10.44); Carbon Dioxide 27 mmol/L (23-31); Chloride 101 mmol/L (98-107); Estimated GFR 54; Glucose 203 mg/dL (80-115); Magnesium 2.2 mg/dL (1.6-2.6); Sodium 139 mmol/L (136-145)
[2022-08-29] MEDS: Liothyronine Sodium 25 MCG TAB PO SCH (06:16)
[2022-08-29] MEDS: traMADol HCl 50 MG TAB PO PRN ×2 (06:21→23:17)
[2022-08-29] MEDS: Insulin NPH Human Isophane 100 UNITS/ML (10 ML VIAL) SQ SCH (08:49)
[2022-08-29] MEDS: Insulin Regular 300 UNITS/3 ML VIAL SC SCH ×3 (08:50→17:56)
[2022-08-29] MEDS: Sacubitril 24MG/Valsartan 26 MG TAB PO SCH ×2 (08:53→20:30)
[2022-08-29] MEDS: Cyanocobalamin (Vitamin B-12) 1,000 MCG TAB PO SCH (08:53)
[2022-08-29] MEDS: Rosuvastatin 10 MG TAB PO SCH (08:53)
[2022-08-29] MEDS: Magnesium Oxide 400 MG TAB PO SCH ×2 (08:53→20:30)
[2022-08-29] MEDS: Cholecalciferol 1,000 UNITS (25 MCG) TAB PO SCH (08:53)
[2022-08-29] MEDS: Potassium Chloride 20 MEQ TAB PO SCH ×3 (08:54→16:40)
[2022-08-29] MEDS: predniSONE 5 MG TAB PO SCH (08:54)
[2022-08-29] MEDS: Allopurinol 100 MG TAB PO SCH (08:54)
[2022-08-29] MEDS: Carvedilol 6.25 MG TAB PO SCH ×2 (08:54→20:30)
[2022-08-29] MEDS: Bumetanide 1 MG TAB PO SCH ×2 (08:55→16:42)
[2022-08-29] MEDS: Empagliflozin 10 MG TAB PO SCH (08:56)
[2022-08-29] MEDS: VERICIGUAT 2.5 MG PO SCH (08:56)
[2022-08-29] MEDS: Gabapentin 100 MG CAP PO SCH ×2 (09:04→20:30)
[2022-08-29] MEDS ORDERED: Transdermal Patch Removal TOP SCH (16:00)
[2022-08-29] MEDS: Rivaroxaban 10 MG TAB PO SCH (16:41)
[2022-08-29] MEDS: Escitalopram Oxalate 10 mg Tablet PO SCH (20:30)
[2022-08-30] MEDS: Acetaminophen 650 MG/20.3 ML UDCUP PO SCH ×4 (04:08→21:49)
[2022-08-30] MEDS: Milrinone Lactate/D5W 20 MG in Premix Bag 1 BAG IV SCH ×3 (04:08→21:49)
[2022-08-30 04:20] LABS: #Basophils 0.1 thou/uL (0.0-0.2); #Eosinphils 0.2 thou/uL (0.0-0.7); #Neutrophils 2.7 thou/uL (1.40-6.50); %Basophils 0.8 % (0.0-1.0); %Eosinophils 2.9 % (0.0-10.0); %Lymphocytes 36.7 % (21.0-51.0); %Monocytes 15.9 % (0.0-10.0); %Neutrophils 43.4 % (42.0-75.0); Hemoglobin 11.2 g/dL (12.0-16.0); Mean Corpuscular HGB CONC 29.4 g/dL (32.0-36.0); Mean Corpuscular Hemoglobin 25.2 pg (27.0-31.0); Mean Corpuscular Volume 85.8 fl (78.0-98.0); Mean Platelet Volume 9.7 fL (7.4-10.4); Platelet Count 206 10x3/uL (130-400); RBC Distribution Width 15.5 % (11.5-14.5); Red Blood Cell (RBC) Count 4.44 mill/uL (4.20-5.40); White Blood Cell (WBC) Count 6.3 10x3/uL (4.8-10.8)
[2022-08-30 04:39] LABS: Anion Gap 15 mmol/L (10-20); BUN (Urea Nitrogen) 43 mg/dL (9.8-20.1); Calc. Creatinine Clearance 65 mL/min (70-130); Calcium 9.7 mg/dL (7.8-10.44); Carbon Dioxide 30 mmol/L (23-31); Chloride 99 mmol/L (98-107); Estimated GFR 47; Glucose 119 mg/dL (80-115); Potassium 4.5 mmol/L (3.5-5.1); Sodium 139 mmol/L (136-145)
[2022-08-30] MEDS: Liothyronine Sodium 25 MCG TAB PO SCH (06:00)
[2022-08-30] MEDS: Potassium Chloride 20 MEQ TAB PO SCH ×4 (06:58→17:04)
[2022-08-30] MEDS: Insulin Regular 300 UNITS/3 ML VIAL SC SCH ×3 (08:44→17:05)
[2022-08-30] MEDS: Lidocaine 4% Patch TD SCH (08:45)
[2022-08-30] MEDS: predniSONE 5 MG TAB PO SCH (08:48)
[2022-08-30] MEDS: Allopurinol 100 MG TAB PO SCH (08:48)
[2022-08-30] MEDS: Carvedilol 6.25 MG TAB PO SCH ×2 (08:49→21:51)
[2022-08-30] MEDS: Cyanocobalamin (Vitamin B-12) 1,000 MCG TAB PO SCH (08:49)
[2022-08-30] MEDS: Ferrous Sulfate 325 MG TAB PO SCH (08:49)
[2022-08-30] MEDS: Empagliflozin 10 MG TAB PO SCH (08:49)
[2022-08-30] MEDS: Cholecalciferol 1,000 UNITS (25 MCG) TAB PO SCH (08:49)
[2022-08-30] MEDS: Gabapentin 100 MG CAP PO SCH ×2 (08:50→21:50)
[2022-08-30] MEDS: Magnesium Oxide 400 MG TAB PO SCH ×2 (08:51→21:51)
[2022-08-30] MEDS: Sacubitril 24MG/Valsartan 26 MG TAB PO SCH ×2 (08:51→21:50)
[2022-08-30] MEDS: Rosuvastatin 10 MG TAB PO SCH (08:51)
[2022-08-30] MEDS: Torsemide 20 MG TAB PO SCH (08:51)
[2022-08-30] MEDS: VERICIGUAT 2.5 MG PO SCH (08:52)
[2022-08-30] MEDS: Insulin NPH Human Isophane 100 UNITS/ML (10 ML VIAL) SQ SCH (08:56)
[2022-08-30] MEDS: traMADol HCl 50 MG TAB PO PRN (09:03)
[2022-08-30 14:23] LABS: Magnesium 2.1 mg/dL (1.6-2.6)
[2022-08-30] MEDS: Rivaroxaban 10 MG TAB PO SCH (17:04)
[2022-08-30] MEDS: Escitalopram Oxalate 10 mg Tablet PO SCH (21:51)
[2022-08-30] MEDS: Transdermal Patch Removal TOP SCH (22:02)
[2022-08-31] MEDS: Acetaminophen 325 MG TAB PO SCH ×4 (02:53→21:23)
[2022-08-31] MEDS: traMADol HCl 50 MG TAB PO PRN ×3 (03:42→21:23)
[2022-08-31] MEDS: Liothyronine Sodium 25 MCG TAB PO SCH (05:12)
[2022-08-31] MEDS: Milrinone Lactate/D5W 20 MG in Premix Bag 1 BAG IV SCH ×2 (05:52→15:13)
[2022-08-31 06:07] LABS: Anion Gap 13 mmol/L (10-20); BUN (Urea Nitrogen) 41 mg/dL (9.8-20.1); Calc. Creatinine Clearance 79 mL/min (70-130); Calcium 9.9 mg/dL (7.8-10.44); Carbon Dioxide 29 mmol/L (23-31); Chloride 98 mmol/L (98-107); Estimated GFR 57; Glucose 151 mg/dL (80-115); Magnesium 2.4 mg/dL (1.6-2.6); Potassium 4.6 mmol/L (3.5-5.1); Sodium 135 mmol/L (136-145)
[2022-08-31] MEDS: Insulin Regular 300 UNITS/3 ML VIAL SC SCH ×3 (08:08→17:44)
[2022-08-31] MEDS: VERICIGUAT 2.5 MG PO SCH (08:08)
[2022-08-31] MEDS: Cholecalciferol 1,000 UNITS (25 MCG) TAB PO SCH (08:08)
[2022-08-31] MEDS: Carvedilol 6.25 MG TAB PO SCH ×2 (08:09→21:24)
[2022-08-31] MEDS: Gabapentin 100 MG CAP PO SCH ×2 (08:10→21:22)
[2022-08-31] MEDS: Sacubitril 24MG/Valsartan 26 MG TAB PO SCH ×2 (08:10→21:23)
[2022-08-31] MEDS: Potassium Chloride 20 MEQ TAB PO SCH ×3 (08:10→17:45)
[2022-08-31] MEDS: Empagliflozin 10 MG TAB PO SCH (08:10)
[2022-08-31] MEDS: Cyanocobalamin (Vitamin B-12) 1,000 MCG TAB PO SCH (08:10)
[2022-08-31] MEDS: Allopurinol 100 MG TAB PO SCH (08:10)
[2022-08-31] MEDS: Magnesium Oxide 400 MG TAB PO SCH ×2 (08:11→21:24)
[2022-08-31] MEDS: Torsemide 20 MG TAB PO SCH (08:11)
[2022-08-31] MEDS: predniSONE 5 MG TAB PO SCH (08:11)
[2022-08-31] MEDS: Rosuvastatin 10 MG TAB PO SCH (08:12)
[2022-08-31] MEDS: Lidocaine 4% Patch TD SCH (08:12)
[2022-08-31] MEDS: Insulin NPH Human Isophane 100 UNITS/ML (10 ML VIAL) SQ SCH (08:18)
[2022-08-31] MEDS: Rivaroxaban 10 MG TAB PO SCH (17:45)
[2022-08-31] MEDS: Escitalopram Oxalate 10 mg Tablet PO SCH (21:24)
[2022-08-31] MEDS: Transdermal Patch Removal TOP SCH (21:25)
[2022-09-01] MEDS: Ondansetron PF 4 MG/2 ML Vial IVP PRN (00:27)
[2022-09-01] MEDS: Milrinone Lactate/D5W 20 MG in Premix Bag 1 BAG IV SCH ×3 (00:37→18:02)
[2022-09-01] MEDS: Acetaminophen 325 MG TAB PO SCH ×4 (03:51→21:03)
[2022-09-01 04:15] LABS: #Basophils 0.1 thou/uL (0.0-0.2); #Eosinphils 0.3 thou/uL (0.0-0.7); #Neutrophils 2.7 thou/uL (1.40-6.50); %Basophils 0.8 % (0.0-1.0); %Eosinophils 4.1 % (0.0-10.0); %Lymphocytes 37.6 % (21.0-51.0); %Monocytes 14.8 % (0.0-10.0); %Neutrophils 42.4 % (42.0-75.0); Hemoglobin 11.2 g/dL (12.0-16.0); Mean Corpuscular HGB CONC 29.9 g/dL (32.0-36.0); Mean Corpuscular Hemoglobin 25.5 pg (27.0-31.0); Mean Corpuscular Volume 85.4 fl (78.0-98.0); Mean Platelet Volume 10.2 fL (7.4-10.4); Platelet Count 205 10x3/uL (130-400); RBC Distribution Width 15.8 % (11.5-14.5); Red Blood Cell (RBC) Count 4.39 mill/uL (4.20-5.40); White Blood Cell (WBC) Count 6.4 10x3/uL (4.8-10.8)
[2022-09-01 04:44] LABS: Anion Gap 14 mmol/L (10-20); BUN (Urea Nitrogen) 45 mg/dL (9.8-20.1); Calc. Creatinine Clearance 35 mL/min (70-130); Calcium 9.6 mg/dL (7.8-10.44); Carbon Dioxide 30 mmol/L (23-31); Chloride 98 mmol/L (98-107); Estimated GFR 47; Glucose 142 mg/dL (80-115); Magnesium 2.5 mg/dL (1.6-2.6); Potassium 4.8 mmol/L (3.5-5.1); Sodium 137 mmol/L (136-145)
[2022-09-01] MEDS: Liothyronine Sodium 25 MCG TAB PO SCH (05:25)
[2022-09-01] MEDS: Potassium Chloride 20 MEQ TAB PO SCH (07:24)
[2022-09-01] MEDS: predniSONE 5 MG TAB PO SCH (07:24)
[2022-09-01] MEDS: Insulin Regular 300 UNITS/3 ML VIAL SC SCH ×3 (07:24→18:01)
[2022-09-01] MEDS: Insulin NPH Human Isophane 100 UNITS/ML (10 ML VIAL) SQ SCH (07:24)
[2022-09-01] MEDS: Lidocaine 4% Patch TD SCH (09:06)
[2022-09-01] MEDS: Cholecalciferol 1,000 UNITS (25 MCG) TAB PO SCH (09:06)
[2022-09-01] MEDS: Cyanocobalamin (Vitamin B-12) 1,000 MCG TAB PO SCH (09:07)
[2022-09-01] MEDS: Torsemide 20 MG TAB PO SCH (09:07)
[2022-09-01] MEDS: Sacubitril 24MG/Valsartan 26 MG TAB PO SCH ×2 (09:07→21:02)
[2022-09-01] MEDS: Allopurinol 100 MG TAB PO SCH (09:08)
[2022-09-01] MEDS: Rosuvastatin 10 MG TAB PO SCH (09:08)
[2022-09-01] MEDS: Gabapentin 100 MG CAP PO SCH ×2 (09:08→21:03)
[2022-09-01] MEDS: Carvedilol 6.25 MG TAB PO SCH ×2 (09:08→21:02)
[2022-09-01] MEDS: Magnesium Oxide 400 MG TAB PO SCH ×2 (09:08→21:04)
[2022-09-01] MEDS: Ferrous Sulfate 325 MG TAB PO SCH (09:09)
[2022-09-01] MEDS: Empagliflozin 10 MG TAB PO SCH (09:09)
[2022-09-01 11:18] LABS: Bacteria/HPF None Seen HPF (None Seen); RBC/HPF 0-3 HPF (0-3); Squamous Epithelial 0-3 HPF (0-3)
[2022-09-01] MEDS: VERICIGUAT 2.5 MG PO SCH (11:25)
[2022-09-01] MEDS: traMADol HCl 50 MG TAB PO PRN ×2 (11:51→21:04)
[2022-09-01] MEDS: Rivaroxaban 15 MG TAB PO SCH (18:01)
[2022-09-01] MEDS: Escitalopram Oxalate 10 mg Tablet PO SCH (21:04)
[2022-09-01] MEDS: Transdermal Patch Removal TOP SCH (21:05)
[2022-09-02] MEDS ORDERED: Lidocaine 4% Patch TD SCH (02:30)
[2022-09-02] MEDS: Acetaminophen 325 MG TAB PO SCH ×4 (02:34→20:36)
[2022-09-02] MEDS: Lidocaine 4% Patch TD SCH ×3 (02:34→08:38)
[2022-09-02] MEDS: Milrinone Lactate/D5W 20 MG in Premix Bag 1 BAG IV SCH ×2 (02:47→19:24)
[2022-09-02 05:10] LABS: Anion Gap 16 mmol/L (10-20); BUN (Urea Nitrogen) 51 mg/dL (9.8-20.1); Calc. Creatinine Clearance 55 mL/min (70-130); Calcium 9.6 mg/dL (7.8-10.44); Carbon Dioxide 28 mmol/L (23-31); Chloride 98 mmol/L (98-107); Estimated GFR 38; Glucose 157 mg/dL (80-115); Magnesium 2.6 mg/dL (1.6-2.6); Potassium 4.6 mmol/L (3.5-5.1); Sodium 137 mmol/L (136-145)
[2022-09-02] MEDS: Liothyronine Sodium 25 MCG TAB PO SCH (05:20)
[2022-09-02] MEDS: Gabapentin 100 MG CAP PO SCH ×2 (08:34→20:35)
[2022-09-02] MEDS: Carvedilol 6.25 MG TAB PO SCH ×2 (08:34→20:37)
[2022-09-02] MEDS: Magnesium Oxide 400 MG TAB PO SCH ×2 (08:35→20:34)
[2022-09-02] MEDS: Sacubitril 24MG/Valsartan 26 MG TAB PO SCH ×2 (08:35→20:34)
[2022-09-02] MEDS: Cyanocobalamin (Vitamin B-12) 1,000 MCG TAB PO SCH (08:35)
[2022-09-02] MEDS: Cholecalciferol 1,000 UNITS (25 MCG) TAB PO SCH (08:35)
[2022-09-02] MEDS: Empagliflozin 10 MG TAB PO SCH (08:35)
[2022-09-02] MEDS: Rosuvastatin 10 MG TAB PO SCH (08:35)
[2022-09-02] MEDS: Allopurinol 100 MG TAB PO SCH (08:35)
[2022-09-02] MEDS: predniSONE 5 MG TAB PO SCH (08:35)
[2022-09-02] MEDS: Insulin NPH Human Isophane 100 UNITS/ML (10 ML VIAL) SQ SCH (08:36)
[2022-09-02] MEDS: Insulin Regular 300 UNITS/3 ML VIAL SC SCH ×4 (08:36→17:55)
[2022-09-02] MEDS: VERICIGUAT 2.5 MG PO SCH (08:36)
[2022-09-02] MEDS ORDERED: DOBUTamine 500 mg/250 ml 250 ML IVPB SCH (10:00)
[2022-09-02 10:36] LABS: Actual Bicarbonate (HCO3a) 28.6 mEq/L (22-28); Base Excess (BEa) 1.9 mEq/L (-2.0 to +3.0); CO2 Tension 54.6 mmHg (35.0-45.0); Calcium, Ionized (arterial) 1.21 mmol/L (1.12-1.30); Carboxyhemoglobin (COHb) 0.7 gm% (0.0-3.0); Hematocrit-ABG 35 % (36.0-47.0); Hemoglobin (Hb) 11.9 g/dL (12.0-16.0); O2 Tension (PaO2), arterial 65.3 mmHg (> 80.0); Potassium - ABG Lab 4.48 mmol/L (3.70-5.30); pH, Arterial 7.337 (7.35-7.45)
[2022-09-02 10:37] LABS: Puncture Site RRA
[2022-09-02] MEDS ORDERED: Cosyntropin 250 MCG VIAL SLOW IVP SCH (11:00)
[2022-09-02] MEDS: traMADol HCl 50 MG TAB PO PRN ×2 (11:13→19:23)
[2022-09-02] MEDS: Transdermal Patch Removal TOP SCH ×2 (14:21→20:37)
[2022-09-02] MEDS ORDERED: methylPREDNISolone Sod Succ/PF 125 MG/2 ML VIAL IVP SCH (15:00)
[2022-09-02] MEDS: Rivaroxaban 15 MG TAB PO SCH (16:34)
[2022-09-02] MEDS: Escitalopram Oxalate 10 mg Tablet PO SCH (20:35)
[2022-09-03] MEDS: Acetaminophen 325 MG TAB PO SCH ×4 (04:36→21:08)
[2022-09-03] MEDS: Liothyronine Sodium 25 MCG TAB PO SCH (05:21)
[2022-09-03 05:44] LABS: Anion Gap 17 mmol/L (10-20); BUN (Urea Nitrogen) 35 mg/dL (9.8-20.1); Calc. Creatinine Clearance 88 mL/min (70-130); Calcium 10.2 mg/dL (7.8-10.44); Carbon Dioxide 27 mmol/L (23-31); Chloride 97 mmol/L (98-107); Estimated GFR 66; Glucose 279 mg/dL (80-115); Magnesium 2.4 mg/dL (1.6-2.6); Potassium 3.8 mmol/L (3.5-5.1); Sodium 137 mmol/L (136-145)
[2022-09-03] MEDS: HumaLOG 300 UNITS/3 ML VIAL SC PRN ×2 (05:45→21:45)
[2022-09-03] MEDS ORDERED: Hydrochlorothiazide 25 MG TAB PO SCH (08:45)
[2022-09-03] MEDS ORDERED: Potassium Chloride 20 MEQ TAB PO SCH (08:45)
[2022-09-03] MEDS ORDERED: methylPREDNISolone Sod Succ/PF 125 MG/2 ML VIAL IVP SCH (09:00)
[2022-09-03] MEDS: Lidocaine 4% Patch TD SCH (10:31)
[2022-09-03] MEDS: Insulin Regular 300 UNITS/3 ML VIAL SC SCH ×3 (10:32→18:02)
[2022-09-03] MEDS: traMADol HCl 50 MG TAB PO PRN (10:32)
[2022-09-03] MEDS: Insulin NPH Human Isophane 100 UNITS/ML (10 ML VIAL) SQ SCH (10:32)
[2022-09-03] MEDS: Sacubitril 24MG/Valsartan 26 MG TAB PO SCH ×2 (10:33→21:10)
[2022-09-03] MEDS: Cholecalciferol 1,000 UNITS (25 MCG) TAB PO SCH (10:33)
[2022-09-03] MEDS: Cyanocobalamin (Vitamin B-12) 1,000 MCG TAB PO SCH (10:34)
[2022-09-03] MEDS: Gabapentin 100 MG CAP PO SCH ×2 (10:34→21:09)
[2022-09-03] MEDS: predniSONE 5 MG TAB PO SCH (10:35)
[2022-09-03] MEDS: Magnesium Oxide 400 MG TAB PO SCH ×2 (10:35→21:08)
[2022-09-03] MEDS: Rosuvastatin 10 MG TAB PO SCH (10:35)
[2022-09-03] MEDS: Empagliflozin 10 MG TAB PO SCH (10:35)
[2022-09-03] MEDS: Ferrous Sulfate 325 MG TAB PO SCH (10:35)
[2022-09-03] MEDS: Carvedilol 6.25 MG TAB PO SCH ×2 (10:35→21:09)
[2022-09-03] MEDS: Allopurinol 100 MG TAB PO SCH (10:35)
[2022-09-03 12:35] LABS: ANA Symphony (Qualitative) Negative (Negative); ANA Symphony (Quantitative) 0.3 Ratio (< 0.7 Negative); Scleroderma-70 IgG Antibody 0.7 EliAU/mL (<7 Negative); dsDNA IgG Antibody 0.8 IU/mL (<10 Negative)
[2022-09-03] MEDS ORDERED: methylPREDNISolone Sod Succ 40 MG VIAL IVP SCH (15:00)
[2022-09-03] MEDS: Transdermal Patch Removal TOP SCH ×2 (15:24→21:10)
[2022-09-03] MEDS: Rivaroxaban 10 MG TAB PO SCH (18:02)
[2022-09-03] MEDS: Potassium Chloride 20 MEQ TAB PO SCH (18:02)
[2022-09-03] MEDS: Milrinone Lactate/D5W 20 MG in Premix Bag 1 BAG IV SCH (21:02)
[2022-09-03] MEDS: Escitalopram Oxalate 10 mg Tablet PO SCH (21:09)
[2022-09-03] MEDS: Ondansetron PF 4 MG/2 ML Vial IVP PRN (21:50)
[2022-09-04] MEDS: traMADol HCl 50 MG TAB PO PRN ×2 (00:19→21:11)
[2022-09-04] MEDS: Acetaminophen 325 MG TAB PO SCH ×4 (04:32→21:12)
[2022-09-04] MEDS: hydrOXYzine 10 MG TAB PO PRN (05:22)
[2022-09-04 05:24] LABS: Anion Gap 14 mmol/L (10-20); BUN (Urea Nitrogen) 37 mg/dL (9.8-20.1); Calc. Creatinine Clearance 74 mL/min (70-130); Calcium 10.5 mg/dL (7.8-10.44); Carbon Dioxide 30 mmol/L (23-31); Chloride 98 mmol/L (98-107); Estimated GFR 54; Glucose 274 mg/dL (80-115); Magnesium 2.5 mg/dL (1.6-2.6); Potassium 4.3 mmol/L (3.5-5.1); Sodium 138 mmol/L (136-145)
[2022-09-04] MEDS: HumaLOG 300 UNITS/3 ML VIAL SC PRN ×2 (05:48→21:33)
[2022-09-04] MEDS: Liothyronine Sodium 25 MCG TAB PO SCH (06:31)
[2022-09-04] MEDS: Milrinone Lactate/D5W 20 MG in Premix Bag 1 BAG IV SCH (08:59)
[2022-09-04] MEDS: Lidocaine 4% Patch TD SCH (09:02)
[2022-09-04] MEDS: Potassium Chloride 20 MEQ TAB PO SCH ×2 (09:03→16:29)
[2022-09-04] MEDS: Insulin Regular 300 UNITS/3 ML VIAL SC SCH ×3 (09:04→17:52)
[2022-09-04] MEDS: Insulin NPH Human Isophane 100 UNITS/ML (10 ML VIAL) SQ SCH (09:06)
[2022-09-04] MEDS: predniSONE 5 MG TAB PO SCH (09:07)
[2022-09-04] MEDS: Cholecalciferol 1,000 UNITS (25 MCG) TAB PO SCH (09:09)
[2022-09-04] MEDS: Carvedilol 6.25 MG TAB PO SCH ×2 (09:09→21:12)
[2022-09-04] MEDS: Allopurinol 100 MG TAB PO SCH (09:09)
[2022-09-04] MEDS: Gabapentin 100 MG CAP PO SCH ×2 (09:10→21:10)
[2022-09-04] MEDS: Cyanocobalamin (Vitamin B-12) 1,000 MCG TAB PO SCH (09:10)
[2022-09-04] MEDS: Empagliflozin 10 MG TAB PO SCH (09:10)
[2022-09-04] MEDS: Magnesium Oxide 400 MG TAB PO SCH ×2 (09:11→21:10)
[2022-09-04] MEDS: Hydrochlorothiazide 25 MG TAB PO SCH (09:11)
[2022-09-04] MEDS: Sacubitril 24MG/Valsartan 26 MG TAB PO SCH ×2 (09:12→21:10)
[2022-09-04] MEDS: Rosuvastatin 10 MG TAB PO SCH (09:12)
[2022-09-04] MEDS ORDERED: Hydrocortisone 10 mg Tablet PO SCH (09:45)
[2022-09-04] MEDS ORDERED: Milrinone Lactate/D5W 20 MG in Premix Bag 1 BAG IV SCH (09:45)
[2022-09-04] MEDS: DOBUTamine 500 mg/250 ml 250 ML IVPB SCH (10:30)
[2022-09-04] MEDS: Hydrocortisone 10 mg Tablet PO SCH (15:16)
[2022-09-04] MEDS: Rivaroxaban 10 MG TAB PO SCH (16:29)
[2022-09-04] MEDS: Escitalopram Oxalate 10 mg Tablet PO SCH (21:11)
[2022-09-04] MEDS: Transdermal Patch Removal TOP SCH (22:00)
[2022-09-05] MEDS: Acetaminophen 325 MG TAB PO SCH ×4 (03:57→21:26)
[2022-09-05 04:58] LABS: Anion Gap 13 mmol/L (10-20); BUN (Urea Nitrogen) 35 mg/dL (9.8-20.1); Calc. Creatinine Clearance 81 mL/min (70-130); Calcium 9.8 mg/dL (7.8-10.44); Carbon Dioxide 29 mmol/L (23-31); Chloride 102 mmol/L (98-107); Estimated GFR 60; Glucose 175 mg/dL (80-115); Magnesium 2.4 mg/dL (1.6-2.6); Potassium 4.3 mmol/L (3.5-5.1); Sodium 140 mmol/L (136-145)
[2022-09-05] MEDS: Liothyronine Sodium 25 MCG TAB PO SCH (06:13)
[2022-09-05] MEDS: traMADol HCl 50 MG TAB PO PRN (06:13)
[2022-09-05] MEDS: HumaLOG 300 UNITS/3 ML VIAL SC PRN (06:14)
[2022-09-05] MEDS: Empagliflozin 10 MG TAB PO SCH (08:37)
[2022-09-05] MEDS: Rosuvastatin 10 MG TAB PO SCH (08:38)
[2022-09-05] MEDS: Ferrous Sulfate 325 MG TAB PO SCH (08:39)
[2022-09-05] MEDS: Hydrocortisone 10 mg Tablet PO SCH ×2 (08:39→16:52)
[2022-09-05] MEDS: Gabapentin 100 MG CAP PO SCH ×2 (08:40→21:27)
[2022-09-05] MEDS: Magnesium Oxide 400 MG TAB PO SCH ×2 (08:40→21:27)
[2022-09-05] MEDS: Sacubitril 24MG/Valsartan 26 MG TAB PO SCH ×2 (08:40→21:25)
[2022-09-05] MEDS: Cholecalciferol 1,000 UNITS (25 MCG) TAB PO SCH (08:41)
[2022-09-05] MEDS: Allopurinol 100 MG TAB PO SCH (08:42)
[2022-09-05] MEDS: Hydrochlorothiazide 25 MG TAB PO SCH (08:42)
[2022-09-05] MEDS: Carvedilol 6.25 MG TAB PO SCH ×2 (08:42→21:25)
[2022-09-05] MEDS: Potassium Chloride 20 MEQ TAB PO SCH ×2 (08:43→16:52)
[2022-09-05] MEDS: Cyanocobalamin (Vitamin B-12) 1,000 MCG TAB PO SCH (08:43)
[2022-09-05] MEDS: Insulin NPH Human Isophane 100 UNITS/ML (10 ML VIAL) SQ SCH (10:22)
[2022-09-05] MEDS: Insulin Regular 300 UNITS/3 ML VIAL SC SCH ×3 (10:22→18:37)
[2022-09-05] MEDS ORDERED: Bumetanide 1 MG TAB PO SCH (11:00)
[2022-09-05] MEDS: Lidocaine 4% Patch TD SCH (12:28)
[2022-09-05] MEDS ORDERED: Hydrocortisone 10 mg Tablet PO SCH (15:00)
[2022-09-05] MEDS: Rivaroxaban 10 MG TAB PO SCH (16:52)
[2022-09-05] MEDS: DOBUTamine 500 mg/250 ml 250 ML IVPB SCH (21:24)
[2022-09-05] MEDS: Escitalopram Oxalate 10 mg Tablet PO SCH (21:27)
[2022-09-05] MEDS: Transdermal Patch Removal TOP SCH (21:28)
[2022-09-06] MEDS: Acetaminophen 325 MG TAB PO SCH ×4 (03:39→20:30)
[2022-09-06 05:31] LABS: Anion Gap 15 mmol/L (10-20); BUN (Urea Nitrogen) 32 mg/dL (9.8-20.1); Calc. Creatinine Clearance 78 mL/min (70-130); Calcium 9.3 mg/dL (7.8-10.44); Carbon Dioxide 31 mmol/L (23-31); Chloride 98 mmol/L (98-107); Estimated GFR 57; Glucose 212 mg/dL (80-115); Potassium 3.9 mmol/L (3.5-5.1); Sodium 140 mmol/L (136-145)
[2022-09-06] MEDS: Liothyronine Sodium 25 MCG TAB PO SCH (06:16)
[2022-09-06] MEDS ORDERED: Potassium Chloride 20 MEQ TAB PO SCH (09:30)
[2022-09-06] MEDS: Hydrocortisone 10 mg Tablet PO SCH ×2 (09:32→16:28)
[2022-09-06] MEDS: Gabapentin 100 MG CAP PO SCH ×2 (09:32→20:31)
[2022-09-06] MEDS: Hydrochlorothiazide 25 MG TAB PO SCH (09:33)
[2022-09-06] MEDS: Magnesium Oxide 400 MG TAB PO SCH ×2 (09:33→20:30)
[2022-09-06] MEDS: Allopurinol 100 MG TAB PO SCH (09:35)
[2022-09-06] MEDS: Carvedilol 6.25 MG TAB PO SCH ×2 (09:35→20:31)
[2022-09-06] MEDS: Cholecalciferol 1,000 UNITS (25 MCG) TAB PO SCH (09:35)
[2022-09-06] MEDS: Cyanocobalamin (Vitamin B-12) 1,000 MCG TAB PO SCH (09:35)
[2022-09-06] MEDS: Insulin Regular 300 UNITS/3 ML VIAL SC SCH ×3 (09:37→17:50)
[2022-09-06] MEDS: Rosuvastatin 10 MG TAB PO SCH (09:37)
[2022-09-06] MEDS: Empagliflozin 10 MG TAB PO SCH (09:37)
[2022-09-06] MEDS: VERICIGUAT 2.5 MG PO SCH (09:37)
[2022-09-06] MEDS: Sacubitril 24MG/Valsartan 26 MG TAB PO SCH ×2 (09:37→20:32)
[2022-09-06] MEDS: Insulin NPH Human Isophane 100 UNITS/ML (10 ML VIAL) SQ SCH (09:38)
[2022-09-06] MEDS: Lidocaine 4% Patch TD SCH (09:42)
[2022-09-06 10:03] LABS: Magnesium 2.3 mg/dL (1.6-2.6)
[2022-09-06] MEDS ORDERED: Bumetanide 1 MG TAB PO SCH (11:00)
[2022-09-06] MEDS: Potassium Chloride 20 MEQ TAB PO SCH ×2 (11:26→16:27)
[2022-09-06] MEDS: traMADol HCl 50 MG TAB PO PRN ×2 (12:10→20:31)
[2022-09-06] MEDS: Rivaroxaban 10 MG TAB PO SCH (16:28)
[2022-09-06] MEDS: Escitalopram Oxalate 10 mg Tablet PO SCH (20:31)
[2022-09-06] MEDS: Transdermal Patch Removal TOP SCH (20:32)
[2022-09-07] MEDS: Acetaminophen 325 MG TAB PO SCH ×4 (03:07→20:25)
[2022-09-07 05:36] LABS: Anion Gap 15 mmol/L (10-20); BUN (Urea Nitrogen) 26 mg/dL (9.8-20.1); Calc. Creatinine Clearance 95 mL/min (70-130); Calcium 9.2 mg/dL (7.8-10.44); Carbon Dioxide 31 mmol/L (23-31); Chloride 98 mmol/L (98-107); Estimated GFR 72; Glucose 126 mg/dL (80-115); Magnesium 2.3 mg/dL (1.6-2.6); Potassium 4.1 mmol/L (3.5-5.1); Sodium 140 mmol/L (136-145)
[2022-09-07] MEDS: traMADol HCl 50 MG TAB PO PRN ×2 (05:40→23:40)
[2022-09-07] MEDS: Liothyronine Sodium 25 MCG TAB PO SCH (05:40)
[2022-09-07] MEDS: Empagliflozin 10 MG TAB PO SCH (09:04)
[2022-09-07] MEDS: VERICIGUAT 2.5 MG PO SCH (09:04)
[2022-09-07] MEDS: Cyanocobalamin (Vitamin B-12) 1,000 MCG TAB PO SCH (09:04)
[2022-09-07] MEDS: Ferrous Sulfate 325 MG TAB PO SCH (09:04)
[2022-09-07] MEDS: Potassium Chloride 20 MEQ TAB PO SCH ×2 (09:05→16:57)
[2022-09-07] MEDS: Magnesium Oxide 400 MG TAB PO SCH ×2 (09:07→20:26)
[2022-09-07] MEDS: Gabapentin 100 MG CAP PO SCH ×2 (09:07→20:26)
[2022-09-07] MEDS: Cholecalciferol 1,000 UNITS (25 MCG) TAB PO SCH (09:07)
[2022-09-07] MEDS: Carvedilol 6.25 MG TAB PO SCH ×2 (09:08→20:27)
[2022-09-07] MEDS: Hydrochlorothiazide 25 MG TAB PO SCH (09:09)
[2022-09-07] MEDS: Hydrocortisone 10 mg Tablet PO SCH ×2 (09:09→20:27)
[2022-09-07] MEDS: Allopurinol 100 MG TAB PO SCH (09:09)
[2022-09-07] MEDS: Insulin Regular 300 UNITS/3 ML VIAL SC SCH ×3 (09:09→16:59)
[2022-09-07] MEDS: Sacubitril 24MG/Valsartan 26 MG TAB PO SCH ×2 (09:09→20:27)
[2022-09-07] MEDS: Rosuvastatin 10 MG TAB PO SCH (09:09)
[2022-09-07] MEDS: Insulin NPH Human Isophane 100 UNITS/ML (10 ML VIAL) SQ SCH (09:10)
[2022-09-07] MEDS ORDERED: Hydrocortisone 10 mg Tablet PO SCH (10:30)
[2022-09-07] MEDS ORDERED: Bumetanide 1 MG TAB PO SCH (11:00)
[2022-09-07] MEDS: Lidocaine 4% Patch TD SCH (16:03)
[2022-09-07] MEDS: Rivaroxaban 10 MG TAB PO SCH (16:56)
[2022-09-07] MEDS: Escitalopram Oxalate 10 mg Tablet PO SCH (20:27)
[2022-09-07] MEDS: Transdermal Patch Removal TOP SCH (23:39)
[2022-09-08] MEDS: Acetaminophen 325 MG TAB PO SCH ×4 (04:14→20:16)
[2022-09-08] MEDS: Hydrochlorothiazide 25 MG TAB PO SCH (05:22)
[2022-09-08] MEDS: Liothyronine Sodium 25 MCG TAB PO SCH (05:23)
[2022-09-08 05:27] LABS: Anion Gap 14 mmol/L (10-20); BUN (Urea Nitrogen) 25 mg/dL (9.8-20.1); Calc. Creatinine Clearance 91 mL/min (70-130); Calcium 9.6 mg/dL (7.8-10.44); Carbon Dioxide 32 mmol/L (23-31); Chloride 97 mmol/L (98-107); Estimated GFR 70; Glucose 148 mg/dL (80-115); Magnesium 2.4 mg/dL (1.6-2.6); Potassium 4.1 mmol/L (3.5-5.1); Sodium 139 mmol/L (136-145)
[2022-09-08] MEDS: Ondansetron PF 4 MG/2 ML Vial IVP PRN (06:11)
[2022-09-08] MEDS: Magnesium Oxide 400 MG TAB PO SCH ×2 (08:35→20:15)
[2022-09-08] MEDS: Hydrocortisone 10 mg Tablet PO SCH ×2 (08:35→20:15)
[2022-09-08] MEDS: Potassium Chloride 20 MEQ TAB PO SCH ×2 (08:35→16:30)
[2022-09-08] MEDS: Gabapentin 100 MG CAP PO SCH ×2 (08:36→20:15)
[2022-09-08] MEDS: Cholecalciferol 1,000 UNITS (25 MCG) TAB PO SCH (08:37)
[2022-09-08] MEDS: Allopurinol 100 MG TAB PO SCH (08:37)
[2022-09-08] MEDS: Lidocaine 4% Patch TD SCH (08:37)
[2022-09-08] MEDS: Carvedilol 6.25 MG TAB PO SCH ×2 (08:37→20:15)
[2022-09-08] MEDS: Sacubitril 24MG/Valsartan 26 MG TAB PO SCH ×2 (08:38→20:15)
[2022-09-08] MEDS: VERICIGUAT 2.5 MG PO SCH (08:38)
[2022-09-08] MEDS: Cyanocobalamin (Vitamin B-12) 1,000 MCG TAB PO SCH (08:38)
[2022-09-08] MEDS: Insulin Regular 300 UNITS/3 ML VIAL SC SCH ×3 (08:38→17:32)
[2022-09-08] MEDS: Rosuvastatin 10 MG TAB PO SCH (08:38)
[2022-09-08] MEDS: Insulin NPH Human Isophane 100 UNITS/ML (10 ML VIAL) SQ SCH (08:38)
[2022-09-08] MEDS: Empagliflozin 10 MG TAB PO SCH (08:38)
[2022-09-08] MEDS ORDERED: Famotidine 20 MG TAB PO SCH (09:00)
[2022-09-08 10:13] LABS: #Eosinphils 0.2 thou/uL (0.0-0.7); #Monocytes 0.7 thou/uL (0.11-0.59); %Basophils 0.6 % (0.0-1.0); %Eosinophils 2.8 % (0.0-10.0); %Lymphocytes 30.4 % (21.0-51.0); %Monocytes 10.4 % (0.0-10.0); %Neutrophils 55.5 % (42.0-75.0); Hemoglobin 12.4 g/dL (12.0-16.0); Mean Corpuscular HGB CONC 29.8 g/dL (32.0-36.0); Mean Corpuscular Hemoglobin 25.9 pg (27.0-31.0); Mean Corpuscular Volume 86.8 fl (78.0-98.0); Mean Platelet Volume 9.1 fL (7.4-10.4); Platelet Count 225 10x3/uL (130-400); Red Blood Cell (RBC) Count 4.79 mill/uL (4.20-5.40); White Blood Cell (WBC) Count 7.1 10x3/uL (4.8-10.8)
[2022-09-08] MEDS ORDERED: Bumetanide 1 MG TAB PO SCH ×2 (11:00)
[2022-09-08] MEDS ORDERED: Cyclobenzaprine 10 MG TAB PO SCH (12:45)
[2022-09-08] MEDS: Rivaroxaban 10 MG TAB PO SCH (16:31)
[2022-09-08] MEDS: traMADol HCl 50 MG TAB PO PRN (16:31)
[2022-09-08] MEDS: Escitalopram Oxalate 10 mg Tablet PO SCH (20:15)
[2022-09-08] MEDS: Famotidine 20 MG TAB PO SCH (20:15)
[2022-09-08] MEDS: Transdermal Patch Removal TOP SCH (20:16)
[2022-09-09] MEDS: traMADol HCl 50 MG TAB PO PRN ×2 (00:54→17:43)
[2022-09-09] MEDS: Ondansetron PF 4 MG/2 ML Vial IVP PRN (00:55)
[2022-09-09 05:20] LABS: Anion Gap 15 mmol/L (10-20); BUN (Urea Nitrogen) 32 mg/dL (9.8-20.1); Calc. Creatinine Clearance 64 mL/min (70-130); Calcium 9.5 mg/dL (7.8-10.44); Carbon Dioxide 34 mmol/L (23-31); Chloride 96 mmol/L (98-107); Estimated GFR 45; Glucose 178 mg/dL (80-115); Magnesium 2.4 mg/dL (1.6-2.6); Potassium 4.8 mmol/L (3.5-5.1); Sodium 140 mmol/L (136-145)
[2022-09-09] MEDS: Liothyronine Sodium 25 MCG TAB PO SCH (05:23)
[2022-09-09] MEDS: Acetaminophen 325 MG TAB PO SCH ×4 (05:23→21:58)
[2022-09-09] MEDS: Hydrochlorothiazide 25 MG TAB PO SCH (05:23)
[2022-09-09] MEDS: Potassium Chloride 20 MEQ TAB PO SCH (08:44)
[2022-09-09] MEDS: Cholecalciferol 1,000 UNITS (25 MCG) TAB PO SCH (08:50)
[2022-09-09] MEDS: Carvedilol 6.25 MG TAB PO SCH ×2 (08:50→21:58)
[2022-09-09] MEDS: Sacubitril 24MG/Valsartan 26 MG TAB PO SCH ×2 (08:50→21:59)
[2022-09-09] MEDS: Empagliflozin 10 MG TAB PO SCH (08:51)
[2022-09-09] MEDS: Gabapentin 100 MG CAP PO SCH ×2 (08:51→21:57)
[2022-09-09] MEDS: Hydrocortisone 10 mg Tablet PO SCH ×2 (08:51→21:57)
[2022-09-09] MEDS: Allopurinol 100 MG TAB PO SCH (08:52)
[2022-09-09] MEDS: Ferrous Sulfate 325 MG TAB PO SCH (08:52)
[2022-09-09] MEDS: Cyanocobalamin (Vitamin B-12) 1,000 MCG TAB PO SCH (08:52)
[2022-09-09] MEDS: Lidocaine 4% Patch TD SCH (08:54)
[2022-09-09] MEDS: Rosuvastatin 10 MG TAB PO SCH (08:54)
[2022-09-09] MEDS: Magnesium Oxide 400 MG TAB PO SCH ×2 (08:54→21:57)
[2022-09-09] MEDS: Famotidine 20 MG TAB PO SCH (08:54)
[2022-09-09] MEDS: VERICIGUAT 2.5 MG PO SCH (08:55)
[2022-09-09] MEDS: Insulin Regular 300 UNITS/3 ML VIAL SC SCH ×3 (08:55→17:41)
[2022-09-09] MEDS: Insulin NPH Human Isophane 100 UNITS/ML (10 ML VIAL) SQ SCH (08:55)
[2022-09-09] MEDS ORDERED: Cyclobenzaprine 10 MG TAB PO SCH (09:15)
[2022-09-09] MEDS ORDERED: Rivaroxaban 15 MG TAB PO SCH (17:00)
[2022-09-09] MEDS: HumaLOG 300 UNITS/3 ML VIAL SC PRN (17:42)
[2022-09-09 18:39] LABS: BUN (Urea Nitrogen) 34 mg/dL (9.8-20.1); Calc. Creatinine Clearance 70 mL/min (70-130); Calcium 9.3 mg/dL (7.8-10.44); Carbon Dioxide 28 mmol/L (23-31); Chloride 99 mmol/L (98-107); Estimated GFR 50; Glucose 204 mg/dL (80-115); Potassium 4.2 mmol/L (3.5-5.1); Sodium 140 mmol/L (136-145)
[2022-09-09 19:17] LABS: Anion Gap 17 mmol/L (10-20)
[2022-09-09] MEDS: Escitalopram Oxalate 10 mg Tablet PO SCH (22:00)
[2022-09-09] MEDS: Transdermal Patch Removal TOP SCH (22:00)
[2022-09-10] MEDS: Acetaminophen 325 MG TAB PO SCH ×3 (04:00→15:20)
[2022-09-10] MEDS: traMADol HCl 50 MG TAB PO PRN (04:04)
[2022-09-10 05:27] LABS: Chloride 96 mmol/L (98-107); Potassium 4.3 mmol/L (3.5-5.1); Sodium 139 mmol/L (136-145)
[2022-09-10 05:42] LABS: Anion Gap 14 mmol/L (10-20); Calcium 9.9 mg/dL (7.8-10.44); Carbon Dioxide 33 mmol/L (23-31); Glucose 152 mg/dL (80-115)
[2022-09-10] MEDS: Hydrochlorothiazide 25 MG TAB PO SCH (06:13)
[2022-09-10] MEDS: Liothyronine Sodium 25 MCG TAB PO SCH (06:13)
[2022-09-10 06:28] LABS: BUN (Urea Nitrogen) 33 mg/dL (9.8-20.1); Calc. Creatinine Clearance 80 mL/min (70-130); Estimated GFR 58; Magnesium 2.6 mg/dL (1.6-2.6)
[2022-09-10] MEDS: Ondansetron PF 4 MG/2 ML Vial IVP PRN (06:49)
[2022-09-10] MEDS: Insulin Regular 300 UNITS/3 ML VIAL SC SCH ×3 (07:50→18:06)
[2022-09-10] MEDS: Insulin NPH Human Isophane 100 UNITS/ML (10 ML VIAL) SQ SCH (07:51)
[2022-09-10] MEDS: Magnesium Oxide 400 MG TAB PO SCH (08:52)
[2022-09-10] MEDS: Sacubitril 24MG/Valsartan 26 MG TAB PO SCH (08:52)
[2022-09-10] MEDS: Cholecalciferol 1,000 UNITS (25 MCG) TAB PO SCH (08:52)
[2022-09-10] MEDS: Rosuvastatin 10 MG TAB PO SCH (08:52)
[2022-09-10] MEDS: Hydrocortisone 10 mg Tablet PO SCH (08:52)
[2022-09-10] MEDS: Gabapentin 100 MG CAP PO SCH (08:52)
[2022-09-10] MEDS: Cyanocobalamin (Vitamin B-12) 1,000 MCG TAB PO SCH (08:53)
[2022-09-10] MEDS: Lidocaine 4% Patch TD SCH (08:53)
[2022-09-10] MEDS: Allopurinol 100 MG TAB PO SCH (08:54)
[2022-09-10] MEDS: Carvedilol 6.25 MG TAB PO SCH (08:54)
[2022-09-10 08:55] VITALS: BP 119/86
[2022-09-10] MEDS ORDERED: Famotidine 20 MG TAB PO SCH (09:00)
[2022-09-10] MEDS: Empagliflozin 10 MG TAB PO SCH (09:58)
[2022-09-10] MEDS: VERICIGUAT 2.5 MG PO SCH (09:58)
[2022-09-10] MEDS ORDERED: Doxycycline 100 MG CAP PO SCH ×2 (11:00→21:00)
[2022-09-10 11:52] VITALS: TEMP 97.2
[2022-09-10] MEDS ORDERED: Rivaroxaban 10 MG TAB PO SCH (17:00)
== END 2022-09-10 18:31 | disposition home or self-care (01) | DRG 291 ==
LOC: ERS 13:59 → IMCU/EMU 17:29 → 2NO 08-22 15:07
PROVIDERS: ADMIT Family Medicine; ATTEND Family Medicine
PROC: 5A09357 Assistance with Respiratory Ventilation, Less than 24 Consecutive Hours, Continuous Positive Airway Pressure (ICD-10-PCS; 2022-08-17)
PROC: 4A033R1 Measurement of Arterial Saturation, Peripheral, Percutaneous Approach (ICD-10-PCS; principal; 2022-09-02)
DX: I13.0 Hypertensive heart and chronic kidney disease with heart failure and stage 1 through stage 4 chronic kidney disease, or unspecified chronic kidney disease (principal); I50.43 Acute on chronic combined systolic (congestive) and diastolic (congestive) heart failure; J96.21 Acute and chronic respiratory failure with hypoxia; J96.22 Acute and chronic respiratory failure with hypercapnia; N17.9 Acute kidney failure, unspecified; L03.115 Cellulitis of right lower limb; L03.116 Cellulitis of left lower limb; E87.3 Alkalosis; E27.40 Unspecified adrenocortical insufficiency; E87.20 Acidosis, unspecified; E11.22 Type 2 diabetes mellitus with diabetic chronic kidney disease; I48.0 Paroxysmal atrial fibrillation; M10.9 Gout, unspecified; E78.5 Hyperlipidemia, unspecified; E66.01 Morbid (severe) obesity due to excess calories; N18.2 Chronic kidney disease, stage 2 (mild); D63.1 Anemia in chronic kidney disease; I49.5 Sick sinus syndrome; E11.42 Type 2 diabetes mellitus with diabetic polyneuropathy; F32.9 Major depressive disorder, single episode, unspecified; E03.9 Hypothyroidism, unspecified; J45.909 Unspecified asthma, uncomplicated; F41.9 Anxiety disorder, unspecified; G43.909 Migraine, unspecified, not intractable, without status migrainosus; K21.9 Gastro-esophageal reflux disease without esophagitis; E78.00 Pure hypercholesterolemia, unspecified; I27.20 Pulmonary hypertension, unspecified; I42.8 Other cardiomyopathies; M19.90 Unspecified osteoarthritis, unspecified site; Z60.2 Problems related to living alone; I44.0 Atrioventricular block, first degree; G47.33 Obstructive sleep apnea (adult) (pediatric); I50.82 Biventricular heart failure; I49.3 Ventricular premature depolarization; R53.81 Other malaise; F43.10 Post-traumatic stress disorder, unspecified; Z90.89 Acquired absence of other organs; Z88.1 Allergy status to other antibiotic agents; Z87.01 Personal history of pneumonia (recurrent); Z88.8 Allergy status to other drugs, medicaments and biological substances; Z88.6 Allergy status to analgesic agent; Z88.0 Allergy status to penicillin; Z91.018 Allergy to other foods; Z79.899 Other long term (current) drug therapy; Z79.52 Long term (current) use of systemic steroids; Z79.4 Long term (current) use of insulin; Z79.01 Long term (current) use of anticoagulants; Z82.49 Family history of ischemic heart disease and other diseases of the circulatory system; Z87.891 Personal history of nicotine dependence; Z80.9 Family history of malignant neoplasm, unspecified; Z68.39 Body mass index [BMI] 39.0-39.9, adult; E11.65 Type 2 diabetes mellitus with hyperglycemia; I08.1 Rheumatic disorders of both mitral and tricuspid valves; I87.2 Venous insufficiency (chronic) (peripheral)
CPT/HCPCS: 36415; 36416; 36600; 71045; 71250; 80048; 80053; 80061; 80400; 81015; 82533; 82550; 82728; 82805; 83540; 83550; 83605; 83735; 83880; 84100; 84145; 84443; 84484; 84550; 85025; 85046; 86038; 86060; 86140; 86225; 86235; 87040; 87086; 93005; 93010; 94660; 94760; 96374; 97139; J0834; J1250; J1815; J1940; J2260; J2272; J2405; J2920; J2930; J3490; J7512

== ENCOUNTER 2022-10-03 17:30 | Inpatient (IN) | payer MEDICARE, OTHER ==
[2022-10-03 18:31] LABS: Bacteria/HPF None Seen HPF (None Seen); Bilirubin Negative (Negative); Blood, Urine Negative (Negative); CAUTI Indications for Culture Dysuria,urgency,freq; Clarity Clear (Clear); Glucose, Urine (Dipstick) Greater than 1000 mg/dL (Negative); Ketone, Urine Negative (Negative); Leukocyte Negative Leu/uL (Negative); Nitrite Negative (Negative); Protein, Urine (Dipstick) 10 mg/dL (Neg-Trace); RBC/HPF 0-3 HPF (0-3); Squamous Epithelial 0-3 HPF (0-3); Urobilinogen Normal mg/dL (Less than 2); WBC/HPF None Seen HPF (0-3); pH, Urine 6.5 (5.0-9.0)
[2022-10-03 18:32] LABS: Urine Culture Reflex No No
[2022-10-03 18:37] LABS: #Monocytes 0.5 thou/uL (0.11-0.59); #Neutrophils 7.1 thou/uL (1.40-6.50); %Basophils 0.3 % (0.0-1.0); %Eosinophils 0.1 % (0.0-10.0); %Lymphocytes 12.3 % (21.0-51.0); %Monocytes 5.2 % (0.0-10.0); %Neutrophils 81.6 % (42.0-75.0); Hematocrit 38.5 % (36.0-47.0); Hemoglobin 11.9 g/dL (12.0-16.0); Mean Corpuscular HGB CONC 30.9 g/dL (32.0-36.0); Mean Corpuscular Hemoglobin 26.4 pg (27.0-31.0); Mean Corpuscular Volume 85.4 fl (78.0-98.0); Mean Platelet Volume 9.6 fL (7.4-10.4); Platelet Count 254 10x3/uL (130-400); RBC Distribution Width 15.7 % (11.5-14.5); Red Blood Cell (RBC) Count 4.51 mill/uL (4.20-5.40); White Blood Cell (WBC) Count 8.6 10x3/uL (4.8-10.8)
[2022-10-03] MEDS ORDERED: Cefepime 1 GM VIAL ONE (18:44)
[2022-10-03 19:03] LABS: ALT (SGPT) 21 U/L (8-55); AST (SGOT) 25 U/L (5-34); Alkaline Phosphatase 102 U/L (40-110); Anion Gap 18 mmol/L (10-20); BUN (Urea Nitrogen) 43 mg/dL (9.8-20.1); Bilirubin, Total 0.4 mg/dL (0.2-1.2); Calc. Creatinine Clearance 0 mL/min (70-130); Calcium 9.6 mg/dL (7.8-10.44); Carbon Dioxide 30 mmol/L (23-31); Chloride 96 mmol/L (98-107); Estimated GFR 45; Globulin 3.4 g/dL (2.4-3.5); Glucose 187 mg/dL (80-115); Potassium 3.8 mmol/L (3.5-5.1); Protein, Total 7.4 g/dL (5.8-8.1); Sodium 140 mmol/L (136-145)
[2022-10-03] MEDS ORDERED: Vancomycin 1 GM/200 ML (FROZEN) BAG ONE (19:29)
[2022-10-03] MEDS ORDERED: Glucagon 1 MG/ML KIT IM PRN (21:08)
[2022-10-03] MEDS ORDERED: Dextrose 5% in Water 1,000 ML IV PRN (21:08)
[2022-10-03] MEDS ORDERED: Dextrose 50% Abboject 50 ML SYRINGE SLOW IVP PRN (21:08)
[2022-10-03] MEDS ORDERED: HumaLOG 300 UNITS/3 ML VIAL SC PRN ×2 (21:11)
[2022-10-03] MEDS ORDERED: hydrOXYzine 10 MG TAB PO PRN (21:40)
[2022-10-03] MEDS ORDERED: SUMAtriptan Succinate 50 MG TAB PO PRN (22:09)
[2022-10-03] MEDS ORDERED: Fluticasone Propionate Nasal Spray 16 gm Bottle NASAL PRN (22:20)
[2022-10-03 22:26] VITALS: BMI 42.0
[2022-10-03] MEDS ORDERED: Silver Sulfadiazine 50 GM TUBE TOP PRN (23:18)
[2022-10-04] MEDS: traMADol HCl 50 MG TAB PO PRN ×4 (01:59→16:51)
[2022-10-04] MEDS ORDERED: Bumetanide 1 MG TAB PO SCH ×3 (04:00→12:00)
[2022-10-04 05:05] LABS: #Eosinphils 0.1 thou/uL (0.0-0.7); #Monocytes 1.3 thou/uL (0.11-0.59); #Neutrophils 5.4 thou/uL (1.40-6.50); %Basophils 0.3 % (0.0-1.0); %Eosinophils 1.1 % (0.0-10.0); %Lymphocytes 26.2 % (21.0-51.0); %Neutrophils 58.2 % (42.0-75.0); Hemoglobin 11.4 g/dL (12.0-16.0); Mean Corpuscular Hemoglobin 26.2 pg (27.0-31.0); Mean Corpuscular Volume 87.4 fl (78.0-98.0); Mean Platelet Volume 9.3 fL (7.4-10.4); Platelet Count 232 10x3/uL (130-400); RBC Distribution Width 15.5 % (11.5-14.5); Red Blood Cell (RBC) Count 4.35 mill/uL (4.20-5.40); White Blood Cell (WBC) Count 9.3 10x3/uL (4.8-10.8)
[2022-10-04 05:30] LABS: ALT (SGPT) 18 U/L (8-55); AST (SGOT) 19 U/L (5-34); Albumin 3.7 g/dL (3.4-4.8); Alkaline Phosphatase 95 U/L (40-110); Anion Gap 10 mmol/L (10-20); BUN (Urea Nitrogen) 36 mg/dL (9.8-20.1); Bilirubin, Total 0.5 mg/dL (0.2-1.2); Calc. Creatinine Clearance 85 mL/min (70-130); Calcium 9.7 mg/dL (7.8-10.44); Carbon Dioxide 35 mmol/L (23-31); Chloride 98 mmol/L (98-107); Estimated GFR 57; Globulin 3.3 g/dL (2.4-3.5); Glucose 154 mg/dL (80-115); Potassium 3.2 mmol/L (3.5-5.1); Sodium 140 mmol/L (136-145)
[2022-10-04] MEDS ORDERED: Acetaminophen 650 MG/20.3 ML UDCUP PO SCH ×2 (05:30→09:00)
[2022-10-04] MEDS: Liothyronine Sodium 25 MCG TAB PO SCH (05:30)
[2022-10-04] MEDS ORDERED: Hydrochlorothiazide 25 MG TAB PO SCH ×2 (06:00→10:00)
[2022-10-04] MEDS: Magnesium Oxide 250 MG TAB PO SCH (08:39)
[2022-10-04] MEDS: Hydrocortisone 10 mg Tablet PO SCH ×3 (08:39→16:51)
[2022-10-04] MEDS: Carvedilol 6.25 MG TAB PO SCH ×2 (08:40→20:41)
[2022-10-04] MEDS: Sacubitril 24MG/Valsartan 26 MG TAB PO SCH ×2 (08:40→20:41)
[2022-10-04] MEDS: Cyanocobalamin (Vitamin B-12) 1,000 MCG TAB PO SCH (08:41)
[2022-10-04] MEDS: Gabapentin 300 MG CAP PO SCH ×3 (08:41→16:50)
[2022-10-04] MEDS: Cholecalciferol 1,000 UNITS (25 MCG) TAB PO SCH (08:42)
[2022-10-04] MEDS: Famotidine 20 MG TAB PO SCH (08:42)
[2022-10-04] MEDS: Floranex 1 GM Packet PO SCH (08:43)
[2022-10-04] MEDS: Empagliflozin 10 MG TAB PO SCH (08:43)
[2022-10-04] MEDS: Loratadine 10 MG TAB PO SCH (08:43)
[2022-10-04] MEDS: Insulin NPH Human Isophane 100 UNITS/ML (10 ML VIAL) SQ SCH (08:44)
[2022-10-04] MEDS: Insulin Regular 300 UNITS/3 ML VIAL SC SCH ×4 (08:45→18:56)
[2022-10-04] MEDS: Cefepime 2 GM in Sodium Chloride 0.9% 100 ML IVPB SCH ×2 (08:45→20:45)
[2022-10-04] MEDS ORDERED: Vancomycin HCl 1.5 GM in Sodium Chloride 0.9% 250 ML 250 ML IVPB SCH (09:00)
[2022-10-04] MEDS ORDERED: Rivaroxaban 10 MG TAB PO SCH (09:00)
[2022-10-04] MEDS ORDERED: BIOTIN 5000 MCG PO SCH (09:00)
[2022-10-04] MEDS ORDERED: VITAMIN A PO SCH (09:00)
[2022-10-04] MEDS ORDERED: Ketorolac Tromethamine 30 MG/ML VIAL IVP PRN (09:58)
[2022-10-04] MEDS ORDERED: Potassium Chloride 20 MEQ TAB PO SCH (10:00)
[2022-10-04] MEDS: VANCOMYCIN 1.75 GM/500 ML BAG 1.75 GM in Premix Bag 1 BAG IVPB SCH (10:29)
[2022-10-04] MEDS: Potassium Chloride 20 MEQ TAB PO SCH ×2 (10:31→16:50)
[2022-10-04] MEDS: Acetaminophen 325 MG TAB PO PRN ×2 (10:40→16:53)
[2022-10-04] MEDS: Bumetanide 1 MG TAB PO SCH (15:36)
[2022-10-04] MEDS: Rosuvastatin 10 MG TAB PO SCH (20:41)
[2022-10-04] MEDS: Escitalopram Oxalate 10 mg Tablet PO SCH (20:41)
[2022-10-04] MEDS: Acetaminophen 650 MG/20.3 ML UDCUP PO SCH (20:45)
[2022-10-04] MEDS ORDERED: Gabapentin 100 MG CAP PO SCH (21:00)
[2022-10-05] MEDS: traMADol HCl 50 MG TAB PO PRN ×2 (03:56→15:33)
[2022-10-05] MEDS: Acetaminophen 325 MG TAB PO PRN ×2 (03:57→15:30)
[2022-10-05] MEDS: Liothyronine Sodium 25 MCG TAB PO SCH (05:35)
[2022-10-05] MEDS: Hydrochlorothiazide 25 MG TAB PO SCH (05:37)
[2022-10-05 06:01] LABS: #Basophils 0.1 thou/uL (0.0-0.2); #Eosinphils 0.3 thou/uL (0.0-0.7); #Monocytes 1.3 thou/uL (0.11-0.59); #Neutrophils 3.7 thou/uL (1.40-6.50); %Basophils 0.7 % (0.0-1.0); %Lymphocytes 37.8 % (21.0-51.0); %Monocytes 15.1 % (0.0-10.0); %Neutrophils 43.1 % (42.0-75.0); Hematocrit 41.1 % (36.0-47.0); Mean Corpuscular HGB CONC 29.2 g/dL (32.0-36.0); Mean Platelet Volume 9.8 fL (7.4-10.4); Platelet Count 265 10x3/uL (130-400); RBC Distribution Width 15.8 % (11.5-14.5); Red Blood Cell (RBC) Count 4.62 mill/uL (4.20-5.40); White Blood Cell (WBC) Count 8.7 10x3/uL (4.8-10.8)
[2022-10-05 06:27] LABS: ALT (SGPT) 18 U/L (8-55); AST (SGOT) 19 U/L (5-34); Alkaline Phosphatase 93 U/L (40-110); Anion Gap 13 mmol/L (10-20); BUN (Urea Nitrogen) 37 mg/dL (9.8-20.1); Bilirubin, Total 0.5 mg/dL (0.2-1.2); Calc. Creatinine Clearance 71 mL/min (70-130); Calcium 9.9 mg/dL (7.8-10.44); Carbon Dioxide 35 mmol/L (23-31); Chloride 97 mmol/L (98-107); Estimated GFR 46; Globulin 3.5 g/dL (2.4-3.5); Glucose 110 mg/dL (80-115); Magnesium 2.2 mg/dL (1.6-2.6); Potassium 3.6 mmol/L (3.5-5.1); Protein, Total 7.5 g/dL (5.8-8.1); Sodium 141 mmol/L (136-145)
[2022-10-05] MEDS ORDERED: Potassium Chloride 20 MEQ TAB PO SCH (08:15)
[2022-10-05 08:19] LABS: Vancomycin, Trough 18.6 ug/mL
[2022-10-05] MEDS: Insulin Regular 300 UNITS/3 ML VIAL SC SCH ×3 (08:35→17:31)
[2022-10-05] MEDS: Cefepime 2 GM in Sodium Chloride 0.9% 100 ML IVPB SCH ×2 (08:35→19:43)
[2022-10-05] MEDS: Potassium Chloride 20 MEQ TAB PO SCH ×2 (08:37→17:23)
[2022-10-05] MEDS: Floranex 1 GM Packet PO SCH (08:38)
[2022-10-05] MEDS: Empagliflozin 10 MG TAB PO SCH (08:38)
[2022-10-05] MEDS: Acetaminophen 650 MG/20.3 ML UDCUP PO SCH ×2 (08:39→19:44)
[2022-10-05] MEDS: Hydrocortisone 10 mg Tablet PO SCH ×3 (08:39→17:28)
[2022-10-05] MEDS: Cholecalciferol 1,000 UNITS (25 MCG) TAB PO SCH (08:41)
[2022-10-05] MEDS: Carvedilol 6.25 MG TAB PO SCH ×2 (08:43→19:44)
[2022-10-05] MEDS: Loratadine 10 MG TAB PO SCH (08:44)
[2022-10-05] MEDS: Gabapentin 300 MG CAP PO SCH ×3 (08:44→17:25)
[2022-10-05] MEDS: Sacubitril 24MG/Valsartan 26 MG TAB PO SCH ×2 (08:45→19:44)
[2022-10-05] MEDS: Bumetanide 1 MG TAB PO SCH ×2 (08:45→13:27)
[2022-10-05] MEDS: Famotidine 20 MG TAB PO SCH (08:46)
[2022-10-05] MEDS: Magnesium Oxide 250 MG TAB PO SCH (08:46)
[2022-10-05] MEDS: Cyanocobalamin (Vitamin B-12) 1,000 MCG TAB PO SCH (08:46)
[2022-10-05] MEDS: Insulin NPH Human Isophane 100 UNITS/ML (10 ML VIAL) SQ SCH (10:59)
[2022-10-05] MEDS: VANCOMYCIN 1.75 GM/500 ML BAG 1.75 GM in Premix Bag 1 BAG IVPB SCH (11:00)
[2022-10-05] MEDS: Rivaroxaban 15 MG TAB PO SCH (17:23)
[2022-10-05] MEDS ORDERED: Morphine 2 MG/ML VIAL SLOW IVP PRN (19:01)
[2022-10-05] MEDS: Escitalopram Oxalate 10 mg Tablet PO SCH (19:44)
[2022-10-05] MEDS: Rosuvastatin 10 MG TAB PO SCH (19:44)
[2022-10-06] MEDS: Acetaminophen 325 MG TAB PO PRN (00:47)
[2022-10-06] MEDS: traMADol HCl 50 MG TAB PO PRN ×4 (00:48→21:40)
[2022-10-06 05:16] LABS: #Basophils 0.1 thou/uL (0.0-0.2); #Eosinphils 0.2 thou/uL (0.0-0.7); #Monocytes 1.1 thou/uL (0.11-0.59); %Basophils 0.7 % (0.0-1.0); %Eosinophils 2.7 % (0.0-10.0); %Lymphocytes 36.3 % (21.0-51.0); %Monocytes 16.2 % (0.0-10.0); %Neutrophils 43.4 % (42.0-75.0); Hematocrit 39.8 % (36.0-47.0); Hemoglobin 11.9 g/dL (12.0-16.0); Mean Corpuscular HGB CONC 29.9 g/dL (32.0-36.0); Mean Corpuscular Hemoglobin 26.3 pg (27.0-31.0); Mean Corpuscular Volume 88.1 fl (78.0-98.0); Mean Platelet Volume 9.5 fL (7.4-10.4); Platelet Count 235 10x3/uL (130-400); RBC Distribution Width 15.6 % (11.5-14.5); Red Blood Cell (RBC) Count 4.52 mill/uL (4.20-5.40); White Blood Cell (WBC) Count 6.9 10x3/uL (4.8-10.8)
[2022-10-06 05:42] LABS: ALT (SGPT) 19 U/L (8-55); AST (SGOT) 20 U/L (5-34); Albumin 3.8 g/dL (3.4-4.8); Alkaline Phosphatase 99 U/L (40-110); Anion Gap 13 mmol/L (10-20); BUN (Urea Nitrogen) 40 mg/dL (9.8-20.1); Bilirubin, Total 0.4 mg/dL (0.2-1.2); Calc. Creatinine Clearance 69 mL/min (70-130); Calcium 9.8 mg/dL (7.8-10.44); Carbon Dioxide 34 mmol/L (23-31); Chloride 97 mmol/L (98-107); Estimated GFR 45; Globulin 3.4 g/dL (2.4-3.5); Glucose 83 mg/dL (80-115); Magnesium 2.2 mg/dL (1.6-2.6); Potassium 3.8 mmol/L (3.5-5.1); Protein, Total 7.2 g/dL (5.8-8.1); Sodium 140 mmol/L (136-145)
[2022-10-06] MEDS: Hydrochlorothiazide 25 MG TAB PO SCH (05:50)
[2022-10-06] MEDS: Liothyronine Sodium 25 MCG TAB PO SCH (05:50)
[2022-10-06] MEDS: Cefepime 2 GM in Sodium Chloride 0.9% 100 ML IVPB SCH (07:51)
[2022-10-06] MEDS: Floranex 1 GM Packet PO SCH (07:51)
[2022-10-06] MEDS: Magnesium Oxide 250 MG TAB PO SCH (07:51)
[2022-10-06] MEDS: Famotidine 20 MG TAB PO SCH (07:52)
[2022-10-06] MEDS: Cyanocobalamin (Vitamin B-12) 1,000 MCG TAB PO SCH (07:52)
[2022-10-06] MEDS: Bumetanide 1 MG TAB PO SCH (07:54)
[2022-10-06] MEDS: Loratadine 10 MG TAB PO SCH (07:54)
[2022-10-06] MEDS: Hydrocortisone 10 mg Tablet PO SCH ×3 (07:55→14:23)
[2022-10-06] MEDS: Potassium Chloride 20 MEQ TAB PO SCH ×2 (07:55→17:35)
[2022-10-06] MEDS: Insulin Regular 300 UNITS/3 ML VIAL SC SCH ×3 (07:59→17:40)
[2022-10-06] MEDS: Insulin NPH Human Isophane 100 UNITS/ML (10 ML VIAL) SQ SCH (08:03)
[2022-10-06] MEDS: Acetaminophen 650 MG/20.3 ML UDCUP PO SCH ×2 (08:04→19:45)
[2022-10-06] MEDS: Cholecalciferol 1,000 UNITS (25 MCG) TAB PO SCH (08:07)
[2022-10-06] MEDS: Empagliflozin 10 MG TAB PO SCH (08:07)
[2022-10-06] MEDS: Sacubitril 24MG/Valsartan 26 MG TAB PO SCH ×2 (08:13→19:44)
[2022-10-06] MEDS: Carvedilol 6.25 MG TAB PO SCH ×2 (08:13→19:44)
[2022-10-06] MEDS: Gabapentin 300 MG CAP PO SCH ×3 (08:18→17:36)
[2022-10-06] MEDS: VANCOMYCIN 1.75 GM/500 ML BAG 1.75 GM in Premix Bag 1 BAG IVPB SCH (09:04)
[2022-10-06] MEDS ORDERED: Bumetanide 1 MG TAB PO SCH (10:00)
[2022-10-06] MEDS: Rivaroxaban 15 MG TAB PO SCH (17:36)
[2022-10-06] MEDS: Escitalopram Oxalate 10 mg Tablet PO SCH (19:44)
[2022-10-06] MEDS: Rosuvastatin 10 MG TAB PO SCH (19:44)
[2022-10-06] MEDS ORDERED: Cefepime 1 GM in Sodium Chloride 0.9% 100 ML IVPB SCH (20:00)
[2022-10-07] MEDS: Acetaminophen 325 MG TAB PO PRN ×2 (01:42→21:27)
[2022-10-07] MEDS: traMADol HCl 50 MG TAB PO PRN ×2 (05:55→13:12)
[2022-10-07] MEDS: Liothyronine Sodium 25 MCG TAB PO SCH (05:55)
[2022-10-07] MEDS: Hydrochlorothiazide 25 MG TAB PO SCH (05:58)
[2022-10-07 06:21] LABS: Anion Gap 11 mmol/L (10-20); BUN (Urea Nitrogen) 34 mg/dL (9.8-20.1); CRP (Inflammatory) 1.09 mg/dL (= or < 0.5); Calc. Creatinine Clearance 79 mL/min (70-130); Calcium 9.4 mg/dL (7.8-10.44); Carbon Dioxide 35 mmol/L (23-31); Chloride 96 mmol/L (98-107); Estimated GFR 54; Glucose 105 mg/dL (80-115); Magnesium 2.4 mg/dL (1.6-2.6); Potassium 4.2 mmol/L (3.5-5.1); Sodium 138 mmol/L (136-145)
[2022-10-07] MEDS: Linezolid 600 MG TAB PO SCH ×2 (08:28→21:30)
[2022-10-07] MEDS: Floranex 1 GM Packet PO SCH (08:28)
[2022-10-07] MEDS: Sacubitril 24MG/Valsartan 26 MG TAB PO SCH ×2 (08:29→21:29)
[2022-10-07] MEDS: Hydrocortisone 10 mg Tablet PO SCH ×3 (08:29→18:30)
[2022-10-07] MEDS: Carvedilol 6.25 MG TAB PO SCH ×2 (08:29→21:28)
[2022-10-07] MEDS: Magnesium Oxide 250 MG TAB PO SCH (08:29)
[2022-10-07] MEDS: Potassium Chloride 20 MEQ TAB PO SCH ×2 (08:29→18:31)
[2022-10-07] MEDS: Gabapentin 300 MG CAP PO SCH ×3 (08:30→18:31)
[2022-10-07] MEDS: Loratadine 10 MG TAB PO SCH (08:30)
[2022-10-07] MEDS: Famotidine 20 MG TAB PO SCH (08:30)
[2022-10-07] MEDS: Empagliflozin 10 MG TAB PO SCH (08:30)
[2022-10-07] MEDS: Cyanocobalamin (Vitamin B-12) 1,000 MCG TAB PO SCH (08:31)
[2022-10-07] MEDS: Acetaminophen 650 MG/20.3 ML UDCUP PO SCH ×2 (08:32→21:33)
[2022-10-07] MEDS: Cholecalciferol 1,000 UNITS (25 MCG) TAB PO SCH (08:32)
[2022-10-07] MEDS: Insulin NPH Human Isophane 100 UNITS/ML (10 ML VIAL) SQ SCH (08:33)
[2022-10-07 08:35] LABS: Vancomycin, Trough 24.4 ug/mL
[2022-10-07] MEDS: Insulin Regular 300 UNITS/3 ML VIAL SC SCH ×3 (08:35→18:32)
[2022-10-07] MEDS: AcetaZOLAMIDE 250 MG TAB PO SCH (09:20)
[2022-10-07] MEDS ORDERED: LevoFLOXacin 750 MG TAB PO SCH (13:30)
[2022-10-07] MEDS ORDERED: Bumetanide 1 MG TAB PO SCH (14:30)
[2022-10-07] MEDS: Clotrimazole 2% 3 Day Vag Cr 22.2 GM TUBE VAG SCH (15:41)
[2022-10-07] MEDS: Rivaroxaban 15 MG TAB PO SCH (18:31)
[2022-10-07] MEDS ORDERED: diphenhydrAMINE 50 MG/ML VIAL IVP PRN (20:11)
[2022-10-07] MEDS: Cefdinir 300 MG CAP PO SCH (21:28)
[2022-10-07] MEDS: Rosuvastatin 10 MG TAB PO SCH (21:29)
[2022-10-08] MEDS: traMADol HCl 50 MG TAB PO PRN ×3 (01:26→17:06)
[2022-10-08 05:33] LABS: Magnesium 2.4 mg/dL (1.6-2.6)
[2022-10-08] MEDS ORDERED: LevoFLOXacin 750 MG TAB PO SCH (06:00)
[2022-10-08] MEDS: Liothyronine Sodium 25 MCG TAB PO SCH (06:15)
[2022-10-08] MEDS: Hydrochlorothiazide 25 MG TAB PO SCH (06:29)
[2022-10-08] MEDS: Hydrocortisone 10 mg Tablet PO SCH ×3 (08:32→17:05)
[2022-10-08] MEDS: AcetaZOLAMIDE 250 MG TAB PO SCH (08:33)
[2022-10-08] MEDS: Floranex 1 GM Packet PO SCH (08:33)
[2022-10-08] MEDS: Acetaminophen 650 MG/20.3 ML UDCUP PO SCH (08:34)
[2022-10-08] MEDS: Cholecalciferol 1,000 UNITS (25 MCG) TAB PO SCH (08:34)
[2022-10-08] MEDS: Cyanocobalamin (Vitamin B-12) 1,000 MCG TAB PO SCH (08:36)
[2022-10-08] MEDS: Linezolid 600 MG TAB PO SCH (08:37)
[2022-10-08] MEDS: Cefdinir 300 MG CAP PO SCH (08:37)
[2022-10-08] MEDS: Potassium Chloride 20 MEQ TAB PO SCH ×2 (08:38→17:05)
[2022-10-08] MEDS: Gabapentin 300 MG CAP PO SCH ×3 (08:38→17:07)
[2022-10-08] MEDS: Famotidine 20 MG TAB PO SCH (08:38)
[2022-10-08] MEDS: Empagliflozin 10 MG TAB PO SCH (08:38)
[2022-10-08] MEDS: Sacubitril 24MG/Valsartan 26 MG TAB PO SCH (08:38)
[2022-10-08] MEDS: Magnesium Oxide 250 MG TAB PO SCH (08:38)
[2022-10-08] MEDS: Carvedilol 6.25 MG TAB PO SCH (08:39)
[2022-10-08] MEDS: Loratadine 10 MG TAB PO SCH (08:39)
[2022-10-08] MEDS: Insulin Regular 300 UNITS/3 ML VIAL SC SCH ×3 (08:40→17:07)
[2022-10-08] MEDS: Insulin NPH Human Isophane 100 UNITS/ML (10 ML VIAL) SQ SCH (08:42)
[2022-10-08 10:49] LABS: Anion Gap 17 mmol/L (10-20); BUN (Urea Nitrogen) 38 mg/dL (9.8-20.1); Calc. Creatinine Clearance 70 mL/min (70-130); Calcium 9.7 mg/dL (7.8-10.44); Carbon Dioxide 30 mmol/L (23-31); Chloride 95 mmol/L (98-107); Estimated GFR 47; Glucose 133 mg/dL (80-115); Sodium 138 mmol/L (136-145)
[2022-10-08] MEDS ORDERED: Bumetanide 1 MG TAB PO SCH (12:16)
[2022-10-08] MEDS: Acetaminophen 325 MG TAB PO PRN (12:53)
[2022-10-08 16:00] VITALS: BP 138/79; TEMP 98
[2022-10-08] MEDS: Rivaroxaban 15 MG TAB PO SCH (17:06)
[2022-10-08] MEDS: Clotrimazole 2% 3 Day Vag Cr 22.2 GM TUBE VAG SCH (17:08)
== END 2022-10-08 16:35 | disposition home or self-care (01) | DRG 299 ==
LOC: ERS 17:30 → SJJU 19:55
PROVIDERS: ADMIT Family Medicine; ATTEND Family Medicine
DX: I87.2 Venous insufficiency (chronic) (peripheral) (principal); I50.43 Acute on chronic combined systolic (congestive) and diastolic (congestive) heart failure; L03.116 Cellulitis of left lower limb; E27.40 Unspecified adrenocortical insufficiency; J96.10 Chronic respiratory failure, unspecified whether with hypoxia or hypercapnia; I42.8 Other cardiomyopathies; F32.0 Major depressive disorder, single episode, mild; L03.115 Cellulitis of right lower limb; F41.9 Anxiety disorder, unspecified; E11.628 Type 2 diabetes mellitus with other skin complications; I11.0 Hypertensive heart disease with heart failure; Z90.89 Acquired absence of other organs; E78.5 Hyperlipidemia, unspecified; E03.9 Hypothyroidism, unspecified; J45.909 Unspecified asthma, uncomplicated; F43.10 Post-traumatic stress disorder, unspecified; E11.65 Type 2 diabetes mellitus with hyperglycemia; I48.0 Paroxysmal atrial fibrillation; E11.42 Type 2 diabetes mellitus with diabetic polyneuropathy; D64.9 Anemia, unspecified; D89.89 Other specified disorders involving the immune mechanism, not elsewhere classified; Z88.0 Allergy status to penicillin; Z88.2 Allergy status to sulfonamides; G47.00 Insomnia, unspecified; Z91.018 Allergy to other foods; Z87.891 Personal history of nicotine dependence; Z82.49 Family history of ischemic heart disease and other diseases of the circulatory system; R53.81 Other malaise; I27.22 Pulmonary hypertension due to left heart disease
CPT/HCPCS: 36415; 36416; 80048; 80053; 80202; 81001; 83605; 83735; 83880; 84145; 85025; 85652; 86140; 87040; 87070; 87077; 87081; 87186; 87205; 93005; 96365; 96367; 97139; J0692; J1815; J2272; J3370; J3370-JW; J3490

== ENCOUNTER 2022-12-14 17:00 | Outpatient (CLI) | payer MEDICARE, OTHER | END 2022-12-14 17:01 | disposition home or self-care (01) | LOC: SLEEPLAB 17:00 | PROVIDERS: ATTEND Internal Medicine | DX: G47.33 Obstructive sleep apnea (adult) (pediatric) (principal); R09.02 Hypoxemia | CPT/HCPCS: 95811 ==

== ENCOUNTER 2022-12-26 11:15 | Inpatient (IN) | payer MEDICARE ==
[2022-12-26 12:58] VITALS: BMI 43.4
[2022-12-26 15:49] LABS: #Eosinphils 0.1 thou/uL (0.0-0.7); #Monocytes 0.8 thou/uL (0.11-0.59); #Neutrophils 5.4 thou/uL (1.40-6.50); %Basophils 0.5 % (0.0-1.0); %Eosinophils 1.7 % (0.0-10.0); %Lymphocytes 23.5 % (21.0-51.0); %Monocytes 9.9 % (0.0-10.0); %Neutrophils 64.3 % (42.0-75.0); Hematocrit 35.8 % (36.0-47.0); Hemoglobin 10.7 g/dL (12.0-16.0); Mean Corpuscular HGB CONC 29.9 g/dL (32.0-36.0); Mean Corpuscular Hemoglobin 26.3 pg (27.0-31.0); Mean Platelet Volume 9.9 fL (7.4-10.4); Platelet Count 212 10x3/uL (130-400); RBC Distribution Width 14.4 % (11.5-14.5); Red Blood Cell (RBC) Count 4.07 mill/uL (4.20-5.40); White Blood Cell (WBC) Count 8.3 10x3/uL (4.8-10.8)
[2022-12-26 16:12] LABS: ALT (SGPT) 17 U/L (8-55); AST (SGOT) 18 U/L (5-34); Albumin 4.1 g/dL (3.4-4.8); Alkaline Phosphatase 85 U/L (40-110); Anion Gap 12 mmol/L (10-20); BUN (Urea Nitrogen) 20 mg/dL (9.8-20.1); Bilirubin, Total 0.4 mg/dL (0.2-1.2); Calc. Creatinine Clearance 101 mL/min (70-130); Calcium 9.7 mg/dL (7.8-10.44); Carbon Dioxide 31 mmol/L (23-31); Chloride 102 mmol/L (98-107); Estimated GFR 68; Globulin 2.6 g/dL (2.4-3.5); Glucose 112 mg/dL (80-115); Protein, Total 6.7 g/dL (5.8-8.1); Sodium 141 mmol/L (136-145)
[2022-12-26] MEDS ORDERED: Dextrose 50% Abboject 50 ML SYRINGE SLOW IVP PRN (16:36)
[2022-12-26] MEDS ORDERED: Dextrose 5% in Water 1,000 ML IV PRN (16:36)
[2022-12-26] MEDS ORDERED: Glucagon 1 MG/ML KIT IM PRN (16:36)
[2022-12-26] MEDS ORDERED: hydrOXYzine 10 MG TAB PO PRN (16:57)
[2022-12-26 17:19] LABS: Magnesium 1.9 mg/dL (1.6-2.6)
[2022-12-26] MEDS ORDERED: Albuterol 200 PUFF (6.7GM INHALER) INH PRN (17:55)
[2022-12-26] MEDS ORDERED: FLU VACC QS2023(65UP)/MF59C/PF 60 MCG/0.5 ML SYRINGE IM ONE (18:00)
[2022-12-26] MEDS ORDERED: SUMAtriptan Succinate 50 MG TAB PO PRN (18:06)
[2022-12-26] MEDS ORDERED: Rivaroxaban 10 MG TAB PO SCH (18:15)
[2022-12-26] MEDS: Mometasone 200 MCG/Formoterol 5 MCG 120 PUFF INHALER INH SCH (18:44)
[2022-12-26] MEDS ORDERED: Furosemide 100 MG/10 ML VIAL SLOW IVP SCH (20:45)
[2022-12-26] MEDS ORDERED: Potassium Chloride 20 MEQ TAB PO SCH (20:45)
[2022-12-26] MEDS: Gabapentin 300 MG CAP PO SCH (20:46)
[2022-12-26] MEDS: Sacubitril 24MG/Valsartan 26 MG TAB PO SCH (20:47)
[2022-12-26] MEDS: Carvedilol 6.25 MG TAB PO SCH (20:47)
[2022-12-26] MEDS: Rosuvastatin 10 MG TAB PO SCH (20:47)
[2022-12-26] MEDS: Famotidine 20 MG TAB PO SCH (20:48)
[2022-12-26] MEDS ORDERED: Hydrocortisone 10 mg Tablet PO SCH (21:00)
[2022-12-27] MEDS: Acetaminophen 325 MG TAB PO PRN (04:01)
[2022-12-27] MEDS: Milrinone Lactate/D5W 20 MG in Premix 1 BAG IV SCH ×2 (04:25→14:25)
[2022-12-27 04:48] LABS: #Eosinphils 0.1 thou/uL (0.0-0.7); #Monocytes 0.8 thou/uL (0.11-0.59); #Neutrophils 5.9 thou/uL (1.40-6.50); %Basophils 0.5 % (0.0-1.0); %Eosinophils 1.3 % (0.0-10.0); %Neutrophils 70.7 % (42.0-75.0); Hematocrit 35.2 % (36.0-47.0); Hemoglobin 10.7 g/dL (12.0-16.0); Mean Corpuscular HGB CONC 30.4 g/dL (32.0-36.0); Mean Corpuscular Hemoglobin 26.6 pg (27.0-31.0); Mean Corpuscular Volume 87.6 fl (78.0-98.0); Mean Platelet Volume 10.5 fL (7.4-10.4); Platelet Count 218 10x3/uL (130-400); RBC Distribution Width 14.3 % (11.5-14.5); Red Blood Cell (RBC) Count 4.02 mill/uL (4.20-5.40); White Blood Cell (WBC) Count 8.3 10x3/uL (4.8-10.8)
[2022-12-27 05:21] LABS: ALT (SGPT) 17 U/L (8-55); AST (SGOT) 17 U/L (5-34); Albumin 3.9 g/dL (3.4-4.8); Alkaline Phosphatase 80 U/L (40-110); Anion Gap 14 mmol/L (10-20); BUN (Urea Nitrogen) 21 mg/dL (9.8-20.1); Bilirubin, Total 0.4 mg/dL (0.2-1.2); Calc. Creatinine Clearance 79 mL/min (70-130); Calcium 9.1 mg/dL (7.8-10.44); Carbon Dioxide 31 mmol/L (23-31); Chloride 100 mmol/L (98-107); Estimated GFR 52; Globulin 2.7 g/dL (2.4-3.5); Glucose 280 mg/dL (80-115); Magnesium 1.8 mg/dL (1.6-2.6); Potassium 3.9 mmol/L (3.5-5.1); Protein, Total 6.6 g/dL (5.8-8.1); Sodium 141 mmol/L (136-145)
[2022-12-27] MEDS: Liothyronine Sodium 25 MCG TAB PO SCH (05:54)
[2022-12-27] MEDS: Hydrochlorothiazide 25 MG TAB PO SCH (05:54)
[2022-12-27] MEDS: HumaLOG 300 UNITS/3 ML VIAL SC PRN (06:38)
[2022-12-27] MEDS: Mometasone 200 MCG/Formoterol 5 MCG 120 PUFF INHALER INH SCH ×2 (07:15→19:09)
[2022-12-27] MEDS ORDERED: Magnesium 2 GM/50 ML(in water) 2 GM in Premix 1 BAG IVPB SCH (07:15)
[2022-12-27] MEDS ORDERED: INULIN PO SCH (09:00)
[2022-12-27] MEDS ORDERED: [UNRECOGNIZED DRUG - OTHER] PO SCH (09:00)
[2022-12-27] MEDS ORDERED: Non-Formulary Item 1 EACH (Mecobalamin [B12 Active] 1,000 MCG Tab.Chew) SL SCH (09:00)
[2022-12-27] MEDS ORDERED: BIOTIN 5000 MCG PO SCH (09:00)
[2022-12-27] MEDS ORDERED: Potassium Chloride 20 MEQ TAB PO SCH ×2 (09:00)
[2022-12-27] MEDS ORDERED: Vitamin A 10,000 UNITS CAP PO SCH (09:00)
[2022-12-27] MEDS ORDERED: BACILLUS COAGULANS PO SCH (09:00)
[2022-12-27] MEDS ORDERED: Hydrocortisone 10 mg Tablet PO SCH ×2 (09:00→15:00)
[2022-12-27] MEDS ORDERED: MAGNESIUM GLUCONATE 500 MG PO SCH (09:00)
[2022-12-27] MEDS: Insulin NPH Human Isophane 100 UNITS/ML (10 ML VIAL) SQ SCH (10:32)
[2022-12-27] MEDS: Escitalopram Oxalate 10 mg Tablet PO SCH (10:33)
[2022-12-27] MEDS: Cholecalciferol 1,000 UNITS (25 MCG) TAB PO SCH (10:33)
[2022-12-27] MEDS: Allopurinol 100 MG TAB PO SCH (10:33)
[2022-12-27] MEDS: Loratadine 10 MG TAB PO SCH (10:33)
[2022-12-27] MEDS: Hydrocortisone 10 mg Tablet PO SCH ×3 (10:34→16:34)
[2022-12-27] MEDS: Sacubitril 24MG/Valsartan 26 MG TAB PO SCH ×2 (10:34→22:01)
[2022-12-27] MEDS: Carvedilol 6.25 MG TAB PO SCH ×2 (10:34→22:02)
[2022-12-27] MEDS: Gabapentin 300 MG CAP PO SCH ×3 (10:35→22:03)
[2022-12-27] MEDS: Potassium Chloride 20 MEQ TAB PO SCH ×2 (10:36→22:02)
[2022-12-27] MEDS: Famotidine 20 MG TAB PO SCH ×2 (10:36→22:03)
[2022-12-27] MEDS: Empagliflozin 10 MG TAB PO SCH (10:36)
[2022-12-27] MEDS: Insulin Regular 300 UNITS/3 ML VIAL SC SCH ×3 (10:53→16:51)
[2022-12-27] MEDS ORDERED: Furosemide 100 MG/10 ML VIAL SLOW IVP SCH (13:00)
[2022-12-27] MEDS: Rivaroxaban 10 MG TAB PO SCH (16:29)
[2022-12-27] MEDS: Rosuvastatin 10 MG TAB PO SCH (22:03)
[2022-12-28] MEDS: Acetaminophen 325 MG TAB PO PRN ×2 (00:48→17:06)
[2022-12-28] MEDS: Milrinone Lactate/D5W 20 MG in Premix 1 BAG IV SCH ×2 (04:31→15:43)
[2022-12-28 05:17] LABS: #Eosinphils 0.2 thou/uL (0.0-0.7); #Monocytes 0.9 thou/uL (0.11-0.59); #Neutrophils 3.7 thou/uL (1.40-6.50); %Basophils 0.6 % (0.0-1.0); %Eosinophils 2.9 % (0.0-10.0); %Lymphocytes 29.5 % (21.0-51.0); %Monocytes 13.4 % (0.0-10.0); %Neutrophils 53.2 % (42.0-75.0); Hematocrit 36.5 % (36.0-47.0); Hemoglobin 11.2 g/dL (12.0-16.0); Mean Corpuscular HGB CONC 30.7 g/dL (32.0-36.0); Mean Corpuscular Hemoglobin 26.2 pg (27.0-31.0); Mean Corpuscular Volume 85.5 fl (78.0-98.0); Mean Platelet Volume 9.6 fL (7.4-10.4); Platelet Count 228 10x3/uL (130-400); RBC Distribution Width 14.2 % (11.5-14.5); Red Blood Cell (RBC) Count 4.27 mill/uL (4.20-5.40)
[2022-12-28 05:50] LABS: ALT (SGPT) 15 U/L (8-55); AST (SGOT) 14 U/L (5-34); Albumin 3.9 g/dL (3.4-4.8); Alkaline Phosphatase 75 U/L (40-110); Anion Gap 15 mmol/L (10-20); BUN (Urea Nitrogen) 24 mg/dL (9.8-20.1); Bilirubin, Total 0.5 mg/dL (0.2-1.2); Calc. Creatinine Clearance 86 mL/min (70-130); Calcium 9.5 mg/dL (7.8-10.44); Carbon Dioxide 34 mmol/L (23-31); Chloride 96 mmol/L (98-107); Estimated GFR 58; Globulin 2.7 g/dL (2.4-3.5); Glucose 136 mg/dL (80-115); Magnesium 2.2 mg/dL (1.6-2.6); Potassium 3.5 mmol/L (3.5-5.1); Protein, Total 6.6 g/dL (5.8-8.1); Sodium 141 mmol/L (136-145)
[2022-12-28] MEDS: Hydrochlorothiazide 25 MG TAB PO SCH (06:02)
[2022-12-28] MEDS: Liothyronine Sodium 25 MCG TAB PO SCH (06:02)
[2022-12-28] MEDS: Mometasone 200 MCG/Formoterol 5 MCG 120 PUFF INHALER INH SCH ×2 (07:20→19:25)
[2022-12-28] MEDS ORDERED: VERICIGUAT 5 MG PO SCH (08:00)
[2022-12-28] MEDS: Allopurinol 100 MG TAB PO SCH (08:54)
[2022-12-28] MEDS: Famotidine 20 MG TAB PO SCH ×2 (08:54→21:02)
[2022-12-28] MEDS: Gabapentin 300 MG CAP PO SCH ×3 (08:54→21:02)
[2022-12-28] MEDS: Cholecalciferol 1,000 UNITS (25 MCG) TAB PO SCH (08:54)
[2022-12-28] MEDS: Sacubitril 24MG/Valsartan 26 MG TAB PO SCH ×2 (08:55→21:03)
[2022-12-28] MEDS: Potassium Chloride 20 MEQ TAB PO SCH ×2 (08:55→21:02)
[2022-12-28] MEDS: Empagliflozin 10 MG TAB PO SCH (08:55)
[2022-12-28] MEDS: Carvedilol 6.25 MG TAB PO SCH ×2 (08:55→21:01)
[2022-12-28] MEDS: Loratadine 10 MG TAB PO SCH (08:55)
[2022-12-28] MEDS: Escitalopram Oxalate 10 mg Tablet PO SCH (08:55)
[2022-12-28] MEDS: Hydrocortisone 10 mg Tablet PO SCH ×3 (08:55→17:01)
[2022-12-28] MEDS: Insulin Regular 300 UNITS/3 ML VIAL SC SCH ×3 (08:56→17:01)
[2022-12-28] MEDS: Insulin NPH Human Isophane 100 UNITS/ML (10 ML VIAL) SQ SCH (08:56)
[2022-12-28] MEDS ORDERED: Bumetanide 1 MG TAB PO SCH (09:00)
[2022-12-28] MEDS ORDERED: Potassium Chloride 20 MEQ TAB PO SCH (09:00)
[2022-12-28] MEDS: Magnesium Oxide 400 MG TAB PO SCH (09:34)
[2022-12-28] MEDS: VERICIGUAT 5 MG PO SCH (15:44)
[2022-12-28] MEDS: Rivaroxaban 10 MG TAB PO SCH (17:01)
[2022-12-28] MEDS: Rosuvastatin 10 MG TAB PO SCH (21:03)
[2022-12-29] MEDS: Acetaminophen 325 MG TAB PO PRN ×2 (04:04→21:13)
[2022-12-29] MEDS: Milrinone Lactate/D5W 20 MG in Premix 1 BAG IV SCH ×2 (04:05→16:58)
[2022-12-29 05:58] LABS: #Eosinphils 0.2 thou/uL (0.0-0.7); #Neutrophils 3.7 thou/uL (1.40-6.50); %Basophils 0.6 % (0.0-1.0); %Eosinophils 2.8 % (0.0-10.0); %Lymphocytes 27.4 % (21.0-51.0); %Monocytes 14.7 % (0.0-10.0); %Neutrophils 54.2 % (42.0-75.0); Hematocrit 35.4 % (36.0-47.0); Hemoglobin 10.6 g/dL (12.0-16.0); Mean Corpuscular HGB CONC 29.9 g/dL (32.0-36.0); Mean Corpuscular Hemoglobin 26.2 pg (27.0-31.0); Mean Corpuscular Volume 87.6 fl (78.0-98.0); Mean Platelet Volume 9.9 fL (7.4-10.4); Platelet Count 227 10x3/uL (130-400); RBC Distribution Width 14.3 % (11.5-14.5); Red Blood Cell (RBC) Count 4.04 mill/uL (4.20-5.40); White Blood Cell (WBC) Count 6.8 10x3/uL (4.8-10.8)
[2022-12-29 06:25] LABS: ALT (SGPT) 12 U/L (8-55); AST (SGOT) 11 U/L (5-34); Albumin 3.6 g/dL (3.4-4.8); Alkaline Phosphatase 92 U/L (40-110); Anion Gap 15 mmol/L (10-20); BUN (Urea Nitrogen) 28 mg/dL (9.8-20.1); Bilirubin, Total 0.3 mg/dL (0.2-1.2); Calc. Creatinine Clearance 81 mL/min (70-130); Calcium 8.8 mg/dL (7.8-10.44); Carbon Dioxide 35 mmol/L (23-31); Chloride 96 mmol/L (98-107); Estimated GFR 56; Globulin 2.5 g/dL (2.4-3.5); Glucose 247 mg/dL (80-115); Magnesium 2.3 mg/dL (1.6-2.6); Potassium 3.6 mmol/L (3.5-5.1); Protein, Total 6.1 g/dL (5.8-8.1); Sodium 142 mmol/L (136-145)
[2022-12-29] MEDS: Hydrochlorothiazide 25 MG TAB PO SCH (06:39)
[2022-12-29] MEDS: Liothyronine Sodium 25 MCG TAB PO SCH (06:39)
[2022-12-29] MEDS: HumaLOG 300 UNITS/3 ML VIAL SC PRN ×2 (06:40→17:34)
[2022-12-29] MEDS: Mometasone 200 MCG/Formoterol 5 MCG 120 PUFF INHALER INH SCH ×2 (07:30→18:49)
[2022-12-29] MEDS ORDERED: Potassium Chloride 20 MEQ TAB PO SCH (08:30)
[2022-12-29] MEDS: Carvedilol 6.25 MG TAB PO SCH ×2 (08:45→21:02)
[2022-12-29] MEDS: VERICIGUAT 5 MG PO SCH (08:45)
[2022-12-29] MEDS: Hydrocortisone 10 mg Tablet PO SCH ×3 (08:46→17:34)
[2022-12-29] MEDS: Famotidine 20 MG TAB PO SCH ×2 (08:47→21:02)
[2022-12-29] MEDS: Loratadine 10 MG TAB PO SCH (08:47)
[2022-12-29] MEDS: Empagliflozin 10 MG TAB PO SCH (08:47)
[2022-12-29] MEDS: Allopurinol 100 MG TAB PO SCH (08:47)
[2022-12-29] MEDS: Sacubitril 24MG/Valsartan 26 MG TAB PO SCH ×2 (08:47→21:03)
[2022-12-29] MEDS: Escitalopram Oxalate 10 mg Tablet PO SCH (08:47)
[2022-12-29] MEDS: Potassium Chloride 20 MEQ TAB PO SCH ×2 (08:48→21:03)
[2022-12-29] MEDS: Gabapentin 300 MG CAP PO SCH ×3 (08:48→21:03)
[2022-12-29] MEDS: Cholecalciferol 1,000 UNITS (25 MCG) TAB PO SCH (08:48)
[2022-12-29] MEDS: Insulin Regular 300 UNITS/3 ML VIAL SC SCH ×3 (08:49→17:33)
[2022-12-29] MEDS: Magnesium Oxide 400 MG TAB PO SCH (08:51)
[2022-12-29] MEDS: Insulin NPH Human Isophane 100 UNITS/ML (10 ML VIAL) SQ SCH (09:00)
[2022-12-29] MEDS ORDERED: AcetaZOLAMIDE 250 MG TAB PO SCH (09:00)
[2022-12-29] MEDS: Rivaroxaban 10 MG TAB PO SCH (18:32)
[2022-12-29] MEDS: Rosuvastatin 10 MG TAB PO SCH (21:03)
[2022-12-30 04:22] LABS: #Eosinphils 0.2 thou/uL (0.0-0.7); #Monocytes 1.1 thou/uL (0.11-0.59); #Neutrophils 4.8 thou/uL (1.40-6.50); %Basophils 0.5 % (0.0-1.0); %Eosinophils 2.2 % (0.0-10.0); %Lymphocytes 25.9 % (21.0-51.0); %Monocytes 13.5 % (0.0-10.0); %Neutrophils 57.5 % (42.0-75.0); Hematocrit 37.1 % (36.0-47.0); Hemoglobin 11.1 g/dL (12.0-16.0); Mean Corpuscular HGB CONC 29.9 g/dL (32.0-36.0); Mean Corpuscular Hemoglobin 26.2 pg (27.0-31.0); Mean Corpuscular Volume 87.5 fl (78.0-98.0); Mean Platelet Volume 10.3 fL (7.4-10.4); Platelet Count 264 10x3/uL (130-400); RBC Distribution Width 14.3 % (11.5-14.5); Red Blood Cell (RBC) Count 4.24 mill/uL (4.20-5.40); White Blood Cell (WBC) Count 8.3 10x3/uL (4.8-10.8)
[2022-12-30 04:50] LABS: ALT (SGPT) 12 U/L (8-55); AST (SGOT) 12 U/L (5-34); Albumin 3.7 g/dL (3.4-4.8); Alkaline Phosphatase 95 U/L (40-110); Anion Gap 15 mmol/L (10-20); BUN (Urea Nitrogen) 27 mg/dL (9.8-20.1); Bilirubin, Total 0.3 mg/dL (0.2-1.2); Calc. Creatinine Clearance 75 mL/min (70-130); Calcium 8.9 mg/dL (7.8-10.44); Carbon Dioxide 32 mmol/L (23-31); Chloride 98 mmol/L (98-107); Estimated GFR 51; Globulin 2.8 g/dL (2.4-3.5); Glucose 232 mg/dL (80-115); Magnesium 2.4 mg/dL (1.6-2.6); Protein, Total 6.5 g/dL (5.8-8.1); Sodium 141 mmol/L (136-145)
[2022-12-30] MEDS: Hydrochlorothiazide 25 MG TAB PO SCH (05:24)
[2022-12-30] MEDS: Liothyronine Sodium 25 MCG TAB PO SCH (05:24)
[2022-12-30] MEDS: Milrinone Lactate/D5W 20 MG in Premix 1 BAG IV SCH ×3 (05:58→23:06)
[2022-12-30] MEDS: Acetaminophen 325 MG TAB PO PRN (05:58)
[2022-12-30] MEDS ORDERED: AcetaZOLAMIDE 250 MG TAB PO SCH (06:45)
[2022-12-30] MEDS ORDERED: Potassium Chloride 20 MEQ TAB PO SCH (07:00)
[2022-12-30] MEDS: Mometasone 200 MCG/Formoterol 5 MCG 120 PUFF INHALER INH SCH ×2 (07:56→19:24)
[2022-12-30] MEDS: Hydrocortisone 10 mg Tablet PO SCH ×3 (07:58→18:09)
[2022-12-30] MEDS: Carvedilol 6.25 MG TAB PO SCH ×2 (07:58→20:19)
[2022-12-30] MEDS: Escitalopram Oxalate 10 mg Tablet PO SCH (07:59)
[2022-12-30] MEDS: Gabapentin 300 MG CAP PO SCH ×3 (07:59→20:19)
[2022-12-30] MEDS: Sacubitril 24MG/Valsartan 26 MG TAB PO SCH ×2 (07:59→20:18)
[2022-12-30] MEDS: Magnesium Oxide 400 MG TAB PO SCH (07:59)
[2022-12-30] MEDS: Famotidine 20 MG TAB PO SCH ×2 (08:00→20:18)
[2022-12-30] MEDS: Cholecalciferol 1,000 UNITS (25 MCG) TAB PO SCH (08:00)
[2022-12-30] MEDS: Allopurinol 100 MG TAB PO SCH (08:00)
[2022-12-30] MEDS: Loratadine 10 MG TAB PO SCH (08:00)
[2022-12-30] MEDS: VERICIGUAT 5 MG PO SCH ×2 (08:08→08:29)
[2022-12-30] MEDS: Empagliflozin 10 MG TAB PO SCH (08:18)
[2022-12-30] MEDS: Potassium Chloride 20 MEQ TAB PO SCH ×2 (08:19→20:19)
[2022-12-30] MEDS: Insulin Regular 300 UNITS/3 ML VIAL SC SCH ×3 (08:20→18:54)
[2022-12-30] MEDS: Insulin NPH Human Isophane 100 UNITS/ML (10 ML VIAL) SQ SCH (08:21)
[2022-12-30] MEDS ORDERED: Furosemide 100 MG/10 ML VIAL SLOW IVP SCH (13:00)
[2022-12-30] MEDS: HumaLOG 300 UNITS/3 ML VIAL SC PRN ×5 (13:20→20:18)
[2022-12-30] MEDS: Rivaroxaban 10 MG TAB PO SCH (18:09)
[2022-12-30] MEDS: Rosuvastatin 10 MG TAB PO SCH (20:19)
[2022-12-31] MEDS: Acetaminophen 325 MG TAB PO PRN ×3 (01:30→23:37)
[2022-12-31 04:30] LABS: #Basophils 0.1 thou/uL (0.0-0.2); #Eosinphils 0.3 thou/uL (0.0-0.7); #Monocytes 1.1 thou/uL (0.11-0.59); #Neutrophils 4.4 thou/uL (1.40-6.50); %Basophils 0.6 % (0.0-1.0); %Eosinophils 3.2 % (0.0-10.0); %Lymphocytes 27.3 % (21.0-51.0); %Monocytes 13.9 % (0.0-10.0); %Neutrophils 54.9 % (42.0-75.0); Hematocrit 36.3 % (36.0-47.0); Mean Corpuscular HGB CONC 30.3 g/dL (32.0-36.0); Mean Corpuscular Hemoglobin 26.8 pg (27.0-31.0); Mean Corpuscular Volume 88.3 fl (78.0-98.0); Mean Platelet Volume 10.2 fL (7.4-10.4); Platelet Count 259 10x3/uL (130-400); RBC Distribution Width 14.1 % (11.5-14.5); Red Blood Cell (RBC) Count 4.11 mill/uL (4.20-5.40); White Blood Cell (WBC) Count 8.1 10x3/uL (4.8-10.8)
[2022-12-31 04:56] LABS: ALT (SGPT) 10 U/L (8-55); AST (SGOT) 10 U/L (5-34); Albumin 4.1 g/dL (3.4-4.8); Alkaline Phosphatase 87 U/L (40-110); Anion Gap 13 mmol/L (10-20); BUN (Urea Nitrogen) 30 mg/dL (9.8-20.1); Bilirubin, Total Less than 0.2 mg/dL (0.2-1.2); Calc. Creatinine Clearance 72 mL/min (70-130); Calcium 9.2 mg/dL (7.8-10.44); Carbon Dioxide 34 mmol/L (23-31); Chloride 95 mmol/L (98-107); Estimated GFR 48; Globulin 2.5 g/dL (2.4-3.5); Glucose 253 mg/dL (80-115); Magnesium 2.4 mg/dL (1.6-2.6); Potassium 3.9 mmol/L (3.5-5.1); Protein, Total 6.6 g/dL (5.8-8.1); Sodium 138 mmol/L (136-145)
[2022-12-31] MEDS: Hydrochlorothiazide 25 MG TAB PO SCH (05:45)
[2022-12-31] MEDS: Liothyronine Sodium 25 MCG TAB PO SCH (05:45)
[2022-12-31] MEDS: Mometasone 200 MCG/Formoterol 5 MCG 120 PUFF INHALER INH SCH ×2 (06:41→18:25)
[2022-12-31] MEDS: Milrinone Lactate/D5W 20 MG in Premix 1 BAG IV SCH ×2 (08:03→16:10)
[2022-12-31] MEDS: Sacubitril 24MG/Valsartan 26 MG TAB PO SCH ×2 (08:05→20:15)
[2022-12-31] MEDS: Hydrocortisone 10 mg Tablet PO SCH ×3 (08:06→17:57)
[2022-12-31] MEDS: Cholecalciferol 1,000 UNITS (25 MCG) TAB PO SCH (08:06)
[2022-12-31] MEDS: Carvedilol 6.25 MG TAB PO SCH ×2 (08:06→20:16)
[2022-12-31] MEDS: Escitalopram Oxalate 10 mg Tablet PO SCH (08:06)
[2022-12-31] MEDS: Allopurinol 100 MG TAB PO SCH (08:07)
[2022-12-31] MEDS: Famotidine 20 MG TAB PO SCH ×2 (08:07→20:16)
[2022-12-31] MEDS: Empagliflozin 10 MG TAB PO SCH (08:07)
[2022-12-31] MEDS: Magnesium Oxide 400 MG TAB PO SCH (08:07)
[2022-12-31] MEDS: Potassium Chloride 20 MEQ TAB PO SCH ×2 (08:07→20:16)
[2022-12-31] MEDS: Insulin Regular 300 UNITS/3 ML VIAL SC SCH ×3 (08:09→17:56)
[2022-12-31] MEDS: Insulin NPH Human Isophane 100 UNITS/ML (10 ML VIAL) SQ SCH (08:10)
[2022-12-31] MEDS: Loratadine 10 MG TAB PO SCH (08:15)
[2022-12-31] MEDS ORDERED: Potassium Chloride 20 MEQ TAB PO SCH (08:15)
[2022-12-31] MEDS: VERICIGUAT 5 MG PO SCH (08:21)
[2022-12-31] MEDS ORDERED: AcetaZOLAMIDE 250 MG TAB PO SCH (09:00)
[2022-12-31] MEDS: Gabapentin 300 MG CAP PO SCH ×3 (11:38→20:15)
[2022-12-31] MEDS: HumaLOG 300 UNITS/3 ML VIAL SC PRN ×3 (11:45→21:07)
[2022-12-31] MEDS ORDERED: Torsemide 20 MG TAB PO SCH (12:00)
[2022-12-31] MEDS: Rivaroxaban 10 MG TAB PO SCH (17:56)
[2022-12-31] MEDS: Rosuvastatin 10 MG TAB PO SCH (20:15)
[2023-01-01 04:05] LABS: #Basophils 0.1 thou/uL (0.0-0.2); #Eosinphils 0.2 thou/uL (0.0-0.7); #Monocytes 1.1 thou/uL (0.11-0.59); #Neutrophils 4.3 thou/uL (1.40-6.50); %Basophils 0.7 % (0.0-1.0); %Eosinophils 2.2 % (0.0-10.0); %Lymphocytes 29.7 % (21.0-51.0); %Monocytes 13.6 % (0.0-10.0); %Neutrophils 53.6 % (42.0-75.0); Hematocrit 37.3 % (36.0-47.0); Hemoglobin 11.3 g/dL (12.0-16.0); Mean Corpuscular HGB CONC 30.3 g/dL (32.0-36.0); Mean Corpuscular Hemoglobin 26.5 pg (27.0-31.0); Mean Corpuscular Volume 87.6 fl (78.0-98.0); Mean Platelet Volume 9.9 fL (7.4-10.4); Platelet Count 260 10x3/uL (130-400); Red Blood Cell (RBC) Count 4.26 mill/uL (4.20-5.40)
[2023-01-01 04:30] LABS: ALT (SGPT) 11 U/L (8-55); AST (SGOT) 21 U/L (5-34); Alkaline Phosphatase 91 U/L (40-110); Anion Gap 12 mmol/L (10-20); BUN (Urea Nitrogen) 38 mg/dL (9.8-20.1); Bilirubin, Total Less than 0.2 mg/dL (0.2-1.2); Calc. Creatinine Clearance 66 mL/min (70-130); Calcium 9.3 mg/dL (7.8-10.44); Carbon Dioxide 34 mmol/L (23-31); Chloride 97 mmol/L (98-107); Estimated GFR 43; Globulin 3.1 g/dL (2.4-3.5); Glucose 211 mg/dL (80-115); Magnesium 2.5 mg/dL (1.6-2.6); Potassium 4.3 mmol/L (3.5-5.1); Protein, Total 7.1 g/dL (5.8-8.1); Sodium 139 mmol/L (136-145)
[2023-01-01] MEDS: Liothyronine Sodium 25 MCG TAB PO SCH (06:08)
[2023-01-01] MEDS: Hydrochlorothiazide 25 MG TAB PO SCH (06:08)
[2023-01-01] MEDS: HumaLOG 300 UNITS/3 ML VIAL SC PRN ×4 (06:08→20:42)
[2023-01-01] MEDS: Milrinone Lactate/D5W 20 MG in Premix 1 BAG IV SCH ×3 (06:20→23:29)
[2023-01-01] MEDS: Mometasone 200 MCG/Formoterol 5 MCG 120 PUFF INHALER INH SCH ×2 (07:16→18:46)
[2023-01-01] MEDS ORDERED: Insulin NPH Human Isophane 100 UNITS/ML (10 ML VIAL) SQ SCH ×2 (09:04→11:00)
[2023-01-01] MEDS: Acetaminophen 325 MG TAB PO PRN ×2 (10:10→20:39)
[2023-01-01] MEDS: Gabapentin 300 MG CAP PO SCH ×3 (10:10→20:40)
[2023-01-01] MEDS: Empagliflozin 10 MG TAB PO SCH (10:11)
[2023-01-01] MEDS: Famotidine 20 MG TAB PO SCH ×2 (10:11→20:40)
[2023-01-01] MEDS: Sacubitril 24MG/Valsartan 26 MG TAB PO SCH ×2 (10:11→20:40)
[2023-01-01] MEDS: Carvedilol 6.25 MG TAB PO SCH ×2 (10:11→20:39)
[2023-01-01] MEDS: Hydrocortisone 10 mg Tablet PO SCH ×3 (10:12→17:21)
[2023-01-01] MEDS: Escitalopram Oxalate 10 mg Tablet PO SCH (10:12)
[2023-01-01] MEDS: Magnesium Oxide 400 MG TAB PO SCH (10:13)
[2023-01-01] MEDS: Loratadine 10 MG TAB PO SCH (10:13)
[2023-01-01] MEDS: Cholecalciferol 1,000 UNITS (25 MCG) TAB PO SCH (10:13)
[2023-01-01] MEDS: Potassium Chloride 20 MEQ TAB PO SCH ×2 (10:13→20:40)
[2023-01-01] MEDS: VERICIGUAT 5 MG PO SCH (10:13)
[2023-01-01] MEDS: Allopurinol 100 MG TAB PO SCH (10:13)
[2023-01-01] MEDS: Insulin Regular 300 UNITS/3 ML VIAL SC SCH ×3 (10:23→17:22)
[2023-01-01] MEDS: Insulin NPH Human Isophane 100 UNITS/ML (10 ML VIAL) SQ SCH (10:49)
[2023-01-01] MEDS ORDERED: Rivaroxaban 15 MG TAB PO SCH (17:00)
[2023-01-01] MEDS: Rosuvastatin 10 MG TAB PO SCH (20:40)
[2023-01-02 04:34] LABS: #Basophils 0.1 thou/uL (0.0-0.2); #Eosinphils 0.2 thou/uL (0.0-0.7); #Neutrophils 4.6 thou/uL (1.40-6.50); %Basophils 0.9 % (0.0-1.0); %Eosinophils 2.3 % (0.0-10.0); %Lymphocytes 25.1 % (21.0-51.0); %Monocytes 12.8 % (0.0-10.0); %Neutrophils 58.6 % (42.0-75.0); Hematocrit 39.7 % (36.0-47.0); Hemoglobin 11.9 g/dL (12.0-16.0); Mean Corpuscular Hemoglobin 25.9 pg (27.0-31.0); Mean Corpuscular Volume 86.3 fl (78.0-98.0); Platelet Count 282 10x3/uL (130-400); White Blood Cell (WBC) Count 7.8 10x3/uL (4.8-10.8)
[2023-01-02] MEDS: Liothyronine Sodium 25 MCG TAB PO SCH (05:03)
[2023-01-02] MEDS: Hydrochlorothiazide 25 MG TAB PO SCH (05:03)
[2023-01-02] MEDS: HumaLOG 300 UNITS/3 ML VIAL SC PRN (05:17)
[2023-01-02 05:27] LABS: ALT (SGPT) 12 U/L (8-55); AST (SGOT) 14 U/L (5-34); Albumin 4.1 g/dL (3.4-4.8); Alkaline Phosphatase 91 U/L (40-110); Anion Gap 18 mmol/L (10-20); BUN (Urea Nitrogen) 38 mg/dL (9.8-20.1); Bilirubin, Total 0.3 mg/dL (0.2-1.2); Calc. Creatinine Clearance 79 mL/min (70-130); Calcium 9.5 mg/dL (7.8-10.44); Carbon Dioxide 27 mmol/L (23-31); Chloride 100 mmol/L (98-107); Estimated GFR 54; Glucose 201 mg/dL (80-115); Magnesium 2.7 mg/dL (1.6-2.6); Potassium 4.4 mmol/L (3.5-5.1); Protein, Total 7.1 g/dL (5.8-8.1); Sodium 141 mmol/L (136-145)
[2023-01-02] MEDS: Mometasone 200 MCG/Formoterol 5 MCG 120 PUFF INHALER INH SCH ×2 (06:56→18:26)
[2023-01-02] MEDS: Milrinone Lactate/D5W 20 MG in Premix 1 BAG IV SCH ×2 (07:25→14:46)
[2023-01-02] MEDS ORDERED: Insulin NPH Human Isophane 100 UNITS/ML (10 ML VIAL) SQ SCH (09:00)
[2023-01-02] MEDS ORDERED: AcetaZOLAMIDE 250 MG TAB PO SCH (09:00)
[2023-01-02] MEDS: Potassium Chloride 20 MEQ TAB PO SCH ×2 (09:12→21:35)
[2023-01-02] MEDS: Hydrocortisone 10 mg Tablet PO SCH ×3 (09:12→16:11)
[2023-01-02] MEDS: Famotidine 20 MG TAB PO SCH ×2 (09:13→21:31)
[2023-01-02] MEDS: Magnesium Oxide 400 MG TAB PO SCH (09:13)
[2023-01-02] MEDS: Allopurinol 100 MG TAB PO SCH (09:14)
[2023-01-02] MEDS: Carvedilol 6.25 MG TAB PO SCH ×2 (09:14→21:31)
[2023-01-02] MEDS: Escitalopram Oxalate 10 mg Tablet PO SCH (09:15)
[2023-01-02] MEDS: Empagliflozin 10 MG TAB PO SCH (09:15)
[2023-01-02] MEDS: Cholecalciferol 1,000 UNITS (25 MCG) TAB PO SCH (09:15)
[2023-01-02] MEDS: Gabapentin 300 MG CAP PO SCH ×3 (09:16→21:31)
[2023-01-02] MEDS: Loratadine 10 MG TAB PO SCH (09:16)
[2023-01-02] MEDS: VERICIGUAT 5 MG PO SCH (09:17)
[2023-01-02] MEDS: Sacubitril 24MG/Valsartan 26 MG TAB PO SCH ×2 (09:18→21:30)
[2023-01-02] MEDS: Torsemide 20 MG TAB PO SCH (09:18)
[2023-01-02] MEDS: Acetaminophen 325 MG TAB PO PRN ×2 (09:18→18:28)
[2023-01-02] MEDS: Insulin Regular 300 UNITS/3 ML VIAL SC SCH ×3 (09:28→16:15)
[2023-01-02] MEDS: Insulin NPH Human Isophane 100 UNITS/ML (10 ML VIAL) SQ SCH (09:34)
[2023-01-02] MEDS: Rivaroxaban 10 MG TAB PO SCH (16:15)
[2023-01-02] MEDS: Rosuvastatin 10 MG TAB PO SCH (21:30)
[2023-01-03] MEDS: Milrinone Lactate/D5W 20 MG in Premix 1 BAG IV SCH ×3 (00:33→15:11)
[2023-01-03 04:10] LABS: #Eosinphils 0.2 thou/uL (0.0-0.7); #Monocytes 1.1 thou/uL (0.11-0.59); #Neutrophils 4.1 thou/uL (1.40-6.50); %Basophils 0.5 % (0.0-1.0); %Eosinophils 2.1 % (0.0-10.0); %Lymphocytes 30.4 % (21.0-51.0); %Monocytes 14.6 % (0.0-10.0); %Neutrophils 52.3 % (42.0-75.0); Hematocrit 39.4 % (36.0-47.0); Mean Corpuscular HGB CONC 30.5 g/dL (32.0-36.0); Mean Corpuscular Hemoglobin 26.1 pg (27.0-31.0); Mean Corpuscular Volume 85.8 fl (78.0-98.0); Mean Platelet Volume 9.6 fL (7.4-10.4); Platelet Count 235 10x3/uL (130-400); RBC Distribution Width 14.1 % (11.5-14.5); Red Blood Cell (RBC) Count 4.59 mill/uL (4.20-5.40); White Blood Cell (WBC) Count 7.8 10x3/uL (4.8-10.8)
[2023-01-03 04:37] LABS: ALT (SGPT) 10 U/L (8-55); AST (SGOT) 16 U/L (5-34); Albumin 4.2 g/dL (3.4-4.8); Alkaline Phosphatase 73 U/L (40-110); Anion Gap 11 mmol/L (10-20); BUN (Urea Nitrogen) 35 mg/dL (9.8-20.1); Bilirubin, Total 0.2 mg/dL (0.2-1.2); Calc. Creatinine Clearance 75 mL/min (70-130); Calcium 10.1 mg/dL (7.8-10.44); Carbon Dioxide 34 mmol/L (23-31); Chloride 97 mmol/L (98-107); Estimated GFR 51; Globulin 2.8 g/dL (2.4-3.5); Glucose 155 mg/dL (80-115); Magnesium 2.5 mg/dL (1.6-2.6); Potassium 3.9 mmol/L (3.5-5.1); Sodium 138 mmol/L (136-145)
[2023-01-03] MEDS: Liothyronine Sodium 25 MCG TAB PO SCH (06:15)
[2023-01-03] MEDS: Hydrochlorothiazide 25 MG TAB PO SCH (06:16)
[2023-01-03] MEDS: Acetaminophen 325 MG TAB PO PRN ×2 (06:23→16:48)
[2023-01-03] MEDS: Mometasone 200 MCG/Formoterol 5 MCG 120 PUFF INHALER INH SCH ×2 (07:07→19:47)
[2023-01-03] MEDS: Insulin Regular 300 UNITS/3 ML VIAL SC SCH ×3 (09:11→16:50)
[2023-01-03] MEDS: Insulin NPH Human Isophane 100 UNITS/ML (10 ML VIAL) SQ SCH (09:12)
[2023-01-03] MEDS ORDERED: AcetaZOLAMIDE 250 MG TAB PO SCH (09:15)
[2023-01-03] MEDS: Carvedilol 6.25 MG TAB PO SCH ×2 (09:15→22:00)
[2023-01-03] MEDS: Allopurinol 100 MG TAB PO SCH (09:15)
[2023-01-03] MEDS: Gabapentin 300 MG CAP PO SCH ×3 (09:16→21:59)
[2023-01-03] MEDS: Cholecalciferol 1,000 UNITS (25 MCG) TAB PO SCH (09:16)
[2023-01-03] MEDS: Famotidine 20 MG TAB PO SCH ×2 (09:16→22:00)
[2023-01-03] MEDS: Empagliflozin 10 MG TAB PO SCH (09:16)
[2023-01-03] MEDS: Escitalopram Oxalate 10 mg Tablet PO SCH (09:16)
[2023-01-03] MEDS: Magnesium Oxide 400 MG TAB PO SCH (09:17)
[2023-01-03] MEDS: Potassium Chloride 20 MEQ TAB PO SCH ×2 (09:17→22:00)
[2023-01-03] MEDS: Sacubitril 24MG/Valsartan 26 MG TAB PO SCH (09:17)
[2023-01-03] MEDS: Loratadine 10 MG TAB PO SCH (09:17)
[2023-01-03] MEDS: VERICIGUAT 5 MG PO SCH (09:23)
[2023-01-03] MEDS: Hydrocortisone 10 mg Tablet PO SCH ×4 (09:24→16:48)
[2023-01-03] MEDS: Torsemide 20 MG TAB PO SCH (09:25)
[2023-01-03] MEDS: HumaLOG 300 UNITS/3 ML VIAL SC PRN (12:23)
[2023-01-03] MEDS ORDERED: Aquaphor 10 GM TUBE TOP PRN (14:52)
[2023-01-03] MEDS: Mupirocin 2% Ointment 22 GM Tube TOP SCH (16:47)
[2023-01-03] MEDS: Rivaroxaban 10 MG TAB PO SCH (16:48)
[2023-01-03] MEDS: Sacubitril 49 MG/Valsartan 51 MG TABLET PO SCH (21:59)
[2023-01-03] MEDS: Rosuvastatin 10 MG TAB PO SCH (21:59)
[2023-01-03] MEDS ORDERED: HumaLOG 300 UNITS/3 ML VIAL SC PRN (23:30)
[2023-01-03] MEDS: Fluticasone Propionate Nasal Spray 16 gm Bottle NASAL PRN (23:33)
[2023-01-04] MEDS ORDERED: HumaLOG 300 UNITS/3 ML VIAL SC SCH (00:15)
[2023-01-04 04:45] LABS: #Basophils 0.1 thou/uL (0.0-0.2); #Eosinphils 0.2 thou/uL (0.0-0.7); #Monocytes 1.4 thou/uL (0.11-0.59); #Neutrophils 3.9 thou/uL (1.40-6.50); %Basophils 0.7 % (0.0-1.0); %Monocytes 17.2 % (0.0-10.0); %Neutrophils 48.5 % (42.0-75.0); Hematocrit 39.1 % (36.0-47.0); Hemoglobin 11.6 g/dL (12.0-16.0); Mean Corpuscular HGB CONC 29.7 g/dL (32.0-36.0); Mean Corpuscular Volume 87.5 fl (78.0-98.0); Mean Platelet Volume 9.9 fL (7.4-10.4); Platelet Count 266 10x3/uL (130-400); RBC Distribution Width 14.3 % (11.5-14.5); Red Blood Cell (RBC) Count 4.47 mill/uL (4.20-5.40); White Blood Cell (WBC) Count 8.1 10x3/uL (4.8-10.8)
[2023-01-04 05:10] LABS: ALT (SGPT) 11 U/L (8-55); AST (SGOT) 14 U/L (5-34); Albumin 4.1 g/dL (3.4-4.8); Alkaline Phosphatase 87 U/L (40-110); Anion Gap 17 mmol/L (10-20); BUN (Urea Nitrogen) 40 mg/dL (9.8-20.1); Bilirubin, Total 0.3 mg/dL (0.2-1.2); Calc. Creatinine Clearance 68 mL/min (70-130); Calcium 9.4 mg/dL (7.8-10.44); Carbon Dioxide 29 mmol/L (23-31); Chloride 99 mmol/L (98-107); Estimated GFR 45; Globulin 2.9 g/dL (2.4-3.5); Glucose 189 mg/dL (80-115); Magnesium 2.5 mg/dL (1.6-2.6); Sodium 141 mmol/L (136-145)
[2023-01-04] MEDS: Liothyronine Sodium 25 MCG TAB PO SCH (06:14)
[2023-01-04] MEDS: Hydrochlorothiazide 25 MG TAB PO SCH (06:15)
[2023-01-04] MEDS: Acetaminophen 325 MG TAB PO PRN ×2 (06:22→20:44)
[2023-01-04] MEDS: Mometasone 200 MCG/Formoterol 5 MCG 120 PUFF INHALER INH SCH ×2 (07:38→18:47)
[2023-01-04] MEDS: Milrinone Lactate/D5W 20 MG in Premix 1 BAG IV SCH ×3 (07:39→23:10)
[2023-01-04] MEDS: Mupirocin 2% Ointment 22 GM Tube TOP SCH ×2 (08:54→20:46)
[2023-01-04] MEDS: Hydrocortisone 10 mg Tablet PO SCH ×3 (08:55→15:42)
[2023-01-04] MEDS: Sacubitril 49 MG/Valsartan 51 MG TABLET PO SCH ×2 (08:55→20:44)
[2023-01-04] MEDS: Potassium Chloride 20 MEQ TAB PO SCH ×2 (08:56→20:45)
[2023-01-04] MEDS: Loratadine 10 MG TAB PO SCH (08:56)
[2023-01-04] MEDS: Gabapentin 300 MG CAP PO SCH ×3 (08:56→20:45)
[2023-01-04] MEDS: Allopurinol 100 MG TAB PO SCH (08:56)
[2023-01-04] MEDS: Escitalopram Oxalate 10 mg Tablet PO SCH (08:56)
[2023-01-04] MEDS: Empagliflozin 10 MG TAB PO SCH (08:57)
[2023-01-04] MEDS: Magnesium Oxide 400 MG TAB PO SCH (08:57)
[2023-01-04] MEDS: Famotidine 20 MG TAB PO SCH ×2 (08:57→20:45)
[2023-01-04] MEDS: Cholecalciferol 1,000 UNITS (25 MCG) TAB PO SCH (08:57)
[2023-01-04] MEDS: Carvedilol 6.25 MG TAB PO SCH ×2 (08:57→20:50)
[2023-01-04] MEDS: Insulin Regular 300 UNITS/3 ML VIAL SC SCH ×3 (08:58→17:22)
[2023-01-04] MEDS: Insulin NPH Human Isophane 100 UNITS/ML (10 ML VIAL) SQ SCH (09:00)
[2023-01-04] MEDS ORDERED: Torsemide 20 MG TAB PO SCH (09:00)
[2023-01-04] MEDS: VERICIGUAT 5 MG PO SCH (09:02)
[2023-01-04] MEDS: HumaLOG 300 UNITS/3 ML VIAL SC PRN ×3 (12:26→20:52)
[2023-01-04] MEDS: Rivaroxaban 10 MG TAB PO SCH (15:46)
[2023-01-04] MEDS: Rosuvastatin 10 MG TAB PO SCH (20:45)
[2023-01-05] MEDS: Acetaminophen 325 MG TAB PO PRN ×3 (02:16→23:44)
[2023-01-05 04:05] LABS: #Eosinphils 0.2 thou/uL (0.0-0.7); #Monocytes 1.1 thou/uL (0.11-0.59); #Neutrophils 4.3 thou/uL (1.40-6.50); %Basophils 0.5 % (0.0-1.0); %Eosinophils 2.2 % (0.0-10.0); %Lymphocytes 30.8 % (21.0-51.0); %Monocytes 13.6 % (0.0-10.0); %Neutrophils 52.5 % (42.0-75.0); Hematocrit 35.6 % (36.0-47.0); Hemoglobin 10.8 g/dL (12.0-16.0); Mean Corpuscular HGB CONC 30.3 g/dL (32.0-36.0); Mean Corpuscular Hemoglobin 26.5 pg (27.0-31.0); Mean Corpuscular Volume 87.5 fl (78.0-98.0); Mean Platelet Volume 9.5 fL (7.4-10.4); Platelet Count 225 10x3/uL (130-400); RBC Distribution Width 14.1 % (11.5-14.5); Red Blood Cell (RBC) Count 4.07 mill/uL (4.20-5.40); White Blood Cell (WBC) Count 8.2 10x3/uL (4.8-10.8)
[2023-01-05 04:31] LABS: ALT (SGPT) 13 U/L (8-55); AST (SGOT) 16 U/L (5-34); Albumin 3.9 g/dL (3.4-4.8); Alkaline Phosphatase 82 U/L (40-110); Anion Gap 15 mmol/L (10-20); BUN (Urea Nitrogen) 50 mg/dL (9.8-20.1); Bilirubin, Total 0.3 mg/dL (0.2-1.2); Calc. Creatinine Clearance 66 mL/min (70-130); Calcium 9.2 mg/dL (7.8-10.44); Carbon Dioxide 29 mmol/L (23-31); Chloride 99 mmol/L (98-107); Estimated GFR 43; Globulin 2.8 g/dL (2.4-3.5); Glucose 159 mg/dL (80-115); Magnesium 2.7 mg/dL (1.6-2.6); Potassium 4.4 mmol/L (3.5-5.1); Protein, Total 6.7 g/dL (5.8-8.1); Sodium 139 mmol/L (136-145)
[2023-01-05] MEDS: Hydrochlorothiazide 25 MG TAB PO SCH (06:21)
[2023-01-05] MEDS: Liothyronine Sodium 25 MCG TAB PO SCH (06:21)
[2023-01-05] MEDS: HumaLOG 300 UNITS/3 ML VIAL SC PRN ×3 (06:22→17:30)
[2023-01-05] MEDS: Milrinone Lactate/D5W 20 MG in Premix 1 BAG IV SCH ×2 (07:10→16:10)
[2023-01-05] MEDS: Mometasone 200 MCG/Formoterol 5 MCG 120 PUFF INHALER INH SCH ×2 (07:30→18:34)
[2023-01-05] MEDS: Fluticasone Propionate Nasal Spray 16 gm Bottle NASAL PRN (08:15)
[2023-01-05] MEDS: Carvedilol 6.25 MG TAB PO SCH ×2 (08:16→20:18)
[2023-01-05] MEDS: Magnesium Oxide 400 MG TAB PO SCH (08:16)
[2023-01-05] MEDS: Cholecalciferol 1,000 UNITS (25 MCG) TAB PO SCH (08:16)
[2023-01-05] MEDS: Hydrocortisone 10 mg Tablet PO SCH ×3 (08:16→16:09)
[2023-01-05] MEDS: Empagliflozin 10 MG TAB PO SCH (08:16)
[2023-01-05] MEDS: Sacubitril 49 MG/Valsartan 51 MG TABLET PO SCH ×2 (08:16→20:18)
[2023-01-05] MEDS: Famotidine 20 MG TAB PO SCH ×2 (08:16→20:18)
[2023-01-05] MEDS: Loratadine 10 MG TAB PO SCH (08:16)
[2023-01-05] MEDS: Potassium Chloride 20 MEQ TAB PO SCH ×2 (08:16→16:09)
[2023-01-05] MEDS: Gabapentin 300 MG CAP PO SCH ×3 (08:17→20:18)
[2023-01-05] MEDS: Mupirocin 2% Ointment 22 GM Tube TOP SCH ×2 (08:17→20:18)
[2023-01-05] MEDS: Allopurinol 100 MG TAB PO SCH (08:17)
[2023-01-05] MEDS: VERICIGUAT 5 MG PO SCH (08:17)
[2023-01-05] MEDS: Escitalopram Oxalate 10 mg Tablet PO SCH (08:17)
[2023-01-05] MEDS: Insulin Regular 300 UNITS/3 ML VIAL SC SCH ×3 (08:17→17:29)
[2023-01-05] MEDS: Insulin NPH Human Isophane 100 UNITS/ML (10 ML VIAL) SQ SCH (08:17)
[2023-01-05] MEDS ORDERED: AcetaZOLAMIDE 250 MG TAB PO SCH (09:00)
[2023-01-05] MEDS: Rivaroxaban 15 MG TAB PO SCH (16:09)
[2023-01-05] MEDS: Rosuvastatin 10 MG TAB PO SCH (20:18)
[2023-01-06] MEDS ORDERED: Calcium Carbonate 500 MG ChewTAB PO PRN (01:16)
[2023-01-06] MEDS: Milrinone Lactate/D5W 20 MG in Premix 1 BAG IV SCH ×3 (01:53→20:00)
[2023-01-06] MEDS ORDERED: Carvedilol 6.25 MG TAB PO SCH (02:45)
[2023-01-06 04:45] LABS: #Basophils 0.1 thou/uL (0.0-0.2); #Eosinphils 0.2 thou/uL (0.0-0.7); #Monocytes 1.2 thou/uL (0.11-0.59); #Neutrophils 5.9 thou/uL (1.40-6.50); %Basophils 0.5 % (0.0-1.0); %Eosinophils 2.1 % (0.0-10.0); %Lymphocytes 22.6 % (21.0-51.0); %Monocytes 12.8 % (0.0-10.0); %Neutrophils 61.7 % (42.0-75.0); Hemoglobin 11.1 g/dL (12.0-16.0); Mean Corpuscular Hemoglobin 26.1 pg (27.0-31.0); Mean Corpuscular Volume 86.9 fl (78.0-98.0); Mean Platelet Volume 9.8 fL (7.4-10.4); Platelet Count 232 10x3/uL (130-400); RBC Distribution Width 14.1 % (11.5-14.5); Red Blood Cell (RBC) Count 4.26 mill/uL (4.20-5.40); White Blood Cell (WBC) Count 9.5 10x3/uL (4.8-10.8)
[2023-01-06] MEDS ORDERED: hydrALAZINE 20 MG/ML VIAL SLOW IVP PRN (05:07)
[2023-01-06 05:15] LABS: ALT (SGPT) 12 U/L (8-55); AST (SGOT) 14 U/L (5-34); Albumin 3.9 g/dL (3.4-4.8); Alkaline Phosphatase 98 U/L (40-110); Anion Gap 17 mmol/L (10-20); BUN (Urea Nitrogen) 41 mg/dL (9.8-20.1); Bilirubin, Total 0.2 mg/dL (0.2-1.2); Calc. Creatinine Clearance 75 mL/min (70-130); Calcium 9.2 mg/dL (7.8-10.44); Carbon Dioxide 29 mmol/L (23-31); Chloride 100 mmol/L (98-107); Estimated GFR 50; Globulin 2.8 g/dL (2.4-3.5); Glucose 236 mg/dL (80-115); Potassium 3.8 mmol/L (3.5-5.1); Protein, Total 6.7 g/dL (5.8-8.1); Sodium 142 mmol/L (136-145)
[2023-01-06 05:16] LABS: Magnesium 2.6 mg/dL (1.6-2.6)
[2023-01-06] MEDS: Hydrochlorothiazide 25 MG TAB PO SCH (05:34)
[2023-01-06] MEDS: Liothyronine Sodium 25 MCG TAB PO SCH (05:40)
[2023-01-06] MEDS: HumaLOG 300 UNITS/3 ML VIAL SC PRN ×2 (06:27→16:17)
[2023-01-06] MEDS: Mometasone 200 MCG/Formoterol 5 MCG 120 PUFF INHALER INH SCH ×2 (07:03→20:34)
[2023-01-06] MEDS: Fluticasone Propionate Nasal Spray 16 gm Bottle NASAL PRN (08:55)
[2023-01-06] MEDS: Mupirocin 2% Ointment 22 GM Tube TOP SCH ×2 (08:56→22:24)
[2023-01-06] MEDS: Hydrocortisone 10 mg Tablet PO SCH ×3 (08:56→16:14)
[2023-01-06] MEDS: Carvedilol 25 MG TAB PO SCH ×2 (08:56→22:24)
[2023-01-06] MEDS: VERICIGUAT 5 MG PO SCH (08:56)
[2023-01-06] MEDS: Potassium Chloride 20 MEQ TAB PO SCH ×2 (08:56→16:15)
[2023-01-06] MEDS: Gabapentin 300 MG CAP PO SCH ×3 (08:56→22:24)
[2023-01-06] MEDS: Escitalopram Oxalate 10 mg Tablet PO SCH (08:57)
[2023-01-06] MEDS: Magnesium Oxide 400 MG TAB PO SCH (08:57)
[2023-01-06] MEDS: Cholecalciferol 1,000 UNITS (25 MCG) TAB PO SCH (08:57)
[2023-01-06] MEDS: Allopurinol 100 MG TAB PO SCH (08:57)
[2023-01-06] MEDS: Loratadine 10 MG TAB PO SCH (08:57)
[2023-01-06] MEDS: Famotidine 20 MG TAB PO SCH ×2 (08:57→22:24)
[2023-01-06] MEDS: Empagliflozin 10 MG TAB PO SCH (08:57)
[2023-01-06] MEDS: Sacubitril 49 MG/Valsartan 51 MG TABLET PO SCH ×2 (08:57→22:24)
[2023-01-06] MEDS: Insulin NPH Human Isophane 100 UNITS/ML (10 ML VIAL) SQ SCH (08:58)
[2023-01-06] MEDS: Insulin Regular 300 UNITS/3 ML VIAL SC SCH ×3 (08:58→16:15)
[2023-01-06] MEDS: Acetaminophen 325 MG TAB PO PRN ×2 (09:03→23:37)
[2023-01-06] MEDS: Rivaroxaban 15 MG TAB PO SCH (16:14)
[2023-01-06] MEDS ORDERED: Hydrochlorothiazide 25 MG TAB PO SCH (17:00)
[2023-01-06] MEDS: Rosuvastatin 10 MG TAB PO SCH (22:24)
[2023-01-07 04:24] LABS: #Eosinphils 0.2 thou/uL (0.0-0.7); #Monocytes 1.6 thou/uL (0.11-0.59); #Neutrophils 6.1 thou/uL (1.40-6.50); %Basophils 0.4 % (0.0-1.0); %Eosinophils 1.9 % (0.0-10.0); %Lymphocytes 16.9 % (21.0-51.0); %Monocytes 16.7 % (0.0-10.0); %Neutrophils 63.8 % (42.0-75.0); Hematocrit 38.1 % (36.0-47.0); Hemoglobin 11.3 g/dL (12.0-16.0); Mean Corpuscular HGB CONC 29.7 g/dL (32.0-36.0); Mean Corpuscular Hemoglobin 26.3 pg (27.0-31.0); Mean Corpuscular Volume 88.6 fl (78.0-98.0); Mean Platelet Volume 9.8 fL (7.4-10.4); Platelet Count 200 10x3/uL (130-400); RBC Distribution Width 14.4 % (11.5-14.5); White Blood Cell (WBC) Count 9.6 10x3/uL (4.8-10.8)
[2023-01-07] MEDS: Milrinone Lactate/D5W 20 MG in Premix 1 BAG IV SCH ×2 (04:54→16:10)
[2023-01-07] MEDS: Liothyronine Sodium 25 MCG TAB PO SCH (05:44)
[2023-01-07 06:26] LABS: Albumin 3.7 g/dL (3.4-4.8); Alkaline Phosphatase 73 U/L (40-110); Anion Gap 19 mmol/L (10-20); Bilirubin, Total 0.3 mg/dL (0.2-1.2); Calc. Creatinine Clearance 93 mL/min (70-130); Calcium 9.1 mg/dL (7.8-10.44); Carbon Dioxide 23 mmol/L (23-31); Chloride 103 mmol/L (98-107); Estimated GFR 65; Globulin 2.8 g/dL (2.4-3.5); Glucose 144 mg/dL (80-115); Potassium 4.4 mmol/L (3.5-5.1); Protein, Total 6.5 g/dL (5.8-8.1); Sodium 141 mmol/L (136-145)
[2023-01-07 06:27] LABS: ALT (SGPT) 11 U/L (8-55); AST (SGOT) 16 U/L (5-34); BUN (Urea Nitrogen) 35 mg/dL (9.8-20.1); Magnesium 2.4 mg/dL (1.6-2.6)
[2023-01-07] MEDS ORDERED: Hydrochlorothiazide 25 MG TAB PO SCH (06:30)
[2023-01-07] MEDS: Mometasone 200 MCG/Formoterol 5 MCG 120 PUFF INHALER INH SCH ×2 (07:02→18:27)
[2023-01-07] MEDS ORDERED: cefTRIAXone\\ROCEPHIN 1 GM in Sodium Chloride 0.9% 100 ML IVPB SCH (07:15)
[2023-01-07] MEDS: Fluticasone Propionate Nasal Spray 16 gm Bottle NASAL PRN (08:04)
[2023-01-07] MEDS: Carvedilol 25 MG TAB PO SCH ×2 (08:05→20:52)
[2023-01-07] MEDS: Allopurinol 100 MG TAB PO SCH (08:05)
[2023-01-07] MEDS: Gabapentin 300 MG CAP PO SCH ×3 (08:05→20:52)
[2023-01-07] MEDS: Empagliflozin 10 MG TAB PO SCH (08:05)
[2023-01-07] MEDS: Famotidine 20 MG TAB PO SCH ×2 (08:05→20:52)
[2023-01-07] MEDS: Mupirocin 2% Ointment 22 GM Tube TOP SCH (08:05)
[2023-01-07] MEDS: Hydrocortisone 10 mg Tablet PO SCH ×3 (08:05→16:11)
[2023-01-07] MEDS: Sacubitril 49 MG/Valsartan 51 MG TABLET PO SCH ×2 (08:05→20:52)
[2023-01-07] MEDS: Cholecalciferol 1,000 UNITS (25 MCG) TAB PO SCH (08:06)
[2023-01-07] MEDS: Insulin NPH Human Isophane 100 UNITS/ML (10 ML VIAL) SQ SCH (08:06)
[2023-01-07] MEDS: VERICIGUAT 5 MG PO SCH (08:06)
[2023-01-07] MEDS: Magnesium Oxide 400 MG TAB PO SCH (08:06)
[2023-01-07] MEDS: Escitalopram Oxalate 10 mg Tablet PO SCH (08:06)
[2023-01-07] MEDS: Insulin Regular 300 UNITS/3 ML VIAL SC SCH ×3 (08:06→16:41)
[2023-01-07] MEDS: Potassium Chloride 20 MEQ TAB PO SCH ×2 (08:06→16:11)
[2023-01-07] MEDS: Loratadine 10 MG TAB PO SCH (08:06)
[2023-01-07] MEDS: Acetaminophen 325 MG TAB PO PRN ×2 (08:17→20:52)
[2023-01-07] MEDS ORDERED: Doxycycline 100 MG CAP PO SCH ×2 (13:45→21:00)
[2023-01-07] MEDS: Hydrochlorothiazide 25 MG TAB PO SCH (16:11)
[2023-01-07] MEDS: Rivaroxaban 15 MG TAB PO SCH (16:11)
[2023-01-07] MEDS: Rosuvastatin 10 MG TAB PO SCH (20:52)
[2023-01-07] MEDS: Doxycycline 100 MG CAP PO SCH (20:52)
[2023-01-08 04:37] LABS: #Eosinphils 0.1 thou/uL (0.0-0.7); #Monocytes 1.2 thou/uL (0.11-0.59); #Neutrophils 3.1 thou/uL (1.40-6.50); %Basophils 0.5 % (0.0-1.0); %Eosinophils 2.3 % (0.0-10.0); %Lymphocytes 27.3 % (21.0-51.0); %Monocytes 19.6 % (0.0-10.0); Hematocrit 36.2 % (36.0-47.0); Hemoglobin 10.8 g/dL (12.0-16.0); Mean Corpuscular HGB CONC 29.8 g/dL (32.0-36.0); Mean Corpuscular Hemoglobin 26.2 pg (27.0-31.0); Mean Corpuscular Volume 87.7 fl (78.0-98.0); Mean Platelet Volume 9.8 fL (7.4-10.4); Platelet Count 191 10x3/uL (130-400); RBC Distribution Width 14.6 % (11.5-14.5); Red Blood Cell (RBC) Count 4.13 mill/uL (4.20-5.40); White Blood Cell (WBC) Count 6.1 10x3/uL (4.8-10.8)
[2023-01-08] MEDS: Milrinone Lactate/D5W 20 MG in Premix 1 BAG IV SCH (04:49)
[2023-01-08] MEDS: Acetaminophen 325 MG TAB PO PRN ×2 (04:49→13:51)
[2023-01-08] MEDS: Hydrochlorothiazide 25 MG TAB PO SCH ×2 (04:51→13:51)
[2023-01-08] MEDS: Liothyronine Sodium 25 MCG TAB PO SCH (04:51)
[2023-01-08 04:55] LABS: ALT (SGPT) 14 U/L (8-55); AST (SGOT) 18 U/L (5-34); Albumin 3.9 g/dL (3.4-4.8); Alkaline Phosphatase 85 U/L (40-110); Anion Gap 12 mmol/L (10-20); BUN (Urea Nitrogen) 32 mg/dL (9.8-20.1); Bilirubin, Total 0.5 mg/dL (0.2-1.2); Calc. Creatinine Clearance 85 mL/min (70-130); Calcium 9.3 mg/dL (7.8-10.44); Carbon Dioxide 30 mmol/L (23-31); Chloride 101 mmol/L (98-107); Estimated GFR 58; Globulin 2.7 g/dL (2.4-3.5); Glucose 180 mg/dL (80-115); Magnesium 2.4 mg/dL (1.6-2.6); Potassium 4.2 mmol/L (3.5-5.1); Protein, Total 6.6 g/dL (5.8-8.1); Sodium 139 mmol/L (136-145)
[2023-01-08] MEDS: Mometasone 200 MCG/Formoterol 5 MCG 120 PUFF INHALER INH SCH ×2 (07:57→19:28)
[2023-01-08] MEDS ORDERED: cefTRIAXone\\ROCEPHIN 1 GM in Sodium Chloride 0.9% 100 ML IVPB SCH (08:00)
[2023-01-08] MEDS: Fluticasone Propionate Nasal Spray 16 gm Bottle NASAL PRN (08:38)
[2023-01-08] MEDS: Hydrocortisone 10 mg Tablet PO SCH ×3 (08:39→16:27)
[2023-01-08] MEDS: VERICIGUAT 5 MG PO SCH (08:39)
[2023-01-08] MEDS: Sacubitril 49 MG/Valsartan 51 MG TABLET PO SCH ×2 (08:39→20:26)
[2023-01-08] MEDS: Insulin NPH Human Isophane 100 UNITS/ML (10 ML VIAL) SQ SCH (08:40)
[2023-01-08] MEDS: Loratadine 10 MG TAB PO SCH (08:40)
[2023-01-08] MEDS: Allopurinol 100 MG TAB PO SCH (08:40)
[2023-01-08] MEDS: Escitalopram Oxalate 10 mg Tablet PO SCH (08:40)
[2023-01-08] MEDS: Magnesium Oxide 400 MG TAB PO SCH (08:40)
[2023-01-08] MEDS: Empagliflozin 10 MG TAB PO SCH (08:40)
[2023-01-08] MEDS: Famotidine 20 MG TAB PO SCH ×2 (08:40→20:26)
[2023-01-08] MEDS: Cholecalciferol 1,000 UNITS (25 MCG) TAB PO SCH (08:40)
[2023-01-08] MEDS: Carvedilol 25 MG TAB PO SCH ×2 (08:40→20:26)
[2023-01-08] MEDS: Gabapentin 300 MG CAP PO SCH ×3 (08:40→20:26)
[2023-01-08] MEDS: Potassium Chloride 20 MEQ TAB PO SCH ×2 (08:40→16:27)
[2023-01-08] MEDS: Doxycycline 100 MG CAP PO SCH ×2 (08:40→20:26)
[2023-01-08] MEDS: Insulin Regular 300 UNITS/3 ML VIAL SC SCH ×3 (08:41→16:27)
[2023-01-08] MEDS: HumaLOG 300 UNITS/3 ML VIAL SC PRN (11:21)
[2023-01-08] MEDS: Rivaroxaban 15 MG TAB PO SCH (16:27)
[2023-01-08] MEDS: Rosuvastatin 10 MG TAB PO SCH (20:26)
[2023-01-09] MEDS: Acetaminophen 325 MG TAB PO PRN ×2 (03:16→11:31)
[2023-01-09 05:00] LABS: #Eosinphils 0.2 thou/uL (0.0-0.7); #Monocytes 1.5 thou/uL (0.11-0.59); #Neutrophils 3.8 thou/uL (1.40-6.50); %Basophils 0.4 % (0.0-1.0); %Eosinophils 2.5 % (0.0-10.0); %Lymphocytes 30.5 % (21.0-51.0); %Monocytes 18.6 % (0.0-10.0); %Neutrophils 47.7 % (42.0-75.0); Hematocrit 37.7 % (36.0-47.0); Mean Corpuscular HGB CONC 29.2 g/dL (32.0-36.0); Mean Corpuscular Hemoglobin 26.4 pg (27.0-31.0); Mean Corpuscular Volume 90.4 fl (78.0-98.0); Mean Platelet Volume 9.7 fL (7.4-10.4); Platelet Count 221 10x3/uL (130-400); RBC Distribution Width 14.8 % (11.5-14.5); Red Blood Cell (RBC) Count 4.17 mill/uL (4.20-5.40); White Blood Cell (WBC) Count 7.9 10x3/uL (4.8-10.8)
[2023-01-09 05:45] LABS: ALT (SGPT) 21 U/L (8-55); AST (SGOT) 30 U/L (5-34); Albumin 3.9 g/dL (3.4-4.8); Alkaline Phosphatase 111 U/L (40-110); Anion Gap 17 mmol/L (10-20); BUN (Urea Nitrogen) 36 mg/dL (9.8-20.1); Bilirubin, Total 0.3 mg/dL (0.2-1.2); Calc. Creatinine Clearance 85 mL/min (70-130); Calcium 9.1 mg/dL (7.8-10.44); Carbon Dioxide 27 mmol/L (23-31); Chloride 101 mmol/L (98-107); Estimated GFR 57; Globulin 3.4 g/dL (2.4-3.5); Glucose 166 mg/dL (80-115); Magnesium 2.3 mg/dL (1.6-2.6); Potassium 4.8 mmol/L (3.5-5.1); Protein, Total 7.3 g/dL (5.8-8.1); Sodium 140 mmol/L (136-145)
[2023-01-09] MEDS: Liothyronine Sodium 25 MCG TAB PO SCH (05:52)
[2023-01-09] MEDS: Hydrochlorothiazide 25 MG TAB PO SCH ×2 (05:53→13:57)
[2023-01-09] MEDS: Mometasone 200 MCG/Formoterol 5 MCG 120 PUFF INHALER INH SCH (07:30)
[2023-01-09] MEDS: Allopurinol 100 MG TAB PO SCH (08:59)
[2023-01-09] MEDS: VERICIGUAT 5 MG PO SCH (08:59)
[2023-01-09] MEDS: Hydrocortisone 10 mg Tablet PO SCH ×3 (08:59→16:16)
[2023-01-09] MEDS: Potassium Chloride 20 MEQ TAB PO SCH ×2 (08:59→16:16)
[2023-01-09] MEDS: Sacubitril 49 MG/Valsartan 51 MG TABLET PO SCH (08:59)
[2023-01-09] MEDS: Doxycycline 100 MG CAP PO SCH (08:59)
[2023-01-09] MEDS: Fluticasone Propionate Nasal Spray 16 gm Bottle NASAL PRN (08:59)
[2023-01-09] MEDS: Magnesium Oxide 400 MG TAB PO SCH (08:59)
[2023-01-09] MEDS: Carvedilol 25 MG TAB PO SCH (09:00)
[2023-01-09] MEDS: Loratadine 10 MG TAB PO SCH (09:00)
[2023-01-09] MEDS: Famotidine 20 MG TAB PO SCH (09:00)
[2023-01-09] MEDS: Empagliflozin 10 MG TAB PO SCH (09:00)
[2023-01-09] MEDS ORDERED: Lidocaine 4% Patch TD SCH (09:00)
[2023-01-09] MEDS: Escitalopram Oxalate 10 mg Tablet PO SCH (09:00)
[2023-01-09] MEDS: Cholecalciferol 1,000 UNITS (25 MCG) TAB PO SCH (09:00)
[2023-01-09] MEDS: Insulin NPH Human Isophane 100 UNITS/ML (10 ML VIAL) SQ SCH (09:00)
[2023-01-09] MEDS ORDERED: Bumetanide 1 MG TAB PO SCH (09:00)
[2023-01-09] MEDS: Insulin Regular 300 UNITS/3 ML VIAL SC SCH ×3 (09:00→16:16)
[2023-01-09] MEDS: Gabapentin 300 MG CAP PO SCH ×2 (09:00→13:57)
[2023-01-09 16:16] VITALS: BP 156/58; TEMP 98.6
[2023-01-09] MEDS: Rivaroxaban 15 MG TAB PO SCH (16:16)
[2023-01-09] MEDS ORDERED: Transdermal Patch Removal TOP SCH (21:00)
== END 2023-01-09 18:30 | disposition home or self-care (01) | DRG 291 ==
LOC: 2NO 11:46
PROVIDERS: ADMIT Emergency Medicine; ATTEND Emergency Medicine
DX: I11.0 Hypertensive heart disease with heart failure (principal); I50.43 Acute on chronic combined systolic (congestive) and diastolic (congestive) heart failure; E27.40 Unspecified adrenocortical insufficiency; J96.10 Chronic respiratory failure, unspecified whether with hypoxia or hypercapnia; T80.29XA Infection following other infusion, transfusion and therapeutic injection, initial encounter; E11.65 Type 2 diabetes mellitus with hyperglycemia; E03.9 Hypothyroidism, unspecified; I48.91 Unspecified atrial fibrillation; I27.20 Pulmonary hypertension, unspecified; J45.909 Unspecified asthma, uncomplicated; F43.10 Post-traumatic stress disorder, unspecified; G47.33 Obstructive sleep apnea (adult) (pediatric); Z88.8 Allergy status to other drugs, medicaments and biological substances; Z88.2 Allergy status to sulfonamides; Z88.5 Allergy status to narcotic agent; Z79.899 Other long term (current) drug therapy; Z79.4 Long term (current) use of insulin; Z90.89 Acquired absence of other organs; Z98.890 Other specified postprocedural states; Z82.49 Family history of ischemic heart disease and other diseases of the circulatory system; Z87.891 Personal history of nicotine dependence; E78.5 Hyperlipidemia, unspecified; F41.9 Anxiety disorder, unspecified; E83.42 Hypomagnesemia; I42.8 Other cardiomyopathies; I48.0 Paroxysmal atrial fibrillation; I50.813 Acute on chronic right heart failure; D89.89 Other specified disorders involving the immune mechanism, not elsewhere classified; M10.9 Gout, unspecified
CPT/HCPCS: 36415; 36416; 80053; 83735; 83880; 85025; 87086; 93005; 93010; 97139; J0696; J1815; J1940; J2260; J3475; J3490

== ENCOUNTER 2023-04-04 17:13 | Inpatient (IN) | payer MEDICARE, OTHER ==
[2023-04-04 18:15] LABS: #Basophils 0.1 thou/uL (0.0-0.2); #Eosinphils 0.2 thou/uL (0.0-0.7); #Monocytes 1.1 thou/uL (0.11-0.59); #Neutrophils 6.8 thou/uL (1.40-6.50); %Basophils 0.5 % (0.0-1.0); %Eosinophils 2.3 % (0.0-10.0); %Lymphocytes 15.3 % (21.0-51.0); %Monocytes 11.4 % (0.0-10.0); %Neutrophils 70.3 % (42.0-75.0); Hematocrit 37.2 % (36.0-47.0); Hemoglobin 10.9 g/dL (12.0-16.0); Mean Corpuscular HGB CONC 29.3 g/dL (32.0-36.0); Mean Corpuscular Hemoglobin 24.8 pg (27.0-31.0); Mean Corpuscular Volume 84.7 fl (78.0-98.0); Mean Platelet Volume 10.3 fL (7.4-10.4); Platelet Count 225 10x3/uL (130-400); RBC Distribution Width 15.2 % (11.5-14.5); Red Blood Cell (RBC) Count 4.39 mill/uL (4.20-5.40); White Blood Cell (WBC) Count 9.7 10x3/uL (4.8-10.8)
[2023-04-04 18:39] LABS: ALT (SGPT) 10 U/L (8-55); AST (SGOT) 14 U/L (5-34); Albumin 3.4 g/dL (3.4-4.8); Alkaline Phosphatase 72 U/L (40-110); Anion Gap 11 mmol/L (10-20); BUN (Urea Nitrogen) 20 mg/dL (9.8-20.1); Bilirubin, Total 0.7 mg/dL (0.2-1.2); Calc. Creatinine Clearance 0 mL/min (70-130); Calcium 9.1 mg/dL (7.8-10.44); Carbon Dioxide 32 mmol/L (23-31); Chloride 102 mmol/L (98-107); Estimated GFR 45; Globulin 3.1 g/dL (2.4-3.5); Glucose 197 mg/dL (80-115); Potassium 4.1 mmol/L (3.5-5.1); Protein, Total 6.5 g/dL (5.8-8.1); Sodium 141 mmol/L (136-145)
[2023-04-04 18:41] LABS: Troponin I 0.048 ng/mL (< 0.028)
[2023-04-04] MEDS ORDERED: Furosemide 20 MG (2 mL) VIAL ONE (19:30)
[2023-04-04] MEDS ORDERED: Aspirin 325 MG TAB ONE (19:31)
[2023-04-04] MEDS ORDERED: Furosemide 100 MG (10 mL) VIAL ONE (19:32)
[2023-04-04] MEDS ORDERED: Milrinone 20 MG in Sodium Chloride 0.9% 100 ML IVPB SCH (20:45)
[2023-04-04] MEDS ORDERED: Dextrose 5% in Water 1,000 ML IV PRN (20:46)
[2023-04-04] MEDS ORDERED: Dextrose 50% Abboject 50 ML SYRINGE SLOW IVP PRN (20:46)
[2023-04-04] MEDS ORDERED: Glucagon 1 MG/ML KIT IM PRN (20:46)
[2023-04-04] MEDS: Milrinone Lactate/D5W 20 MG in Premix 1 BAG IV SCH (23:15)
[2023-04-05] MEDS ORDERED: Diclofenac 1% 50 GM TOPICAL GEL TP PRN (00:53)
[2023-04-05] MEDS ORDERED: Magnesium Oxide 400 MG TAB PO PRN (01:00)
[2023-04-05] MEDS ORDERED: SUMAtriptan Succinate 50 MG TAB PO PRN (01:22)
[2023-04-05 01:37] LABS: Troponin I 0.036 ng/mL (< 0.028)
[2023-04-05 04:35] LABS: #Basophils 0.1 thou/uL (0.0-0.2); #Eosinphils 0.2 thou/uL (0.0-0.7); #Neutrophils 5.8 thou/uL (1.40-6.50); %Basophils 0.6 % (0.0-1.0); %Eosinophils 2.7 % (0.0-10.0); %Monocytes 11.2 % (0.0-10.0); %Neutrophils 64.1 % (42.0-75.0); Hematocrit 37.5 % (36.0-47.0); Hemoglobin 10.7 g/dL (12.0-16.0); Mean Corpuscular HGB CONC 28.5 g/dL (32.0-36.0); Mean Corpuscular Hemoglobin 24.9 pg (27.0-31.0); Mean Corpuscular Volume 87.2 fl (78.0-98.0); Mean Platelet Volume 10.7 fL (7.4-10.4); Platelet Count 238 10x3/uL (130-400); RBC Distribution Width 15.2 % (11.5-14.5)
[2023-04-05 05:02] LABS: Anion Gap 14 mmol/L (10-20); Anisocytosis SLIGHT = 6-15 cells HPF (0-5); BUN (Urea Nitrogen) 20 mg/dL (9.8-20.1); Calc. Creatinine Clearance 66 mL/min (70-130); Calcium 9.3 mg/dL (7.8-10.44); Carbon Dioxide 32 mmol/L (23-31); CellaVision Operator ID lab.sh2; Chloride 98 mmol/L (98-107); Estimated GFR 40; Glucose 202 mg/dL (80-115); Hypochromia MODERATE=16-30 cells HPF (0-5); Ovalocytes SLIGHT = 2-5 cells HPF (0-1); Platelet Adequacy Comment Platelets Normal; Polychromasia SLIGHT = 2-3 cells HPF (0-2); Potassium 4.1 mmol/L (3.5-5.1); Sodium 140 mmol/L (136-145); Stomatocytes SLIGHT = 2-5 cells HPF (0-1)
[2023-04-05] MEDS: Acetaminophen 325 MG TAB PO PRN (05:33)
[2023-04-05] MEDS: Liothyronine Sodium 25 MCG TAB PO SCH (05:34)
[2023-04-05] MEDS: HumaLOG 300 UNITS/3 ML VIAL SC PRN ×2 (05:35→20:49)
[2023-04-05] MEDS: Gabapentin 300 MG CAP PO SCH (06:02)
[2023-04-05] MEDS: Mometasone 200 MCG/Formoterol 5 MCG 120 PUFF INHALER INH SCH (08:15)
[2023-04-05] MEDS: Allopurinol 100 MG TAB PO SCH (08:45)
[2023-04-05] MEDS: Famotidine 20 MG TAB PO SCH (08:45)
[2023-04-05] MEDS: Cholecalciferol 1,000 UNITS (25 MCG) TAB PO SCH (08:45)
[2023-04-05] MEDS: Potassium Chloride 20 MEQ TAB PO SCH (08:45)
[2023-04-05] MEDS: Escitalopram Oxalate 10 mg Tablet PO SCH (08:46)
[2023-04-05] MEDS: AcetaZOLAMIDE 250 MG TAB PO SCH (08:46)
[2023-04-05] MEDS: Loratadine 10 MG TAB PO SCH (08:46)
[2023-04-05] MEDS: Valsartan 80 MG TAB PO SCH (08:46)
[2023-04-05] MEDS: Hydrochlorothiazide 25 MG TAB PO SCH (08:47)
[2023-04-05] MEDS: Enoxaparin 40 MG (0.4 mL) SYRINGE SC SCH (08:47)
[2023-04-05] MEDS: Carvedilol 25 MG TAB PO SCH (08:48)
[2023-04-05] MEDS: Cyanocobalamin (Vitamin B-12) 1,000 MCG TAB PO SCH (08:48)
[2023-04-05] MEDS: Insulin NPH Human Isophane 100 UNITS/ML (10 ML VIAL) SQ SCH (08:49)
[2023-04-05] MEDS: Hydrocortisone 10 mg Tablet PO SCH ×3 (08:49→20:45)
[2023-04-05] MEDS: Milrinone Lactate/D5W 20 MG in Premix 1 BAG IV SCH (10:27)
[2023-04-05] MEDS: Furosemide 40 MG (4 mL) VIAL SLOW IVP SCH (10:27)
[2023-04-05] MEDS: VERICIGUAT 5 MG PO SCH ×2 (10:29)
[2023-04-05 13:33] LABS: Magnesium 1.8 mg/dL (1.6-2.6)
[2023-04-05] MEDS ORDERED: Furosemide 40 MG (4 mL) VIAL SLOW IVP SCH (14:00)
[2023-04-05 15:55] LABS: Anion Gap 15 mmol/L (10-20); BUN (Urea Nitrogen) 22 mg/dL (9.8-20.1); Calc. Creatinine Clearance 65 mL/min (70-130); Calcium 9.5 mg/dL (7.8-10.44); Carbon Dioxide 29 mmol/L (23-31); Chloride 98 mmol/L (98-107); Estimated GFR 39; Glucose 125 mg/dL (80-115); Magnesium 1.8 mg/dL (1.6-2.6); Potassium 4.4 mmol/L (3.5-5.1); Sodium 138 mmol/L (136-145)
[2023-04-05] MEDS: traMADol HCl 50 MG TAB PO PRN (16:50)
[2023-04-05] MEDS: VERICIGUAT 2.5 MG PO SCH (17:57)
[2023-04-05] MEDS: BIOTIN 3000 MCG PO SCH (17:57)
[2023-04-05] MEDS: Cephalexin 250 MG CAP PO SCH (20:44)
[2023-04-05] MEDS: Rosuvastatin 10 MG TAB PO SCH (20:45)
[2023-04-06 04:41] LABS: #Basophils 0.1 thou/uL (0.0-0.2); #Eosinphils 0.2 thou/uL (0.0-0.7); #Monocytes 1.4 thou/uL (0.11-0.59); #Neutrophils 5.6 thou/uL (1.40-6.50); %Basophils 1.1 % (0.0-1.0); %Eosinophils 2.3 % (0.0-10.0); %Lymphocytes 22.3 % (21.0-51.0); %Monocytes 14.9 % (0.0-10.0); %Neutrophils 59.1 % (42.0-75.0); Hematocrit 35.2 % (36.0-47.0); Hemoglobin 9.7 g/dL (12.0-16.0); Mean Corpuscular HGB CONC 27.6 g/dL (32.0-36.0); Mean Corpuscular Hemoglobin 24.3 pg (27.0-31.0); Mean Corpuscular Volume 88.2 fl (78.0-98.0); Mean Platelet Volume 10.4 fL (7.4-10.4); Platelet Count 190 10x3/uL (130-400); RBC Distribution Width 14.9 % (11.5-14.5); Red Blood Cell (RBC) Count 3.99 mill/uL (4.20-5.40); White Blood Cell (WBC) Count 9.5 10x3/uL (4.8-10.8)
[2023-04-06 05:02] LABS: Anion Gap 12 mmol/L (10-20); BUN (Urea Nitrogen) 29 mg/dL (9.8-20.1); Calc. Creatinine Clearance 58 mL/min (70-130); Calcium 9.3 mg/dL (7.8-10.44); Carbon Dioxide 33 mmol/L (23-31); Chloride 96 mmol/L (98-107); Estimated GFR 34; Glucose 226 mg/dL (80-115); Potassium 4.2 mmol/L (3.5-5.1); Sodium 137 mmol/L (136-145)
[2023-04-06] MEDS: Azithromycin 250 MG TAB PO SCH (08:27)
[2023-04-06] MEDS: Empagliflozin 25 MG TAB PO SCH (08:31)
[2023-04-06] MEDS: Lidocaine 4% Patch TD SCH (08:31)
[2023-04-06] MEDS: DOBUTamine 500 mg/250 ml 500 MG in Premix 1 BAG IVPB SCH (13:25)
[2023-04-06 18:35] LABS: INR-International Normal Ratio 1.1; PTT 38.4 sec (22.9-36.1); Prothrombin Time 14.2 sec (12.0-14.7)
[2023-04-06 18:52] LABS: Bacteria/HPF None Seen HPF (None Seen); Bilirubin Negative (Negative); Blood, Urine Negative (Negative); CAUTI Indications for Culture Alt mental st,lethar; Clarity Clear (Clear); Glucose, Urine (Dipstick) >=1000 mg/dL (Negative); Ketone, Urine Negative (Negative); Leukocyte Negative Leu/uL (Negative); Nitrite Negative (Negative); Protein, Urine (Dipstick) 10 mg/dL (Neg-Trace); RBC/HPF 0-3 HPF (0-3); Specific Gravity, Urine 1.014 (1.002-1.036); Squamous Epithelial 0-3 HPF (0-3); WBC/HPF 0-3 HPF (0-3); pH, Urine 5.5 (5.0-9.0)
[2023-04-06 18:54] LABS: Urine Culture Reflex No No
[2023-04-06] MEDS: Carvedilol 6.25 MG TAB PO SCH (20:37)
[2023-04-06] MEDS: Valsartan 80 MG TAB PO SCH (20:39)
[2023-04-06] MEDS: Transdermal Patch Removal TOP SCH (21:45)
[2023-04-07 05:09] LABS: #Basophils 0.1 thou/uL (0.0-0.2); #Eosinphils 0.2 thou/uL (0.0-0.7); #Monocytes 1.1 thou/uL (0.11-0.59); #Neutrophils 4.7 thou/uL (1.40-6.50); %Basophils 0.8 % (0.0-1.0); %Eosinophils 2.5 % (0.0-10.0); %Lymphocytes 23.1 % (21.0-51.0); %Monocytes 13.3 % (0.0-10.0); %Neutrophils 59.9 % (42.0-75.0); Hematocrit 36.7 % (36.0-47.0); Hemoglobin 10.3 g/dL (12.0-16.0); Mean Corpuscular HGB CONC 28.1 g/dL (32.0-36.0); Mean Corpuscular Hemoglobin 24.2 pg (27.0-31.0); Mean Corpuscular Volume 86.4 fl (78.0-98.0); Platelet Count 221 10x3/uL (130-400); Red Blood Cell (RBC) Count 4.25 mill/uL (4.20-5.40); White Blood Cell (WBC) Count 7.9 10x3/uL (4.8-10.8)
[2023-04-07 05:22] LABS: INR-International Normal Ratio 1.1
[2023-04-07 05:33] LABS: Anion Gap 12 mmol/L (10-20); BUN (Urea Nitrogen) 34 mg/dL (9.8-20.1); Calc. Creatinine Clearance 50 mL/min (70-130); Calcium 9.1 mg/dL (7.8-10.44); Carbon Dioxide 31 mmol/L (23-31); Chloride 97 mmol/L (98-107); Estimated GFR 28; Glucose 122 mg/dL (80-115); Potassium 4.8 mmol/L (3.5-5.1); Sodium 135 mmol/L (136-145)
[2023-04-07 05:50] LABS: Anisocytosis SLIGHT = 6-15 cells HPF (0-5); CellaVision Operator ID lab.sh2; Hypochromia SLIGHT = 6-15 cells HPF (0-5); Microcytosis SLIGHT = 6-15 cells HPF (0-5); Ovalocytes SLIGHT = 2-5 cells HPF (0-1); Platelet Adequacy Comment Platelets Normal; Polychromasia SLIGHT = 2-3 cells HPF (0-2)
[2023-04-07 09:33] LABS: Magnesium 2.1 mg/dL (1.6-2.6)
[2023-04-07 10:09] LABS: Bilirubin Unable to Interpret (Negative); Clarity Hazy (Clear); Glucose, Urine (Dipstick) Unable to Interpret mg/dL (Negative); Ketone, Urine Unable to Interpret mg/dL (Negative); Leukocyte Unable to Interpret (Negative); Nitrite Unable to Interpret (Negative); Protein, Urine (Dipstick) Unable to Interpret mg/dL (Neg-Trace); Urobilinogen UNABLE TO INTERPRET mg/dL (Less than 2)
[2023-04-07 10:10] LABS: Blood, Urine Unable to Interpret (Negative); RBC/HPF Greater than 50 HPF (0-3)
[2023-04-07 10:11] LABS: Bacteria/HPF Rare-Few HPF (None Seen); CAUTI Indications for Culture Alt mental st,lethar; WBC/HPF 0-3 HPF (0-3)
[2023-04-07 10:13] LABS: Urine Culture Reflex No No
[2023-04-07 10:30] LABS: Creatinine, Urine 129.42 mg/dL (47-110); Sodium, Urine Less than 20 mmol/L (Not Available); Urea Nitrogen, Random Urine 503 mg/dl
[2023-04-07 10:31] LABS: Iron 25 ug/dL (50-170); Iron Binding Capacity, Total 341 mcg/dL (265-497)
[2023-04-07 11:24] LABS: Influenza A by NAA Not Detected (NotDetected); Influenza B by NAA Not Detected (NotDetected); SARS-CoV-2 NAA Rapid Test Not Detected (NotDetected)
[2023-04-07] MEDS: Iron, Sodium Ferric Gluconate 250 MG in Sodium Chloride 0.9% 250 ML 250 ML IVPB SCH (13:57)
[2023-04-07] MEDS: Warfarin Sodium 5 MG TAB PO SCH (17:16)
[2023-04-07] MEDS: Famotidine 20 MG TAB PO SCH (20:46)
[2023-04-08 04:44] LABS: #Eosinphils 0.2 thou/uL (0.0-0.7); #Monocytes 1.1 thou/uL (0.11-0.59); #Neutrophils 4.2 thou/uL (1.40-6.50); %Basophils 0.5 % (0.0-1.0); %Eosinophils 2.2 % (0.0-10.0); %Lymphocytes 24.4 % (21.0-51.0); %Monocytes 14.4 % (0.0-10.0); %Neutrophils 58.1 % (42.0-75.0); Hematocrit 34.4 % (36.0-47.0); Hemoglobin 9.9 g/dL (12.0-16.0); Mean Corpuscular HGB CONC 28.8 g/dL (32.0-36.0); Mean Corpuscular Hemoglobin 24.4 pg (27.0-31.0); Mean Corpuscular Volume 84.7 fl (78.0-98.0); Mean Platelet Volume 11.1 fL (7.4-10.4); Platelet Count 200 10x3/uL (130-400); Red Blood Cell (RBC) Count 4.06 mill/uL (4.20-5.40); White Blood Cell (WBC) Count 7.3 10x3/uL (4.8-10.8)
[2023-04-08 05:00] LABS: INR-International Normal Ratio 1.1
[2023-04-08 05:11] LABS: Anion Gap 10 mmol/L (10-20); BUN (Urea Nitrogen) 38 mg/dL (9.8-20.1); Calc. Creatinine Clearance 60 mL/min (70-130); Calcium 9.3 mg/dL (7.8-10.44); Carbon Dioxide 35 mmol/L (23-31); Chloride 96 mmol/L (98-107); Estimated GFR 34; Glucose 141 mg/dL (80-115); Potassium 4.7 mmol/L (3.5-5.1); Sodium 136 mmol/L (136-145)
[2023-04-08] MEDS ORDERED: Warfarin Sodium 5 MG TAB PO SCH (08:30)
[2023-04-08] MEDS: AcetaZOLAMIDE 250 MG TAB PO SCH (08:46)
[2023-04-08] MEDS: Metolazone 2.5 MG TAB PO SCH (08:47)
[2023-04-08] MEDS: Gabapentin 300 MG CAP PO SCH (08:49)
[2023-04-08] MEDS: Furosemide 40 MG (4 mL) VIAL SLOW IVP SCH (08:51)
[2023-04-09 05:00] LABS: #Basophils 0.1 thou/uL (0.0-0.2); #Eosinphils 0.2 thou/uL (0.0-0.7); #Monocytes 1.3 thou/uL (0.11-0.59); #Neutrophils 4.2 thou/uL (1.40-6.50); %Basophils 0.8 % (0.0-1.0); %Eosinophils 2.3 % (0.0-10.0); %Lymphocytes 21.3 % (21.0-51.0); %Monocytes 17.3 % (0.0-10.0); %Neutrophils 57.7 % (42.0-75.0); Hematocrit 35.2 % (36.0-47.0); Mean Corpuscular HGB CONC 28.4 g/dL (32.0-36.0); Mean Corpuscular Hemoglobin 24.8 pg (27.0-31.0); Mean Corpuscular Volume 87.1 fl (78.0-98.0); Mean Platelet Volume 10.8 fL (7.4-10.4); Platelet Count 200 10x3/uL (130-400); RBC Distribution Width 15.1 % (11.5-14.5); Red Blood Cell (RBC) Count 4.04 mill/uL (4.20-5.40); White Blood Cell (WBC) Count 7.2 10x3/uL (4.8-10.8)
[2023-04-09 05:11] LABS: INR-International Normal Ratio 1.1; Prothrombin Time 13.7 sec (12.0-14.7)
[2023-04-09 05:29] LABS: Anion Gap 12 mmol/L (10-20); BUN (Urea Nitrogen) 42 mg/dL (9.8-20.1); Calc. Creatinine Clearance 62 mL/min (70-130); Calcium 9.3 mg/dL (7.8-10.44); Carbon Dioxide 33 mmol/L (23-31); Chloride 97 mmol/L (98-107); Estimated GFR 35; Glucose 103 mg/dL (80-115); Potassium 4.8 mmol/L (3.5-5.1); Sodium 137 mmol/L (136-145)
[2023-04-09 05:51] LABS: Anisocytosis SLIGHT = 6-15 cells HPF (0-5); CellaVision Operator ID lab.sh2; Hypochromia MODERATE=16-30 cells HPF (0-5); Ovalocytes SLIGHT = 2-5 cells HPF (0-1); Platelet Adequacy Comment Platelets Normal; Polychromasia SLIGHT = 2-3 cells HPF (0-2)
[2023-04-09] MEDS: Torsemide 20 MG TAB PO SCH (09:11)
[2023-04-09] MEDS ORDERED: Warfarin Sodium 5 MG TAB PO SCH (16:30)
[2023-04-09] MEDS: Gabapentin 100 MG CAP PO SCH (21:59)
[2023-04-10 05:35] LABS: Hematocrit 36.5 % (36.0-47.0); Hemoglobin 10.3 g/dL (12.0-16.0); Manual Diff?? YES; Mean Corpuscular HGB CONC 28.2 g/dL (32.0-36.0); Mean Corpuscular Hemoglobin 24.3 pg (27.0-31.0); Mean Corpuscular Volume 86.1 fl (78.0-98.0); Mean Platelet Volume 10.8 fL (7.4-10.4); Platelet Count 158 10x3/uL (130-400); RBC Distribution Width 15.3 % (11.5-14.5); Red Blood Cell (RBC) Count 4.24 mill/uL (4.20-5.40); White Blood Cell (WBC) Count 8.2 10x3/uL (4.8-10.8)
[2023-04-10 05:46] LABS: Delete Auto Diff?? YES
[2023-04-10 06:01] LABS: Anion Gap 13 mmol/L (10-20); BUN (Urea Nitrogen) 45 mg/dL (9.8-20.1); Calc. Creatinine Clearance 68 mL/min (70-130); Calcium 9.4 mg/dL (7.8-10.44); Carbon Dioxide 34 mmol/L (23-31); Chloride 95 mmol/L (98-107); Estimated GFR 40; Glucose 107 mg/dL (80-115); Potassium 4.1 mmol/L (3.5-5.1); Sodium 138 mmol/L (136-145)
[2023-04-10 06:17] LABS: CellaVision Operator ID LAB.CLH1; Eosinophils 2 % (0-10); Hypochromia MODERATE=16-30 cells HPF (0-5); Lymphocytes 39 % (21-51); Monocytes 3 % (0-10); Neutrophil 56 % (42-75); Nucleated RBC (Manual Ct) 1 % (0); Platelet Adequacy Comment Platelets Normal; Polychromasia SLIGHT = 2-3 cells HPF (0-2); Total Cell Count 104
[2023-04-10 07:28] LABS: INR-International Normal Ratio 1.1
[2023-04-10] MEDS: Gabapentin 300 MG CAP PO SCH (08:39)
[2023-04-10] MEDS: Spironolactone 25 MG TAB PO SCH (08:39)
[2023-04-10] MEDS: AcetaZOLAMIDE 250 MG TAB PO SCH (08:40)
[2023-04-10 09:42] LABS: Magnesium 2.5 mg/dL (1.6-2.6)
[2023-04-10 12:29] VITALS: BMI 46.0
[2023-04-10] MEDS: Warfarin Sodium 5 MG TAB PO SCH (17:22)
[2023-04-11 15:52] LABS: #Basophils 0.1 thou/uL (0.0-0.2); #Eosinphils 0.1 thou/uL (0.0-0.7); #Neutrophils 7.6 thou/uL (1.40-6.50); %Basophils 0.5 % (0.0-1.0); %Eosinophils 1.3 % (0.0-10.0); %Lymphocytes 11.8 % (21.0-51.0); %Monocytes 10.2 % (0.0-10.0); %Neutrophils 75.8 % (42.0-75.0); Hematocrit 34.7 % (36.0-47.0); Mean Corpuscular HGB CONC 28.8 g/dL (32.0-36.0); Mean Corpuscular Hemoglobin 25.2 pg (27.0-31.0); Mean Corpuscular Volume 87.4 fl (78.0-98.0); Platelet Count 184 10x3/uL (130-400); RBC Distribution Width 15.6 % (11.5-14.5); Red Blood Cell (RBC) Count 3.97 mill/uL (4.20-5.40)
[2023-04-11 16:08] LABS: INR-International Normal Ratio 1.1; Prothrombin Time 14.3 sec (12.0-14.7)
[2023-04-11 16:16] LABS: BUN (Urea Nitrogen) 47 mg/dL (9.8-20.1); Calc. Creatinine Clearance 51 mL/min (70-130); Calcium 9.5 mg/dL (7.8-10.44); Estimated GFR 28; Glucose 144 mg/dL (80-115); Magnesium 2.3 mg/dL (1.6-2.6)
[2023-04-11 16:24] LABS: Chloride 90 mmol/L (98-107); Potassium 3.9 mmol/L (3.5-5.1); Sodium 138 mmol/L (136-145)
[2023-04-11 16:26] LABS: Anion Gap 16 mmol/L (10-20); Carbon Dioxide 36 mmol/L (23-31)
[2023-04-11 16:29] LABS: CellaVision Operator ID LAB.GE; Hypochromia SLIGHT = 6-15 cells HPF (0-5); Platelet Adequacy Comment Platelets Normal; Polychromasia SLIGHT = 2-3 cells HPF (0-2)
[2023-04-11] MEDS: hydrOXYzine 25 MG TAB PO SCH (22:04)
[2023-04-12 05:23] LABS: Hematocrit 32.9 % (36.0-47.0); Hemoglobin 9.4 g/dL (12.0-16.0); Manual Diff?? YES; Mean Corpuscular HGB CONC 28.6 g/dL (32.0-36.0); Mean Corpuscular Hemoglobin 25.2 pg (27.0-31.0); Mean Corpuscular Volume 88.2 fl (78.0-98.0); Mean Platelet Volume 10.5 fL (7.4-10.4); Platelet Count 170 10x3/uL (130-400); RBC Distribution Width 15.8 % (11.5-14.5); Red Blood Cell (RBC) Count 3.73 mill/uL (4.20-5.40); White Blood Cell (WBC) Count 8.7 10x3/uL (4.8-10.8)
[2023-04-12 05:37] LABS: INR-International Normal Ratio 1.1; Prothrombin Time 14.4 sec (12.0-14.7)
[2023-04-12 05:39] LABS: BUN (Urea Nitrogen) 48 mg/dL (9.8-20.1); Calc. Creatinine Clearance 65 mL/min (70-130); Calcium 9.1 mg/dL (7.8-10.44); Estimated GFR 38; Glucose 101 mg/dL (80-115)
[2023-04-12 05:44] LABS: Delete Auto Diff?? YES
[2023-04-12 05:48] LABS: Anion Gap 16 mmol/L (10-20); Carbon Dioxide 33 mmol/L (23-31); Chloride 92 mmol/L (98-107); Potassium 3.2 mmol/L (3.5-5.1); Sodium 138 mmol/L (136-145)
[2023-04-12 06:57] LABS: Band 1 % (5-11); Eosinophils 1 % (0-10); Lymphocytes 22 % (21-51); Monocytes 10 % (0-10); Neutrophil 66 % (42-75)
[2023-04-12] MEDS: Potassium Chloride 20 MEQ TAB PO SCH (09:05)
[2023-04-12] MEDS ORDERED: Electrolyte Replacement Protocol 1 EACH FS SCH (09:45)
[2023-04-12 12:42] LABS: Bilirubin Negative (Negative); Blood, Urine 3+ (Negative); CAUTI Indications for Culture Acute Hematuria; Glucose, Urine (Dipstick) Normal (Negative); Ketone, Urine Negative (Negative); Leukocyte 500 Leu/uL (Negative); Nitrite Negative (Negative); Protein, Urine (Dipstick) 30 mg/dL (Neg-Trace); Specific Gravity, Urine 1.008 (1.002-1.036); Urobilinogen Normal mg/dL (Less than 2); pH, Urine 6.5 (5.0-9.0)
[2023-04-12 12:48] LABS: Clarity Cloudy (Clear)
[2023-04-12 12:51] LABS: Bacteria/HPF 4+ HPF (None Seen); RBC/HPF Greater than 50 HPF (0-3); Squamous Epithelial None Seen HPF (0-3)
[2023-04-12 12:55] LABS: Urine Culture Reflex Yes Yes
[2023-04-12] MEDS: Warfarin Sodium 2.5 MG TAB PO SCH (16:17)
[2023-04-12] MEDS: Fluticasone Propionate Nasal Spray 16 gm Bottle NASAL PRN (21:21)
[2023-04-12] MEDS: AcetaZOLAMIDE 250 MG TAB PO SCH (21:24)
[2023-04-13 04:49] LABS: #Eosinphils 0.1 thou/uL (0.0-0.7); #Monocytes 1.1 thou/uL (0.11-0.59); #Neutrophils 3.7 thou/uL (1.40-6.50); %Basophils 0.6 % (0.0-1.0); %Lymphocytes 24.1 % (21.0-51.0); %Monocytes 16.2 % (0.0-10.0); %Neutrophils 56.8 % (42.0-75.0); Hematocrit 34.5 % (36.0-47.0); Hemoglobin 9.7 g/dL (12.0-16.0); Mean Corpuscular HGB CONC 28.1 g/dL (32.0-36.0); Mean Corpuscular Hemoglobin 24.5 pg (27.0-31.0); Mean Corpuscular Volume 87.1 fl (78.0-98.0); Mean Platelet Volume 10.7 fL (7.4-10.4); Platelet Count 171 10x3/uL (130-400); RBC Distribution Width 15.9 % (11.5-14.5); Red Blood Cell (RBC) Count 3.96 mill/uL (4.20-5.40); White Blood Cell (WBC) Count 6.6 10x3/uL (4.8-10.8)
[2023-04-13 04:58] LABS: INR-International Normal Ratio 1.2; Prothrombin Time 15.5 sec (12.0-14.7)
[2023-04-13 05:10] LABS: BUN (Urea Nitrogen) 47 mg/dL (9.8-20.1); Calc. Creatinine Clearance 75 mL/min (70-130); Calcium 9.6 mg/dL (7.8-10.44); Estimated GFR 44; Glucose 130 mg/dL (80-115)
[2023-04-13 05:19] LABS: Anion Gap 12 mmol/L (10-20); Carbon Dioxide 39 mmol/L (23-31); Chloride 95 mmol/L (98-107); Potassium 3.5 mmol/L (3.5-5.1); Sodium 142 mmol/L (136-145)
[2023-04-13 07:39] LABS: Magnesium 2.4 mg/dL (1.6-2.6)
[2023-04-13] MEDS: AcetaZOLAMIDE 250 MG TAB PO SCH (09:02)
[2023-04-13] MEDS: Potassium Chloride 20 MEQ TAB PO SCH (09:03)
[2023-04-13] MEDS: cefTRIAXone\\ROCEPHIN 1 GM in Sodium Chloride 0.9% 100 ML IVPB SCH (09:04)
[2023-04-13] MEDS: FLU VACC QS2023(65UP)/MF59C/PF 60 MCG/0.5 ML SYRINGE IM ONE (09:14)
[2023-04-13] MEDS: Empagliflozin 10 MG TAB PO SCH (09:42)
[2023-04-13] MEDS: Warfarin Sodium 7.5 MG TAB PO SCH (16:19)
[2023-04-14 06:40] LABS: #Basophils 0.1 thou/uL (0.0-0.2); #Eosinphils 0.2 thou/uL (0.0-0.7); #Monocytes 1.1 thou/uL (0.11-0.59); #Neutrophils 3.5 thou/uL (1.40-6.50); %Basophils 0.8 % (0.0-1.0); %Lymphocytes 24.9 % (21.0-51.0); %Monocytes 16.4 % (0.0-10.0); %Neutrophils 54.7 % (42.0-75.0); Hematocrit 33.4 % (36.0-47.0); Hemoglobin 9.4 g/dL (12.0-16.0); Mean Corpuscular HGB CONC 28.1 g/dL (32.0-36.0); Mean Corpuscular Hemoglobin 24.9 pg (27.0-31.0); Mean Corpuscular Volume 88.6 fl (78.0-98.0); Mean Platelet Volume 10.7 fL (7.4-10.4); Platelet Count 167 10x3/uL (130-400); RBC Distribution Width 16.3 % (11.5-14.5); Red Blood Cell (RBC) Count 3.77 mill/uL (4.20-5.40); White Blood Cell (WBC) Count 6.4 10x3/uL (4.8-10.8)
[2023-04-14 07:02] LABS: Calcium 9.4 mg/dL (7.8-10.44); Chloride 98 mmol/L (98-107); Potassium 3.3 mmol/L (3.5-5.1); Sodium 141 mmol/L (136-145)
[2023-04-14 07:07] LABS: INR-International Normal Ratio 1.7; Prothrombin Time 19.6 sec (12.0-14.7)
[2023-04-14 07:12] LABS: BUN (Urea Nitrogen) 39 mg/dL (9.8-20.1); Calc. Creatinine Clearance 75 mL/min (70-130); Estimated GFR 44; Glucose 144 mg/dL (80-115); Magnesium 2.5 mg/dL (1.6-2.6)
[2023-04-14 07:33] LABS: Carbon Dioxide 36 mmol/L (23-31)
[2023-04-14 07:38] LABS: Anion Gap 10 mmol/L (10-20)
[2023-04-14] MEDS: Potassium Chloride 20 MEQ TAB PO SCH ×3 (08:09→16:12)
[2023-04-14] MEDS: Spironolactone 100 MG TAB PO SCH (09:38)
[2023-04-14] MEDS: Spironolactone 25 MG TAB PO SCH (11:13)
[2023-04-14] MEDS: Hydrochlorothiazide 25 MG TAB PO SCH (12:29)
[2023-04-14] MEDS: Empagliflozin 10 MG TAB PO SCH (16:13)
[2023-04-14 22:12] LABS: Potassium 4.4 mmol/L (3.5-5.1)
[2023-04-15] MEDS: Acetaminophen 325 MG TAB PO PRN (04:19)
[2023-04-15 06:36] LABS: #Basophils 0.1 thou/uL (0.0-0.2); #Eosinphils 0.2 thou/uL (0.0-0.7); #Neutrophils 4.1 thou/uL (1.40-6.50); %Basophils 0.7 % (0.0-1.0); %Eosinophils 2.4 % (0.0-10.0); %Lymphocytes 27.3 % (21.0-51.0); %Monocytes 13.9 % (0.0-10.0); %Neutrophils 55.4 % (42.0-75.0); Hematocrit 34.5 % (36.0-47.0); Hemoglobin 9.9 g/dL (12.0-16.0); Mean Corpuscular HGB CONC 28.7 g/dL (32.0-36.0); Mean Corpuscular Hemoglobin 25.1 pg (27.0-31.0); Mean Corpuscular Volume 87.3 fl (78.0-98.0); Mean Platelet Volume 10.8 fL (7.4-10.4); Platelet Count 160 10x3/uL (130-400); RBC Distribution Width 16.4 % (11.5-14.5); Red Blood Cell (RBC) Count 3.95 mill/uL (4.20-5.40); White Blood Cell (WBC) Count 7.4 10x3/uL (4.8-10.8)
[2023-04-15 06:40] LABS: Prothrombin Time 22.5 sec (12.0-14.7)
[2023-04-15 06:41] LABS: Anion Gap 11 mmol/L (10-20); BUN (Urea Nitrogen) 43 mg/dL (9.8-20.1); Calc. Creatinine Clearance 73 mL/min (70-130); Calcium 9.5 mg/dL (7.8-10.44); Carbon Dioxide 32 mmol/L (23-31); Chloride 100 mmol/L (98-107); Estimated GFR 43; Glucose 119 mg/dL (80-115); Potassium 4.2 mmol/L (3.5-5.1); Sodium 139 mmol/L (136-145)
[2023-04-15 07:17] LABS: CellaVision Operator ID LAB.KW3; Platelet Adequacy Comment Platelets Normal; RBC Morphology Within Normal Limits
[2023-04-15] MEDS ORDERED: Spironolactone 100 MG TAB PO SCH (08:00)
[2023-04-15] MEDS: Empagliflozin 10 MG TAB PO SCH (08:45)
[2023-04-15] MEDS: Hydrochlorothiazide 25 MG TAB PO SCH (08:46)
[2023-04-15] MEDS: Spironolactone 25 MG TAB PO SCH (08:47)
[2023-04-15] MEDS: Torsemide 10 MG TAB PO SCH (10:10)
[2023-04-16] MEDS: hydrOXYzine 10 MG TAB PO PRN (03:23)
[2023-04-16 05:16] LABS: #Eosinphils 0.2 thou/uL (0.0-0.7); #Monocytes 0.9 thou/uL (0.11-0.59); #Neutrophils 4.2 thou/uL (1.40-6.50); %Basophils 0.6 % (0.0-1.0); %Eosinophils 2.5 % (0.0-10.0); %Lymphocytes 22.8 % (21.0-51.0); %Monocytes 13.1 % (0.0-10.0); %Neutrophils 60.7 % (42.0-75.0); Hematocrit 34.3 % (36.0-47.0); Hemoglobin 9.9 g/dL (12.0-16.0); Mean Corpuscular HGB CONC 28.9 g/dL (32.0-36.0); Mean Corpuscular Hemoglobin 24.8 pg (27.0-31.0); Mean Corpuscular Volume 85.8 fl (78.0-98.0); Mean Platelet Volume 10.7 fL (7.4-10.4); Platelet Count 153 10x3/uL (130-400); RBC Distribution Width 16.7 % (11.5-14.5); White Blood Cell (WBC) Count 6.9 10x3/uL (4.8-10.8)
[2023-04-16 05:37] LABS: INR-International Normal Ratio 2.3; Prothrombin Time 25.8 sec (12.0-14.7)
[2023-04-16 05:47] LABS: Anion Gap 12 mmol/L (10-20); BUN (Urea Nitrogen) 46 mg/dL (9.8-20.1); Calc. Creatinine Clearance 74 mL/min (70-130); Calcium 9.3 mg/dL (7.8-10.44); Carbon Dioxide 33 mmol/L (23-31); Chloride 98 mmol/L (98-107); Estimated GFR 44; Glucose 98 mg/dL (80-115); Potassium 4.2 mmol/L (3.5-5.1); Sodium 139 mmol/L (136-145)
[2023-04-16 07:04] LABS: Magnesium 2.4 mg/dL (1.6-2.6)
[2023-04-16] MEDS ORDERED: Torsemide 20 MG TAB PO SCH (09:00)
[2023-04-16] MEDS: Spironolactone 25 MG TAB PO SCH (09:20)
[2023-04-16] MEDS: Isosorbide Dinitrate 5 MG TAB PO SCH (15:04)
[2023-04-16] MEDS: Warfarin Sodium 5 MG TAB PO SCH (17:50)
[2023-04-16] MEDS: traMADol HCl 50 MG TAB PO PRN (22:39)
[2023-04-17 04:34] LABS: #Basophils 0.1 thou/uL (0.0-0.2); #Eosinphils 0.2 thou/uL (0.0-0.7); #Monocytes 0.9 thou/uL (0.11-0.59); #Neutrophils 3.7 thou/uL (1.40-6.50); %Basophils 0.9 % (0.0-1.0); %Eosinophils 2.4 % (0.0-10.0); %Lymphocytes 23.8 % (21.0-51.0); %Monocytes 14.2 % (0.0-10.0); %Neutrophils 58.4 % (42.0-75.0); Hematocrit 35.1 % (36.0-47.0); Hemoglobin 9.7 g/dL (12.0-16.0); Mean Corpuscular HGB CONC 27.6 g/dL (32.0-36.0); Mean Corpuscular Hemoglobin 25.1 pg (27.0-31.0); Mean Platelet Volume 11.1 fL (7.4-10.4); Platelet Count 141 10x3/uL (130-400); RBC Distribution Width 17.2 % (11.5-14.5); Red Blood Cell (RBC) Count 3.87 mill/uL (4.20-5.40); White Blood Cell (WBC) Count 6.3 10x3/uL (4.8-10.8)
[2023-04-17 04:36] LABS: Mean Corpuscular Volume 90.7 fl (78.0-98.0)
[2023-04-17 04:46] LABS: INR-International Normal Ratio 2.6; Prothrombin Time 27.6 sec (12.0-14.7)
[2023-04-17 04:58] LABS: Anion Gap 12 mmol/L (10-20); BUN (Urea Nitrogen) 43 mg/dL (9.8-20.1); Calc. Creatinine Clearance 72 mL/min (70-130); Calcium 9.4 mg/dL (7.8-10.44); Carbon Dioxide 29 mmol/L (23-31); Chloride 102 mmol/L (98-107); Estimated GFR 43; Glucose 153 mg/dL (80-115); Magnesium 2.5 mg/dL (1.6-2.6); Potassium 3.8 mmol/L (3.5-5.1); Sodium 139 mmol/L (136-145)
[2023-04-17] MEDS: Torsemide 10 MG TAB PO SCH (08:44)
[2023-04-17] MEDS: Spironolactone 100 MG TAB PO SCH (08:45)
[2023-04-18 06:30] LABS: #Eosinphils 0.2 thou/uL (0.0-0.7); #Monocytes 0.8 thou/uL (0.11-0.59); %Basophils 0.6 % (0.0-1.0); %Eosinophils 2.8 % (0.0-10.0); %Lymphocytes 25.6 % (21.0-51.0); %Monocytes 12.2 % (0.0-10.0); %Neutrophils 58.5 % (42.0-75.0); Hematocrit 34.2 % (36.0-47.0); Hemoglobin 9.7 g/dL (12.0-16.0); Mean Corpuscular HGB CONC 28.4 g/dL (32.0-36.0); Mean Corpuscular Hemoglobin 25.5 pg (27.0-31.0); Mean Platelet Volume 10.3 fL (7.4-10.4); Platelet Count 136 10x3/uL (130-400); RBC Distribution Width 17.4 % (11.5-14.5); White Blood Cell (WBC) Count 6.9 10x3/uL (4.8-10.8)
[2023-04-18 06:45] LABS: Prothrombin Time 31.1 sec (12.0-14.7)
[2023-04-18 06:51] LABS: Anion Gap 10 mmol/L (10-20); BUN (Urea Nitrogen) 43 mg/dL (9.8-20.1); Calc. Creatinine Clearance 72 mL/min (70-130); Calcium 9.1 mg/dL (7.8-10.44); Carbon Dioxide 32 mmol/L (23-31); Chloride 103 mmol/L (98-107); Estimated GFR 43; Glucose 109 mg/dL (80-115); Potassium 4.2 mmol/L (3.5-5.1); Sodium 141 mmol/L (136-145)
[2023-04-18 07:24] LABS: Anisocytosis SLIGHT = 6-15 cells HPF (0-5); CellaVision Operator ID lab.dlt; Hypochromia SLIGHT = 6-15 cells HPF (0-5); Ovalocytes SLIGHT = 2-5 cells HPF (0-1); Platelet Adequacy Comment Platelets Normal; Polychromasia SLIGHT = 2-3 cells HPF (0-2)
[2023-04-18 10:27] LABS: Magnesium 2.6 mg/dL (1.6-2.6)
[2023-04-18] MEDS: Warfarin Sodium 2 MG TAB PO SCH (15:51)
[2023-04-19 05:15] LABS: #Eosinphils 0.2 thou/uL (0.0-0.7); %Basophils 0.5 % (0.0-1.0); %Eosinophils 2.3 % (0.0-10.0); %Neutrophils 60.6 % (42.0-75.0); Hematocrit 35.2 % (36.0-47.0); Mean Corpuscular HGB CONC 28.4 g/dL (32.0-36.0); Mean Corpuscular Hemoglobin 25.4 pg (27.0-31.0); Mean Corpuscular Volume 89.6 fl (78.0-98.0); Platelet Count 154 10x3/uL (130-400); RBC Distribution Width 17.7 % (11.5-14.5); Red Blood Cell (RBC) Count 3.93 mill/uL (4.20-5.40); White Blood Cell (WBC) Count 8.2 10x3/uL (4.8-10.8)
[2023-04-19 05:35] LABS: INR-International Normal Ratio 2.6
[2023-04-19 06:21] LABS: Anion Gap 9 mmol/L (10-20); BUN (Urea Nitrogen) 43 mg/dL (9.8-20.1); Calc. Creatinine Clearance 77 mL/min (70-130); Calcium 9.3 mg/dL (7.8-10.44); Carbon Dioxide 30 mmol/L (23-31); Chloride 101 mmol/L (98-107); Estimated GFR 46; Glucose 143 mg/dL (80-115); Potassium 4.1 mmol/L (3.5-5.1); Sodium 136 mmol/L (136-145)
[2023-04-19 07:24] LABS: Magnesium 2.6 mg/dL (1.6-2.6)
[2023-04-19] MEDS: Empagliflozin 25 MG TAB PO SCH (10:50)
[2023-04-19] MEDS: Hydrocortisone 10 mg Tablet PO SCH (18:13)
[2023-04-20] MEDS: hydrOXYzine 10 MG TAB PO PRN (02:02)
[2023-04-20] MEDS: Phentolamine Mesylate 5 MG VIAL SC SCH (05:16)
[2023-04-20 05:25] LABS: #Basophils 0.1 thou/uL (0.0-0.2); #Eosinphils 0.2 thou/uL (0.0-0.7); #Monocytes 1.1 thou/uL (0.11-0.59); #Neutrophils 5.5 thou/uL (1.40-6.50); %Basophils 0.8 % (0.0-1.0); %Eosinophils 1.7 % (0.0-10.0); %Lymphocytes 21.8 % (21.0-51.0); %Monocytes 12.5 % (0.0-10.0); %Neutrophils 62.6 % (42.0-75.0); Hematocrit 41.7 % (36.0-47.0); Hemoglobin 11.8 g/dL (12.0-16.0); Mean Corpuscular HGB CONC 28.3 g/dL (32.0-36.0); Mean Corpuscular Hemoglobin 25.2 pg (27.0-31.0); Mean Corpuscular Volume 89.1 fl (78.0-98.0); Mean Platelet Volume 11.4 fL (7.4-10.4); Platelet Count 152 10x3/uL (130-400); RBC Distribution Width 18.1 % (11.5-14.5); Red Blood Cell (RBC) Count 4.68 mill/uL (4.20-5.40); White Blood Cell (WBC) Count 8.8 10x3/uL (4.8-10.8)
[2023-04-20 05:43] LABS: INR-International Normal Ratio 2.3; Prothrombin Time 25.1 sec (12.0-14.7)
[2023-04-20 05:48] LABS: Anion Gap 13 mmol/L (10-20); BUN (Urea Nitrogen) 48 mg/dL (9.8-20.1); Calc. Creatinine Clearance 64 mL/min (70-130); Calcium 9.5 mg/dL (7.8-10.44); Carbon Dioxide 29 mmol/L (23-31); Chloride 99 mmol/L (98-107); Estimated GFR 37; Glucose 124 mg/dL (80-115); Potassium 4.3 mmol/L (3.5-5.1); Sodium 137 mmol/L (136-145)
[2023-04-20 06:28] LABS: Anisocytosis MODERATE=16-30 cells HPF (0-5); CellaVision Operator ID lab.sh2; Hypochromia SLIGHT = 6-15 cells HPF (0-5); Ovalocytes SLIGHT = 2-5 cells HPF (0-1); Platelet Adequacy Comment Platelets Normal; Polychromasia SLIGHT = 2-3 cells HPF (0-2)
[2023-04-20] MEDS: Empagliflozin 25 MG TAB PO SCH (08:24)
[2023-04-21 05:21] LABS: #Eosinphils 0.2 thou/uL (0.0-0.7); #Monocytes 1.2 thou/uL (0.11-0.59); #Neutrophils 4.3 thou/uL (1.40-6.50); %Basophils 0.3 % (0.0-1.0); %Eosinophils 2.9 % (0.0-10.0); %Lymphocytes 23.8 % (21.0-51.0); %Monocytes 15.5 % (0.0-10.0); %Neutrophils 56.7 % (42.0-75.0); Hematocrit 33.7 % (36.0-47.0); Hemoglobin 9.7 g/dL (12.0-16.0); Mean Corpuscular HGB CONC 28.8 g/dL (32.0-36.0); Mean Corpuscular Hemoglobin 25.5 pg (27.0-31.0); Mean Corpuscular Volume 88.7 fl (78.0-98.0); Mean Platelet Volume 10.8 fL (7.4-10.4); Platelet Count 158 10x3/uL (130-400); White Blood Cell (WBC) Count 7.6 10x3/uL (4.8-10.8)
[2023-04-21 05:27] LABS: INR-International Normal Ratio 2.5; Prothrombin Time 26.8 sec (12.0-14.7)
[2023-04-21 05:37] LABS: Anion Gap 9 mmol/L (10-20); BUN (Urea Nitrogen) 45 mg/dL (9.8-20.1); Calc. Creatinine Clearance 79 mL/min (70-130); Calcium 9.1 mg/dL (7.8-10.44); Carbon Dioxide 31 mmol/L (23-31); Chloride 102 mmol/L (98-107); Estimated GFR 47; Glucose 138 mg/dL (80-115); Potassium 4.2 mmol/L (3.5-5.1); Sodium 138 mmol/L (136-145)
[2023-04-21] MEDS: Spironolactone 25 MG TAB PO SCH (09:27)
[2023-04-21] MEDS: Torsemide 10 MG TAB PO SCH (09:27)
[2023-04-21] MEDS: Hydrochlorothiazide 25 MG TAB PO SCH (09:35)
[2023-04-22 04:55] LABS: #Eosinphils 0.2 thou/uL (0.0-0.7); #Monocytes 1.2 thou/uL (0.11-0.59); #Neutrophils 4.4 thou/uL (1.40-6.50); %Basophils 0.4 % (0.0-1.0); %Eosinophils 2.2 % (0.0-10.0); %Lymphocytes 24.1 % (21.0-51.0); %Monocytes 15.4 % (0.0-10.0); %Neutrophils 57.4 % (42.0-75.0); Hemoglobin 9.9 g/dL (12.0-16.0); Mean Corpuscular HGB CONC 28.3 g/dL (32.0-36.0); Mean Corpuscular Hemoglobin 25.4 pg (27.0-31.0); Mean Platelet Volume 10.9 fL (7.4-10.4); Platelet Count 169 10x3/uL (130-400); RBC Distribution Width 18.1 % (11.5-14.5); Red Blood Cell (RBC) Count 3.89 mill/uL (4.20-5.40); White Blood Cell (WBC) Count 7.6 10x3/uL (4.8-10.8)
[2023-04-22 05:01] LABS: Anion Gap 12 mmol/L (10-20); BUN (Urea Nitrogen) 46 mg/dL (9.8-20.1); Calc. Creatinine Clearance 74 mL/min (70-130); Carbon Dioxide 28 mmol/L (23-31); Chloride 103 mmol/L (98-107); Estimated GFR 43; Glucose 146 mg/dL (80-115); Potassium 4.2 mmol/L (3.5-5.1); Sodium 139 mmol/L (136-145)
[2023-04-22 05:15] LABS: INR-International Normal Ratio 2.2; Prothrombin Time 24.4 sec (12.0-14.7)
[2023-04-22 06:20] LABS: Anisocytosis SLIGHT = 6-15 cells HPF (0-5); CellaVision Operator ID lab.sh2; Hypochromia SLIGHT = 6-15 cells HPF (0-5); Macrocytosis SLIGHT = 6-15 cells HPF (0-5); Ovalocytes MODERATE= 6-15 cells HPF (0-1); Platelet Adequacy Comment Platelets Normal; Polychromasia SLIGHT = 2-3 cells HPF (0-2); Tear Drops SLIGHT = 2-5 cells HPF (0-1)
[2023-04-22] MEDS: Insulin NPH Human Isophane 100 UNITS/ML (10 ML VIAL) SQ SCH (09:26)
[2023-04-22] MEDS: Spironolactone 25 MG TAB PO SCH (11:02)
[2023-04-23 04:54] LABS: #Eosinphils 0.1 thou/uL (0.0-0.7); #Monocytes 1.1 thou/uL (0.11-0.59); #Neutrophils 4.2 thou/uL (1.40-6.50); %Basophils 0.4 % (0.0-1.0); %Lymphocytes 23.6 % (21.0-51.0); %Neutrophils 58.6 % (42.0-75.0); Hematocrit 37.4 % (36.0-47.0); Hemoglobin 10.5 g/dL (12.0-16.0); Mean Corpuscular HGB CONC 28.1 g/dL (32.0-36.0); Mean Corpuscular Hemoglobin 25.1 pg (27.0-31.0); Mean Corpuscular Volume 89.5 fl (78.0-98.0); Mean Platelet Volume 10.7 fL (7.4-10.4); Platelet Count 162 10x3/uL (130-400); RBC Distribution Width 18.5 % (11.5-14.5); Red Blood Cell (RBC) Count 4.18 mill/uL (4.20-5.40); White Blood Cell (WBC) Count 7.1 10x3/uL (4.8-10.8)
[2023-04-23 05:04] LABS: INR-International Normal Ratio 2.3
[2023-04-23 05:14] LABS: Anion Gap 12 mmol/L (10-20); BUN (Urea Nitrogen) 45 mg/dL (9.8-20.1); Calc. Creatinine Clearance 67 mL/min (70-130); Calcium 9.1 mg/dL (7.8-10.44); Carbon Dioxide 28 mmol/L (23-31); Chloride 103 mmol/L (98-107); Estimated GFR 39; Glucose 139 mg/dL (80-115); Potassium 3.9 mmol/L (3.5-5.1); Sodium 139 mmol/L (136-145)
[2023-04-23] MEDS: Spironolactone 100 MG TAB PO SCH (09:59)
[2023-04-23] MEDS: hydrOXYzine 10 MG TAB PO SCH (16:34)
[2023-04-23] MEDS: Carvedilol 6.25 MG TAB PO SCH (21:34)
[2023-04-24] MEDS: Ondansetron PF 4 MG/2 ML Vial IVP PRN (00:08)
[2023-04-24 04:29] LABS: INR-International Normal Ratio 1.9; Prothrombin Time 21.8 sec (12.0-14.7)
[2023-04-24 04:31] LABS: #Basophils 0.1 thou/uL (0.0-0.2); #Eosinphils 0.1 thou/uL (0.0-0.7); #Monocytes 1.2 thou/uL (0.11-0.59); #Neutrophils 5.7 thou/uL (1.40-6.50); %Basophils 0.7 % (0.0-1.0); %Eosinophils 1.4 % (0.0-10.0); %Lymphocytes 21.4 % (21.0-51.0); %Monocytes 13.5 % (0.0-10.0); %Neutrophils 62.3 % (42.0-75.0); Hematocrit 36.3 % (36.0-47.0); Hemoglobin 10.5 g/dL (12.0-16.0); Mean Corpuscular HGB CONC 28.9 g/dL (32.0-36.0); Mean Corpuscular Hemoglobin 25.4 pg (27.0-31.0); Mean Corpuscular Volume 87.7 fl (78.0-98.0); Mean Platelet Volume 10.9 fL (7.4-10.4); Platelet Count 135 10x3/uL (130-400); RBC Distribution Width 18.7 % (11.5-14.5); Red Blood Cell (RBC) Count 4.14 mill/uL (4.20-5.40); White Blood Cell (WBC) Count 9.1 10x3/uL (4.8-10.8)
[2023-04-24 04:35] LABS: ALT (SGPT) 27 U/L (8-55); AST (SGOT) 21 U/L (5-34); Albumin 4.1 g/dL (3.4-4.8); Alkaline Phosphatase 93 U/L (40-110); Anion Gap 12 mmol/L (10-20); BUN (Urea Nitrogen) 49 mg/dL (9.8-20.1); Bilirubin, Total 0.4 mg/dL (0.2-1.2); Calc. Creatinine Clearance 63 mL/min (70-130); Calcium 8.8 mg/dL (7.8-10.44); Carbon Dioxide 29 mmol/L (23-31); Chloride 102 mmol/L (98-107); Estimated GFR 36; Glucose 176 mg/dL (80-115); Magnesium 2.7 mg/dL (1.6-2.6); Potassium 4.5 mmol/L (3.5-5.1); Protein, Total 7.1 g/dL (5.8-8.1); Sodium 138 mmol/L (136-145)
[2023-04-24 05:04] LABS: Anisocytosis SLIGHT = 6-15 cells HPF (0-5); CellaVision Operator ID lab.abc; Hypochromia SLIGHT = 6-15 cells HPF (0-5); Platelet Adequacy Comment Platelets Normal; Polychromasia SLIGHT = 2-3 cells HPF (0-2)
[2023-04-24] MEDS ORDERED: Spironolactone 100 MG TAB PO SCH (09:00)
[2023-04-24] MEDS: AcetaZOLAMIDE 250 MG TAB PO SCH (09:06)
[2023-04-24] MEDS: Magnesium Oxide 400 MG TAB PO SCH (09:13)
[2023-04-24 10:29] LABS: Thyroid Stimulating Hormone 0.2346 uIU/mL (0.35-4.94)
[2023-04-24 10:32] LABS: T4 4.45 ug/dL (4.87-11.72)
[2023-04-24] MEDS: Ammonium Lactate 12% Lotion 225 GM BOT TOP SCH ×2 (12:42→21:41)
[2023-04-24] MEDS: Menthol/Camphor Lotion 222 ml Bottle TOP SCH (14:40)
[2023-04-24] MEDS: Warfarin Sodium 1.5 MG TAB PO SCH (18:44)
[2023-04-24] MEDS: Warfarin Sodium 3 MG TAB PO SCH (18:46)
[2023-04-24 18:54] LABS: Free T4 (Free Thyroxine) 0.71 ng/dL (0.70-1.48)
[2023-04-24] MEDS: Dextrose 30 ML TUBE PO SCH (19:36)
[2023-04-25 05:15] LABS: #Eosinphils 0.2 thou/uL (0.0-0.7); #Neutrophils 5.1 thou/uL (1.40-6.50); %Basophils 0.2 % (0.0-1.0); %Eosinophils 2.1 % (0.0-10.0); %Lymphocytes 22.4 % (21.0-51.0); %Monocytes 12.6 % (0.0-10.0); %Neutrophils 62.3 % (42.0-75.0); Hematocrit 36.7 % (36.0-47.0); Hemoglobin 10.5 g/dL (12.0-16.0); Mean Corpuscular HGB CONC 28.6 g/dL (32.0-36.0); Mean Corpuscular Hemoglobin 26.3 pg (27.0-31.0); Mean Platelet Volume 9.8 fL (7.4-10.4); Platelet Count 162 10x3/uL (130-400); RBC Distribution Width 19.1 % (11.5-14.5); Red Blood Cell (RBC) Count 3.99 mill/uL (4.20-5.40); White Blood Cell (WBC) Count 8.2 10x3/uL (4.8-10.8)
[2023-04-25 05:33] LABS: INR-International Normal Ratio 1.7; Prothrombin Time 20.2 sec (12.0-14.7)
[2023-04-25 06:01] LABS: Anion Gap 13 mmol/L (10-20); BUN (Urea Nitrogen) 47 mg/dL (9.8-20.1); Calc. Creatinine Clearance 67 mL/min (70-130); Calcium 9.1 mg/dL (7.8-10.44); Carbon Dioxide 26 mmol/L (23-31); Chloride 102 mmol/L (98-107); Estimated GFR 38; Glucose 99 mg/dL (80-115); Magnesium 2.5 mg/dL (1.6-2.6); Potassium 4.5 mmol/L (3.5-5.1); Sodium 136 mmol/L (136-145)
[2023-04-25] MEDS: Milrinone Lactate/D5W 20 MG in Premix 1 BAG IV SCH (09:40)
[2023-04-25] MEDS: Furosemide 40 MG (4 mL) VIAL SLOW IVP SCH (12:02)
[2023-04-25] MEDS: hydrOXYzine 10 MG TAB PO SCH ×2 (12:03→20:28)
[2023-04-25] MEDS ORDERED: Warfarin Sodium 3 MG TAB PO SCH (17:00)
[2023-04-25] MEDS ORDERED: Warfarin Sodium 1.5 MG TAB PO SCH (17:00)
[2023-04-25] MEDS: Warfarin Sodium 5 MG TAB PO SCH (18:06)
[2023-04-25] MEDS: Polyethylene Glycol 3350 17 GM Packet PO SCH (20:26)
[2023-04-26 05:21] LABS: #Eosinphils 0.2 thou/uL (0.0-0.7); #Monocytes 1.2 thou/uL (0.11-0.59); %Basophils 0.3 % (0.0-1.0); %Eosinophils 2.1 % (0.0-10.0); %Lymphocytes 25.1 % (21.0-51.0); %Monocytes 13.9 % (0.0-10.0); %Neutrophils 58.1 % (42.0-75.0); Hematocrit 36.7 % (36.0-47.0); Hemoglobin 10.3 g/dL (12.0-16.0); Mean Corpuscular HGB CONC 28.1 g/dL (32.0-36.0); Mean Corpuscular Hemoglobin 25.6 pg (27.0-31.0); Mean Corpuscular Volume 91.3 fl (78.0-98.0); Mean Platelet Volume 10.4 fL (7.4-10.4); Platelet Count 165 10x3/uL (130-400); RBC Distribution Width 18.9 % (11.5-14.5); Red Blood Cell (RBC) Count 4.02 mill/uL (4.20-5.40); White Blood Cell (WBC) Count 8.6 10x3/uL (4.8-10.8)
[2023-04-26 05:34] LABS: Prothrombin Time 22.4 sec (12.0-14.7)
[2023-04-26 06:29] LABS: Anion Gap 9 mmol/L (10-20); BUN (Urea Nitrogen) 47 mg/dL (9.8-20.1); Calc. Creatinine Clearance 75 mL/min (70-130); Carbon Dioxide 32 mmol/L (23-31); Chloride 103 mmol/L (98-107); Estimated GFR 44; Glucose 121 mg/dL (80-115); Magnesium 2.7 mg/dL (1.6-2.6); Potassium 3.9 mmol/L (3.5-5.1); Sodium 140 mmol/L (136-145)
[2023-04-26] MEDS: Potassium Chloride 20 MEQ TAB PO SCH ×2 (09:38→22:08)
[2023-04-26] MEDS: Furosemide 40 MG (4 mL) VIAL SLOW IVP SCH (10:42)
[2023-04-26] MEDS: AcetaZOLAMIDE 250 MG TAB PO SCH (15:21)
[2023-04-26] MEDS: Potassium Chloride 10 MEQ TAB PO SCH (17:37)
[2023-04-26 22:23] LABS: Anion Gap 11 mmol/L (10-20); BUN (Urea Nitrogen) 44 mg/dL (9.8-20.1); Calc. Creatinine Clearance 69 mL/min (70-130); Calcium 8.9 mg/dL (7.8-10.44); Carbon Dioxide 27 mmol/L (23-31); Chloride 104 mmol/L (98-107); Estimated GFR 40; Glucose 230 mg/dL (80-115); Potassium 4.2 mmol/L (3.5-5.1); Sodium 138 mmol/L (136-145)
[2023-04-27 05:03] LABS: #Eosinphils 0.2 thou/uL (0.0-0.7); #Monocytes 1.1 thou/uL (0.11-0.59); #Neutrophils 4.5 thou/uL (1.40-6.50); %Basophils 0.4 % (0.0-1.0); %Eosinophils 2.3 % (0.0-10.0); %Lymphocytes 22.4 % (21.0-51.0); %Monocytes 14.3 % (0.0-10.0); %Neutrophils 60.1 % (42.0-75.0); Hematocrit 34.5 % (36.0-47.0); Hemoglobin 9.9 g/dL (12.0-16.0); Mean Corpuscular HGB CONC 28.7 g/dL (32.0-36.0); Mean Corpuscular Hemoglobin 26.1 pg (27.0-31.0); Mean Corpuscular Volume 90.8 fl (78.0-98.0); Mean Platelet Volume 10.7 fL (7.4-10.4); Platelet Count 172 10x3/uL (130-400); RBC Distribution Width 19.3 % (11.5-14.5); White Blood Cell (WBC) Count 7.5 10x3/uL (4.8-10.8)
[2023-04-27 05:23] LABS: INR-International Normal Ratio 2.2; Prothrombin Time 24.8 sec (12.0-14.7)
[2023-04-27 05:24] LABS: Anion Gap 10 mmol/L (10-20); BUN (Urea Nitrogen) 41 mg/dL (9.8-20.1); Calc. Creatinine Clearance 80 mL/min (70-130); Carbon Dioxide 29 mmol/L (23-31); Chloride 104 mmol/L (98-107); Estimated GFR 48; Glucose 160 mg/dL (80-115); Magnesium 2.5 mg/dL (1.6-2.6); Potassium 4.2 mmol/L (3.5-5.1); Sodium 139 mmol/L (136-145)
[2023-04-27] MEDS: Milrinone Lactate/D5W 20 MG in Premix 1 BAG IV SCH (08:17)
[2023-04-27] MEDS: Potassium Chloride 20 MEQ TAB PO SCH (08:19)
[2023-04-27] MEDS: Carvedilol 6.25 MG TAB PO SCH (08:19)
[2023-04-27] MEDS: Furosemide 40 MG (4 mL) VIAL SLOW IVP SCH (14:39)
[2023-04-28 05:30] LABS: #Eosinphils 0.1 thou/uL (0.0-0.7); #Monocytes 1.1 thou/uL (0.11-0.59); #Neutrophils 4.8 thou/uL (1.40-6.50); %Basophils 0.5 % (0.0-1.0); %Eosinophils 1.8 % (0.0-10.0); %Lymphocytes 22.4 % (21.0-51.0); %Monocytes 13.7 % (0.0-10.0); %Neutrophils 61.1 % (42.0-75.0); Hematocrit 33.9 % (36.0-47.0); Hemoglobin 9.6 g/dL (12.0-16.0); Mean Corpuscular HGB CONC 28.3 g/dL (32.0-36.0); Mean Corpuscular Hemoglobin 25.5 pg (27.0-31.0); Mean Corpuscular Volume 89.9 fl (78.0-98.0); Mean Platelet Volume 10.8 fL (7.4-10.4); Platelet Count 164 10x3/uL (130-400); RBC Distribution Width 19.6 % (11.5-14.5); Red Blood Cell (RBC) Count 3.77 mill/uL (4.20-5.40); White Blood Cell (WBC) Count 7.8 10x3/uL (4.8-10.8)
[2023-04-28 05:44] LABS: INR-International Normal Ratio 2.8; Prothrombin Time 29.4 sec (12.0-14.7)
[2023-04-28 06:13] LABS: Anisocytosis SLIGHT = 6-15 cells HPF (0-5); CellaVision Operator ID lab.abc; Hypochromia SLIGHT = 6-15 cells HPF (0-5); Platelet Adequacy Comment Platelets Normal; Polychromasia SLIGHT = 2-3 cells HPF (0-2); Smudge Cells 8.9 %
[2023-04-28 06:17] LABS: Anion Gap 9 mmol/L (10-20); BUN (Urea Nitrogen) 41 mg/dL (9.8-20.1); Calc. Creatinine Clearance 86 mL/min (70-130); Calcium 8.6 mg/dL (7.8-10.44); Carbon Dioxide 28 mmol/L (23-31); Chloride 106 mmol/L (98-107); Estimated GFR 52; Glucose 155 mg/dL (80-115); Magnesium 2.4 mg/dL (1.6-2.6); Potassium 4.3 mmol/L (3.5-5.1); Sodium 139 mmol/L (136-145)
[2023-04-28] MEDS: Furosemide 40 MG (4 mL) VIAL SLOW IVP SCH (11:35)
[2023-04-28] MEDS: Isosorbide Dinitrate 5 MG TAB PO SCH (14:55)
[2023-04-28] MEDS: Warfarin Sodium 2.5 MG TAB PO SCH (17:39)
[2023-04-29 06:25] LABS: #Eosinphils 0.2 thou/uL (0.0-0.7); #Neutrophils 5.5 thou/uL (1.40-6.50); %Basophils 0.4 % (0.0-1.0); %Eosinophils 2.4 % (0.0-10.0); %Lymphocytes 20.4 % (21.0-51.0); %Monocytes 12.2 % (0.0-10.0); %Neutrophils 64.1 % (42.0-75.0); Hematocrit 36.6 % (36.0-47.0); Hemoglobin 10.1 g/dL (12.0-16.0); Mean Corpuscular HGB CONC 27.6 g/dL (32.0-36.0); Mean Corpuscular Hemoglobin 25.1 pg (27.0-31.0); Mean Platelet Volume 10.6 fL (7.4-10.4); Platelet Count 175 10x3/uL (130-400); RBC Distribution Width 19.5 % (11.5-14.5); Red Blood Cell (RBC) Count 4.02 mill/uL (4.20-5.40); White Blood Cell (WBC) Count 8.5 10x3/uL (4.8-10.8)
[2023-04-29 06:51] LABS: INR-International Normal Ratio 2.3
[2023-04-29 06:56] LABS: Anion Gap 10 mmol/L (10-20); BUN (Urea Nitrogen) 40 mg/dL (9.8-20.1); Calc. Creatinine Clearance 88 mL/min (70-130); Calcium 8.9 mg/dL (7.8-10.44); Carbon Dioxide 30 mmol/L (23-31); Chloride 102 mmol/L (98-107); Estimated GFR 53; Glucose 166 mg/dL (80-115); Magnesium 2.5 mg/dL (1.6-2.6); Potassium 4.4 mmol/L (3.5-5.1); Sodium 138 mmol/L (136-145)
[2023-04-29] MEDS: Furosemide 40 MG (4 mL) VIAL SLOW IVP SCH ×2 (08:58→17:23)
[2023-04-29] MEDS: Isosorbide Dinitrate 5 MG TAB PO SCH (12:58)
[2023-04-29] MEDS: Warfarin Sodium 5 MG TAB PO SCH (17:23)
[2023-04-30 05:10] LABS: #Eosinphils 0.1 thou/uL (0.0-0.7); #Monocytes 1.3 thou/uL (0.11-0.59); #Neutrophils 5.7 thou/uL (1.40-6.50); %Basophils 0.4 % (0.0-1.0); %Eosinophils 1.3 % (0.0-10.0); %Lymphocytes 20.9 % (21.0-51.0); %Monocytes 14.1 % (0.0-10.0); %Neutrophils 63.1 % (42.0-75.0); Mean Corpuscular HGB CONC 28.6 g/dL (32.0-36.0); Mean Corpuscular Hemoglobin 25.8 pg (27.0-31.0); Mean Corpuscular Volume 90.4 fl (78.0-98.0); Mean Platelet Volume 10.6 fL (7.4-10.4); Platelet Count 158 10x3/uL (130-400); RBC Distribution Width 19.3 % (11.5-14.5); Red Blood Cell (RBC) Count 3.87 mill/uL (4.20-5.40); White Blood Cell (WBC) Count 9.1 10x3/uL (4.8-10.8)
[2023-04-30 05:24] LABS: INR-International Normal Ratio 2.2; Prothrombin Time 24.8 sec (12.0-14.7)
[2023-04-30 05:41] LABS: Anion Gap 16 mmol/L (10-20); BUN (Urea Nitrogen) 45 mg/dL (9.8-20.1); Calc. Creatinine Clearance 76 mL/min (70-130); Calcium 8.9 mg/dL (7.8-10.44); Carbon Dioxide 25 mmol/L (23-31); Chloride 102 mmol/L (98-107); Estimated GFR 45; Glucose 210 mg/dL (80-115); Potassium 4.5 mmol/L (3.5-5.1); Sodium 138 mmol/L (136-145)
[2023-04-30 06:08] LABS: CellaVision Operator ID lab.abc; Hypochromia SLIGHT = 6-15 cells HPF (0-5); Platelet Adequacy Comment Platelets Normal; Polychromasia SLIGHT = 2-3 cells HPF (0-2)
[2023-04-30] MEDS: DOBUTamine 500 mg/250 ml 500 MG in Premix 1 BAG IVPB SCH (09:18)
[2023-04-30] MEDS: Potassium Chloride 10 MEQ TAB PO SCH (16:34)
[2023-05-01 05:30] LABS: #Eosinphils 0.1 thou/uL (0.0-0.7); #Neutrophils 4.4 thou/uL (1.40-6.50); %Basophils 0.4 % (0.0-1.0); %Eosinophils 1.7 % (0.0-10.0); %Lymphocytes 22.8 % (21.0-51.0); %Monocytes 13.9 % (0.0-10.0); %Neutrophils 61.1 % (42.0-75.0); Hematocrit 32.3 % (36.0-47.0); Hemoglobin 9.4 g/dL (12.0-16.0); Mean Corpuscular HGB CONC 29.1 g/dL (32.0-36.0); Mean Corpuscular Volume 89.2 fl (78.0-98.0); Mean Platelet Volume 9.8 fL (7.4-10.4); Platelet Count 157 10x3/uL (130-400); RBC Distribution Width 19.1 % (11.5-14.5); Red Blood Cell (RBC) Count 3.62 mill/uL (4.20-5.40); White Blood Cell (WBC) Count 7.2 10x3/uL (4.8-10.8)
[2023-05-01 05:45] LABS: INR-International Normal Ratio 1.8; Prothrombin Time 21.1 sec (12.0-14.7)
[2023-05-01 06:10] LABS: Anion Gap 11 mmol/L (10-20); BUN (Urea Nitrogen) 39 mg/dL (9.8-20.1); Calc. Creatinine Clearance 91 mL/min (70-130); Calcium 8.7 mg/dL (7.8-10.44); Carbon Dioxide 27 mmol/L (23-31); Chloride 106 mmol/L (98-107); Estimated GFR 55; Glucose 240 mg/dL (80-115); Sodium 140 mmol/L (136-145)
[2023-05-01] MEDS: DOBUTamine 500 mg/250 ml 500 MG in Premix 1 BAG IVPB SCH (11:00)
[2023-05-01] MEDS: Potassium Chloride 20 MEQ TAB PO SCH ×2 (11:17→17:29)
[2023-05-01] MEDS: Furosemide 40 MG (4 mL) VIAL SLOW IVP SCH (11:18)
[2023-05-01] MEDS: Topiramate 25 MG TAB PO SCH (17:29)
[2023-05-01] MEDS: Ferrous Sulfate 325 MG TAB PO SCH (17:29)
[2023-05-01] MEDS: Warfarin Sodium 7.5 MG TAB PO SCH (17:29)
[2023-05-02 05:40] LABS: #Eosinphils 0.1 thou/uL (0.0-0.7); #Monocytes 1.2 thou/uL (0.11-0.59); #Neutrophils 4.5 thou/uL (1.40-6.50); %Basophils 0.4 % (0.0-1.0); %Eosinophils 1.4 % (0.0-10.0); %Lymphocytes 23.1 % (21.0-51.0); %Monocytes 15.1 % (0.0-10.0); %Neutrophils 59.7 % (42.0-75.0); Hematocrit 34.7 % (36.0-47.0); Hemoglobin 9.8 g/dL (12.0-16.0); Mean Corpuscular HGB CONC 28.2 g/dL (32.0-36.0); Mean Corpuscular Hemoglobin 25.8 pg (27.0-31.0); Mean Corpuscular Volume 91.3 fl (78.0-98.0); Mean Platelet Volume 10.5 fL (7.4-10.4); Platelet Count 185 10x3/uL (130-400); RBC Distribution Width 19.3 % (11.5-14.5); White Blood Cell (WBC) Count 7.6 10x3/uL (4.8-10.8)
[2023-05-02 05:53] LABS: INR-International Normal Ratio 1.6; Prothrombin Time 19.3 sec (12.0-14.7)
[2023-05-02 06:12] LABS: Anion Gap 11 mmol/L (10-20); BUN (Urea Nitrogen) 34 mg/dL (9.8-20.1); Calc. Creatinine Clearance 84 mL/min (70-130); Calcium 9.1 mg/dL (7.8-10.44); Carbon Dioxide 29 mmol/L (23-31); Chloride 105 mmol/L (98-107); Estimated GFR 51; Glucose 199 mg/dL (80-115); Magnesium 2.3 mg/dL (1.6-2.6); Potassium 4.1 mmol/L (3.5-5.1); Sodium 141 mmol/L (136-145)
[2023-05-02] MEDS ORDERED: DOBUTamine 500 mg/250 ml 250 ML IVPB SCH (08:00)
[2023-05-02] MEDS: DOBUTamine 500 mg/250 ml 250 ML IVPB SCH (09:05)
[2023-05-02] MEDS: Hydrochlorothiazide 25 MG TAB PO SCH (09:26)
[2023-05-02] MEDS: Topiramate 25 MG TAB PO SCH (09:28)
[2023-05-02] MEDS: Insulin NPH Human Isophane 100 UNITS/ML (10 ML VIAL) SQ SCH ×2 (09:41→22:54)
[2023-05-02] MEDS: Furosemide 40 MG (4 mL) VIAL SLOW IVP SCH (10:47)
[2023-05-02] MEDS: traMADol HCl 50 MG TAB PO PRN (14:51)
[2023-05-02] MEDS: Warfarin Sodium 5 MG TAB PO SCH (17:56)
[2023-05-03] MEDS: Polyethylene Glycol 3350 17 GM Packet PO PRN (05:19)
[2023-05-03 06:03] LABS: #Basophils 0.1 thou/uL (0.0-0.2); #Eosinphils 0.2 thou/uL (0.0-0.7); #Monocytes 1.2 thou/uL (0.11-0.59); #Neutrophils 5.2 thou/uL (1.40-6.50); %Basophils 0.6 % (0.0-1.0); %Eosinophils 1.8 % (0.0-10.0); %Lymphocytes 23.2 % (21.0-51.0); %Monocytes 13.7 % (0.0-10.0); %Neutrophils 60.4 % (42.0-75.0); Hematocrit 36.9 % (36.0-47.0); Hemoglobin 10.3 g/dL (12.0-16.0); Mean Corpuscular HGB CONC 27.9 g/dL (32.0-36.0); Mean Corpuscular Hemoglobin 25.4 pg (27.0-31.0); Mean Corpuscular Volume 90.9 fl (78.0-98.0); Mean Platelet Volume 10.1 fL (7.4-10.4); Platelet Count 174 10x3/uL (130-400); RBC Distribution Width 18.9 % (11.5-14.5); Red Blood Cell (RBC) Count 4.06 mill/uL (4.20-5.40); White Blood Cell (WBC) Count 8.7 10x3/uL (4.8-10.8)
[2023-05-03 06:24] LABS: INR-International Normal Ratio 1.6; Prothrombin Time 19.2 sec (12.0-14.7)
[2023-05-03 06:30] LABS: Anion Gap 12 mmol/L (10-20); Anisocytosis MODERATE=16-30 cells HPF (0-5); BUN (Urea Nitrogen) 31 mg/dL (9.8-20.1); Burr Cells SLIGHT = 2-5 cells HPF (0-1); Calc. Creatinine Clearance 96 mL/min (70-130); Calcium 9.2 mg/dL (7.8-10.44); Carbon Dioxide 27 mmol/L (23-31); CellaVision Operator ID lab.sh2; Chloride 104 mmol/L (98-107); Estimated GFR 60; Glucose 105 mg/dL (80-115); Hypochromia SLIGHT = 6-15 cells HPF (0-5); Macrocytosis SLIGHT = 6-15 cells HPF (0-5); Magnesium 2.3 mg/dL (1.6-2.6); Ovalocytes SLIGHT = 2-5 cells HPF (0-1); Platelet Adequacy Comment Platelets Normal; Polychromasia SLIGHT = 2-3 cells HPF (0-2); Potassium 4.2 mmol/L (3.5-5.1); Sodium 139 mmol/L (136-145); Tear Drops SLIGHT = 2-5 cells HPF (0-1)
[2023-05-03] MEDS ORDERED: DOBUTamine 500 mg/250 ml 250 ML IVPB SCH (08:00)
[2023-05-03] MEDS: Hydrochlorothiazide 25 MG TAB PO SCH (09:05)
[2023-05-03] MEDS: Furosemide 40 MG (4 mL) VIAL SLOW IVP SCH (09:09)
[2023-05-03] MEDS: Potassium Chloride 20 MEQ TAB PO SCH (14:10)
[2023-05-03] MEDS: Warfarin Sodium 10 MG TAB PO SCH (17:24)
[2023-05-04] MEDS ORDERED: DOBUTamine 500 mg/250 ml 250 ML IVPB SCH ×2 (07:00→08:15)
[2023-05-04 07:27] LABS: #Eosinphils 0.1 thou/uL (0.0-0.7); #Monocytes 1.3 thou/uL (0.11-0.59); #Neutrophils 5.6 thou/uL (1.40-6.50); %Basophils 0.3 % (0.0-1.0); %Eosinophils 1.6 % (0.0-10.0); %Lymphocytes 20.3 % (21.0-51.0); %Monocytes 14.3 % (0.0-10.0); %Neutrophils 63.3 % (42.0-75.0); Hemoglobin 10.5 g/dL (12.0-16.0); Mean Corpuscular HGB CONC 29.2 g/dL (32.0-36.0); Mean Corpuscular Hemoglobin 26.2 pg (27.0-31.0); Mean Corpuscular Volume 89.8 fl (78.0-98.0); Mean Platelet Volume 9.6 fL (7.4-10.4); Platelet Count 192 10x3/uL (130-400); RBC Distribution Width 18.6 % (11.5-14.5); Red Blood Cell (RBC) Count 4.01 mill/uL (4.20-5.40); White Blood Cell (WBC) Count 8.8 10x3/uL (4.8-10.8)
[2023-05-04 07:44] LABS: INR-International Normal Ratio 1.8
[2023-05-04] MEDS ORDERED: FLU VACC QS2023(65UP)/MF59C/PF 60 MCG/0.5 ML SYRINGE IM ONE (07:58)
[2023-05-04 08:01] LABS: Anion Gap 15 mmol/L (10-20); BUN (Urea Nitrogen) 36 mg/dL (9.8-20.1); Calc. Creatinine Clearance 89 mL/min (70-130); Calcium 9.1 mg/dL (7.8-10.44); Carbon Dioxide 25 mmol/L (23-31); Chloride 102 mmol/L (98-107); Estimated GFR 54; Glucose 113 mg/dL (80-115); Magnesium 2.4 mg/dL (1.6-2.6); Potassium 3.9 mmol/L (3.5-5.1); Sodium 138 mmol/L (136-145)
[2023-05-04] MEDS: Hydrochlorothiazide 25 MG TAB PO SCH ×2 (08:20→08:27)
[2023-05-04] MEDS: Furosemide 40 MG (4 mL) VIAL SLOW IVP SCH (08:27)
[2023-05-04] MEDS: Warfarin Sodium 3 MG TAB PO SCH (16:41)
[2023-05-05 05:51] LABS: #Eosinphils 0.1 thou/uL (0.0-0.7); #Neutrophils 4.7 thou/uL (1.40-6.50); %Basophils 0.4 % (0.0-1.0); %Eosinophils 1.3 % (0.0-10.0); %Lymphocytes 20.4 % (21.0-51.0); %Monocytes 13.8 % (0.0-10.0); %Neutrophils 63.8 % (42.0-75.0); Hemoglobin 10.7 g/dL (12.0-16.0); Mean Corpuscular HGB CONC 28.9 g/dL (32.0-36.0); Mean Platelet Volume 9.3 fL (7.4-10.4); Platelet Count 170 10x3/uL (130-400); RBC Distribution Width 18.9 % (11.5-14.5); Red Blood Cell (RBC) Count 4.11 mill/uL (4.20-5.40); White Blood Cell (WBC) Count 7.4 10x3/uL (4.8-10.8)
[2023-05-05 06:00] LABS: Prothrombin Time 22.6 sec (12.0-14.7)
[2023-05-05 06:10] LABS: Anion Gap 13 mmol/L (10-20); BUN (Urea Nitrogen) 39 mg/dL (9.8-20.1); Calc. Creatinine Clearance 85 mL/min (70-130); Calcium 9.3 mg/dL (7.8-10.44); Carbon Dioxide 27 mmol/L (23-31); Chloride 103 mmol/L (98-107); Estimated GFR 51; Glucose 161 mg/dL (80-115); Magnesium 2.2 mg/dL (1.6-2.6); Potassium 3.8 mmol/L (3.5-5.1); Sodium 139 mmol/L (136-145)
[2023-05-05 06:19] LABS: Anisocytosis SLIGHT = 6-15 cells HPF (0-5); CellaVision Operator ID lab.sh2; Hypochromia SLIGHT = 6-15 cells HPF (0-5); Macrocytosis SLIGHT = 6-15 cells HPF (0-5); Ovalocytes SLIGHT = 2-5 cells HPF (0-1); Platelet Adequacy Comment Platelets Normal; Polychromasia SLIGHT = 2-3 cells HPF (0-2)
[2023-05-05] MEDS: DOBUTamine 500 mg/250 ml 250 ML IVPB SCH (09:37)
[2023-05-05] MEDS: Potassium Chloride 20 MEQ TAB PO SCH (09:38)
[2023-05-05] MEDS: Furosemide 100 MG (10 mL) VIAL SLOW IVP SCH (10:56)
[2023-05-06 04:32] LABS: #Eosinphils 0.1 thou/uL (0.0-0.7); #Monocytes 1.3 thou/uL (0.11-0.59); #Neutrophils 4.6 thou/uL (1.40-6.50); %Basophils 0.4 % (0.0-1.0); %Eosinophils 1.7 % (0.0-10.0); %Lymphocytes 24.5 % (21.0-51.0); %Neutrophils 57.2 % (42.0-75.0); Hematocrit 33.8 % (36.0-47.0); Hemoglobin 9.8 g/dL (12.0-16.0); Mean Corpuscular Hemoglobin 25.9 pg (27.0-31.0); Mean Corpuscular Volume 89.2 fl (78.0-98.0); Mean Platelet Volume 9.6 fL (7.4-10.4); Platelet Count 182 10x3/uL (130-400); RBC Distribution Width 18.6 % (11.5-14.5); Red Blood Cell (RBC) Count 3.79 mill/uL (4.20-5.40); White Blood Cell (WBC) Count 8.1 10x3/uL (4.8-10.8)
[2023-05-06 04:46] LABS: Anion Gap 9 mmol/L (10-20); BUN (Urea Nitrogen) 41 mg/dL (9.8-20.1); Calc. Creatinine Clearance 97 mL/min (70-130); Calcium 9.4 mg/dL (7.8-10.44); Carbon Dioxide 33 mmol/L (23-31); Chloride 103 mmol/L (98-107); Estimated GFR 60; Glucose 106 mg/dL (80-115); Magnesium 2.2 mg/dL (1.6-2.6); Potassium 3.4 mmol/L (3.5-5.1); Sodium 142 mmol/L (136-145)
[2023-05-06 04:58] LABS: Prothrombin Time 22.6 sec (12.0-14.7)
[2023-05-06] MEDS: Potassium Chloride 20 MEQ TAB PO SCH ×2 (06:50→12:38)
[2023-05-06] MEDS: Hydrochlorothiazide 25 MG TAB PO SCH (08:23)
[2023-05-06] MEDS: Furosemide 100 MG (10 mL) VIAL SLOW IVP SCH (08:26)
[2023-05-06] MEDS: Famotidine 20 MG TAB PO SCH (20:53)
[2023-05-07 04:22] LABS: #Eosinphils 0.1 thou/uL (0.0-0.7); #Monocytes 1.2 thou/uL (0.11-0.59); #Neutrophils 4.5 thou/uL (1.40-6.50); %Basophils 0.3 % (0.0-1.0); %Eosinophils 1.4 % (0.0-10.0); %Lymphocytes 22.5 % (21.0-51.0); %Monocytes 16.1 % (0.0-10.0); %Neutrophils 59.6 % (42.0-75.0); Hematocrit 33.7 % (36.0-47.0); Hemoglobin 9.8 g/dL (12.0-16.0); Mean Corpuscular HGB CONC 29.1 g/dL (32.0-36.0); Mean Corpuscular Hemoglobin 25.8 pg (27.0-31.0); Mean Corpuscular Volume 88.7 fl (78.0-98.0); Mean Platelet Volume 9.2 fL (7.4-10.4); Platelet Count 180 10x3/uL (130-400); RBC Distribution Width 18.6 % (11.5-14.5); White Blood Cell (WBC) Count 7.6 10x3/uL (4.8-10.8)
[2023-05-07 04:31] LABS: Prothrombin Time 22.5 sec (12.0-14.7)
[2023-05-07 05:00] LABS: Anion Gap 13 mmol/L (10-20); BUN (Urea Nitrogen) 39 mg/dL (9.8-20.1); Calc. Creatinine Clearance 88 mL/min (70-130); Calcium 9.1 mg/dL (7.8-10.44); Carbon Dioxide 30 mmol/L (23-31); Chloride 103 mmol/L (98-107); Estimated GFR 54; Glucose 167 mg/dL (80-115); Potassium 3.5 mmol/L (3.5-5.1); Sodium 142 mmol/L (136-145)
[2023-05-07] MEDS: Magnesium Oxide 400 MG TAB PO SCH ×2 (09:32→16:11)
[2023-05-07] MEDS: Potassium Chloride 20 MEQ TAB PO SCH (21:16)
[2023-05-08 04:27] LABS: #Eosinphils 0.1 thou/uL (0.0-0.7); #Monocytes 1.3 thou/uL (0.11-0.59); #Neutrophils 5.1 thou/uL (1.40-6.50); %Basophils 0.2 % (0.0-1.0); %Eosinophils 1.7 % (0.0-10.0); %Lymphocytes 21.1 % (21.0-51.0); %Monocytes 15.6 % (0.0-10.0); %Neutrophils 61.2 % (42.0-75.0); Hematocrit 35.7 % (36.0-47.0); Hemoglobin 10.2 g/dL (12.0-16.0); Mean Corpuscular HGB CONC 28.6 g/dL (32.0-36.0); Mean Corpuscular Hemoglobin 26.2 pg (27.0-31.0); Mean Corpuscular Volume 91.5 fl (78.0-98.0); Mean Platelet Volume 9.4 fL (7.4-10.4); Platelet Count 179 10x3/uL (130-400); RBC Distribution Width 18.6 % (11.5-14.5); White Blood Cell (WBC) Count 8.4 10x3/uL (4.8-10.8)
[2023-05-08 04:48] LABS: Anion Gap 10 mmol/L (10-20); BUN (Urea Nitrogen) 37 mg/dL (9.8-20.1); Calc. Creatinine Clearance 87 mL/min (70-130); Calcium 8.8 mg/dL (7.8-10.44); Carbon Dioxide 29 mmol/L (23-31); Chloride 106 mmol/L (98-107); Estimated GFR 54; Glucose 163 mg/dL (80-115); Magnesium 2.8 mg/dL (1.6-2.6); Potassium 4.8 mmol/L (3.5-5.1); Sodium 140 mmol/L (136-145)
[2023-05-08 05:22] LABS: INR-International Normal Ratio 1.9; Prothrombin Time 21.5 sec (12.0-14.7)
[2023-05-08] MEDS: Hydrochlorothiazide 25 MG TAB PO SCH (05:44)
[2023-05-08] MEDS: Cephalexin 250 MG CAP PO SCH (08:39)
[2023-05-08] MEDS: Metolazone 2.5 MG TAB PO SCH (08:39)
[2023-05-08] MEDS: FLU VACC QS2023(65UP)/MF59C/PF 60 MCG/0.5 ML SYRINGE IM ONE (08:52)
[2023-05-08] MEDS: DOBUTamine 500 mg/250 ml 250 ML IVPB SCH (08:55)
[2023-05-08] MEDS: Furosemide 100 MG (10 mL) VIAL SLOW IVP SCH (10:16)
[2023-05-08] MEDS: Warfarin Sodium 5 MG TAB PO SCH (17:18)
[2023-05-08] MEDS: Warfarin Sodium 2 MG TAB PO SCH (17:19)
[2023-05-09 04:58] LABS: #Eosinphils 0.1 thou/uL (0.0-0.7); #Monocytes 1.2 thou/uL (0.11-0.59); #Neutrophils 5.2 thou/uL (1.40-6.50); %Basophils 0.2 % (0.0-1.0); %Eosinophils 1.7 % (0.0-10.0); %Lymphocytes 19.3 % (21.0-51.0); %Monocytes 14.7 % (0.0-10.0); %Neutrophils 63.9 % (42.0-75.0); Hematocrit 32.7 % (36.0-47.0); Hemoglobin 9.4 g/dL (12.0-16.0); Mean Corpuscular HGB CONC 28.7 g/dL (32.0-36.0); Mean Corpuscular Volume 90.3 fl (78.0-98.0); Mean Platelet Volume 9.6 fL (7.4-10.4); Platelet Count 176 10x3/uL (130-400); RBC Distribution Width 18.6 % (11.5-14.5); Red Blood Cell (RBC) Count 3.62 mill/uL (4.20-5.40); White Blood Cell (WBC) Count 8.1 10x3/uL (4.8-10.8)
[2023-05-09 05:08] LABS: INR-International Normal Ratio 2.1; Prothrombin Time 23.3 sec (12.0-14.7)
[2023-05-09 05:32] LABS: Anisocytosis SLIGHT = 6-15 cells HPF (0-5); CellaVision Operator ID lab.abc; Hypochromia SLIGHT = 6-15 cells HPF (0-5); Platelet Adequacy Comment Platelets Normal; Polychromasia SLIGHT = 2-3 cells HPF (0-2)
[2023-05-09 05:37] LABS: Anion Gap 13 mmol/L (10-20); BUN (Urea Nitrogen) 42 mg/dL (9.8-20.1); Calc. Creatinine Clearance 82 mL/min (70-130); Calcium 8.8 mg/dL (7.8-10.44); Carbon Dioxide 28 mmol/L (23-31); Chloride 106 mmol/L (98-107); Estimated GFR 50; Glucose 135 mg/dL (80-115); Magnesium 2.8 mg/dL (1.6-2.6); Potassium 4.5 mmol/L (3.5-5.1); Sodium 142 mmol/L (136-145)
[2023-05-09] MEDS: Furosemide 100 MG (10 mL) VIAL SLOW IVP SCH (10:46)
[2023-05-09] MEDS: Metolazone 5 MG TAB PO SCH (10:49)
[2023-05-09] MEDS: D5W ONE (11:10)
[2023-05-09] MEDS: MILRINONE LACTATE ONE (11:10)
[2023-05-09] MEDS: Ferrous Sulfate 325 MG TAB PO SCH (11:10)
[2023-05-10 06:07] LABS: #Eosinphils 0.1 thou/uL (0.0-0.7); #Monocytes 1.3 thou/uL (0.11-0.59); #Neutrophils 4.6 thou/uL (1.40-6.50); %Basophils 0.3 % (0.0-1.0); %Eosinophils 1.8 % (0.0-10.0); %Lymphocytes 21.8 % (21.0-51.0); %Monocytes 16.4 % (0.0-10.0); %Neutrophils 59.2 % (42.0-75.0); Hemoglobin 10.2 g/dL (12.0-16.0); Mean Corpuscular HGB CONC 29.1 g/dL (32.0-36.0); Mean Corpuscular Hemoglobin 25.8 pg (27.0-31.0); Mean Corpuscular Volume 88.6 fl (78.0-98.0); Mean Platelet Volume 9.7 fL (7.4-10.4); Platelet Count 189 10x3/uL (130-400); RBC Distribution Width 17.9 % (11.5-14.5); Red Blood Cell (RBC) Count 3.95 mill/uL (4.20-5.40); White Blood Cell (WBC) Count 7.8 10x3/uL (4.8-10.8)
[2023-05-10 06:42] LABS: INR-International Normal Ratio 1.9; Prothrombin Time 21.6 sec (12.0-14.7)
[2023-05-10 06:47] LABS: Anion Gap 14 mmol/L (10-20); BUN (Urea Nitrogen) 39 mg/dL (9.8-20.1); Calc. Creatinine Clearance 81 mL/min (70-130); Calcium 9.3 mg/dL (7.8-10.44); Carbon Dioxide 31 mmol/L (23-31); Chloride 99 mmol/L (98-107); Estimated GFR 51; Glucose 100 mg/dL (80-115); Sodium 140 mmol/L (136-145)
[2023-05-10 09:03] LABS: Magnesium 2.1 mg/dL (1.6-2.6)
[2023-05-10] MEDS: Furosemide 100 MG (10 mL) VIAL SLOW IVP SCH ×2 (10:37→15:50)
[2023-05-10] MEDS: Potassium Chloride 20 MEQ TAB PO SCH (10:38)
[2023-05-10] MEDS: Metolazone 5 MG TAB PO SCH (10:38)
[2023-05-10] MEDS: Magnesium 2 GM/50 ML(in water) 2 GM in Premix 1 BAG IVPB SCH (11:15)
[2023-05-10] MEDS: Warfarin Sodium 7.5 MG TAB PO SCH (15:59)
[2023-05-11 05:02] LABS: #Eosinphils 0.1 thou/uL (0.0-0.7); #Monocytes 1.1 thou/uL (0.11-0.59); #Neutrophils 4.9 thou/uL (1.40-6.50); %Basophils 0.5 % (0.0-1.0); %Eosinophils 1.8 % (0.0-10.0); %Lymphocytes 19.5 % (21.0-51.0); %Monocytes 14.7 % (0.0-10.0); %Neutrophils 63.2 % (42.0-75.0); Hematocrit 39.1 % (36.0-47.0); Hemoglobin 11.4 g/dL (12.0-16.0); Mean Corpuscular HGB CONC 29.2 g/dL (32.0-36.0); Mean Corpuscular Hemoglobin 25.5 pg (27.0-31.0); Mean Corpuscular Volume 87.5 fl (78.0-98.0); Mean Platelet Volume 9.6 fL (7.4-10.4); Platelet Count 231 10x3/uL (130-400); RBC Distribution Width 17.5 % (11.5-14.5); Red Blood Cell (RBC) Count 4.47 mill/uL (4.20-5.40); White Blood Cell (WBC) Count 7.8 10x3/uL (4.8-10.8)
[2023-05-11 05:10] LABS: INR-International Normal Ratio 2.1; Prothrombin Time 23.8 sec (12.0-14.7)
[2023-05-11 06:08] LABS: Anion Gap 15 mmol/L (10-20); BUN (Urea Nitrogen) 45 mg/dL (9.8-20.1); Calc. Creatinine Clearance 74 mL/min (70-130); Calcium 10.2 mg/dL (7.8-10.44); Carbon Dioxide 31 mmol/L (23-31); Chloride 99 mmol/L (98-107); Estimated GFR 47; Glucose 101 mg/dL (80-115); Magnesium 2.2 mg/dL (1.6-2.6); Potassium 3.6 mmol/L (3.5-5.1); Sodium 141 mmol/L (136-145)
[2023-05-11] MEDS: Albuterol 200 PUFF (6.7GM INHALER) INH PRN (14:56)
[2023-05-12 05:37] LABS: #Basophils 0.1 thou/uL (0.0-0.2); #Eosinphils 0.2 thou/uL (0.0-0.7); #Monocytes 1.3 thou/uL (0.11-0.59); %Basophils 0.6 % (0.0-1.0); %Eosinophils 2.2 % (0.0-10.0); %Monocytes 15.5 % (0.0-10.0); %Neutrophils 62.3 % (42.0-75.0); Hematocrit 36.4 % (36.0-47.0); Hemoglobin 10.4 g/dL (12.0-16.0); Mean Corpuscular HGB CONC 28.6 g/dL (32.0-36.0); Mean Corpuscular Hemoglobin 25.6 pg (27.0-31.0); Mean Corpuscular Volume 89.7 fl (78.0-98.0); Mean Platelet Volume 9.3 fL (7.4-10.4); Platelet Count 202 10x3/uL (130-400); RBC Distribution Width 17.5 % (11.5-14.5); Red Blood Cell (RBC) Count 4.06 mill/uL (4.20-5.40); White Blood Cell (WBC) Count 8.1 10x3/uL (4.8-10.8)
[2023-05-12 05:50] LABS: INR-International Normal Ratio 2.4; Prothrombin Time 26.5 sec (12.0-14.7)
[2023-05-12 06:06] LABS: Anion Gap 9 mmol/L (10-20); BUN (Urea Nitrogen) 44 mg/dL (9.8-20.1); Calc. Creatinine Clearance 77 mL/min (70-130); Calcium 9.3 mg/dL (7.8-10.44); Carbon Dioxide 36 mmol/L (23-31); Chloride 99 mmol/L (98-107); Estimated GFR 50; Glucose 227 mg/dL (80-115); Magnesium 2.5 mg/dL (1.6-2.6); Potassium 4.1 mmol/L (3.5-5.1); Sodium 140 mmol/L (136-145)
[2023-05-12] MEDS: Furosemide 100 MG (10 mL) VIAL SLOW IVP SCH (09:46)
[2023-05-12] MEDS: Insulin NPH Human Isophane 100 UNITS/ML (10 ML VIAL) SQ SCH (10:10)
[2023-05-13] MEDS: Simethicone Chewable 80 MG TAB PO PRN (03:27)
[2023-05-13 05:29] LABS: #Basophils 0.1 thou/uL (0.0-0.2); #Eosinphils 0.1 thou/uL (0.0-0.7); #Monocytes 1.2 thou/uL (0.11-0.59); #Neutrophils 4.8 thou/uL (1.40-6.50); %Basophils 0.6 % (0.0-1.0); %Eosinophils 1.5 % (0.0-10.0); %Lymphocytes 22.8 % (21.0-51.0); %Monocytes 15.2 % (0.0-10.0); %Neutrophils 59.5 % (42.0-75.0); Hematocrit 37.3 % (36.0-47.0); Hemoglobin 10.7 g/dL (12.0-16.0); Mean Corpuscular HGB CONC 28.7 g/dL (32.0-36.0); Mean Corpuscular Hemoglobin 25.2 pg (27.0-31.0); Mean Corpuscular Volume 87.8 fl (78.0-98.0); Mean Platelet Volume 9.5 fL (7.4-10.4); Platelet Count 232 10x3/uL (130-400); RBC Distribution Width 17.3 % (11.5-14.5); Red Blood Cell (RBC) Count 4.25 mill/uL (4.20-5.40)
[2023-05-13 05:44] LABS: INR-International Normal Ratio 2.3; Prothrombin Time 25.4 sec (12.0-14.7)
[2023-05-13 05:47] LABS: Anion Gap 12 mmol/L (10-20); BUN (Urea Nitrogen) 44 mg/dL (9.8-20.1); Calc. Creatinine Clearance 83 mL/min (70-130); Calcium 9.7 mg/dL (7.8-10.44); Carbon Dioxide 33 mmol/L (23-31); Chloride 100 mmol/L (98-107); Estimated GFR 54; Glucose 143 mg/dL (80-115); Magnesium 2.4 mg/dL (1.6-2.6); Potassium 3.7 mmol/L (3.5-5.1); Sodium 141 mmol/L (136-145)
[2023-05-13 06:24] LABS: Anisocytosis SLIGHT = 6-15 cells HPF (0-5); CellaVision Operator ID lab.abc; Hypochromia SLIGHT = 6-15 cells HPF (0-5); Platelet Adequacy Comment Platelets Normal
[2023-05-13] MEDS: Insulin NPH Human Isophane 100 UNITS/ML (10 ML VIAL) SQ SCH (08:20)
[2023-05-13] MEDS: Furosemide 100 MG (10 mL) VIAL SLOW IVP SCH (10:11)
[2023-05-13] MEDS: Potassium Chloride 20 MEQ TAB PO SCH (10:12)
[2023-05-13] MEDS: Bacitracin 1 PK TOP SCH (10:12)
[2023-05-13] MEDS: Ketorolac Tromethamine 30 MG (1 mL) VIAL IVP SCH (22:21)
[2023-05-13] MEDS: traMADol HCl 50 MG TAB PO SCH (22:37)
[2023-05-14 05:32] LABS: #Eosinphils 0.2 thou/uL (0.0-0.7); #Monocytes 1.1 thou/uL (0.11-0.59); #Neutrophils 4.2 thou/uL (1.40-6.50); %Basophils 0.4 % (0.0-1.0); %Eosinophils 2.3 % (0.0-10.0); %Lymphocytes 25.7 % (21.0-51.0); %Monocytes 15.1 % (0.0-10.0); %Neutrophils 56.2 % (42.0-75.0); Hematocrit 35.7 % (36.0-47.0); Hemoglobin 10.3 g/dL (12.0-16.0); Mean Corpuscular HGB CONC 28.9 g/dL (32.0-36.0); Mean Corpuscular Hemoglobin 25.9 pg (27.0-31.0); Mean Corpuscular Volume 89.9 fl (78.0-98.0); Mean Platelet Volume 9.9 fL (7.4-10.4); Platelet Count 215 10x3/uL (130-400); RBC Distribution Width 17.1 % (11.5-14.5); Red Blood Cell (RBC) Count 3.97 mill/uL (4.20-5.40); White Blood Cell (WBC) Count 7.5 10x3/uL (4.8-10.8)
[2023-05-14 06:02] LABS: Anion Gap 12 mmol/L (10-20); BUN (Urea Nitrogen) 43 mg/dL (9.8-20.1); Calc. Creatinine Clearance 77 mL/min (70-130); Calcium 9.2 mg/dL (7.8-10.44); Carbon Dioxide 33 mmol/L (23-31); Chloride 100 mmol/L (98-107); Estimated GFR 50; Glucose 168 mg/dL (80-115); Sodium 141 mmol/L (136-145)
[2023-05-14] MEDS: Bacitracin 1 PK TOP SCH (08:12)
[2023-05-14] MEDS: valACYclovir 500 MG TAB PO SCH (09:30)
[2023-05-14] MEDS: Valsartan 80 MG TAB PO SCH (09:30)
[2023-05-14] MEDS: Furosemide 20 MG (2 mL) VIAL SLOW IVP SCH (09:54)
[2023-05-14] MEDS ORDERED: Furosemide 100 MG, Admixture Fee 1 EACH in Sodium Chloride 0.9% 90 ML IVPB SCH (10:00)
[2023-05-14] MEDS ORDERED: Furosemide 100 MG in Sodium Chloride 0.9% 100 ML IVPB SCH (11:00)
[2023-05-14 12:06] VITALS: BP 158/64; TEMP 97.5
== END 2023-05-14 14:37 | disposition short-term general hospital (02) | DRG 291 ==
LOC: ERS 17:13 → 2NO 19:54
PROVIDERS: ADMIT Family Medicine; ATTEND Family Medicine
DX: I13.0 Hypertensive heart and chronic kidney disease with heart failure and stage 1 through stage 4 chronic kidney disease, or unspecified chronic kidney disease (principal); I50.43 Acute on chronic combined systolic (congestive) and diastolic (congestive) heart failure; J96.21 Acute and chronic respiratory failure with hypoxia; N17.0 Acute kidney failure with tubular necrosis; E27.40 Unspecified adrenocortical insufficiency; N17.9 Acute kidney failure, unspecified; E87.3 Alkalosis; I42.9 Cardiomyopathy, unspecified; E11.9 Type 2 diabetes mellitus without complications; I27.20 Pulmonary hypertension, unspecified; Z88.2 Allergy status to sulfonamides; E03.9 Hypothyroidism, unspecified; J45.909 Unspecified asthma, uncomplicated; F41.9 Anxiety disorder, unspecified; F43.10 Post-traumatic stress disorder, unspecified; K74.60 Unspecified cirrhosis of liver; E78.5 Hyperlipidemia, unspecified; E11.65 Type 2 diabetes mellitus with hyperglycemia; G47.33 Obstructive sleep apnea (adult) (pediatric); G43.909 Migraine, unspecified, not intractable, without status migrainosus; K76.0 Fatty (change of) liver, not elsewhere classified; R44.1 Visual hallucinations; I48.0 Paroxysmal atrial fibrillation; N18.30 Chronic kidney disease, stage 3 unspecified; D63.1 Anemia in chronic kidney disease; R53.81 Other malaise; Z90.89 Acquired absence of other organs; Z79.899 Other long term (current) drug therapy; Z88.8 Allergy status to other drugs, medicaments and biological substances; Z88.0 Allergy status to penicillin; Z88.1 Allergy status to other antibiotic agents; Z88.5 Allergy status to narcotic agent; Z91.018 Allergy to other foods; Z79.4 Long term (current) use of insulin; Z98.890 Other specified postprocedural states; Z87.891 Personal history of nicotine dependence
CPT/HCPCS: 36415; 36416; 71045; 76705; 80048; 80053; 81001; 82040; 82140; 82533; 82570; 82728; 83540; 83550; 83735; 83880; 84100; 84145; 84300; 84436; 84439; 84443; 84481; 84484; 84540; 85025; 85610; 85730; 86140; 87077; 87086; 87186; 90471; 90694; 93005; 93925; 94664; 96374; 97139; G0008; J0696; J1250; J1650; J1815; J1940; J2260; J2405; J2760; J2916; J3490; J7050

== ENCOUNTER 2024-04-07 17:56 | Inpatient (IN) | payer MEDICARE ==
[2024-04-07 18:56] LABS: #Basophils 0.05 10x3/uL (0.0-0.2); %Basophils 0.4 % (0.0-1.0); %Eosinophils 1.9 % (0.0-10.0); %Lymphocytes 13.7 % (21.0-51.0); %Monocytes 14.7 % (0.0-10.0); %Neutrophils 68.8 % (42.0-75.0); Hematocrit 32.6 % (36.0-47.0); Hemoglobin 10.1 g/dL (12.0-16.0); Mean Corpuscular Hemoglobin 27.8 pg (27.0-31.0); Mean Corpuscular Volume 89.8 fL (78.0-98.0); Mean Platelet Volume 9.6 fL (7.4-10.4); Platelet Count 317 10x3/uL (130-400); RBC Distribution Width 13.6 % (11.5-14.5); Red Blood Cell (RBC) Count 3.63 mill/uL (4.20-5.40)
[2024-04-07] MEDS ORDERED: Furosemide 40 MG (4 mL) VIAL ONE (18:56)
[2024-04-07 19:18] LABS: ALT (SGPT) 40 U/L (Less than 34); AST (SGOT) 33 U/L (11-34); Albumin 3.3 g/dL (3.1-4.5); Alkaline Phosphatase 136 U/L (40-110); Anion Gap 15 mmol/L (10-20); BUN (Urea Nitrogen) 121 mg/dL (9.8-20.1); Bilirubin, Total 0.7 mg/dL (0.3-1.2); Calc. Creatinine Clearance 0 mL/min (70-130); Calcium 9.5 mg/dL (7.8-10.44); Carbon Dioxide 35 mmol/L (23-31); Chloride 94 mmol/L (98-107); Estimated GFR 19; Glucose 178 mg/dL (80-115); Potassium 3.7 mmol/L (3.5-5.1); Protein, Total 7.3 g/dL (5.8-8.1); Sodium 140 mmol/L (136-145)
[2024-04-07 19:22] LABS: Troponin I 0.022 ng/mL (< 0.028)
[2024-04-07] MEDS ORDERED: Enoxaparin 120 MG/0.8 ML SYRINGE SC SCH (22:30)
[2024-04-07] MEDS: Enoxaparin 120 MG/0.8 ML SYRINGE SC SCH (22:58)
[2024-04-07 23:21] LABS: Actual Bicarbonate (HCO3a) 31.3 mEq/L (22-28); Analyzer IN Cardio ER; Base Excess (BEa) 4.6 mEq/L (-2.0 to +3.0); CO2 Tension 56.9 mmHg (35.0-45.0); Calcium, Ionized (arterial) 1.18 mmol/L (1.12-1.30); Hematocrit-ABG 32 % (36.0-47.0); O2 Tension (PaO2), arterial 69.8 mmHg (> 80.0); Potassium - ABG Lab 3.03 mmol/L (3.70-5.30); pH, Arterial 7.358 (7.35-7.45)
[2024-04-07 23:23] LABS: ALV-art Gradient 87.235 mmHg (0-20); Puncture Site Left Radial artery
[2024-04-07] MEDS ORDERED: Dextrose 5% in Water 1,000 ML IV PRN (23:56)
[2024-04-07] MEDS ORDERED: Glucagon 1 MG/ML KIT IM PRN (23:56)
[2024-04-07] MEDS ORDERED: Dextrose 50% Abboject 50 ML SYRINGE SLOW IVP PRN (23:56)
[2024-04-08 01:30] LABS: Magnesium 2.8 mg/dL (1.6-2.6)
[2024-04-08] MEDS ORDERED: Nystatin Powder 15 GM BOT TOP PRN (02:19)
[2024-04-08] MEDS: Hydrocortisone 10 mg Tablet PO SCH ×4 (02:39→18:20)
[2024-04-08] MEDS: DOBUTamine 500 mg/250 ml 250 ML IVPB SCH (03:11)
[2024-04-08 04:28] LABS: Actual Bicarbonate (HCO3v) 35.8 mEq/L (22-28); Base Excess 8.8 mEq/L (-2.0 to +3.0); Calcium, Ionized (venous) 1.12 mmol/L (1.16-1.32); Chloride (VBG) 92 mmol/L (98-106); Hematocrit-VBG 38 % (36.0-47.0); Potassium (VBG) 3.08 mmol/L (3.70-5.30); pH (venous) 7.387 (7.32-7.43)
[2024-04-08 04:51] LABS: #Basophils 0.05 10x3/uL (0.0-0.2); %Basophils 0.5 % (0.0-1.0); %Eosinophils 2.2 % (0.0-10.0); %Lymphocytes 16.1 % (21.0-51.0); %Monocytes 14.6 % (0.0-10.0); %Neutrophils 66.1 % (42.0-75.0); Hematocrit 31.6 % (36.0-47.0); Hemoglobin 9.8 g/dL (12.0-16.0); Mean Corpuscular Hemoglobin 28.2 pg (27.0-31.0); Mean Corpuscular Volume 90.8 fL (78.0-98.0); Mean Platelet Volume 9.9 fL (7.4-10.4); Platelet Count 272 10x3/uL (130-400); RBC Distribution Width 13.7 % (11.5-14.5); Red Blood Cell (RBC) Count 3.48 mill/uL (4.20-5.40)
[2024-04-08 05:15] LABS: ALT (SGPT) 37 U/L (Less than 34); AST (SGOT) 33 U/L (11-34); Albumin 3.2 g/dL (3.1-4.5); Alkaline Phosphatase 122 U/L (40-110); Anion Gap 20 mmol/L (10-20); BUN (Urea Nitrogen) 119 mg/dL (9.8-20.1); Bilirubin, Total 0.8 mg/dL (0.3-1.2); Calc. Creatinine Clearance 39 mL/min (70-130); Calcium 9.5 mg/dL (7.8-10.44); Carbon Dioxide 31 mmol/L (23-31); Chloride 96 mmol/L (98-107); Estimated GFR 22; Globulin 3.7 g/dL (2.4-3.5); Glucose 142 mg/dL (80-115); Magnesium 2.7 mg/dL (1.6-2.6); Potassium 3.1 mmol/L (3.5-5.1); Protein, Total 6.9 g/dL (5.8-8.1); Sodium 144 mmol/L (136-145)
[2024-04-08] MEDS: Metoprolol Succinate XL 100 MG ER.TAB PO SCH (06:25)
[2024-04-08] MEDS ORDERED: Metoprolol Succinate XL 100 MG ER.TAB PO SCH (09:00)
[2024-04-08] MEDS: FLUoxetine HCl 20 MG CAP PO SCH ×2 (10:11→20:36)
[2024-04-08] MEDS: Amiodarone 200 MG TAB PO SCH (10:11)
[2024-04-08] MEDS: AcetaZOLAMIDE 250 MG TAB PO SCH (10:12)
[2024-04-08] MEDS: Metoprolol Succinate XL 50 MG ER.TAB PO SCH (10:14)
[2024-04-08] MEDS: Potassium Chloride 20 MEQ in Premix 1 BAG IVPB SCH (10:16)
[2024-04-08] MEDS: Potassium Chloride 20 MEQ TAB PO SCH ×3 (10:33→13:43)
[2024-04-08] MEDS: Acetaminophen 325 MG TAB PO PRN (13:43)
[2024-04-08] MEDS ORDERED: Promethazine 25 MG TAB PO PRN (16:18)
[2024-04-08 19:08] LABS: Anion Gap 18 mmol/L (10-20); BUN (Urea Nitrogen) 111 mg/dL (9.8-20.1); Calc. Creatinine Clearance 42 mL/min (70-130); Calcium 9.3 mg/dL (7.8-10.44); Carbon Dioxide 32 mmol/L (23-31); Chloride 94 mmol/L (98-107); Estimated GFR 24; Glucose 342 mg/dL (80-115); Potassium 3.8 mmol/L (3.5-5.1); Sodium 140 mmol/L (136-145)
[2024-04-08] MEDS: Insulin Lispro 100 UNIT/ML 10 ML VIAL SC PRN (20:36)
[2024-04-09] MEDS: Insulin Lispro 100 UNIT/ML 10 ML VIAL SC PRN (06:07)
[2024-04-09 07:23] LABS: #Basophils Less than 0.03 10x3/uL (0.0-0.2); %Basophils 0.2 % (0.0-1.0); %Eosinophils 2.1 % (0.0-10.0); %Lymphocytes 16.7 % (21.0-51.0); %Monocytes 16.8 % (0.0-10.0); %Neutrophils 63.7 % (42.0-75.0); Hematocrit 28.4 % (36.0-47.0); Hemoglobin 8.7 g/dL (12.0-16.0); Mean Corpuscular HGB CONC 30.6 g/dL (32.0-36.0); Mean Corpuscular Hemoglobin 28.1 pg (27.0-31.0); Mean Corpuscular Volume 91.6 fL (78.0-98.0); Mean Platelet Volume 9.6 fL (7.4-10.4); Platelet Count 246 10x3/uL (130-400); RBC Distribution Width 13.4 % (11.5-14.5)
[2024-04-09 07:53] LABS: ALT (SGPT) 27 U/L (Less than 34); AST (SGOT) 20 U/L (11-34); Albumin 2.9 g/dL (3.1-4.5); Alkaline Phosphatase 99 U/L (40-110); Anion Gap 15 mmol/L (10-20); BUN (Urea Nitrogen) 96 mg/dL (9.8-20.1); Bilirubin, Total 0.6 mg/dL (0.3-1.2); Calc. Creatinine Clearance 45 mL/min (70-130); Calcium 8.9 mg/dL (7.8-10.44); Carbon Dioxide 31 mmol/L (23-31); Chloride 98 mmol/L (98-107); Estimated GFR 26; Globulin 3.4 g/dL (2.4-3.5); Glucose 218 mg/dL (80-115); Magnesium 2.7 mg/dL (1.6-2.6); Potassium 3.4 mmol/L (3.5-5.1); Protein, Total 6.3 g/dL (5.8-8.1); Sodium 141 mmol/L (136-145)
[2024-04-09] MEDS ORDERED: Potassium Chloride 20 MEQ TAB PO SCH (08:00)
[2024-04-09] MEDS: Potassium Chloride 20 MEQ TAB PO SCH ×3 (09:31→11:41)
[2024-04-09] MEDS: CALCIUM GLUC 1 GM/NS 50 ML 1 GM in Premix 1 BAG IVPB SCH (09:31)
[2024-04-09] MEDS: Cyclobenzaprine 10 MG TAB PO PRN (11:41)
[2024-04-09] MEDS: Bumetanide 1 MG/4 ML VIAL IVP SCH (14:32)
[2024-04-09 16:30] LABS: Anion Gap 15 mmol/L (10-20); BUN (Urea Nitrogen) 103 mg/dL (9.8-20.1); Calc. Creatinine Clearance 45 mL/min (70-130); Calcium 9.4 mg/dL (7.8-10.44); Carbon Dioxide 32 mmol/L (23-31); Chloride 96 mmol/L (98-107); Estimated GFR 26; Potassium 4.2 mmol/L (3.5-5.1); Sodium 139 mmol/L (136-145)
[2024-04-09] MEDS ORDERED: Bumetanide 1 MG TAB PO SCH (16:30)
[2024-04-09 16:47] LABS: Glucose 412 mg/dL (80-115)
[2024-04-09] MEDS: Metoprolol Succinate XL 25 MG ER.TAB PO SCH (20:50)
[2024-04-10 04:57] LABS: #Basophils Less than 0.03 10x3/uL (0.0-0.2); %Basophils 0.2 % (0.0-1.0); %Eosinophils 1.9 % (0.0-10.0); %Lymphocytes 19.5 % (21.0-51.0); %Monocytes 5.2 % (0.0-10.0); %Neutrophils 72.5 % (42.0-75.0); Hematocrit 33.4 % (36.0-47.0); Hemoglobin 10.8 g/dL (12.0-16.0); Mean Corpuscular HGB CONC 32.3 g/dL (32.0-36.0); Mean Corpuscular Hemoglobin 30.9 pg (27.0-31.0); Mean Corpuscular Volume 95.4 fL (78.0-98.0); Platelet Count 168 10x3/uL (130-400); RBC Distribution Width 14.6 % (11.5-14.5)
[2024-04-10 05:33] LABS: ALT (SGPT) 25 U/L (Less than 34); AST (SGOT) 24 U/L (11-34); Alkaline Phosphatase 93 U/L (40-110); Anion Gap 13 mmol/L (10-20); BUN (Urea Nitrogen) 28 mg/dL (9.8-20.1); Bilirubin, Total 0.5 mg/dL (0.3-1.2); Calc. Creatinine Clearance 107 mL/min (70-130); Calcium 7.8 mg/dL (7.8-10.44); Carbon Dioxide 20 mmol/L (23-31); Chloride 106 mmol/L (98-107); Estimated GFR 73; Globulin 4.8 g/dL (2.4-3.5); Glucose 92 mg/dL (80-115); Magnesium 1.9 mg/dL (1.6-2.6); Potassium 3.8 mmol/L (3.5-5.1); Protein, Total 6.8 g/dL (5.8-8.1); Sodium 135 mmol/L (136-145)
[2024-04-10 05:45] LABS: Thyroid Stimulating Hormone 1.3589 uIU/mL (0.35-4.94)
[2024-04-10] MEDS: Insulin Glargine 30 UNITS/0.3 ML VIAL SC SCH (09:45)
[2024-04-10] MEDS: Magnesium 2 GM/50 ML(in water) 2 GM in Premix 1 BAG IVPB SCH (09:46)
[2024-04-10 10:13] LABS: ALT (SGPT) 23 U/L (Less than 34); AST (SGOT) 16 U/L (11-34); Albumin 3.1 g/dL (3.1-4.5); Alkaline Phosphatase 98 U/L (40-110); Anion Gap 16 mmol/L (10-20); BUN (Urea Nitrogen) 82 mg/dL (9.8-20.1); Bilirubin, Total 0.5 mg/dL (0.3-1.2); Calc. Creatinine Clearance 53 mL/min (70-130); Calcium 9.5 mg/dL (7.8-10.44); Carbon Dioxide 30 mmol/L (23-31); Chloride 100 mmol/L (98-107); Estimated GFR 32; Globulin 3.7 g/dL (2.4-3.5); Glucose 211 mg/dL (80-115); Potassium 3.8 mmol/L (3.5-5.1); Protein, Total 6.8 g/dL (5.8-8.1); Sodium 142 mmol/L (136-145)
[2024-04-10] MEDS: Milrinone Lactate/D5W 20 MG in Premix 1 BAG IV SCH (10:54)
[2024-04-10] MEDS ORDERED: Albuterol 1.25 MG (3 mL) NEB NEB PRN (16:12)
[2024-04-10 17:11] LABS: ALT (SGPT) 24 U/L (Less than 34); AST (SGOT) 22 U/L (11-34); Albumin 3.1 g/dL (3.1-4.5); Alkaline Phosphatase 107 U/L (40-110); Anion Gap 17 mmol/L (10-20); BUN (Urea Nitrogen) 84 mg/dL (9.8-20.1); Bilirubin, Total 0.4 mg/dL (0.3-1.2); Calc. Creatinine Clearance 50 mL/min (70-130); Calcium 9.5 mg/dL (7.8-10.44); Carbon Dioxide 29 mmol/L (23-31); Chloride 99 mmol/L (98-107); Estimated GFR 29; Globulin 3.8 g/dL (2.4-3.5); Glucose 364 mg/dL (80-115); Protein, Total 6.9 g/dL (5.8-8.1); Sodium 140 mmol/L (136-145)
[2024-04-10 17:31] LABS: Bilirubin Negative (Negative); Blood, Urine 2+ (Negative); Glucose, Urine (Dipstick) 70 mg/dL (Negative); Ketone, Urine Negative (Negative); Leukocyte 500 Leu/uL (Negative); Nitrite Negative (Negative); Protein, Urine (Dipstick) Negative (Neg-Trace); Specific Gravity, Urine 1.011 (1.002-1.036); Squamous Epithelial 0-3 HPF (0-3); Urobilinogen Normal mg/dL (Less than 2); WBC/HPF 21-50 HPF (0-3)
[2024-04-10 17:33] LABS: Bacteria/HPF 1+ HPF (None Seen)
[2024-04-10 17:34] LABS: Clarity Hazy (Clear)
[2024-04-10] MEDS: Insulin Lispro 100 UNIT/ML 10 ML VIAL SC PRN (17:40)
[2024-04-11] MEDS ORDERED: hydrALAZINE 20 MG/ML VIAL SLOW IVP PRN (02:38)
[2024-04-11] MEDS: traMADol HCl 50 MG TAB PO PRN (02:51)
[2024-04-11] MEDS: Milrinone Lactate/D5W 20 MG in Premix 1 BAG IV SCH (03:06)
[2024-04-11 04:16] LABS: #Basophils Less than 0.03 10x3/uL (0.0-0.2); %Basophils 0.2 % (0.0-1.0); %Eosinophils 1.9 % (0.0-10.0); %Lymphocytes 11.9 % (21.0-51.0); %Neutrophils 72.6 % (42.0-75.0); Hematocrit 29.6 % (36.0-47.0); Hemoglobin 9.2 g/dL (12.0-16.0); Mean Corpuscular HGB CONC 31.1 g/dL (32.0-36.0); Mean Corpuscular Hemoglobin 28.2 pg (27.0-31.0); Mean Corpuscular Volume 90.8 fL (78.0-98.0); Mean Platelet Volume 9.6 fL (7.4-10.4); Platelet Count 244 10x3/uL (130-400); RBC Distribution Width 13.6 % (11.5-14.5); Red Blood Cell (RBC) Count 3.26 mill/uL (4.20-5.40)
[2024-04-11 04:38] LABS: ALT (SGPT) 22 U/L (Less than 34); AST (SGOT) 20 U/L (11-34); Albumin 3.1 g/dL (3.1-4.5); Alkaline Phosphatase 90 U/L (40-110); Anion Gap 16 mmol/L (10-20); BUN (Urea Nitrogen) 74 mg/dL (9.8-20.1); Bilirubin, Total 0.6 mg/dL (0.3-1.2); Calc. Creatinine Clearance 53 mL/min (70-130); Calcium 9.5 mg/dL (7.8-10.44); Carbon Dioxide 29 mmol/L (23-31); Chloride 101 mmol/L (98-107); Estimated GFR 31; Globulin 3.7 g/dL (2.4-3.5); Glucose 187 mg/dL (80-115); Magnesium 2.9 mg/dL (1.6-2.6); Potassium 4.6 mmol/L (3.5-5.1); Protein, Total 6.8 g/dL (5.8-8.1); Sodium 141 mmol/L (136-145)
[2024-04-11] MEDS: Morphine 2 MG/ML VIAL SLOW IVP SCH (06:24)
[2024-04-11] MEDS ORDERED: Lidocaine 1% PF 5 ML VIAL ONE (07:06)
[2024-04-11] MEDS ORDERED: Sodium Bicarbonate 2.5 MEQ/5 ML SDV ONE (07:06)
[2024-04-11] MEDS ORDERED: Spironolactone 25 MG TAB PO SCH (09:00)
[2024-04-11] MEDS: Dapagliflozin Propanediol 10 MG TAB PO SCH (09:27)
[2024-04-11] MEDS: Metoprolol Succinate XL 50 MG ER.TAB PO SCH (09:27)
[2024-04-11] MEDS: methylPREDNISolone Sod Succ/PF 125 MG/2 ML VIAL IVP SCH (09:28)
[2024-04-11] MEDS: Insulin Glargine 30 UNITS/0.3 ML VIAL SC SCH (11:04)
[2024-04-11] MEDS: Enoxaparin 120 MG/0.8 ML SYRINGE SC SCH (11:04)
[2024-04-11 12:15] LABS: Iron 36 ug/dL (50-170); Iron Binding Capacity, Total 166 mcg/dL (265-497)
[2024-04-11] MEDS: DOBUTamine 500 mg/250 ml 250 ML IVPB SCH (15:17)
[2024-04-11] MEDS: Insulin Lispro 100 UNIT/ML 10 ML VIAL SC PRN (17:56)
[2024-04-12 06:49] LABS: #Basophils Less than 0.03 10x3/uL (0.0-0.2); #Eosinophils Less than 0.03 10x3/uL (0.0-0.7); %Basophils 0.1 % (0.0-1.0); %Monocytes 4.7 % (0.0-10.0); %Neutrophils 90.6 % (42.0-75.0); Hematocrit 29.2 % (36.0-47.0); Mean Corpuscular HGB CONC 30.8 g/dL (32.0-36.0); Mean Corpuscular Volume 90.7 fL (78.0-98.0); Mean Platelet Volume 9.6 fL (7.4-10.4); Platelet Count 238 10x3/uL (130-400); RBC Distribution Width 13.5 % (11.5-14.5); Red Blood Cell (RBC) Count 3.22 mill/uL (4.20-5.40)
[2024-04-12 07:23] LABS: ALT (SGPT) 22 U/L (Less than 34); AST (SGOT) 25 U/L (11-34); Albumin 3.2 g/dL (3.1-4.5); Alkaline Phosphatase 95 U/L (40-110); Anion Gap 17 mmol/L (10-20); BUN (Urea Nitrogen) 74 mg/dL (9.8-20.1); Bilirubin, Total 0.6 mg/dL (0.3-1.2); Calc. Creatinine Clearance 52 mL/min (70-130); Calcium 9.5 mg/dL (7.8-10.44); Carbon Dioxide 29 mmol/L (23-31); Chloride 96 mmol/L (98-107); Estimated GFR 30; Globulin 3.9 g/dL (2.4-3.5); Glucose 416 mg/dL (80-115); Magnesium 2.9 mg/dL (1.6-2.6); Potassium 4.7 mmol/L (3.5-5.1); Protein, Total 7.1 g/dL (5.8-8.1); Sodium 137 mmol/L (136-145)
[2024-04-12] MEDS: Insulin Glargine 30 UNITS/0.3 ML VIAL SC SCH ×2 (08:55→11:06)
[2024-04-12] MEDS: methylPREDNISolone Sod Succ/PF 125 MG/2 ML VIAL IVP SCH (08:57)
[2024-04-12] MEDS: Metolazone 2.5 MG TAB PO SCH (08:57)
[2024-04-12] MEDS: Bumetanide 1 MG/4 ML VIAL IVP SCH (08:57)
[2024-04-12] MEDS ORDERED: Insulin Glargine 30 UNITS/0.3 ML VIAL SC SCH (09:35)
[2024-04-12] MEDS: Sodium Ferric Gluconate 250 MG in Sodium Chloride 0.9% 250 ML 250 ML IVPB SCH (11:06)
[2024-04-13 04:25] LABS: #Basophils Less than 0.03 10x3/uL (0.0-0.2); #Eosinophils Less than 0.03 10x3/uL (0.0-0.7); %Basophils 0.1 % (0.0-1.0); %Lymphocytes 3.5 % (21.0-51.0); %Monocytes 8.8 % (0.0-10.0); %Neutrophils 86.7 % (42.0-75.0); Hematocrit 28.7 % (36.0-47.0); Hemoglobin 8.8 g/dL (12.0-16.0); Mean Corpuscular HGB CONC 30.7 g/dL (32.0-36.0); Mean Corpuscular Hemoglobin 27.6 pg (27.0-31.0); Mean Platelet Volume 9.7 fL (7.4-10.4); Platelet Count 261 10x3/uL (130-400); RBC Distribution Width 13.4 % (11.5-14.5); Red Blood Cell (RBC) Count 3.19 mill/uL (4.20-5.40)
[2024-04-13 04:54] LABS: ALT (SGPT) 19 U/L (Less than 34); AST (SGOT) 16 U/L (11-34); Albumin 3.1 g/dL (3.1-4.5); Alkaline Phosphatase 90 U/L (40-110); Anion Gap 15 mmol/L (10-20); BUN (Urea Nitrogen) 81 mg/dL (9.8-20.1); Bilirubin, Total 0.4 mg/dL (0.3-1.2); Calc. Creatinine Clearance 44 mL/min (70-130); Calcium 9.5 mg/dL (7.8-10.44); Carbon Dioxide 33 mmol/L (23-31); Chloride 95 mmol/L (98-107); Estimated GFR 25; Globulin 3.9 g/dL (2.4-3.5); Glucose 292 mg/dL (80-115); Magnesium 2.9 mg/dL (1.6-2.6); Potassium 3.8 mmol/L (3.5-5.1); Sodium 139 mmol/L (136-145)
[2024-04-13] MEDS: Metolazone 2.5 MG TAB PO SCH (09:26)
[2024-04-13] MEDS: methylPREDNISolone Sod Succ 40 MG VIAL IVP SCH (09:27)
[2024-04-13] MEDS: Insulin Glargine 30 UNITS/0.3 ML VIAL SC SCH (09:27)
[2024-04-13] MEDS: Potassium Chloride 10 MEQ TAB PO SCH (09:28)
[2024-04-13] MEDS: Doxycycline 100 MG CAP PO SCH (09:28)
[2024-04-13] MEDS: hydrOXYzine 10 MG TAB PO SCH (10:57)
[2024-04-13] MEDS: Insulin Lispro 100 UNIT/ML 10 ML VIAL SC SCH (12:32)
[2024-04-13] MEDS: Enoxaparin 120 MG/0.8 ML SYRINGE SC SCH (21:46)
[2024-04-14] MEDS: Milk Of Magnesia 30 ML UDCUP PO PRN (05:26)
[2024-04-14 06:02] LABS: #Basophils 0.03 10x3/uL (0.0-0.2); #Eosinophils Less than 0.03 10x3/uL (0.0-0.7); %Basophils 0.2 % (0.0-1.0); %Eosinophils 0.1 % (0.0-10.0); %Lymphocytes 5.1 % (21.0-51.0); %Monocytes 9.5 % (0.0-10.0); Hematocrit 30.2 % (36.0-47.0); Hemoglobin 9.3 g/dL (12.0-16.0); Mean Corpuscular HGB CONC 30.8 g/dL (32.0-36.0); Mean Corpuscular Hemoglobin 27.9 pg (27.0-31.0); Mean Corpuscular Volume 90.7 fL (78.0-98.0); Mean Platelet Volume 9.8 fL (7.4-10.4); Platelet Count 272 10x3/uL (130-400); RBC Distribution Width 13.6 % (11.5-14.5); Red Blood Cell (RBC) Count 3.33 mill/uL (4.20-5.40)
[2024-04-14 06:32] LABS: ALT (SGPT) 16 U/L (Less than 34); AST (SGOT) 19 U/L (11-34); Alkaline Phosphatase 82 U/L (40-110); Anion Gap 14 mmol/L (10-20); BUN (Urea Nitrogen) 95 mg/dL (9.8-20.1); Bilirubin, Total 0.4 mg/dL (0.3-1.2); Calc. Creatinine Clearance 41 mL/min (70-130); Calcium 9.2 mg/dL (7.8-10.44); Carbon Dioxide 32 mmol/L (23-31); Chloride 96 mmol/L (98-107); Estimated GFR 23; Globulin 3.7 g/dL (2.4-3.5); Glucose 274 mg/dL (80-115); Magnesium 2.9 mg/dL (1.6-2.6); Potassium 4.3 mmol/L (3.5-5.1); Protein, Total 6.7 g/dL (5.8-8.1); Sodium 138 mmol/L (136-145)
[2024-04-14] MEDS: Potassium Chloride 10 MEQ TAB PO SCH (09:19)
[2024-04-14] MEDS: predniSONE 20 MG TAB PO SCH ×2 (09:19→11:29)
[2024-04-14] MEDS: Carvedilol 6.25 MG TAB PO SCH (09:20)
[2024-04-14] MEDS: Albumin 25% 25 GM (100 mL) BOT IVPB SCH (09:32)
[2024-04-14] MEDS: Insulin Lispro 100 UNIT/ML 10 ML VIAL SC SCH (12:07)
[2024-04-14 12:46] LABS: ALT (SGPT) 16 U/L (Less than 34); AST (SGOT) 18 U/L (11-34); Albumin 3.4 g/dL (3.1-4.5); Alkaline Phosphatase 74 U/L (40-110); Anion Gap 15 mmol/L (10-20); BUN (Urea Nitrogen) 89 mg/dL (9.8-20.1); Bilirubin, Total 0.4 mg/dL (0.3-1.2); Calc. Creatinine Clearance 43 mL/min (70-130); Calcium 9.3 mg/dL (7.8-10.44); Carbon Dioxide 31 mmol/L (23-31); Chloride 95 mmol/L (98-107); Estimated GFR 24; Globulin 3.4 g/dL (2.4-3.5); Glucose 316 mg/dL (80-115); Potassium 4.2 mmol/L (3.5-5.1); Protein, Total 6.8 g/dL (5.8-8.1); Sodium 137 mmol/L (136-145)
[2024-04-15 04:45] LABS: #Basophils Less than 0.03 10x3/uL (0.0-0.2); #Eosinophils Less than 0.03 10x3/uL (0.0-0.7); %Basophils 0.2 % (0.0-1.0); %Eosinophils 0.2 % (0.0-10.0); %Lymphocytes 6.8 % (21.0-51.0); %Monocytes 10.6 % (0.0-10.0); Hematocrit 28.4 % (36.0-47.0); Hemoglobin 8.7 g/dL (12.0-16.0); Mean Corpuscular HGB CONC 30.6 g/dL (32.0-36.0); Mean Corpuscular Hemoglobin 27.7 pg (27.0-31.0); Mean Corpuscular Volume 90.4 fL (78.0-98.0); Mean Platelet Volume 9.8 fL (7.4-10.4); Platelet Count 250 10x3/uL (130-400); RBC Distribution Width 13.9 % (11.5-14.5); Red Blood Cell (RBC) Count 3.14 mill/uL (4.20-5.40)
[2024-04-15 05:01] LABS: ALT (SGPT) 14 U/L (Less than 34); AST (SGOT) 20 U/L (11-34); Albumin 3.5 g/dL (3.1-4.5); Alkaline Phosphatase 73 U/L (40-110); Anion Gap 11 mmol/L (10-20); BUN (Urea Nitrogen) 107 mg/dL (9.8-20.1); Bilirubin, Total 0.4 mg/dL (0.3-1.2); Calc. Creatinine Clearance 40 mL/min (70-130); Calcium 9.2 mg/dL (7.8-10.44); Carbon Dioxide 35 mmol/L (23-31); Chloride 95 mmol/L (98-107); Estimated GFR 22; Globulin 3.1 g/dL (2.4-3.5); Glucose 318 mg/dL (80-115); Magnesium 3.1 mg/dL (1.6-2.6); Potassium 4.8 mmol/L (3.5-5.1); Protein, Total 6.6 g/dL (5.8-8.1); Sodium 136 mmol/L (136-145)
[2024-04-15 06:00] VITALS: BMI 43.7
[2024-04-15] MEDS ORDERED: predniSONE 20 MG TAB PO SCH (08:00)
[2024-04-15] MEDS: Insulin Glargine 30 UNITS/0.3 ML VIAL SC SCH ×2 (08:23→21:31)
[2024-04-15 10:39] LABS: Actual Bicarbonate (HCO3v) 35.4 mEq/L (22-28); Base Excess 8.4 mEq/L (-2.0 to +3.0); Chloride (VBG) 93 mmol/L (98-106); Hematocrit-VBG 29 % (36.0-47.0); Potassium (VBG) 4.52 mmol/L (3.70-5.30); Sodium 140 mmol/L (133-146); pH (venous) 7.359 (7.32-7.43)
[2024-04-15 11:48] LABS: Bacteria/HPF 2+ HPF (None Seen); Bilirubin Negative (Negative); Blood, Urine 3+ (Negative); Clarity Turbid (Clear); Glucose, Urine (Dipstick) 150 mg/dL (Negative); Ketone, Urine Negative (Negative); Leukocyte 500 Leu/uL (Negative); Nitrite Negative (Negative); Protein, Urine (Dipstick) 20 mg/dL (Neg-Trace); RBC/HPF Greater than 50 HPF (0-3); Specific Gravity, Urine 1.015 (1.002-1.036); Squamous Epithelial 0-3 HPF (0-3); Urobilinogen Normal mg/dL (Less than 2); WBC/HPF Greater than 50 HPF (0-3)
[2024-04-15 12:08] LABS: Creatinine, Urine 92.58 mg/dL (15.00-278.00)
[2024-04-15 12:09] LABS: Protein, Urine Random Quant 21 mg/dL (1-14); Sodium, Urine Less than 20 mmol/L (Not Available); Urea Nitrogen, Random Urine 907 mg/dl
[2024-04-15] MEDS ORDERED: Aquaphor 10 GM TUBE TOP PRN (12:24)
[2024-04-15 12:25] LABS: ALT (SGPT) 14 U/L (Less than 34); AST (SGOT) 15 U/L (11-34); Albumin 3.5 g/dL (3.1-4.5); Alkaline Phosphatase 74 U/L (40-110); Anion Gap 13 mmol/L (10-20); BUN (Urea Nitrogen) 107 mg/dL (9.8-20.1); Bilirubin, Total 0.4 mg/dL (0.3-1.2); Calc. Creatinine Clearance 41 mL/min (70-130); Calcium 9.2 mg/dL (7.8-10.44); Carbon Dioxide 33 mmol/L (23-31); Chloride 95 mmol/L (98-107); Estimated GFR 23; Globulin 3.2 g/dL (2.4-3.5); Glucose 262 mg/dL (80-115); Potassium 4.2 mmol/L (3.5-5.1); Protein, Total 6.7 g/dL (5.8-8.1); Sodium 137 mmol/L (136-145)
[2024-04-15] MEDS: hydrOXYzine 25 MG TAB PO PRN (14:18)
[2024-04-15] MEDS: Albumin 25% 25 GM (100 mL) BOT IVPB SCH (14:19)
[2024-04-15] MEDS: predniSONE 5 MG TAB PO SCH (17:09)
[2024-04-15] MEDS: Ipratropium/Albuterol 3 ML NEB NEB PRN (19:13)
[2024-04-15] MEDS: Metoprolol Succinate XL 25 MG ER.TAB PO SCH (21:31)
[2024-04-15] MEDS: Potassium Chloride 10 MEQ TAB PO SCH ×2 (21:31→23:20)
[2024-04-15] MEDS: Metolazone 5 MG TAB PO SCH (23:20)
[2024-04-16] MEDS: Furosemide 100 MG (10 mL) VIAL SLOW IVP SCH (00:16)
[2024-04-16 04:15] LABS: #Basophils Less than 0.03 10x3/uL (0.0-0.2); %Basophils 0.2 % (0.0-1.0); %Eosinophils 1.6 % (0.0-10.0); %Lymphocytes 7.2 % (21.0-51.0); %Monocytes 10.1 % (0.0-10.0); %Neutrophils 77.9 % (42.0-75.0); Hematocrit 29.8 % (36.0-47.0); Hemoglobin 8.9 g/dL (12.0-16.0); Mean Corpuscular HGB CONC 29.9 g/dL (32.0-36.0); Mean Corpuscular Volume 90.3 fL (78.0-98.0); Mean Platelet Volume 9.7 fL (7.4-10.4); Platelet Count 261 10x3/uL (130-400); RBC Distribution Width 13.9 % (11.5-14.5)
[2024-04-16 04:33] LABS: ALT (SGPT) 13 U/L (Less than 34); AST (SGOT) 22 U/L (11-34); Albumin 4.1 g/dL (3.1-4.5); Alkaline Phosphatase 70 U/L (40-110); Anion Gap 13 mmol/L (10-20); BUN (Urea Nitrogen) 104 mg/dL (9.8-20.1); Bilirubin, Total 0.6 mg/dL (0.3-1.2); Calc. Creatinine Clearance 46 mL/min (70-130); Calcium 9.3 mg/dL (7.8-10.44); Carbon Dioxide 34 mmol/L (23-31); Chloride 94 mmol/L (98-107); Estimated GFR 27; Glucose 222 mg/dL (80-115); Potassium 4.3 mmol/L (3.5-5.1); Protein, Total 7.1 g/dL (5.8-8.1); Sodium 137 mmol/L (136-145)
[2024-04-16] MEDS: Furosemide 100 MG in Sodium Chloride 0.9% 100 ML IVPB SCH (08:42)
[2024-04-16] MEDS: AcetaZOLAMIDE ER 500 MG CAP PO SCH (08:42)
[2024-04-16] MEDS: Potassium Chloride 10 MEQ TAB PO SCH (14:13)
[2024-04-16] MEDS: Metoprolol Succinate XL 25 MG ER.TAB PO SCH (14:13)
[2024-04-16] MEDS: EPOETIN ALFA-EPBX (ESRD) 10,000 UNITS/ML VIAL SC SCH (15:43)
[2024-04-16 16:53] LABS: Phosphorus 4.2 mg/dL (2.5-4.5)
[2024-04-16 16:54] LABS: Anion Gap 14 mmol/L (10-20); BUN (Urea Nitrogen) 103 mg/dL (9.8-20.1); BUN/Creatinine Ratio 53.65; Calc. Creatinine Clearance 48 mL/min (70-130); Calcium 9.2 mg/dL (7.8-10.44); Carbon Dioxide 34 mmol/L (23-31); Chloride 94 mmol/L (98-107); Estimated GFR 28; Glucose 266 mg/dL (80-115); Potassium 3.8 mmol/L (3.5-5.1); Sodium 138 mmol/L (136-145)
[2024-04-16 16:57] LABS: ALT (SGPT) 12 U/L (Less than 34); AST (SGOT) 15 U/L (11-34); Albumin 4.1 g/dL (3.1-4.5); Alkaline Phosphatase 68 U/L (40-110); Anion Gap 14 mmol/L (10-20); BUN (Urea Nitrogen) 98 mg/dL (9.8-20.1); Bilirubin, Total 0.5 mg/dL (0.3-1.2); Calc. Creatinine Clearance 48 mL/min (70-130); Calcium 9.2 mg/dL (7.8-10.44); Carbon Dioxide 34 mmol/L (23-31); Chloride 94 mmol/L (98-107); Estimated GFR 28; Globulin 2.8 g/dL (2.4-3.5); Glucose 266 mg/dL (80-115); Potassium 3.8 mmol/L (3.5-5.1); Protein, Total 6.9 g/dL (5.8-8.1); Sodium 138 mmol/L (136-145)
[2024-04-16] MEDS: Enoxaparin 120 MG/0.8 ML SYRINGE SC SCH (21:22)
[2024-04-17] MEDS: Milrinone Lactate/D5W 20 MG in Premix 1 BAG IV SCH (05:12)
[2024-04-17] MEDS: Furosemide 100 MG in Sodium Chloride 0.9% 90 ML IVPB SCH (05:14)
[2024-04-17 05:25] LABS: #Basophils Less than 0.03 10x3/uL (0.0-0.2); %Basophils 0.2 % (0.0-1.0); %Eosinophils 1.4 % (0.0-10.0); %Lymphocytes 6.1 % (21.0-51.0); %Monocytes 9.5 % (0.0-10.0); %Neutrophils 80.5 % (42.0-75.0); Hematocrit 28.6 % (36.0-47.0); Hemoglobin 8.5 g/dL (12.0-16.0); Mean Corpuscular HGB CONC 29.7 g/dL (32.0-36.0); Mean Corpuscular Hemoglobin 28.1 pg (27.0-31.0); Mean Corpuscular Volume 94.7 fL (78.0-98.0); Platelet Count 258 10x3/uL (130-400); RBC Distribution Width 14.3 % (11.5-14.5); Red Blood Cell (RBC) Count 3.02 mill/uL (4.20-5.40)
[2024-04-17 05:39] LABS: ALT (SGPT) 12 U/L (Less than 34); AST (SGOT) 13 U/L (11-34); Alkaline Phosphatase 70 U/L (40-110); Anion Gap 14 mmol/L (10-20); BUN (Urea Nitrogen) 107 mg/dL (9.8-20.1); Bilirubin, Total 0.5 mg/dL (0.3-1.2); CRP,High Sensitivity (Inhouse) 2.92 mg/dL (< or = 0.5); Calc. Creatinine Clearance 43 mL/min (70-130); Calcium 9.3 mg/dL (7.8-10.44); Carbon Dioxide 36 mmol/L (23-31); Chloride 94 mmol/L (98-107); Estimated GFR 25; Globulin 2.9 g/dL (2.4-3.5); Glucose 191 mg/dL (80-115); Magnesium 3.2 mg/dL (1.6-2.6); Potassium 4.1 mmol/L (3.5-5.1); Protein, Total 6.9 g/dL (5.8-8.1); Sodium 140 mmol/L (136-145)
[2024-04-17] MEDS: Enoxaparin 120 MG/0.8 ML SYRINGE SC SCH (09:28)
[2024-04-17] MEDS: Potassium Chloride 10 MEQ TAB PO SCH (09:28)
[2024-04-17] MEDS: cefTRIAXone\\ROCEPHIN 1 GM in Sodium Chloride 0.9% 100 ML IVPB SCH (11:18)
[2024-04-18] MEDS: Ondansetron PF 4 MG/2 ML Vial IVP PRN (03:57)
[2024-04-18] MEDS: HYDROcodone/Acetaminophen 5/325 mg Tablet PO PRN (03:57)
[2024-04-18 05:22] LABS: #Basophils Less than 0.03 10x3/uL (0.0-0.2); %Lymphocytes 6.7 % (21.0-51.0); Mean Corpuscular HGB CONC 29.3 g/dL (32.0-36.0)
[2024-04-18 05:33] LABS: ALT (SGPT) 11 U/L (Less than 34); AST (SGOT) 16 U/L (11-34); Albumin 3.7 g/dL (3.1-4.5); Alkaline Phosphatase 69 U/L (40-110); Anion Gap 15 mmol/L (10-20); BUN (Urea Nitrogen) 104 mg/dL (9.8-20.1); Bilirubin, Total 0.4 mg/dL (0.3-1.2); Calc. Creatinine Clearance 44 mL/min (70-130); Calcium 9.1 mg/dL (7.8-10.44); Carbon Dioxide 36 mmol/L (23-31); Chloride 91 mmol/L (98-107); Estimated GFR 25; Globulin 2.9 g/dL (2.4-3.5); Glucose 247 mg/dL (80-115); Potassium 3.5 mmol/L (3.5-5.1); Protein, Total 6.6 g/dL (5.8-8.1); Sodium 138 mmol/L (136-145)
[2024-04-18 05:44] LABS: %Basophils 0.1 % (0.0-1.0); %Eosinophils 1.1 % (0.0-10.0); %Monocytes 10.2 % (0.0-10.0); %Neutrophils 80.2 % (42.0-75.0); Hematocrit 27.3 % (36.0-47.0); Mean Corpuscular Hemoglobin 27.6 pg (27.0-31.0); Mean Corpuscular Volume 94.1 fL (78.0-98.0); Platelet Count 244 10x3/uL (130-400); RBC Distribution Width 14.2 % (11.5-14.5)
[2024-04-18] MEDS: Ondansetron ODT 4 MG TAB SL SCH (08:42)
[2024-04-18] MEDS: Potassium Chloride 20 MEQ TAB PO SCH (11:33)
[2024-04-18] MEDS: cefTRIAXone\\ROCEPHIN 2 GM in Sodium Chloride 0.9% 100 ML IVPB SCH (11:34)
[2024-04-19 05:59] LABS: #Basophils Less than 0.03 10x3/uL (0.0-0.2); %Basophils 0.1 % (0.0-1.0); %Eosinophils 1.1 % (0.0-10.0); %Lymphocytes 5.4 % (21.0-51.0); %Monocytes 9.7 % (0.0-10.0); %Neutrophils 82.3 % (42.0-75.0); Hematocrit 28.7 % (36.0-47.0); Hemoglobin 8.3 g/dL (12.0-16.0); Mean Corpuscular HGB CONC 28.9 g/dL (32.0-36.0); Mean Corpuscular Hemoglobin 27.2 pg (27.0-31.0); Mean Corpuscular Volume 94.1 fL (78.0-98.0); Mean Platelet Volume 9.5 fL (7.4-10.4); Platelet Count 230 10x3/uL (130-400); RBC Distribution Width 14.1 % (11.5-14.5); Red Blood Cell (RBC) Count 3.05 mill/uL (4.20-5.40)
[2024-04-19 06:19] LABS: ALT (SGPT) 11 U/L (Less than 34); AST (SGOT) 13 U/L (11-34); Albumin 3.8 g/dL (3.1-4.5); Alkaline Phosphatase 67 U/L (40-110); Anion Gap 13 mmol/L (10-20); BUN (Urea Nitrogen) 96 mg/dL (9.8-20.1); Bilirubin, Total 0.4 mg/dL (0.3-1.2); Calc. Creatinine Clearance 43 mL/min (70-130); Calcium 9.1 mg/dL (7.8-10.44); Carbon Dioxide 34 mmol/L (23-31); Chloride 93 mmol/L (98-107); Estimated GFR 24; Glucose 233 mg/dL (80-115); Magnesium 2.9 mg/dL (1.6-2.6); Potassium 4.3 mmol/L (3.5-5.1); Protein, Total 6.8 g/dL (5.8-8.1); Sodium 136 mmol/L (136-145)
[2024-04-19] MEDS: Hydrocortisone 10 mg Tablet PO SCH ×3 (08:48→17:26)
[2024-04-19] MEDS: AcetaZOLAMIDE 250 MG TAB PO SCH (08:48)
[2024-04-19 13:36] LABS: Hep B Core Total Index 0.09 S/CO (0-0.79)
[2024-04-19 15:11] LABS: HBSAB Concentration 11.63 mIU/mL
[2024-04-19 15:31] LABS: Hep B Surf AB GRAYZONE (NonReactive)
[2024-04-19 15:32] LABS: HBsAg Index 0.27 S/CO (0-0.99); Hep B Core Total Ab NONREACTIVE (NonReactive); Hep B Surf Ag NONREACTIVE S/CO (NonReactive); Hep C IgG Ab NONREACTIVE S/CO (NonReactive)
[2024-04-19] MEDS: Docusate 100 MG CAP PO PRN (15:59)
[2024-04-19] MEDS: Lorazepam 2 MG/ML VIAL ONE (21:57)
[2024-04-20 05:21] LABS: #Basophils Less than 0.03 10x3/uL (0.0-0.2); %Basophils 0.2 % (0.0-1.0); %Eosinophils 1.7 % (0.0-10.0); %Lymphocytes 8.5 % (21.0-51.0); %Monocytes 12.6 % (0.0-10.0); %Neutrophils 75.7 % (42.0-75.0); Hemoglobin 8.3 g/dL (12.0-16.0); Mean Corpuscular HGB CONC 29.6 g/dL (32.0-36.0); Mean Corpuscular Hemoglobin 27.6 pg (27.0-31.0); Mean Platelet Volume 10.1 fL (7.4-10.4); Platelet Count 220 10x3/uL (130-400); RBC Distribution Width 14.2 % (11.5-14.5); Red Blood Cell (RBC) Count 3.01 mill/uL (4.20-5.40)
[2024-04-20 05:41] LABS: ALT (SGPT) 11 U/L (Less than 34); AST (SGOT) 20 U/L (11-34); Albumin 3.5 g/dL (3.1-4.5); Alkaline Phosphatase 68 U/L (40-110); Anion Gap 12 mmol/L (10-20); BUN (Urea Nitrogen) 98 mg/dL (9.8-20.1); Bilirubin, Total 0.3 mg/dL (0.3-1.2); Calc. Creatinine Clearance 42 mL/min (70-130); Calcium 9.1 mg/dL (7.8-10.44); Carbon Dioxide 35 mmol/L (23-31); Chloride 94 mmol/L (98-107); Estimated GFR 24; Glucose 202 mg/dL (80-115); Magnesium 2.9 mg/dL (1.6-2.6); Potassium 3.8 mmol/L (3.5-5.1); Protein, Total 6.5 g/dL (5.8-8.1); Sodium 137 mmol/L (136-145)
[2024-04-20] MEDS ORDERED: Heparin 10,000 UNITS/ 10 ML VIAL ONE (08:41)
[2024-04-20] MEDS: Polyethylene Glycol 3350 17 GM Packet PO SCH (08:43)
[2024-04-21 05:48] LABS: #Basophils Less than 0.03 10x3/uL (0.0-0.2); %Basophils 0.2 % (0.0-1.0); %Eosinophils 1.5 % (0.0-10.0); %Lymphocytes 8.6 % (21.0-51.0); %Monocytes 14.2 % (0.0-10.0); %Neutrophils 74.1 % (42.0-75.0); Hematocrit 27.3 % (36.0-47.0); Hemoglobin 7.9 g/dL (12.0-16.0); Mean Corpuscular HGB CONC 28.9 g/dL (32.0-36.0); Mean Corpuscular Hemoglobin 27.4 pg (27.0-31.0); Mean Corpuscular Volume 94.8 fL (78.0-98.0); Mean Platelet Volume 9.9 fL (7.4-10.4); Platelet Count 201 10x3/uL (130-400); RBC Distribution Width 14.3 % (11.5-14.5); Red Blood Cell (RBC) Count 2.88 mill/uL (4.20-5.40)
[2024-04-21 06:00] LABS: ALT (SGPT) 13 U/L (Less than 34); AST (SGOT) 20 U/L (11-34); Albumin 3.6 g/dL (3.1-4.5); Alkaline Phosphatase 62 U/L (40-110); Anion Gap 13 mmol/L (10-20); BUN (Urea Nitrogen) 76 mg/dL (9.8-20.1); Bilirubin, Total 0.4 mg/dL (0.3-1.2); Calc. Creatinine Clearance 41 mL/min (70-130); Calcium 8.8 mg/dL (7.8-10.44); Carbon Dioxide 30 mmol/L (23-31); Chloride 97 mmol/L (98-107); Estimated GFR 22; Glucose 137 mg/dL (80-115); Magnesium 2.6 mg/dL (1.6-2.6); Potassium 4.2 mmol/L (3.5-5.1); Protein, Total 6.6 g/dL (5.8-8.1); Sodium 136 mmol/L (136-145)
[2024-04-21 06:23] LABS: Anisocytosis SLIGHT = 6-15 cells HPF (0-5); Hypochromia MODERATE=16-30 cells HPF (0-5); Ovalocytes SLIGHT = 2-5 cells HPF (0-1); Platelet Adequacy Comment Platelets Normal; Poikilocytosis SLIGHT = 6-15 cells HPF (0-5); Polychromasia SLIGHT = 2-3 cells HPF (0-2); Tear Drops SLIGHT = 2-5 cells HPF (0-1)
[2024-04-21] MEDS: Sodium Ferric Gluconate 250 MG in Sodium Chloride 0.9% 250 ML 250 ML IVPB SCH (10:10)
[2024-04-21] MEDS ORDERED: Heparin 10,000 UNITS/ 10 ML VIAL ONE (10:41)
[2024-04-21] MEDS ORDERED: Activase 2 MG VIAL CATH SCH (12:00)
[2024-04-21] MEDS: Activase 2 MG VIAL CATH SCH (13:08)
[2024-04-21] MEDS: Sterile Water 10 ML VIAL IVP SCH (13:08)
[2024-04-21] MEDS: EPOETIN ALFA-EPBX (ESRD) 10,000 UNITS/ML VIAL SC SCH (17:44)
[2024-04-22 05:40] LABS: #Basophils 0.04 10x3/uL (0.0-0.2); %Basophils 0.3 % (0.0-1.0); %Lymphocytes 9.9 % (21.0-51.0); %Monocytes 13.4 % (0.0-10.0); %Neutrophils 72.8 % (42.0-75.0); Hematocrit 28.1 % (36.0-47.0); Hemoglobin 8.3 g/dL (12.0-16.0); Mean Corpuscular HGB CONC 29.5 g/dL (32.0-36.0); Mean Corpuscular Hemoglobin 27.8 pg (27.0-31.0); Mean Platelet Volume 9.3 fL (7.4-10.4); Platelet Count 200 10x3/uL (130-400); RBC Distribution Width 14.2 % (11.5-14.5); Red Blood Cell (RBC) Count 2.99 mill/uL (4.20-5.40)
[2024-04-22 06:38] LABS: ALT (SGPT) 13 U/L (Less than 34); AST (SGOT) 16 U/L (11-34); Albumin 3.6 g/dL (3.1-4.5); Alkaline Phosphatase 62 U/L (40-110); Anion Gap 12 mmol/L (10-20); BUN (Urea Nitrogen) 53 mg/dL (9.8-20.1); Bilirubin, Total 0.5 mg/dL (0.3-1.2); Calc. Creatinine Clearance 39 mL/min (70-130); Calcium 8.7 mg/dL (7.8-10.44); Carbon Dioxide 28 mmol/L (23-31); Chloride 99 mmol/L (98-107); Estimated GFR 21; Globulin 3.2 g/dL (2.4-3.5); Glucose 131 mg/dL (80-115); Magnesium 2.3 mg/dL (1.6-2.6); Potassium 4.5 mmol/L (3.5-5.1); Protein, Total 6.8 g/dL (5.8-8.1); Sodium 134 mmol/L (136-145)
[2024-04-22] MEDS: Insulin Glargine 30 UNITS/0.3 ML VIAL SC SCH (08:20)
[2024-04-22] MEDS: Senokot 8.6 MG TAB PO SCH (13:18)
[2024-04-22] MEDS: Albumin 25% 100 ML ONE (13:25)
[2024-04-22] MEDS: Polyethylene Glycol 3350 17 GM Packet PO SCH (13:26)
[2024-04-22] MEDS ORDERED: Heparin 10,000 UNITS/ 10 ML VIAL ONE (14:48)
[2024-04-23 04:40] LABS: #Basophils 0.05 10x3/uL (0.0-0.2); %Basophils 0.3 % (0.0-1.0); %Eosinophils 1.2 % (0.0-10.0); %Lymphocytes 7.1 % (21.0-51.0); %Monocytes 11.5 % (0.0-10.0); Hematocrit 29.8 % (36.0-47.0); Hemoglobin 8.8 g/dL (12.0-16.0); Mean Corpuscular HGB CONC 29.5 g/dL (32.0-36.0); Mean Corpuscular Hemoglobin 27.5 pg (27.0-31.0); Mean Corpuscular Volume 93.1 fL (78.0-98.0); Mean Platelet Volume 9.4 fL (7.4-10.4); Platelet Count 219 10x3/uL (130-400); RBC Distribution Width 14.5 % (11.5-14.5)
[2024-04-23] MEDS: Ondansetron ODT 8 MG TAB SL PRN (04:41)
[2024-04-23 04:59] LABS: ALT (SGPT) 14 U/L (Less than 34); AST (SGOT) 20 U/L (11-34); Albumin 3.8 g/dL (3.1-4.5); Alkaline Phosphatase 67 U/L (40-110); Anion Gap 12 mmol/L (10-20); BUN (Urea Nitrogen) 31 mg/dL (9.8-20.1); Bilirubin, Total 0.6 mg/dL (0.3-1.2); Calc. Creatinine Clearance 40 mL/min (70-130); Calcium 8.7 mg/dL (7.8-10.44); Carbon Dioxide 30 mmol/L (23-31); Chloride 97 mmol/L (98-107); Estimated GFR 22; Globulin 3.3 g/dL (2.4-3.5); Glucose 184 mg/dL (80-115); Magnesium 2.1 mg/dL (1.6-2.6); Potassium 5.2 mmol/L (3.5-5.1); Protein, Total 7.1 g/dL (5.8-8.1); Sodium 134 mmol/L (136-145)
[2024-04-23] MEDS ORDERED: Heparin 10,000 UNITS/ 10 ML VIAL ONE (14:43)
[2024-04-24 04:40] LABS: #Basophils 0.05 10x3/uL (0.0-0.2); %Basophils 0.4 % (0.0-1.0); %Eosinophils 0.8 % (0.0-10.0); %Lymphocytes 8.3 % (21.0-51.0); %Monocytes 11.8 % (0.0-10.0); %Neutrophils 77.3 % (42.0-75.0); Hematocrit 27.2 % (36.0-47.0); Hemoglobin 8.1 g/dL (12.0-16.0); Mean Corpuscular HGB CONC 29.8 g/dL (32.0-36.0); Mean Corpuscular Hemoglobin 27.2 pg (27.0-31.0); Mean Corpuscular Volume 91.3 fL (78.0-98.0); Mean Platelet Volume 9.8 fL (7.4-10.4); Platelet Count 217 10x3/uL (130-400); RBC Distribution Width 14.5 % (11.5-14.5); Red Blood Cell (RBC) Count 2.98 mill/uL (4.20-5.40)
[2024-04-24 06:00] LABS: ALT (SGPT) 12 U/L (Less than 34); AST (SGOT) 21 U/L (11-34); Albumin 3.5 g/dL (3.1-4.5); Alkaline Phosphatase 64 U/L (40-110); Anion Gap 14 mmol/L (10-20); BUN (Urea Nitrogen) 43 mg/dL (9.8-20.1); Bilirubin, Total 0.5 mg/dL (0.3-1.2); Calc. Creatinine Clearance 29 mL/min (70-130); Calcium 8.5 mg/dL (7.8-10.44); Carbon Dioxide 25 mmol/L (23-31); Chloride 96 mmol/L (98-107); Estimated GFR 16; Globulin 3.1 g/dL (2.4-3.5); Glucose 192 mg/dL (80-115); Protein, Total 6.6 g/dL (5.8-8.1); Sodium 130 mmol/L (136-145)
[2024-04-24] MEDS: Insulin Glargine 30 UNITS/0.3 ML VIAL SC SCH ×2 (09:20→20:50)
[2024-04-24] MEDS: Insulin Lispro 100 UNIT/ML 10 ML VIAL SC SCH (09:21)
[2024-04-24] MEDS: Enoxaparin 100 MG (1 mL) SYRINGE SC SCH (09:23)
[2024-04-24] MEDS ORDERED: Insulin Lispro 100 UNIT/ML 10 ML VIAL SC SCH (12:00)
[2024-04-24] MEDS: ALPRAZolam 0.25 MG TAB PO SCH (14:34)
[2024-04-24] MEDS ORDERED: Heparin 10,000 UNITS/ 10 ML VIAL ONE (14:51)
[2024-04-24] MEDS: Doxycycline 100 MG CAP PO SCH (20:51)
[2024-04-24] MEDS: Metoclopramide HCl 10 MG (2 mL) VIAL IVP SCH (20:52)
[2024-04-25] MEDS ORDERED: Heparin 10,000 UNITS/ 10 ML VIAL ONE (09:15)
[2024-04-25 09:28] LABS: #Basophils 0.05 10x3/uL (0.0-0.2); %Basophils 0.4 % (0.0-1.0); %Eosinophils 1.5 % (0.0-10.0); %Monocytes 12.5 % (0.0-10.0); %Neutrophils 75.3 % (42.0-75.0); Hemoglobin 8.7 g/dL (12.0-16.0); Mean Corpuscular Hemoglobin 27.2 pg (27.0-31.0); Mean Corpuscular Volume 90.6 fL (78.0-98.0); Mean Platelet Volume 9.7 fL (7.4-10.4); Platelet Count 223 10x3/uL (130-400); RBC Distribution Width 14.6 % (11.5-14.5)
[2024-04-25 09:56] LABS: ALT (SGPT) 13 U/L (Less than 34); AST (SGOT) 19 U/L (11-34); Albumin 3.9 g/dL (3.1-4.5); Alkaline Phosphatase 65 U/L (40-110); Anion Gap 15 mmol/L (10-20); BUN (Urea Nitrogen) 28 mg/dL (9.8-20.1); Bilirubin, Total 0.7 mg/dL (0.3-1.2); Calc. Creatinine Clearance 33 mL/min (70-130); Calcium 8.7 mg/dL (7.8-10.44); Carbon Dioxide 30 mmol/L (23-31); Chloride 95 mmol/L (98-107); Estimated GFR 19; Globulin 3.1 g/dL (2.4-3.5); Glucose 232 mg/dL (80-115); Potassium 4.6 mmol/L (3.5-5.1); Sodium 135 mmol/L (136-145)
[2024-04-25] MEDS ORDERED: Tuberculin PPD 0.1 ML SYRINGE (10 TEST VIAL) I-DERMAL SCH (10:45)
[2024-04-25] MEDS: ALPRAZolam 0.25 MG TAB PO SCH (11:22)
[2024-04-25] MEDS: Albumin 25% 25 GM (100 mL) BOT IVPB SCH (21:49)
[2024-04-25] MEDS: Tuberculin PPD 0.1 ML SYRINGE (10 TEST VIAL) I-DERMAL SCH (21:51)
[2024-04-26 06:15] LABS: #Basophils 0.04 10x3/uL (0.0-0.2); %Basophils 0.3 % (0.0-1.0); %Lymphocytes 9.8 % (21.0-51.0); %Monocytes 12.8 % (0.0-10.0); %Neutrophils 75.2 % (42.0-75.0); Hemoglobin 8.6 g/dL (12.0-16.0); Mean Corpuscular HGB CONC 29.7 g/dL (32.0-36.0); Mean Corpuscular Hemoglobin 27.5 pg (27.0-31.0); Mean Corpuscular Volume 92.7 fL (78.0-98.0); Mean Platelet Volume 8.8 fL (7.4-10.4); Platelet Count 208 10x3/uL (130-400); Red Blood Cell (RBC) Count 3.13 mill/uL (4.20-5.40)
[2024-04-26 06:29] LABS: ALT (SGPT) 13 U/L (Less than 34); AST (SGOT) 21 U/L (11-34); Albumin 4.2 g/dL (3.1-4.5); Alkaline Phosphatase 63 U/L (40-110); Anion Gap 14 mmol/L (10-20); BUN (Urea Nitrogen) 27 mg/dL (9.8-20.1); Bilirubin, Total 0.8 mg/dL (0.3-1.2); Calc. Creatinine Clearance 68 mL/min (70-130); Calcium 9.2 mg/dL (7.8-10.44); Carbon Dioxide 30 mmol/L (23-31); Chloride 98 mmol/L (98-107); Estimated GFR 19; Globulin 3.1 g/dL (2.4-3.5); Glucose 167 mg/dL (80-115); Potassium 4.6 mmol/L (3.5-5.1); Protein, Total 7.3 g/dL (5.8-8.1); Sodium 137 mmol/L (136-145)
[2024-04-26] MEDS ORDERED: Apixaban 2.5 MG TAB PO SCH (09:00)
[2024-04-26] MEDS: Furosemide 100 MG (10 mL) VIAL SLOW IVP SCH (11:05)
[2024-04-26] MEDS ORDERED: Lidocaine 1% (PF) 30 ML VIAL ONE (11:06)
[2024-04-26] MEDS: DOPamine 400 MG/D5W 250 ML 250 ML IVPB SCH (11:54)
[2024-04-26] MEDS ORDERED: CEFAZOLIN 2 GM VIAL ONE (13:11)
[2024-04-26] MEDS ORDERED: Rocuronium Bromide 10 MG/ML (10ML VIAL) ONE (13:16)
[2024-04-26] MEDS ORDERED: fentaNYL 50 mcg/mL 1 mL Vial ONE ×2 (13:16→14:54)
[2024-04-26] MEDS ORDERED: Lidocaine 1% PF 5 ML VIAL ONE (13:16)
[2024-04-26] MEDS ORDERED: PROPOFOL 0 ML ONE (13:16)
[2024-04-26] MEDS ORDERED: Etomidate 40 MG (20 mL) VIAL ONE (13:17)
[2024-04-26] MEDS ORDERED: SUCCINYLCHOLINE/SOD CL,ISO/PF 200 MG/10 ML SYRINGE FS ONE (13:22)
[2024-04-26] MEDS ORDERED: DOPamine 400 MG/D5W 250 ML 250 ML IVPB PRN (13:26)
[2024-04-26] MEDS ORDERED: KETAMINE 100 MG/ML (5ML VIAL) ONE (13:34)
[2024-04-26] MEDS ORDERED: Albuterol HFA (OR) 200 PUFF INH ONE (13:35)
[2024-04-26] MEDS: Cephalexin 250 MG CAP PO SCH (13:38)
[2024-04-26] MEDS ORDERED: Midazolam HCl 2 mg/2 ml Vial ONE (13:47)
[2024-04-26] MEDS ORDERED: Morphine 4 MG/ML VIAL ONE (15:19)
[2024-04-26 15:37] LABS: Fungus Culture Final report (.); Fungus Culture Result 1 Candida albicans (.)
[2024-04-27] MEDS: fentaNYL 50 mcg/mL 1 mL Vial SLOW IVP PRN (00:22)
[2024-04-27 05:53] LABS: #Basophils 0.05 10x3/uL (0.0-0.2); %Basophils 0.4 % (0.0-1.0); %Eosinophils 1.6 % (0.0-10.0); %Lymphocytes 13.9 % (21.0-51.0); %Monocytes 14.7 % (0.0-10.0); %Neutrophils 68.5 % (42.0-75.0); Hematocrit 29.1 % (36.0-47.0); Hemoglobin 8.7 g/dL (12.0-16.0); Mean Corpuscular HGB CONC 29.9 g/dL (32.0-36.0); Mean Corpuscular Hemoglobin 27.6 pg (27.0-31.0); Mean Corpuscular Volume 92.4 fL (78.0-98.0); Mean Platelet Volume 9.2 fL (7.4-10.4); Platelet Count 218 10x3/uL (130-400); RBC Distribution Width 14.8 % (11.5-14.5); Red Blood Cell (RBC) Count 3.15 mill/uL (4.20-5.40)
[2024-04-27 06:09] LABS: ALT (SGPT) 10 U/L (Less than 34); AST (SGOT) 14 U/L (11-34); Alkaline Phosphatase 62 U/L (40-110); Anion Gap 17 mmol/L (10-20); BUN (Urea Nitrogen) 51 mg/dL (9.8-20.1); Bilirubin, Total 0.5 mg/dL (0.3-1.2); Calc. Creatinine Clearance 21 mL/min (70-130); Calcium 9.4 mg/dL (7.8-10.44); Carbon Dioxide 27 mmol/L (23-31); Chloride 96 mmol/L (98-107); Estimated GFR 12; Globulin 3.2 g/dL (2.4-3.5); Glucose 149 mg/dL (80-115); Potassium 4.8 mmol/L (3.5-5.1); Protein, Total 7.2 g/dL (5.8-8.1); Sodium 135 mmol/L (136-145)
[2024-04-27] MEDS ORDERED: Heparin 10,000 UNITS/ 10 ML VIAL ONE (09:52)
[2024-04-27 11:14] LABS: Fungitell Beta (1,3) D-Glucan Negative (.)
[2024-04-27] MEDS: traMADol HCl 50 MG TAB PO PRN (14:01)
[2024-04-27] MEDS: Metoclopramide HCl 10 MG TAB PO PRN (14:01)
[2024-04-27] MEDS: Cephalexin 250 MG CAP PO SCH (14:02)
[2024-04-27] MEDS: diphenhydrAMINE 25 MG CAP PO SCH (14:04)
[2024-04-28 07:10] LABS: #Basophils 0.08 10x3/uL (0.0-0.2); %Basophils 0.7 % (0.0-1.0); %Lymphocytes 12.3 % (21.0-51.0); %Monocytes 14.3 % (0.0-10.0); Hematocrit 29.9 % (36.0-47.0); Mean Corpuscular HGB CONC 30.1 g/dL (32.0-36.0); Mean Corpuscular Hemoglobin 27.6 pg (27.0-31.0); Mean Corpuscular Volume 91.7 fL (78.0-98.0); Mean Platelet Volume 9.6 fL (7.4-10.4); Platelet Count 205 10x3/uL (130-400); RBC Distribution Width 14.7 % (11.5-14.5); Red Blood Cell (RBC) Count 3.26 mill/uL (4.20-5.40)
[2024-04-28 07:34] LABS: ALT (SGPT) 8 U/L (Less than 34); AST (SGOT) 39 U/L (11-34); Alkaline Phosphatase 66 U/L (40-110); Anion Gap 20 mmol/L (10-20); BUN (Urea Nitrogen) 45 mg/dL (9.8-20.1); Bilirubin, Total 0.5 mg/dL (0.3-1.2); Calc. Creatinine Clearance 25 mL/min (70-130); Calcium 9.3 mg/dL (7.8-10.44); Carbon Dioxide 21 mmol/L (23-31); Chloride 98 mmol/L (98-107); Estimated GFR 14; Globulin 3.5 g/dL (2.4-3.5); Glucose 142 mg/dL (80-115); Potassium 5.5 mmol/L (3.5-5.1); Protein, Total 7.5 g/dL (5.8-8.1); Sodium 133 mmol/L (136-145)
[2024-04-28] MEDS: LOKELMA 10 GM PACKET PO SCH (08:44)
[2024-04-28] MEDS: Torsemide 100 MG TAB PO SCH (12:32)
[2024-04-28 16:13] LABS: Fungus Stain Final report (.); Fungus Stain Result 1 Yeast observed (.)
[2024-04-29 03:51] LABS: #Basophils 0.04 10x3/uL (0.0-0.2); %Basophils 0.4 % (0.0-1.0); %Eosinophils 1.7 % (0.0-10.0); %Lymphocytes 15.6 % (21.0-51.0); %Monocytes 14.3 % (0.0-10.0); %Neutrophils 67.3 % (42.0-75.0); Hematocrit 29.5 % (36.0-47.0); Mean Corpuscular HGB CONC 30.5 g/dL (32.0-36.0); Mean Corpuscular Hemoglobin 27.4 pg (27.0-31.0); Mean Corpuscular Volume 89.7 fL (78.0-98.0); Mean Platelet Volume 9.1 fL (7.4-10.4); Platelet Count 212 10x3/uL (130-400); RBC Distribution Width 14.6 % (11.5-14.5); Red Blood Cell (RBC) Count 3.29 mill/uL (4.20-5.40)
[2024-04-29 04:05] LABS: ALT (SGPT) Less than 7 U/L (Less than 34); AST (SGOT) 19 U/L (11-34); Albumin 3.9 g/dL (3.1-4.5); Alkaline Phosphatase 70 U/L (40-110); Anion Gap 17 mmol/L (10-20); BUN (Urea Nitrogen) 65 mg/dL (9.8-20.1); Bilirubin, Total 0.4 mg/dL (0.3-1.2); Calc. Creatinine Clearance 19 mL/min (70-130); Calcium 9.3 mg/dL (7.8-10.44); Carbon Dioxide 24 mmol/L (23-31); Chloride 94 mmol/L (98-107); Estimated GFR 10; Globulin 3.1 g/dL (2.4-3.5); Glucose 171 mg/dL (80-115); Potassium 4.9 mmol/L (3.5-5.1); Sodium 130 mmol/L (136-145)
[2024-04-29] MEDS ORDERED: Torsemide 100 MG TAB PO SCH (07:30)
[2024-04-29] MEDS ORDERED: Heparin 10,000 UNITS/ 10 ML VIAL ONE (10:29)
[2024-04-29 15:24] VITALS: BMI 40.4
[2024-04-29] MEDS: READ PPD TEST SITE PO SCH (20:42)
[2024-04-29] MEDS: Apixaban 5 MG TAB PO SCH (20:48)
[2024-04-30 03:53] LABS: #Basophils 0.07 10x3/uL (0.0-0.2); %Basophils 0.6 % (0.0-1.0); %Eosinophils 2.5 % (0.0-10.0); %Lymphocytes 17.4 % (21.0-51.0); %Monocytes 18.2 % (0.0-10.0); %Neutrophils 60.3 % (42.0-75.0); Hematocrit 30.7 % (36.0-47.0); Hemoglobin 9.4 g/dL (12.0-16.0); Mean Corpuscular HGB CONC 30.6 g/dL (32.0-36.0); Mean Corpuscular Hemoglobin 27.6 pg (27.0-31.0); Mean Platelet Volume 9.4 fL (7.4-10.4); Platelet Count 231 10x3/uL (130-400); RBC Distribution Width 14.7 % (11.5-14.5); Red Blood Cell (RBC) Count 3.41 mill/uL (4.20-5.40)
[2024-04-30 04:09] LABS: ALT (SGPT) Less than 7 U/L (Less than 34); AST (SGOT) 14 U/L (11-34); Albumin 3.9 g/dL (3.1-4.5); Alkaline Phosphatase 71 U/L (40-110); Anion Gap 15 mmol/L (10-20); BUN (Urea Nitrogen) 38 mg/dL (9.8-20.1); Bilirubin, Total 0.4 mg/dL (0.3-1.2); Calc. Creatinine Clearance 27 mL/min (70-130); Calcium 9.1 mg/dL (7.8-10.44); Carbon Dioxide 25 mmol/L (23-31); Chloride 96 mmol/L (98-107); Estimated GFR 15; Glucose 103 mg/dL (80-115); Potassium 4.3 mmol/L (3.5-5.1); Protein, Total 6.9 g/dL (5.8-8.1); Sodium 132 mmol/L (136-145)
[2024-04-30] MEDS: Torsemide 100 MG TAB PO SCH (09:02)
[2024-04-30] MEDS: Sacubitril 24MG/Valsartan 26 MG TAB PO SCH ×2 (12:23→20:39)
[2024-05-01 04:07] LABS: #Basophils 0.05 10x3/uL (0.0-0.2); %Basophils 0.4 % (0.0-1.0); %Eosinophils 2.2 % (0.0-10.0); %Lymphocytes 15.8 % (21.0-51.0); %Monocytes 15.7 % (0.0-10.0); %Neutrophils 64.9 % (42.0-75.0); Hematocrit 30.6 % (36.0-47.0); Hemoglobin 9.3 g/dL (12.0-16.0); Mean Corpuscular HGB CONC 30.4 g/dL (32.0-36.0); Mean Corpuscular Hemoglobin 26.9 pg (27.0-31.0); Mean Corpuscular Volume 88.4 fL (78.0-98.0); Mean Platelet Volume 9.4 fL (7.4-10.4); Platelet Count 238 10x3/uL (130-400); RBC Distribution Width 14.7 % (11.5-14.5); Red Blood Cell (RBC) Count 3.46 mill/uL (4.20-5.40)
[2024-05-01 04:23] LABS: ALT (SGPT) Less than 7 U/L (Less than 34); AST (SGOT) 12 U/L (11-34); Albumin 3.7 g/dL (3.1-4.5); Alkaline Phosphatase 76 U/L (40-110); Anion Gap 17 mmol/L (10-20); BUN (Urea Nitrogen) 56 mg/dL (9.8-20.1); Bilirubin, Total 0.4 mg/dL (0.3-1.2); Calc. Creatinine Clearance 21 mL/min (70-130); Calcium 9.2 mg/dL (7.8-10.44); Carbon Dioxide 23 mmol/L (23-31); Chloride 95 mmol/L (98-107); Estimated GFR 12; Glucose 155 mg/dL (80-115); Potassium 4.8 mmol/L (3.5-5.1); Protein, Total 6.7 g/dL (5.8-8.1); Sodium 130 mmol/L (136-145)
[2024-05-01] MEDS: Fluticasone Propionate Nasal Spray 16 gm Bottle NASAL SCH (10:22)
[2024-05-01] MEDS: Loratadine 10 MG TAB PO SCH (10:23)
[2024-05-01] MEDS: Bumetanide 1 MG TAB PO SCH ×2 (10:23→13:20)
[2024-05-01] MEDS: Sacubitril 24MG/Valsartan 26 MG TAB PO SCH (21:38)
[2024-05-02 04:34] LABS: #Basophils 0.06 10x3/uL (0.0-0.2); %Basophils 0.5 % (0.0-1.0); %Eosinophils 1.9 % (0.0-10.0); %Neutrophils 68.7 % (42.0-75.0); Hematocrit 31.3 % (36.0-47.0); Hemoglobin 9.5 g/dL (12.0-16.0); Mean Corpuscular HGB CONC 30.4 g/dL (32.0-36.0); Mean Corpuscular Hemoglobin 27.1 pg (27.0-31.0); Mean Corpuscular Volume 89.4 fL (78.0-98.0); Mean Platelet Volume 9.4 fL (7.4-10.4); Platelet Count 265 10x3/uL (130-400); RBC Distribution Width 14.6 % (11.5-14.5)
[2024-05-02 04:48] LABS: ALT (SGPT) 7 U/L (Less than 34); AST (SGOT) 16 U/L (11-34); Albumin 3.7 g/dL (3.1-4.5); Alkaline Phosphatase 75 U/L (40-110); Anion Gap 17 mmol/L (10-20); BUN (Urea Nitrogen) 87 mg/dL (9.8-20.1); Bilirubin, Total 0.4 mg/dL (0.3-1.2); Calc. Creatinine Clearance 20 mL/min (70-130); Calcium 9.3 mg/dL (7.8-10.44); Carbon Dioxide 24 mmol/L (23-31); Chloride 95 mmol/L (98-107); Estimated GFR 11; Globulin 3.1 g/dL (2.4-3.5); Glucose 153 mg/dL (80-115); Magnesium 2.2 mg/dL (1.6-2.6); Potassium 4.9 mmol/L (3.5-5.1); Protein, Total 6.8 g/dL (5.8-8.1); Sodium 131 mmol/L (136-145)
[2024-05-02] MEDS: Metoclopramide HCl 10 MG TAB PO SCH ×2 (08:45)
[2024-05-02] MEDS ORDERED: Fluticasone Propionate Nasal Spray 16 gm Bottle NASAL SCH (09:00)
[2024-05-02] MEDS: Albumin 25% 25 GM (100 mL) BOT IVPB SCH (10:16)
[2024-05-02] MEDS ORDERED: Heparin 10,000 UNITS/ 10 ML VIAL ONE (10:36)
[2024-05-02] MEDS: Fluticasone Propionate Nasal Spray 16 gm Bottle NASAL SCH (14:28)
[2024-05-02] MEDS: Metoprolol Succinate XL 25 MG ER.TAB PO SCH (18:27)
[2024-05-02] MEDS: Sacubitril 24MG/Valsartan 26 MG TAB PO SCH (20:42)
[2024-05-03] MEDS: Metoclopramide HCl 10 MG TAB PO PRN (02:08)
[2024-05-03 04:18] LABS: #Basophils 0.09 10x3/uL (0.0-0.2); %Basophils 0.7 % (0.0-1.0); %Eosinophils 2.4 % (0.0-10.0); %Lymphocytes 11.6 % (21.0-51.0); %Monocytes 16.4 % (0.0-10.0); %Neutrophils 67.7 % (42.0-75.0); Hematocrit 31.6 % (36.0-47.0); Hemoglobin 9.5 g/dL (12.0-16.0); Mean Corpuscular HGB CONC 30.1 g/dL (32.0-36.0); Mean Corpuscular Volume 89.8 fL (78.0-98.0); Mean Platelet Volume 9.1 fL (7.4-10.4); Platelet Count 272 10x3/uL (130-400); RBC Distribution Width 14.9 % (11.5-14.5); Red Blood Cell (RBC) Count 3.52 mill/uL (4.20-5.40)
[2024-05-03 04:44] LABS: ALT (SGPT) 8 U/L (Less than 34); AST (SGOT) 15 U/L (11-34); Albumin 3.8 g/dL (3.1-4.5); Alkaline Phosphatase 75 U/L (40-110); Anion Gap 16 mmol/L (10-20); BUN (Urea Nitrogen) 49 mg/dL (9.8-20.1); Bilirubin, Total 0.4 mg/dL (0.3-1.2); Calc. Creatinine Clearance 25 mL/min (70-130); Calcium 8.9 mg/dL (7.8-10.44); Carbon Dioxide 24 mmol/L (23-31); Chloride 97 mmol/L (98-107); Estimated GFR 14; Glucose 110 mg/dL (80-115); Magnesium 2.2 mg/dL (1.6-2.6); Potassium 4.7 mmol/L (3.5-5.1); Protein, Total 6.8 g/dL (5.8-8.1); Sodium 132 mmol/L (136-145)
[2024-05-03] MEDS: Sacubitril 24MG/Valsartan 26 MG TAB PO SCH (09:13)
[2024-05-03] MEDS: Loratadine 10 MG TAB PO PRN (20:55)
[2024-05-04 04:03] LABS: #Basophils 0.05 10x3/uL (0.0-0.2); %Basophils 0.4 % (0.0-1.0); %Eosinophils 1.9 % (0.0-10.0); %Lymphocytes 17.7 % (21.0-51.0); %Monocytes 15.6 % (0.0-10.0); %Neutrophils 63.5 % (42.0-75.0); Hematocrit 32.9 % (36.0-47.0); Hemoglobin 10.3 g/dL (12.0-16.0); Mean Corpuscular HGB CONC 31.3 g/dL (32.0-36.0); Mean Corpuscular Hemoglobin 27.2 pg (27.0-31.0); Mean Corpuscular Volume 86.8 fL (78.0-98.0); Mean Platelet Volume 9.2 fL (7.4-10.4); Platelet Count 290 10x3/uL (130-400); RBC Distribution Width 14.6 % (11.5-14.5); Red Blood Cell (RBC) Count 3.79 mill/uL (4.20-5.40)
[2024-05-04 04:29] LABS: ALT (SGPT) 10 U/L (Less than 34); AST (SGOT) 15 U/L (11-34); Albumin 3.8 g/dL (3.1-4.5); Alkaline Phosphatase 83 U/L (40-110); Anion Gap 15 mmol/L (10-20); BUN (Urea Nitrogen) 78 mg/dL (9.8-20.1); Bilirubin, Total 0.4 mg/dL (0.3-1.2); Calc. Creatinine Clearance 23 mL/min (70-130); Calcium 9.3 mg/dL (7.8-10.44); Carbon Dioxide 26 mmol/L (23-31); Chloride 95 mmol/L (98-107); Estimated GFR 13; Globulin 3.3 g/dL (2.4-3.5); Glucose 133 mg/dL (80-115); Magnesium 2.1 mg/dL (1.6-2.6); Potassium 5.1 mmol/L (3.5-5.1); Protein, Total 7.1 g/dL (5.8-8.1); Sodium 131 mmol/L (136-145)
[2024-05-04] MEDS: ALPRAZolam 0.25 MG TAB PO PRN (09:06)
[2024-05-04] MEDS ORDERED: Heparin 10,000 UNITS/ 10 ML VIAL ONE (15:27)
[2024-05-05 04:33] LABS: #Basophils 0.07 10x3/uL (0.0-0.2); %Basophils 0.6 % (0.0-1.0); %Eosinophils 2.1 % (0.0-10.0); %Lymphocytes 15.1 % (21.0-51.0); %Monocytes 16.8 % (0.0-10.0); %Neutrophils 64.4 % (42.0-75.0); Hematocrit 34.7 % (36.0-47.0); Hemoglobin 10.6 g/dL (12.0-16.0); Mean Corpuscular HGB CONC 30.5 g/dL (32.0-36.0); Mean Corpuscular Hemoglobin 27.3 pg (27.0-31.0); Mean Corpuscular Volume 89.4 fL (78.0-98.0); Platelet Count 266 10x3/uL (130-400); RBC Distribution Width 14.8 % (11.5-14.5); Red Blood Cell (RBC) Count 3.88 mill/uL (4.20-5.40)
[2024-05-05 04:54] LABS: ALT (SGPT) 10 U/L (Less than 34); AST (SGOT) 16 U/L (11-34); Albumin 3.7 g/dL (3.1-4.5); Alkaline Phosphatase 69 U/L (40-110); Anion Gap 15 mmol/L (10-20); BUN (Urea Nitrogen) 41 mg/dL (9.8-20.1); Bilirubin, Total 0.4 mg/dL (0.3-1.2); Calc. Creatinine Clearance 29 mL/min (70-130); Calcium 8.9 mg/dL (7.8-10.44); Carbon Dioxide 25 mmol/L (23-31); Chloride 95 mmol/L (98-107); Estimated GFR 17; Globulin 3.1 g/dL (2.4-3.5); Glucose 138 mg/dL (80-115); Magnesium 2.1 mg/dL (1.6-2.6); Potassium 4.6 mmol/L (3.5-5.1); Protein, Total 6.8 g/dL (5.8-8.1); Sodium 130 mmol/L (136-145)
[2024-05-05 11:54] VITALS: BP 149/75; TEMP 97.3
[2024-05-05] MEDS ORDERED: traMADol HCl 50 MG TAB PO PRN (14:03)
== END 2024-05-05 15:00 | DRG 291 ==
LOC: ERS 17:56 → ERHOLD 20:41 → IMCU/EMU 04-08 00:17 → PCU 04-22 16:44
PROVIDERS: ADMIT Family Medicine; ATTEND Family Medicine
DX: I11.0 Hypertensive heart disease with heart failure (principal); I50.43 Acute on chronic combined systolic (congestive) and diastolic (congestive) heart failure; J96.21 Acute and chronic respiratory failure with hypoxia; N17.9 Acute kidney failure, unspecified; I27.20 Pulmonary hypertension, unspecified; I48.91 Unspecified atrial fibrillation; F41.9 Anxiety disorder, unspecified; G47.00 Insomnia, unspecified; Z79.4 Long term (current) use of insulin; Z88.1 Allergy status to other antibiotic agents; Z88.5 Allergy status to narcotic agent; Z88.8 Allergy status to other drugs, medicaments and biological substances; Z91.018 Allergy to other foods; Z88.2 Allergy status to sulfonamides; Z79.899 Other long term (current) drug therapy; Z98.890 Other specified postprocedural states; Z90.89 Acquired absence of other organs; Z87.891 Personal history of nicotine dependence
CPT/HCPCS: 36415; 36416; 36573; 36600; 71045; 76604; 76770; 76999; 80053; 81001; 82570; 82728; 82805; 83540; 83550; 83735; 83880; 84145; 84156; 84300; 84443; 84481; 84484; 84540; 85025; 85520; 86141; 86704; 86706; 86803; 87070; 87086; 87102; 87205; 87206; 87340; 87428; 87449; 90935; 93005; 93010; 93306; 94640; 94660; 96374; A6258; C1751; C1752; C1769; G0257; J0613; J0696; J1250; J1265; J1642; J1644; J1650; J1815; J1940; J2060; J2250; J2260; J2270; J2272; J2405; J2704; J2765; J2916; J2919; J2997; J3010; J3475; J3490; J7050; J7512; J7620; P9047; Q0162; Q5105

== ENCOUNTER 2024-11-11 08:41 | Emergency (ER) | payer MEDICARE ==
[2024-11-11 09:25] LABS: Hematocrit 29.1 % (36.0-47.0); Hemoglobin 9.5 g/dL (12.0-16.0); Mean Corpuscular Hemoglobin 28.0 pg (27.0-31.0); Mean Corpuscular Volume 85.8 fL (78.0-98.0); Platelet Count 394 10x3/uL (130-400); Red Blood Cell (RBC) Count 3.39 mill/uL (4.20-5.40); White Blood Cell (WBC) Count 27.41 10x3/uL (4.8-10.8)
[2024-11-11 09:38] LABS: ALT (SGPT) 93 U/L (Less than 34); AST (SGOT) 106 U/L (11-34); Albumin 2.6 g/dL (3.1-4.5); Alkaline Phosphatase 203 U/L (40-110); Anion Gap 20 mmol/L (10-20); BUN (Urea Nitrogen) 84 mg/dL (9.8-20.1); Bilirubin, Total 0.3 mg/dL (0.3-1.2); Calc. Creatinine Clearance 0 mL/min (70-130); Calcium 9.8 mg/dL (7.8-10.44); Carbon Dioxide 24 mmol/L (23-31); Chloride 97 mmol/L (98-107); Globulin 4.4 g/dL (2.4-3.5); Glucose 130 mg/dL (80-115); Potassium 4.1 mmol/L (3.5-5.1); Sodium 137 mmol/L (136-145)
[2024-11-11 09:55] LABS: Anisocytosis SLIGHT = 6-15 cells HPF (0-5); Burr Cells SLIGHT = 2-5 cells HPF (0-1); Platelet Adequacy Comment Platelets Normal; Polychromasia SLIGHT = 2-3 cells HPF (0-2)
[2024-11-11 10:42] LABS: Bacteria/HPF None Seen HPF (None Seen); CAUTI Indications for Culture Fever or rigors; Glucose, Urine (Dipstick) Normal (Negative); Leukocyte Negative Leu/uL (Negative); Protein, Urine (Dipstick) Negative (Neg-Trace); RBC/HPF 0-3 HPF (0-3); Specific Gravity, Urine 1.018 (1.002-1.036); WBC/HPF 0-3 HPF (0-3)
[2024-11-11 10:43] LABS: Urine Culture Reflex No No
[2024-11-11] MEDS ORDERED: cefTRIAXone (ROCEPHIN) 1 GM VIAL ONE (10:46)
== END 2024-11-11 12:52 | disposition home or self-care (01) ==
LOC: ERS 08:41
DX: N17.9 Acute kidney failure, unspecified (principal); E11.22 Type 2 diabetes mellitus with diabetic chronic kidney disease; N18.6 End stage renal disease; I48.91 Unspecified atrial fibrillation; Z99.2 Dependence on renal dialysis; Z79.4 Long term (current) use of insulin
CPT/HCPCS: 71045; 80053; 81001; 83605; 84145; 84484; 85025; 87040; 87086; 87428; 93005; 94760; J0696; 36415; 51701; 96365

== ENCOUNTER 2024-12-23 08:53 | Inpatient (IN) | payer MEDICARE ==
[2024-12-23 09:47] LABS: #Basophils 0.04 10x3/uL (0.0-0.2); #Eosinophils 0.18 10x3/uL (0.0-0.7); #Monocytes 1.62 10x3/uL (0.11-0.59); #Neutrophils 6.83 10x3/uL (1.40-6.50); %Basophils 0.4 % (0.0-1.0); %Eosinophils 1.6 % (0.0-10.0); %Lymphocytes 21.9 % (21.0-51.0); %Monocytes 14.5 % (0.0-10.0); %Neutrophils 60.8 % (42.0-75.0); Hematocrit 36.2 % (36.0-47.0); Hemoglobin 11.1 g/dL (12.0-16.0); Mean Corpuscular Hemoglobin 27.9 pg (27.0-31.0); Mean Corpuscular Volume 91.0 fL (78.0-98.0); Platelet Count 242 10x3/uL (130-400); Red Blood Cell (RBC) Count 3.98 mill/uL (4.20-5.40); White Blood Cell (WBC) Count 11.21 10x3/uL (4.8-10.8)
[2024-12-23] MEDS ORDERED: Dextrose 50% Abboject 50 ML SYRINGE ONE ×3 (09:47→13:16)
[2024-12-23 10:49] LABS: ALT (SGPT) 24 U/L (Less than 34); AST (SGOT) 30 U/L (11-34); Albumin 3.6 g/dL (3.1-4.5); Alkaline Phosphatase 59 U/L (40-110); Anion Gap 17 mmol/L (10-20); BUN (Urea Nitrogen) 51 mg/dL (9.8-20.1); Bilirubin, Total 0.4 mg/dL (0.3-1.2); Calc. Creatinine Clearance 0 mL/min (70-130); Calcium 9.3 mg/dL (7.8-10.44); Carbon Dioxide 29 mmol/L (23-31); Chloride 98 mmol/L (98-107); Globulin 2.9 g/dL (2.4-3.5); Glucose 164 mg/dL (80-115); Potassium 3.6 mmol/L (3.5-5.1); Sodium 140 mmol/L (136-145)
[2024-12-23] MEDS: Glucagon 1 MG/ML KIT IM PRN (16:47)
[2024-12-23 16:54] VITALS: BMI 35.6
[2024-12-23] MEDS: Dextrose 50% Abboject 50 ML SYRINGE SLOW IVP PRN (18:44)
[2024-12-23 20:51] LABS: INR-International Normal Ratio 1.0; Prothrombin Time 13.6 sec (12.0-14.7)
[2024-12-24 05:20] LABS: #Basophils 0.05 10x3/uL (0.0-0.2); #Eosinophils 0.21 10x3/uL (0.0-0.7); #Monocytes 1.35 10x3/uL (0.11-0.59); #Neutrophils 8.50 10x3/uL (1.40-6.50); %Basophils 0.4 % (0.0-1.0); %Eosinophils 1.8 % (0.0-10.0); %Lymphocytes 12.3 % (21.0-51.0); %Monocytes 11.6 % (0.0-10.0); %Neutrophils 73.0 % (42.0-75.0); Hematocrit 34.2 % (36.0-47.0); Hemoglobin 10.5 g/dL (12.0-16.0); Mean Corpuscular Hemoglobin 28.5 pg (27.0-31.0); Mean Corpuscular Volume 92.9 fL (78.0-98.0); Platelet Count 185 10x3/uL (130-400); Red Blood Cell (RBC) Count 3.68 mill/uL (4.20-5.40); White Blood Cell (WBC) Count 11.64 10x3/uL (4.8-10.8)
[2024-12-24 05:40] LABS: ALT (SGPT) 21 U/L (Less than 34); AST (SGOT) 24 U/L (11-34); Albumin 3.0 g/dL (3.1-4.5); Alkaline Phosphatase 52 U/L (40-110); Anion Gap 18 mmol/L (10-20); BUN (Urea Nitrogen) 51 mg/dL (9.8-20.1); Bilirubin, Total 0.4 mg/dL (0.3-1.2); Calc. Creatinine Clearance 21 mL/min (70-130); Calcium 8.6 mg/dL (7.8-10.44); Carbon Dioxide 24 mmol/L (23-31); Chloride 97 mmol/L (98-107); Globulin 2.5 g/dL (2.4-3.5); Glucose 118 mg/dL (80-115); Potassium 3.6 mmol/L (3.5-5.1); Sodium 135 mmol/L (136-145)
[2024-12-24] MEDS: Losartan 25 MG TAB PO SCH (09:42)
[2024-12-24] MEDS: Acetaminophen 325 MG TAB PO SCH (09:45)
[2024-12-24] MEDS: Heparin 10,000 UNITS/ 10 ML VIAL SLOW IVP PRN (15:00)
[2024-12-24] MEDS ORDERED: Albuterol 2.5 MG (3 mL) NEB NEB PRN (17:20)
[2024-12-24] MEDS: Amiodarone 200 MG TAB PO SCH (21:25)
[2024-12-25] MEDS: Metoprolol Succinate XL 25 MG ER.TAB PO SCH (06:45)
[2024-12-25] MEDS: Acetaminophen 325 MG TAB PO SCH (09:42)
[2024-12-25] MEDS: Allopurinol 100 MG TAB PO SCH (09:43)
[2024-12-25] MEDS: Cholecalciferol 1,000 UNITS (25 MCG) TAB PO SCH (09:43)
[2024-12-25] MEDS: Aspirin 81 mg Enteric Coated Tablet PO SCH (09:45)
[2024-12-25] MEDS: EPOETIN ALFA-EPBX (ESRD) 10,000 UNITS/ML VIAL SC SCH (13:13)
[2024-12-26] MEDS: CYANOCOBALAMIN 50 MCG PO SCH (07:20)
[2024-12-26] MEDS: Magnesium Glycinate [Mag Glycinate] 100 MG Tablet PO SCH (07:21)
[2024-12-26 07:46] LABS: #Basophils 0.05 10x3/uL (0.0-0.2); #Eosinophils 0.28 10x3/uL (0.0-0.7); #Monocytes 1.35 10x3/uL (0.11-0.59); #Neutrophils 6.44 10x3/uL (1.40-6.50); %Basophils 0.4 % (0.0-1.0); %Eosinophils 2.5 % (0.0-10.0); %Lymphocytes 26.3 % (21.0-51.0); %Monocytes 12.1 % (0.0-10.0); %Neutrophils 57.7 % (42.0-75.0); Hematocrit 38.9 % (36.0-47.0); Hemoglobin 11.8 g/dL (12.0-16.0); Mean Corpuscular Hemoglobin 28.4 pg (27.0-31.0); Mean Corpuscular Volume 93.5 fL (78.0-98.0); Platelet Count 186 10x3/uL (130-400); Red Blood Cell (RBC) Count 4.16 mill/uL (4.20-5.40); White Blood Cell (WBC) Count 11.16 10x3/uL (4.8-10.8)
[2024-12-26 08:28] LABS: Anion Gap 16 mmol/L (10-20); BUN (Urea Nitrogen) 39 mg/dL (9.8-20.1); Calc. Creatinine Clearance 27 mL/min (70-130); Calcium 9.5 mg/dL (7.8-10.44); Carbon Dioxide 29 mmol/L (23-31); Chloride 96 mmol/L (98-107); Glucose 98 mg/dL (80-115); Potassium 4.8 mmol/L (3.5-5.1); Sodium 136 mmol/L (136-145)
[2024-12-26 09:38] LABS: Anion Gap 16 mmol/L (10-20); BUN (Urea Nitrogen) 39 mg/dL (9.8-20.1); Calc. Creatinine Clearance 28 mL/min (70-130); Calcium 9.2 mg/dL (7.8-10.44); Carbon Dioxide 28 mmol/L (23-31); Chloride 96 mmol/L (98-107); Glucose 109 mg/dL (80-115); Potassium 4.5 mmol/L (3.5-5.1); Sodium 135 mmol/L (136-145)
[2024-12-26 10:03] LABS: HBSAB Concentration Less than 8.00 mIU/mL; Hep B Core Total Ab NONREACTIVE (NonReactive); Hep B Core Total Index 0.08 S/CO (0-0.79); Hep B Surf Ag NONREACTIVE S/CO (NonReactive); Hep C IgG Ab NONREACTIVE S/CO (NonReactive); Hep C Index 0.11 S/CO (0-0.79)
[2024-12-27] MEDS ORDERED: Heparin 10,000 UNITS/ 10 ML VIAL ONE (12:56)
[2024-12-27] MEDS ORDERED: Bupivacaine 0.25% HCL 30 ML VIAL ONE (12:56)
[2024-12-27] MEDS ORDERED: CEFAZOLIN 2 GM VIAL ONE (14:38)
[2024-12-27] MEDS ORDERED: fentaNYL PF 100 MCG/2 ML SYRINGE ONE (14:46)
[2024-12-27] MEDS ORDERED: PHENYLEPHRINE-NS 100 MCG/ML 10 ML SYRINGE ONE (14:53)
[2024-12-27] MEDS ORDERED: PROPOFOL 200 MG/20 ML VIAL ONE (15:06)
[2024-12-28] MEDS: Heparin 10,000 UNITS/ 10 ML VIAL CATH PRN (19:08)
[2024-12-29 01:03] VITALS: BP 142/94; TEMP 98.1
[2024-12-31] MEDS ORDERED: TIRZEPATIDE 10 MG/0.5 ML SC SCH (09:00)
== END 2024-12-28 23:45 | disposition home or self-care (01) | DRG 314 ==
LOC: ERS 08:53 → MSONC 13:18 → OBSVTOIN 12-25 08:18
PROVIDERS: ADMIT Student in an Organized Health Care Education/Training Program; ATTEND Student in an Organized Health Care Education/Training Program
PROC: 06HN33Z Insertion of Infusion Device into Left Femoral Vein, Percutaneous Approach (ICD-10-PCS; 2024-12-23)
PROC: 5A1D70Z Performance of Urinary Filtration, Intermittent, Less than 6 Hours Per Day (ICD-10-PCS; 2024-12-24)
PROC: 0JH63XZ Insertion of Tunneled Vascular Access Device into Chest Subcutaneous Tissue and Fascia, Percutaneous Approach (ICD-10-PCS; principal; 2024-12-27)
PROC: 05HY33Z Insertion of Infusion Device into Upper Vein, Percutaneous Approach (ICD-10-PCS; 2024-12-27)
DX: T82.898A Other specified complication of vascular prosthetic devices, implants and grafts, initial encounter (principal); N18.6 End stage renal disease; E27.1 Primary adrenocortical insufficiency; I42.9 Cardiomyopathy, unspecified; I50.42 Chronic combined systolic (congestive) and diastolic (congestive) heart failure; J96.10 Chronic respiratory failure, unspecified whether with hypoxia or hypercapnia; E11.649 Type 2 diabetes mellitus with hypoglycemia without coma; I48.91 Unspecified atrial fibrillation; I27.20 Pulmonary hypertension, unspecified; Z91.030 Bee allergy status; Z88.5 Allergy status to narcotic agent; Z88.0 Allergy status to penicillin; Z88.2 Allergy status to sulfonamides; Z88.8 Allergy status to other drugs, medicaments and biological substances; Z91.018 Allergy to other foods; Z79.899 Other long term (current) drug therapy; Z87.891 Personal history of nicotine dependence; E78.5 Hyperlipidemia, unspecified; E03.9 Hypothyroidism, unspecified; F41.9 Anxiety disorder, unspecified; F43.10 Post-traumatic stress disorder, unspecified; Z98.890 Other specified postprocedural states; G47.00 Insomnia, unspecified; D64.9 Anemia, unspecified; K74.60 Unspecified cirrhosis of liver; F32.A Depression, unspecified; G89.29 Other chronic pain; D63.1 Anemia in chronic kidney disease; M10.9 Gout, unspecified
CPT/HCPCS: 36415; 36416; 71045; 80048; 80053; 85025; 85610; 86704; 86706; 86803; 87340; 90935; 96361; 96372; 96374; 96375; 96376; C1752; G0257; G0378; J0169; J0665; J1611; J1644; J1815; J2250; J2704; J7512; J7999; Q5105

== ENCOUNTER 2025-01-02 05:49 | Day surgery (SDC) | payer MEDICARE ==
[2024-12-27 11:30] VITALS: BMI 35.3
[2025-01-02] MEDS ORDERED: Lidocaine 1% PF 5 ML VIAL ONE (06:55)
[2025-01-02] MEDS ORDERED: fentaNYL PF 100 MCG/2 ML SYRINGE ONE (06:55)
[2025-01-02] MEDS ORDERED: Hydrocortisone Sod Succ/PF 100 mg/2 ml Vial ONE (06:55)
[2025-01-02] MEDS ORDERED: Ondansetron PF 4 MG/2 ML Vial ONE (06:55)
[2025-01-02] MEDS ORDERED: Rocuronium Bromide 10 MG/ML (10ML VIAL) ONE (06:55)
[2025-01-02 07:02] LABS: Anion Gap 18 mmol/L (10-20); BUN (Urea Nitrogen) 43 mg/dL (9.8-20.1); Calc. Creatinine Clearance 18 mL/min (70-130); Calcium 9.3 mg/dL (7.8-10.44); Carbon Dioxide 25 mmol/L (23-31); Chloride 101 mmol/L (98-107); Glucose 126 mg/dL (80-115); Potassium 4.2 mmol/L (3.5-5.1); Sodium 140 mmol/L (136-145)
[2025-01-02] MEDS ORDERED: Lidocaine 1% (PF) 30 ML VIAL ONE ×2 (07:03→08:29)
[2025-01-02] MEDS ORDERED: Heparin 5,000 UNITS/ML VIAL ONE (07:03)
[2025-01-02] MEDS ORDERED: Bupivacaine 0.25% HCL 30 ML VIAL ONE (07:03)
[2025-01-02 07:07] LABS: INR-International Normal Ratio 1.0; PTT 30.2 sec (22.9-36.1); Prothrombin Time 13.4 sec (12.0-14.7)
[2025-01-02] MEDS ORDERED: CEFAZOLIN 2 GM VIAL ONE (07:37)
[2025-01-02] MEDS ORDERED: Glycopyrrolate 0.2 MG/ML 5 ML SYRINGE ONE (08:13)
[2025-01-02] MEDS ORDERED: Phenylephrine 40 MG/NS 250 ML 250 ML ONE (08:20)
[2025-01-02] MEDS ORDERED: Ketamine In 0.9 % NaCl 50 MG/5 ML SYRINGE ONE (08:20)
[2025-01-02] MEDS ORDERED: Heparin 10,000 UNITS/ 10 ML VIAL ONE (08:53)
== END 2025-01-02 11:15 | disposition home or self-care (01) ==
LOC: SDC 05:49
PROVIDERS: ATTEND Surgery
PROC: 03180JD Bypass Left Brachial Artery to Upper Arm Vein with Synthetic Substitute, Open Approach (ICD-10-PCS; principal; 2025-01-02)
DX: I12.0 Hypertensive chronic kidney disease with stage 5 chronic kidney disease or end stage renal disease (principal); E11.22 Type 2 diabetes mellitus with diabetic chronic kidney disease; N18.6 End stage renal disease; E78.5 Hyperlipidemia, unspecified; Z99.2 Dependence on renal dialysis; Z79.899 Other long term (current) drug therapy; Z91.030 Bee allergy status; Z88.1 Allergy status to other antibiotic agents; Z88.5 Allergy status to narcotic agent; Z88.0 Allergy status to penicillin; Z88.8 Allergy status to other drugs, medicaments and biological substances; Z87.891 Personal history of nicotine dependence
CPT/HCPCS: 36830; 80048; 85610; 85730; C1713; J1100; J1644 ×2; J1720; J2003; J2250; J2405; J2720; J3373; J3490; J0169; J0665